=== PATIENT | female | born 1935 | race Caucasian/White ===

== ENCOUNTER → 2017-04-21 11:49 | Outpatient (CLI) | payer MEDICARE, SELFPAY ==
[2017-04-21 14:38] LABS: AST(SGOT) 17 U/L (15-37); Alanine Aminotransfer ALT/SGPT 31 U/L (13-56); Albumin, Serum 3.5 g/dL (3.2-5.0); Alkaline Phosphatase 82 U/L (45-117); Anion Gap 9 (5-15); BUN 21 mg/dL (7-18); BUN/Creat Ratio 21.6 RATIO (10-20); Calcium,Total 9.7 mg/dL (8.5-10.1); Chloride 103 mmol/L (98-107); Creatinine, Serum 0.97 mg/dL (0.55-1.02); EST Glomerular Filtration Rate 59 mL/min (>60); Est Glom Filt Rate - Afr Amer 71 mL/min (>60); Free T3 2.5 pg/mL (2.18-3.98); Globulin 3.5 g/dL (2.2-4.2); Glucose 80 mg/dL (74-106); Potassium 4.2 mmol/L (3.5-5.1); Sodium Level 142 mmol/L (136-145); T4 Free Direct 0.96 ng/dL (0.76-1.46)
== END ==
PROVIDERS: Family Provider Family Medicine; PCP Family Medicine; Visit Provider Internal Medicine Endocrinology, Diabetes & Metabolism
DX: E04.2 Nontoxic multinodular goiter (principal)
CPT/HCPCS: 36415; 80053; 84439; 84443; 84481

== ENCOUNTER → 2017-05-01 09:22 | Outpatient (CLI) | payer MEDICARE, SELFPAY ==
--- NOTE | 2017-05-01 09:25 | US_ITS ---
STUDY: THYROID ULTRASOUND REASON FOR EXAM: Female, 81 years old. Multiple nodules, assess stability. TECHNIQUE: Ultrasound evaluation of the thyroid was performed with real-time and static sosa-scale imaging. COMPARISON: 21 April 2016 FINDINGS: RIGHT LOBE: The right lobe of the thyroid gland measures 4.8 x 2.6 x 2.4 cm. There is a heterogeneous echotexture. Multiple hypoechoic nodules within the upper and mid right thyroid gland measuring 1.4 x 1.5 x 0.7 cm, 0.6 x 0.6 x 0.6 cm with noted peripheral calcification, 0.6 x 0.5 x 0.3 cm, 0.6 x 0.6 x 0.3 cm, and 0.5 x 0.5 x 0.4 cm. LEFT LOBE: The left lobe of the thyroid gland measures 4.9 x 2.7 x 2.2 cm. There is a heterogeneous echotexture. Multiple hypoechoic nodules throughout the thyroid gland are noted measuring 0.6 x 0.5 x 0.6 cm with noted calcification, 1.4 x 1.5 x 0.7 cm, 1.3 x 1.3 x 1.0 cm, 1.1 x 1.2 x 1.0 cm, and 1.4 x 0.9 x 0.8 cm. ISTHMUS: The isthmus measures 5 . The regional lymph nodes are normal. US/Thyroid IMPRESSION: 1. Diffuse hypoechoic nodules of the bilateral heterogeneous thyroid glands as above. Compared to 21 April 2016 there is a similar heterogeneous and nodular appearance. Electronically Signed: Ricardo Albrecht DO at 22:23 EST , Service support ,
== END ==
PROVIDERS: Family Provider Family Medicine; PCP Family Medicine; Visit Provider Internal Medicine Endocrinology, Diabetes & Metabolism
DX: E04.2 Nontoxic multinodular goiter (principal)
CPT/HCPCS: 76536

== ENCOUNTER → 2017-06-14 08:01 | Outpatient (CLI) | payer MEDICARE, SELFPAY ==
--- NOTE | 2017-06-14 08:22 | RAD_ITS ---
STUDY: BARIUM ENEMA. REASON FOR EXAM: Female, 81 years old. 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 Past history of the ovarian and breast cancer. FLUOROSCOPY TIME (if supplied): (0:48) minutes/seconds TECHNIQUE: A investigator welfare film was obtained. Following this, barium was introduced retrograde through the rectum. A barium enema was then performed. COMPARISON: None. FINDINGS: On the investigator welfare film, the gas pattern is unremarkable. There is evidence of multilevel disc space narrowing and spondylosis of the lumbar spine with levoconvex scoliosis. The patient is status post right total hip replacement. Barium was introduced retrograde through the rectum. The patient was unable to retain the barium. The left hemicolon was opacified. No mass lesion or stricture is seen. RAD/Barium Enema No Air Cont IMPRESSION: Limited examination due to patient inability to retain the barium. No significant abnormality is seen. Electronically Signed: Silvino Chris MD at 9:43 EDT Tel [phone], Service support ,
== END ==
PROVIDERS: Family Provider Family Medicine; PCP Family Medicine; Visit Provider Internal Medicine Gastroenterology
DX: K56.699 Other intestinal obstruction unspecified as to partial versus complete obstruction (principal)
CPT/HCPCS: 74270

== ENCOUNTER → 2017-08-21 09:22 | Outpatient (CLI) | payer MEDICARE, SELFPAY ==
[2017-08-21 12:38] LABS: Cholesterol 166 mg/dL (200); High Density Lipoprotein 57 mg/dL; Triglycerides 168 mg/dL; Very Low Density Lipoprotein 34 mg/dL (5-40)
[2017-08-21 12:42] LABS: Hemoglobin A1c 5.4 % (4.2-6.3)
== END ==
PROVIDERS: Family Provider Family Medicine; PCP Family Medicine; Visit Provider Family Medicine
DX: E78.5 Hyperlipidemia, unspecified (principal); R73.09 Other abnormal glucose
CPT/HCPCS: 36415; 80061; 83036

== ENCOUNTER → 2017-11-29 16:24 | Outpatient (CLI) | payer MEDICARE, SELFPAY ==
--- NOTE | 2017-11-29 16:26 | BI_ITS ---
MAMMOGRAPHY - BILATERAL SCREENING REASON FOR EXAM: Female, 81 years old. Routine annual screening examination. PERTINENT HISTORY: Screening-V76.12SReason for Procedure (BI) - PERSONAL HX @ AGE 65 WITH RT LUMPECTOMY, RADIATION, Tamp;amp; TOMOXIFEN - LT STEREO BX 11/21/16 TECHNIQUE: Digital bilateral breast nick (3D mammographic acquisition) in the CC and MLO projections. 2-D mediolateral oblique (MLO) and craniocaudad (CC) views of both breasts were obtained. CAD: Full Field Digital Mammography with Computer Added Detection was performed. COMPARISON: Nov 15 2016 9:57am FINDINGS: Breast Composition: The breasts are heterogeneously dense, which may obscure small masses. Clustering of microcalcification is once again seen in the mid deep portion of the left breast. These most likely are vascular in nature. One cluster has been biopsied on 11/21/2016. No other significant abnormalities are identified. BI/SCREENING MAMM (CAD), BILAT IMPRESSION: Stable bilateral screening mammogram. Yearly follow-up mammogram recommended. (A) ASSESSMENT CATEGORY: BIRADS Category 2: Benign. A letter regarding these results will be sent to the patient by the facility within 30 days. Approximately 10% of breast cancers are not detected by mammography. A normal mammogram should not delay biopsy of a clinically suspicious abnormality. [id number] Electronically Signed: Ras Foster MD at 15:08 EDT Tel , Service support ,
== END ==
PROVIDERS: Family Provider Family Medicine; PCP Family Medicine; Referring Provider Nurse Practitioner Family; Visit Provider Nurse Practitioner Family
DX: Z12.31 Encounter for screening mammogram for malignant neoplasm of breast (principal)
CPT/HCPCS: 77063; 77067

== ENCOUNTER → 2018-02-07 10:55 | Outpatient (CLI) | payer MEDICARE, SELFPAY ==
[2017-11-07 10:28] VITALS: BMI 32.2
--- NOTE | 2018-02-07 11:15 | BD_ITS ---
STUDY: DUAL ENERGY X-RAY ABSORPTIOMETRY / DXA REASON FOR EXAM: Female, 82 years old. The patient is postmenopausal. Loss of height. The patient has a history of breast cancer and ovarian cancer. TECHNIQUE: Bone Mineral Density (BMD) measurements of lumbar spine and left hip were obtained. COMPARISON: Comparison is made with prior study dated December 06, 2011. FINDINGS: Lumbar Spine (L1-L4): g/cm2 (1.116) / T-score (-0.4) / Z-score (1.4) Findings are suggestive of normal bone density with a low fracture risk. Increased thoracic kyphosis. Left Femur Total: g/cm2 (0.780) / T-score (-1.8) / Z-score (0.2) Left Femoral Neck: g/cm2 (0.827) / T-score (-1.5) / Z-score (0.6) The T-Scores on the most recent prior examination were: Lumbar Spine (L1-L4): There has been improvement of bone density since the previous examination. Left Femur Total: which represents a worsening of 7.3%. Right Femur Total: . BD/Dexa Bone Density Study IMPRESSION: The patient is considered osteopenic as outlined below according to World Man Organization (WHO) criteria with a moderate fracture risk. There has been worsening of bone density since the previous examination. Reference Information: The T-score is the number of standard deviations above or below the standard which is normal for young adults at their peak bone mineral density. The World Health Organization (WHO) interprets the T-scores as follows: Above -1 Normal bone density Between -1 and -2.5 Osteopenia Equal to / or below -2.5 Osteoporosis As a practical clinical guideline, osteopenia may be graded as follows: Mild -1 through -1.5 Moderate -1.6 through -2.0 Severe -2.1 through -2.4 The Z-score is the number of standard deviations above or below age-matched controls. A Z-score of less than -1.5 would be considered abnormal. References: 1. NIH Osteoporosis and Related Bone Diseases http://www.osteo.org 2. International Society for Clinical Densitometry http://www.iscd.org 3. National Osteoporosis Foundation http://www.nof.org Electronically Signed: Silvino Chris MD at 9:14 EST Tel [phone], Service support ,
--- OUTSIDE RECORDS SUMMARY | 2018-03-26 13:18 | XMS RPT_ITS ---
:1935 Author Organization OHIP Support Name Relationship Address Phone ELEUTERIO GREGORIA Unavailable [address] + [place] [address] ROMANA, SHADY Unavailable Unavailable + R Unavailable Unavailable Unavailable ELEUTERIO, GREGORIA Unavailable [address] + [place] [address] ROMANA, SHADY Unavailable Unavailable + R Unavailable Unavailable Unavailable ELEUTERIO, GREGORIA Unavailable [address] + [place] [address] ROMANA, SHADY Unavailable Unavailable + R Unavailable Unavailable Unavailable ELEUTERIO, GREGORIA Unavailable [address] + [place] [address] ROMANA, SHADY Unavailable Unavailable + R Unavailable Unavailable Unavailable ELEUTERIO, GREGORIA Unavailable [address] + [place] [address] ROMANA, SHADY Unavailable Unavailable + R Unavailable Unavailable Unavailable ELEUTERIO, GREGORIA Unavailable [address] + [place] [address] ROMANA, SHADY Unavailable Unavailable + R Unavailable Unavailable Unavailable ELEUTERIO, GREGORIA Unavailable [address] + [place] [address] ROMANA, SHADY Unavailable Unavailable + R Unavailable Unavailable Unavailable ELEUTERIO, GREGORIA Unavailable [address] + [place] [address] ROMANA, SHADY Unavailable Unavailable + [place] [address] R Unavailable Unavailable Unavailable ELEUTERIO, GREGORIA Unavailable [address] + [place] [address] ROMANA, SHADY Unavailable Unavailable + [place] [address] R Unavailable Unavailable Unavailable ELEUTERIO, GREGORIA Unavailable [address] + [place] [address] ROMANA, SHADY Unavailable Unavailable + [place] [address] R Unavailable Unavailable Unavailable ELEUTERIO, GREGORIA Unavailable [facility] [address] + [place] [address] ROMANA, SHADY Unavailable Unavailable + [place] [address] R Unavailable Unavailable Unavailable ELEUTERIO, GREGORIA Unavailable [address] + [place] [address] ROMANA, SHADY Unavailable Unavailable + [place] [address] R Unavailable Unavailable Unavailable ELEUTERIO, GREGORIA Unavailable [facility] [address] + [place] [address] ROMANA, SHADY Unavailable . + [place] [address] R Unavailable Unavailable Unavailable Care Team Providers Name Role Phone Heike, Latasha Attending Unavailable Malys, Britany Referring Unavailable Malys, Britany Primary Care Unavailable Heike, Latasha Consulting Unavailable LasMilton mckenziein Attending Unavailable Laskey, Guanaco Referring Unavailable Malys, Britany Primary Care Unavailable Heike, Latasha Attending Unavailable Malys, Britany Primary Care Unavailable Malys, Britany Referring Unavailable Raghunathan, Eulalia N. Attending Unavailable Malys, Britany Primary Care Unavailable Raghunathan, Eulalia N. Attending Unavailable Raghunathan, Eulalia N. Referring Unavailable Malys, Britany Primary Care Unavailable Malys, Britany Attending Unavailable Malys, Britany Primary Care Unavailable Heike, Latasha Attending Unavailable Malys, Britany Referring Unavailable Malys, Britany Primary Care Unavailable Heike, Latasha Consulting Unavailable Jabour, Vincent Attending Unavailable Jabour, Vincent Referring Unavailable Malys, Britany Primary Care Unavailable Heike, Latasha Attending Unavailable Malys, Britany Referring Unavailable Malys, Britany Primary Care Unavailable Heike, Latasha Consulting Unavailable Malys, Britany Attending Unavailable Malys, Britany Referring Unavailable Malys, Britany Primary Care Unavailable Heike, Latasha Attending Unavailable Malys, Britany Referring Unavailable Malys, Britany Primary Care Unavailable Heike, Latasha Consulting Unavailable Heike, Latasha Attending Unavailable Heike, Latasha Referring Unavailable Malys, Britany Primary Care Unavailable Malys, Britany Attending Unavailable Malys, Britany Primary Care Unavailable PROBLEMS PROBLEMS DATE TYPE CONDITION / CODE ATTENDING STATUS SOURCE 03/06/2018 Unknown C56.9 - Malignant Guanaco Keys Active [facility] unspecified ovary Hospital / C56.9(ICD-10) Repository 03/01/2018 Unknown R10.11 - Right Britany Fleming Active [facility] upper quadrant Community pain / Hospital R10.11(ICD-10) Repository 02/13/2018 Unknown Z85.43 - Personal Heike, Latasha Active [facility] history of [facility] malignant neoplasm Hospital of ovary / Repository Z85.43(ICD-10) 02/07/2018 Unknown M81.0 - Britany Fleming Active [facility] Age-related [facility] osteoporosis Hospital without current Repository pathological fracture / M81.0(ICD-10) 11/20/2017 Unknown Z12.31 - Encounter Heike, Latasha Active [facility] for screening Community mammogram for Hospital malignant neoplasm Repository of breast / Z12.31(ICD-10) 11/20/2017 Unknown Z85.3 - Personal Heike, Latasha Active [facility] history of Community malignant neoplasm Hospital of breast / Repository Z85.3(ICD-10) 08/21/2017 Unknown R73.09 - Other Britany Fleming Active [facility] abnormal glucose / Community R73.09(ICD-10) Hospital Repository 08/21/2017 Unknown E78.5 - Britany Fleming Active [facility] Hyperlipidemia, Community unspecified / Hospital E78.5(ICD-10) Repository PROCEDURES PROCEDURES No Procedure Records FoundRESULTS RESULTS ABDOMEN/PELVIS WITH Observed: 03/06/2018 Status: F Source: [place] CONTRAST 1:23 PM [facility] REPOSITORY [facility] Imaging Services [address] [place] [address] Abdomen/Pelvis WITH Contrast MR#: [id number] Acct: [id number] Name: MARIA VICTORIA JENNINGS Rep #: [id number] : 1935 F 82 From: Silvino Chris MD PCP: Britany Fleming DO Status: REG CLI Study: Abdomen/Pelvis WITH Contrast Date of Exam: 03/06/18 Exam# [id number] Ordering Dr: Guanaco Keys MD STUDY: CT ABDOMEN AND PELVIS WITH CONTRAST REASON FOR EXAM: Female, 82 years old. History of ovarian carcinoma. Follow-up examination. RADIATION DOSAGE (If Supplied By Facility): CTDIvol = ( 21.84 ) mGy, DLP = ( 1040.58 ) mGycm TECHNIQUE: Transaxial images were obtained from the dome of the diaphragm to the symphysis pubis with oral contrast. 100ML ml of Isovue 300 contrast was administered. Sagittal and coronal images were reconstructed. Individualized dose optimization techniques were used for this CT. COMPARISON: Comparison is made with prior study dated April 27, 2016. FINDINGS: There is a 1.5 cm calcified granuloma in the left lower lobe. A dual-chamber pacemaker is seen. There is calcification of the mitral valve annulus. There is decreased attenuation of the liver consistent with steatosis. The patient is status post cholecystectomy. There are multiple benign calcified granulomata of the spleen. Normal pancreas. Normal bilateral adrenal glands. Normal right kidney. Normal left kidney. There is a small hiatal hernia. Normal small intestine. Normal colon. The appendix is visualized and appears normal. There is diffuse atherosclerotic calcification of the abdominal aorta, without a demonstrated aneurysm. Normal inferior vena cava. Once again, is evidence of dense coarse calcifications in the left of the mesentery. Once again, there is evidence of stranding and circumferential mesenteric tethering at that site. This is essentially unchanged. Multiple small mesenteric lymph nodes. Normal urinary bladder. There is absence of the uterus consistent with a prior hysterectomy. Normal abdominal wall. There are diffuse degenerative changes of the visualized lumbar spine. Stable grade 1 anterolisthesis of L4 on L5. Status post right total hip replacement. Complete collapse of the L1 vertebrae. CT/Abdomen/Pelvis WITH Contrast IMPRESSION: Stable examination. Electronically Signed: Silvino Chris MD at 13:32 EST Tel [phone], Service support , CC: Britany Fleming DO; Guanaco Keys M.D. Chimney Builder Helper: Signed ONCOLOGY VISIT REPORT Observed: 02/13/2018 Status: F Source: [place] 4:42 PM [facility] [place] [place] REPOSITORY [facility] [place] [place] [address] OFFICE VISIT Date of Service: 02/13/18 1633 MR#: [id number] Acct: [id number] Name: MARIA VICTORIA JENNINGS Rep #: [id number] : 1935 From: Latasha LOPEZ Age/Sex: 82/F Location: OMD Status: Signed Subjective - Date of Service Date of Service:: 02/13/18 - Chief Complaint Follow-up ovarian cancer - History of Present Illness History of Present Illness: MARIA VICTORIA JENNINGS is a very pleasant 80 F with a history for Ms. Aldair is a very pleasant 82-year-old woman with a history for right-sided breast cancer diagnosed in 2001 status post lumpectomy with adjuvant radiation and hormonal therapy, including tamoxifen and anastrozole completed in 2006. The patient had been in her usual state of health; until she was diagnosed with a longstanding history of lymphopenia and ultimately was referred to hematology/oncology in consultation on 06/17/2015. During that visit, the patient had an extensive evaluation by way of CBC, CMP, LDH, uric acid, SPEP, UPEP, beta-2 microglobulin, hepatitis panel, HIV antibody, EBV PCR and flow cytometry, which were all unremarkable with the exception of a mildly-elevated beta- 2 microglobulin level. Otherwise, the patient was noted to have bilateral neck lesions on palpation and was referred for a CT of the neck, chest, abdomen and pelvis in June of 2015, which demonstrated several thyroid nodules, spiculated right-sided breast microcalcifications, omental metastases, and a right adnexal mass. Ca125 returned elevated at 44.5 on 07/22/15. Thus underwent CT guided omental biopsy 08/04/15, pathology of which returned positive for metastatic carcinoma . The patient initiated neoadjuvant chemotherapy with carboplatin AUC 6 and paclitaxel 175 mg/m2 on 08/26/2015, both at 25% dose attenuation given every 21 days and was provided with Neulasta support. Completed cycle 3 of carboplatin/paclitaxel on 10/07/2015 with good tolerance. The patient underwent a hysterectomy and left salpingo-oophorectomy with Dr. Keys on 11/03/2015, which demonstrated exceptional response. She went on to complete 3 cycles of adjuvant carboplatin/paclitaxel 12/09/2015-01/20/2016. CA125 was 5.2 on 11/03/2016. She declined referral to genetic counseling. She was found to have abnormal Left abnormal mammogram in September 2016, diagnostic mammogram 11/15/16 BIRADS category 4. Underwent stereotactic left breast biopsy 11/21/[address] Lopez, which proved negative for malignancy. - Interval History Patient is presenting to clinic today for routine 3-month follow-up and denies any concerns related to today's visit. Specifically she denies headaches, dysphagia, chest pain, shortness of breath, cough, abdominal pain, bloating, changes in her bowel habits and any incidence of vaginal bleeding. Patient reports she has follow-up appointment with Dr. Keys tomorrow. - Past Medical/Social History Past Medical History Past Medical History: Depression,Hyperlipidemia,Hypertension, Osteopenia Cancer: Breast cancer,Ovarian cancer Past Surgical History Surgical: Cataract extraction,Cholecystectomy,Hip replacement,Hysterectomy,Knee replacement,Port placement Other Surgical History: Laminectomy and fusion L4-5 Left foot surgery Back surgery synovial cyst Right arm lymphectomy Right breast excisional Bx L wrist repair Family History Paternal Past Medical History: Heart disease,Hypertension Maternal Past Medical History: Hypertension,Stroke Social History Social History: No changes Smoking Status Never smoker Review of Systems Constitutional:: Reports: Fatigue. Denies: Fever, Sweats, Weight loss, Appetite change, Chills Cardiovascular:: Denies: Chest pain, Palpitations, Dyspnea on exertion, Orthopnea, PND, Shortness of breath Respiratory: Denies: Cough, Hemoptysis, Shortness of Breath, Wheezing Gastrointestinal:: Denies: Abdominal pain, Nausea, Vomiting, Diarrhea, Constipation, Hematochezia Genitourinary: Denies: Dysuria, Hematuria, 15, Flank pain Musculoskeletal:: Denies: Back pain, Myalgia, Arthralgia Skin: Denies: Rash, Skin Changes, Wounds Neurological:: Denies: Headache, Dizziness, Numbness, Tingling, Visual changes, Tinnitus, Hearing loss Psychiatric: Denies: Anxiety, Depression, Homicidal Ideations, Suicidal Ideations Vital Signs Height 5 ft 2 in Weight: 176 lb 3.2 oz Weight in Pounds 176.2 lbs Pulse Ox 96 - Physical Exam General: Alert, Oriented x3, No apparent distress HEENT: Atraumatic, PERRLA, EOMI, Normocephalic, - - Wears glasses Oropharynx:: Negative for: Dry mucosa, Ulcerated lesions Neck:: Supple, Trachea midline. Negative for: JVD, bilateral Cardiac:: Regular rate, Regular rhythm, Normal S1, Normal S2. Negative for: Murmur Lungs: Clear to auscultation, Excusion symmetrical. Negative for: Rhonchi, Wheezes Abdomen:: Bowel sounds x 4, Soft, Non-tender, Non-distended. Negative for: Hepatosplenomegaly Extremities:: Negative for: Cyanosis, Edema Neurological: Neuro grossly intact Skin:: Negative for: Lesions, Rash, Petechiae, Ecchymosis Psychiatric:: Appropriate affect, Euthymic Lymphatics:: Negative for: Cervical lymphadenopathy, Supraclavicular lymphadenopathy, Axillary lymphadenopathy Laboratory Data: 02/02/2018 CA 125 8.9 Assessment and Plan Ms. Maria Victoria Jennings is a very pleasant 81-year-old woman with a history for right-sided breast cancer status post lumpectomy and adjuvant radiation with anti-hormonal therapy diagnosed in 2001. She demonstrated evidence of metastatic ovarian carcinoma on 08/04/2015 and was initiated on neoadjuvant carboplatin with AUC of 6 and paclitaxel 175 mg/m2, both at 25% dose attenuations every 21 days beginning 08/26/2015. The patient received 3 cycles of neoadjuvant chemotherapy followed by interval debulking surgery on 11/03/2015 under the care of Dr. Keys with an exceptional response. She completed an additional 3 cycles of adjuvant carboplatin and paclitaxel on 01/20/2016. 1. Ovarian carcinoma -- CA125 is 8.9. A copy will be sent to Dr. Keys along with today's note. She is compliant with recommendations for pelvic examinations q3 mo per Dr. Keys and scheduled 02/14/2018. She is otherwise not endorsing any signs or symptoms concerning for reoccurrence at this time. 2. History of right sided breast cancer- Diagnostic mammogram of left breast obtained 11/15/2016 BI-RADS Category 4. Underwent stereotactic breast biopsy, left 11/21/2016. Pathology was negative for malignancy. Screening mammogram 11/29/17 BI RADS category 2. Encouraged to continue BSE and promptly report any changes. 3. Iron deficiency- Anemia resolved as evidenced by hemoglobin of 12.1. 4. Thyroid Nodules- Patient under the care of warehouse lead, Dr. Contreras. Plans repeat thyroid US March 2018. RTC in 3 months with CBC/CMP/CA125 level prior, sooner if issues arise. Latasha Burroughs, MSN, AUTOMATIC TIRE TESTER-C, AOCNP Medications: Prescriptions This Visit Medication Instructions Recorded Coenzyme Q-10 1 tab PO TID 05/23/16 Primary Care Provider: Britany Fleming DO Referring Provider: - Problem List (1) Ovarian cancer Status: Chronic Qualifiers: Laterality: right Qualified Code(s): C56.1 - Malignant neoplasm of right ovary (2) Iron deficiency Status: Acute (3) Thyroid nodule Status: Chronic 02/13/18 1642 <Electronically signed by Latasha JULIANC> Date Latasha LOPEZ Cosigner Signature: Date (if applicable) CC: DEXA BONE DENSITY Observed: 02/07/2018 Status: F Source: D [place] STUDY 10:59 AM [facility] [place], [place] REPOSITORY [facility] Imaging Services [address] [place] [address] Dexa Bone Density Study MR#: [id number] Acct: [id number] Name: MARIA VICTORIA JENNINGS Rep #: [id number] : 1935 F 82 From: Silvino Chris MD PCP: Britany Fleming DO Status: [facility] Study: Dexa Bone Density Study Date of Exam: 02/07/18 Exam# [id number] Ordering Dr: Britany Fleming DO STUDY: DUAL ENERGY X-RAY ABSORPTIOMETRY / DXA REASON FOR EXAM: Female, 82 years old. The patient is postmenopausal. Loss of height. The patient has a history of breast cancer and ovarian cancer. TECHNIQUE: Bone Mineral Density (BMD) measurements of lumbar spine and left hip were obtained. COMPARISON: Comparison is made with prior study dated December 06, 2011. FINDINGS: Lumbar Spine (L1-L4): g/cm2 (1.116) / T-score (-0.4) / Z-score (1.4) Findings are suggestive of normal bone density with a low fracture risk. Increased thoracic kyphosis. Left Femur Total: g/cm2 (0.780) / T-score (-1.8) / Z- score (0.2) Left Femoral Neck: g/cm2 (0.827) / T-score (-1.5) / Z- score (0.6) The T-Scores on the most recent prior examination were: Lumbar Spine (L1-L4): There has been improvement of bone density since the previous examination. Left Femur Total: which represents a worsening of 7.3%. Right Femur Total: . BD/Dexa Bone Density Study IMPRESSION: The patient is considered osteopenic as outlined below according to World Man Organization (WHO) criteria with a moderate fracture risk. There has been worsening of bone density since the previous examination. Reference Information: The T-score is the number of standard deviations above or below the standard which is normal for young adults at their peak bone mineral density. The World Health Organization (WHO) interprets the T-scores as follows: Above -1 Normal bone density Between -1 and -2.5 Osteopenia Equal to / or below -2.5 Osteoporosis As a practical clinical guideline, osteopenia may be graded as follows: Mild -1 through -1.5 Moderate -1.6 through -2.0 Severe -2.1 through -2.4 The Z-score is the number of standard deviations above or below age-matched controls. A Z-score of less than -1.5 would be considered abnormal. References: 1. NIH Osteoporosis and Related Bone Diseases http://www.osteo.org 2. International Society for Clinical Densitometry http://www.iscd.org 3. National Osteoporosis Foundation http://www.nof.org Electronically Signed: Silvino Chris MD at 9:14 EST Tel [phone], Service support , CC: Britany Fleming DO Chimney Builder Helper: Signed CBC W/DIFF, AUTOMATED Collected: 02/02/2018 Status: F Source: [place] 9:11 AM [facility] [place] [place] REPOSITORY Order Comment: Reason for Laboratory Test . TYPE CODE TESTS RESULT OUT OF RANGE REFERENCE UNITS LAB L100.1000 4.4-11.0 K/mm3 Normal WBC 6.4 LAB L100.1200 4.2-5.4 M/mm3 Low RBC 3.97 LAB L100.1300 12.0-15.0 g/dl Normal HGB 12.1 LAB L100.1400 37-47 % Low HCT 36.3 LAB L100.1500 81-99 fL Normal MCV 91.4 LAB L100.1600 27.0-32.0 pg Normal MCH 30.5 LAB L100.1700 32-36 g/gl Normal MCHC 33.3 LAB L100.1810 11.6-14.6 % Normal RDW CV 13.7 LAB L100.1820 35.1-43.9 fl High RDW SD 45.1 LAB L100.1900 150-450 K/mm3 Normal PLT 216 LAB L100.2000 6.2-12.0 fl Normal MPV 9.6 LAB L100.2100 47-70 % High NEUT% 78.3 LAB L100.2200 19-41 % Low LY% 5.9 LAB L100.2300 0-10 % High MONO% 12.3 LAB L100.2400 0-5 % Normal EO% 2.6 LAB L100.2500 0-1 % Normal BASO% 0.6 LAB L100.2550 0.0-0.9 % Normal IM GRAN % 0.300 Result Comment: IG% - Immature Granulocytes (promyelocytes, myelocytes and metamyelocytes) > 1% indicates that a LEFT SHIFT is Present. LAB L100.2620 2.0-7.7 X10 3/uL Normal Absolute Neut 5.0 LAB L100.2720 0.83-4.51 X10 3/ul Low Absolute Lymph 0.38 Performed By: #### L100.0100 #### [facility] [address] [place], [address] COMPREHENSIVE METABOLIC Collected: 02/02/2018 Status: F Source: [place] [facility] 9:11 AM [facility] [place] [place] REPOSITORY Order Comment: Reason for Laboratory Test . TYPE CODE TESTS RESULT OUT OF RANGE REFERENCE UNITS LAB L501.0100 74-106 mg/dL Normal GLU 88 Result Comment: Please note revised GLUCOSE reference range effective 2017. LAB L501.1000 7-18 mg/dL High BUN 24 LAB L501.1100 0.55-1.02 mg/dL Normal CREAT,SERUM 1.00 Result Comment: The validity of the calculated GFR AND GFRAA in patients over 70 years has not been determined. Clinical correlation is essential. LAB L501.1110 >60 mL/min Low EST GFR 57 Result Comment: Non- GFR Calc LAB L501.1115 >60 mL/min Normal EST GFR - AA 69 Result Comment: GFR Calc LAB L501.1255 ml/min Normal Estimated CRCL 35.49 LAB L501.1300 10-20 RATIO High BUN/CRE 24.0 LAB L501.1500 6.4-8. g/dL Normal 2 T PROT 6.8 LAB L501.1800 3.2-5. g/dL Low 0 ALB 3.1 LAB L501.1950 2.2-4. g/dL Normal 2 GLOB 3.7 LAB L501.2000 0.9-2. RATIO Low 4 A/G 0.8 LAB L501.2200 8.5-10 mg/dL Normal .1 CA 9.3 LAB L501.4100 15-37 U/L Normal AST 19 LAB L501.4305 45-117 U/L Normal ALK P 84 LAB L501.4405 13-56 U/L Normal ALT 31 LAB L501.4600 0.20-1 mg/dL Normal .00 T BILI 0.30 LAB L501.5300 136-14 mmol/L Normal 5 NA 141 LAB L501.5600 3.5-5. mmol/L Normal 1 K 4.0 LAB L501.5900 98-107 mmol/L Normal CL 106 LAB L501.6100 21.0-3 mmol/L Normal 2.0 CO2 26.0 LAB L501.6200 5-15 Normal GAP 9 Performed By: #### L500.4050 #### [facility] [address] [place], [address] CANCER ANTIGEN 125 Collected: 02/02/2018 Status: F Source: [place] 9:11 AM [facility] [place] [place] REPOSITORY Order Comment: Reason for Laboratory Test . TYPE CODE TESTS RESULT OUT OF RANGE REFERENCE UNITS LAB L3100.5000 0.0-38.1 U/mL Normal CA125 8.9 2303 Result Comment: Viadeo ECLIA methodology Performed at: [facility] [place] [address] [id number] Clinical Rehabilitation Aide: Larry Saldaña PhD, Phone: [phone] Performed By: #### L3100.5000 #### [facility] (refer to report for specific site) refer to report for address and phone number SCREENING MAMM (CAD), Observed: 11/29/2017 Status: F Source: [place] BIL[place] 4:26 PM [facility] [place] [place] REPOSITORY [facility] Imaging Services [address] [place] [address] SCREENING MAMM (CAD), BILAT MR#: [id number] Acct: [id number] Name: MARIA VICTORIA JENNINGS Rep #: [id number] : 1935 F 81 From: Ras Foster MD PCP: Britany Fleming DO Status: REG CLI Study: SCREENING MAMM (CAD), BILAT Date of Exam: 11/29/17 Exam# [id number] Ordering Dr: Latasha Burroughs INPATIENT PHARMACIST-C MAMMOGRAPHY - BILATERAL SCREENING REASON FOR EXAM: Female, 81 years old. Routine annual screening examination. PERTINENT HISTORY: Screening-V76.12SReason for Procedure (BI) - PERSONAL HX @ AGE 65 WITH RT LUMPECTOMY, RADIATION, Tamp;amp; TOMOXIFEN - LT STEREO BX 11/21/16 TECHNIQUE: Digital bilateral breast nick (3D mammographic acquisition) in the CC and MLO projections. 2-D mediolateral oblique (MLO) and craniocaudad (CC) views of both breasts were obtained. CAD: Full Field Digital Mammography with Computer Added Detection was performed. COMPARISON: Nov 15 2016 9:57am FINDINGS: Breast Composition: The breasts are heterogeneously dense, which may obscure small masses. Clustering of microcalcification is once again seen in the mid deep portion of the left breast. These most likely are vascular in nature. One cluster has been biopsied on 11/21/2016. No other significant abnormalities are identified. BI/SCREENING MAMM (CAD), BILAT IMPRESSION: Stable bilateral screening mammogram. Yearly follow-up mammogram recommended. (A) ASSESSMENT CATEGORY: BIRADS Category 2: Benign. A letter regarding these results will be sent to the patient by the facility within 30 days. Approximately 10% of breast cancers are not detected by mammography. A normal mammogram should not delay biopsy of a clinically suspicious abnormality. [id number] Electronically Signed: Ras Foster MD at 15:08 EDT Tel , Service support , CC: Britany Fleming DO; Latasha Burroughs NP Chimney Builder Helper: Signed ONCOLOGY VISIT REPORT Observed: 11/07/2017 Status: F Source: [place] 12:01 PM [facility] [place] [place] REPOSITORY [facility] [place] [address] [place] [address] OFFICE VISIT Date of Service: 11/07/17 1020 MR#: [id number] Acct: [id number] Name: MARIA VITCORIA JENNINGS Rep #: [id number] : 1935 From: Latasha Burroughs NP-Juanito Age/Sex: 81/F Location: OMD Status: Signed Subjective - Date of Service Date of Service:: 11/07/17 - Chief Complaint Follow-up ovarian cancer - History of Present Illness History of Present Illness: MARIA VICTORIA JENNINGS is a very pleasant 80 F with a history for MsBria Jennings is a very pleasant 81-year-old woman with a history for right-sided breast cancer diagnosed in 2001 status post lumpectomy with adjuvant radiation and hormonal therapy, including tamoxifen and anastrozole completed in 2006. The patient had been in her usual state of health; until she was diagnosed with a longstanding history of lymphopenia and ultimately was referred to hematology/oncology in consultation on 06/17/2015. During that visit, the patient had an extensive evaluation by way of CBC, CMP, LDH, uric acid, SPEP, UPEP, beta-2 microglobulin, hepatitis panel, HIV antibody, EBV PCR and flow cytometry, which were all unremarkable with the exception of a mildly-elevated beta- 2 microglobulin level. Otherwise, the patient was noted to have bilateral neck lesions on palpation and was referred for a CT of the neck, chest, abdomen and pelvis in June of 2015, which demonstrated several thyroid nodules, spiculated right-sided breast microcalcifications, omental metastases, and a right adnexal mass. Ca125 returned elevated at 44.5 on 07/22/15. Thus underwent CT guided omental biopsy 08/04/15, pathology of which returned positive for metastatic carcinoma . The patient initiated neoadjuvant chemotherapy with carboplatin AUC 6 and paclitaxel 175 mg/m2 on 08/26/2015, both at 25% dose attenuation given every 21 days and was provided with Neulasta support. Completed cycle 3 of carboplatin/paclitaxel on 10/07/2015 with good tolerance. The patient underwent a hysterectomy and left salpingo-oophorectomy with Dr. Keys on 11/03/2015, which demonstrated exceptional response. She went on to complete 3 cycles of adjuvant carboplatin/paclitaxel 12/09/2015-01/20/2016. CA125 was 5.2 on 11/03/2016. She declined referral to genetic counseling. She was found to have abnormal Left abnormal mammogram in September 2016, diagnostic mammogram 11/15/16 BIRADS category 4. Underwent stereotactic left breast biopsy 11/21/[address] Lopez, which proved negative for malignancy. - Interval History The patient is presenting to clinic for routine 3 mo follow up and denies any concerns r/t today's visit. Specifically denies weight loss, SOB, abd pain, bloating, new onset bone pain, vaginal bleeding and swelling/pain in the lower extremities. Admits to dry cough in the automation tender hours. Describes as need to frequency clear her throat, she attributes to sinus drainage. Has an appointment with Dr. Keys next week. 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 - Past Medical/Social History Past Medical History Past Medical History: Depression,Hyperlipidemia,Hypertension, Osteopenia Cancer: Breast cancer,Ovarian cancer Past Surgical History Surgical: Cataract extraction,Cholecystectomy,Hip replacement,Hysterectomy,Knee replacement,Port placement Other Surgical History: Laminectomy and fusion L4-5 Left foot surgery Back surgery synovial cyst Right arm lymphectomy Right breast excisional Bx L wrist repair Family History Paternal Past Medical History: Heart disease,Hypertension Maternal Past Medical History: Hypertension,Stroke Social History Social History: No changes Smoking Status Never smoker Review of Systems Constitutional:: Denies: Fever, Sweats, Weight loss, Appetite change, Chills Cardiovascular:: Denies: Chest pain, Palpitations, Dyspnea on exertion, Orthopnea, PND, Shortness of breath Respiratory: Denies: Cough, Hemoptysis, Shortness of Breath, Wheezing Gastrointestinal:: Denies: Abdominal pain, Nausea, Vomiting, Diarrhea, Constipation, Melena, Hematochezia Genitourinary: Denies: Dysuria, Hematuria, Urinary frequency, Abnormal vaginal bleeding, Flank pain Musculoskeletal:: Denies: Back pain, Myalgia, Arthralgia Skin: Denies: Rash, Skin Changes, Wounds Neurological:: Denies: Headache, Dizziness, Numbness, Tingling, Visual changes, Tinnitus, Hearing loss Psychiatric: Reports: Depression - improved. Denies: Anxiety, Homicidal Ideations, Suicidal Ideations Vital Signs Height 5 ft 2 in Weight: 175 lb 12.8 oz Weight in Pounds 175.8 lbs Pulse Ox 96 - Physical Exam General: Alert, Oriented x3, No apparent distress HEENT: Atraumatic, Normocephalic, Thyromegaly, - - wears glasses Oropharynx:: Negative for: Dry mucosa, Ulcerated lesions Neck:: Supple, Trachea midline. Negative for: JVD, bilateral Cardiac:: Regular rate, Regular rhythm, Normal S1, Normal S2. Negative for: Murmur Lungs: Clear to auscultation, Excusion symmetrical. Negative for: Rhonchi, Wheezes Abdomen:: Bowel sounds x 4, Soft, Non-tender, Non-distended. Negative for: Hepatosplenomegaly Extremities:: Edema - trace BLE, R=L. Negative for: Cyanosis Neurological: Neuro grossly intact Skin:: Negative for: Lesions, Rash, Petechiae, Ecchymosis Psychiatric:: Appropriate affect, Euthymic Lymphatics:: Negative for: Cervical lymphadenopathy, Supraclavicular lymphadenopathy, Axillary lymphadenopathy, Inguinal lymphadenopathy Assessment and Plan Ms. Maria Victoria Jennings is a very pleasant 81-year-old woman with a history for right-sided breast cancer status post lumpectomy and adjuvant radiation with anti-hormonal therapy diagnosed in 2001. She demonstrated evidence of metastatic ovarian carcinoma on 08/04/2015 and was initiated on neoadjuvant carboplatin with AUC of 6 and paclitaxel 175 mg/m2, both at 25% dose attenuations every 21 days beginning 08/26/2015. The patient received 3 cycles of neoadjuvant chemotherapy followed by interval debulking surgery on 11/03/2015 under the care of Dr. Keys with an exceptional response. She completed an additional 3 cycles of adjuvant carboplatin and paclitaxel on 01/20/2016. 1. Ovarian carcinoma -- CA125 is 7.1. A copy will be sent to Dr. Keys along with today's note. She is compliant with recommendations for pelvic examinations q3 mo per Dr. Keys and scheduled 11/14/18. She is otherwise not endorsing any signs or symptoms concerning for reoccurrence at this time. 2. History of right sided breast cancer- Diagnostic mammogram of left breast obtained 11/15/2016 BI-RADS Category 4. Underwent stereotactic breast biopsy, left 11/21/2016. Pathology was negative for malignancy. Strongly recommend BRCA testing. Orders provided for bilat screening mammogram. Encouraged to continue BSE and promptly report any changes. 3. Iron deficiency- Anemia resolved as evidenced by hemoglobin of 12.3. 4. Thyroid Nodules- Patient under the care of warehouse lead, Dr. Contreras. Plans repeat thyroid US March 2018. RTC in 3 months with CBC/CMP/CA125 level prior, sooner if issues arise. Latasha Burroughs, MSN, AUTOMATIC TIRE TESTER-C, AOCNP Medications: Prescriptions This Visit Medication Instructions Recorded Coenzyme Q-10 1 tab PO TID 05/23/16 Primary Care Provider: Britany Fleming DO Referring Provider: - Problem List (1) Ovarian cancer Status: Chronic Qualifiers: Laterality: right Qualified Code(s): C56.1 - Malignant neoplasm of right ovary (2) Iron deficiency Status: Acute (3) Thyroid nodule Status: Chronic (4) Colon cancer screening Status: Acute 11/07/17 1201 <Electronically signed by Latasha Burroughs NP-C> Date Latasha Burroughs INPATIENT PHARMACIST-C Cosigner Signature: Date (if applicable) CC: CBC W/DIFF, AUTOMATED Collected: 11/03/2017 Status: F Source: [facility] 8:20 AM [facility] [place], [place] REPOSITORY Order Comment: Reason for Laboratory Test . TYPE CODE TESTS RESULT OUT OF RANGE REFERENCE UNITS LAB L100.1000 4.4-11.0 K/mm3 Normal WBC 5.4 LAB L100.1200 4.2-5.4 M/mm3 Low RBC 4.18 LAB L100.1300 12.0-15.0 g/dl Normal HGB 12.3 LAB L100.1400 37-47 % Normal HCT 38.3 LAB L100.1500 81-99 fL Normal MCV 91.6 LAB L100.1600 27.0-32.0 pg Normal MCH 29.4 LAB L100.1700 32-36 g/gl Normal MCHC 32.1 LAB L100.1810 11.6-14.6 % Normal RDW CV 13.9 LAB L100.1820 35.1-43.9 fl High RDW SD 45.6 LAB L100.1900 150-450 K/mm3 Normal PLT 187 LAB L100.2000 6.2-12.0 fl Normal MPV 9.6 LAB L100.2100 47-70 % High NEUT% 77.1 LAB L100.2200 19-41 % Low LY% 6.7 LAB L100.2300 0-10 % High MONO% 12.1 LAB L100.2400 0-5 % Normal EO% 3.3 LAB L100.2500 0-1 % Normal BASO% 0.6 LAB L100.2550 0.0-0.9 % Normal IM GRAN % 0.200 Result Comment: IG% - Immature Granulocytes (promyelocytes, myelocytes and metamyelocytes) > 1% indicates that a LEFT SHIFT is Present. LAB L100.2620 2.0-7.7 X10 3/uL Normal Absolute Neut 4.2 LAB L100.2720 0.83-4.51 X10 3/ul Low Absolute Lymph 0.36 Performed By: #### L100.0100 #### [facility] [address] [place], [place], [address] COMPREHENSIVE METABOLIC Collected: 11/03/2017 Status: F Source: [facility] 8:20 AM [facility] [place], [place] REPOSITORY Order Comment: Reason for Laboratory Test . TYPE CODE TESTS RESULT OUT OF RANGE REFERENCE UNITS LAB L501.0100 74-106 mg/dL Normal GLU 93 Result Comment: Please note revised GLUCOSE reference range effective 2017. LAB L501.1000 7-18 mg/dL High BUN 26 LAB L501.1100 0.55-1.02 mg/dL High CREAT,SERUM 1.06 Result Comment: The validity of the calculated GFR AND GFRAA in patients over 70 years has not been determined. Clinical correlation is essential. LAB L501.1110 >60 mL/min Low EST GFR 53 Result Comment: Non- GFR Calc LAB L501.1115 >60 mL/min Normal EST GFR - AA 64 Result Comment: GFR Calc LAB L501.1255 ml/min Normal Estimated CRCL 34.04 LAB L501.1300 10-20 RATIO High BUN/CRE 24.5 LAB L501.1500 6.4-8. g/dL Normal 2 T PROT 6.9 LAB L501.1800 3.2-5. g/dL Low 0 ALB 3.1 LAB L501.1950 2.2-4. g/dL Normal 2 GLOB 3.8 LAB L501.2000 0.9-2. RATIO Low 4 A/G 0.8 LAB L501.2200 8.5-10 mg/dL Normal .1 CA 9.9 LAB L501.4100 15-37 U/L Normal AST 26 Result Comment: Slight Hemolysis, Result may be falsely increased. LAB L501.4305 45-117 U/L Normal ALK P 82 LAB L501.4405 13-56 U/L Normal ALT 29 LAB L501.4600 0.20-1.00 mg/dL Normal T BILI 0.30 LAB L501.5300 136-145 mmol/L Normal NA 141 LAB L501.5600 3.5-5.1 mmol/L Normal K 4.2 Result Comment: Slight Hemolysis, Result may be falsely increased. LAB L501.5900 98-107 mmol/L Normal CL 105 LAB L501.6100 21.0-32.0 mmol/L Normal CO2 28.0 LAB L501.6200 5-15 Normal 8 GAP Performed By: #### L500.4050 #### [facility] [address] [place], [address] CANCER ANTIGEN 125 Collected: 11/03/2017 Status: F Source: [facility] 8:20 AM [facility] [place], [place] REPOSITORY Order Comment: Reason for Laboratory Test . TYPE CODE TESTS RESULT OUT OF RANGE REFERENCE UNITS LAB L3100.5000 0.0-38.1 U/mL Normal CA125 7.1 2303 Result Comment: Viadeo ECLIA methodology Performed at: [facility] [address] [id number] Clinical Rehabilitation Aide: Larry Saldaña PhD, Phone: [phone] Performed By: #### L3100.5000 #### [facility] (refer to report for specific site) refer to report for address and phone number LIPID PROFILE Collected: 08/21/2017 Status: F Source: [facility] 9:28 AM [facility] [place], [place] REPOSITORY TYPE CODE TESTS RESULT OUT OF RANGE REFERENCE UNITS LAB L501.4900 200 mg/dL Normal CHOL 166 Result Comment: <200 mg/dL Desirable 200-240 mg/dL Borderline >240 mg/dL High Risk LAB L501.5000 mg/dL Normal TRIG 168 Result Comment: The drugs N-Acetylcysteine and Metamizole may falsely depress this assay. Serum Triglycerides Reference Interval Normal <150 mg/dL Borderline high 150 - 199 mg/dL High 200 - 499 mg/dL Very High > or = 500 mg/dL LAB L501.6400 mg/dL Normal HDL 57 Result Comment: The drugs N-Acetylcysteine and Metamizole may falsely depress this assay. Reference Range HDL <40 mg/dL Low HDL Cholesterol HDL >or= 60 mg/dL High HDL Cholesterol LAB L501.6500 0-130 mg/dL Normal LDL 75 LAB L501.6600 5-40 mg/dL Normal VLDL 34 Performed By: #### L500.4100 #### [facility] [address] [place], [address] HEMOGLOBIN A1C Collected: 08/21/2017 Status: F Source: [facility] 9:28 AM [facility] [place], [place] REPOSITORY TYPE CODE TESTS RESULT OUT OF RANGE REFERENCE UNITS LAB L501.9985 4.2-6.3 % Normal HGB A1C 5.4 Performed By: #### L501.9985 #### [facility] [address] [place], [address] ONCOLOGY VISIT REPORT Observed: 08/09/2017 Status: F Source: [facility] 12:12 PM [facility] [place], [place] REPOSITORY [facility] [place] [address] OFFICE VISIT Date of Service: 08/08/17 1430 MR#: [id number] Acct: [id number] Name: MARIA VICTORIA JENNINGS Rep #: [id number] : 1935 From: Latasha LOPEZ Age/Sex: 81/F Location: OMD Status: Signed Subjective - Date of Service Date of Service:: 08/08/17 - Chief Complaint Follow-up ovarian cancer - History of Present Illness History of Present Illness: MARIA VICTORIA JENNINGS is a very pleasant 80 F with a history for MsBria Jennings is a very pleasant 81-year-old woman with a history for right-sided breast cancer diagnosed in 2001 status post lumpectomy with adjuvant radiation and hormonal therapy, including tamoxifen and anastrozole completed in 2006. The patient had been in her usual state of health; until she was diagnosed with a longstanding history of lymphopenia and ultimately was referred to hematology/oncology in consultation on 06/17/2015. During that visit, the patient had an extensive evaluation by way of CBC, CMP, LDH, uric acid, SPEP, UPEP, beta-2 microglobulin, hepatitis panel, HIV antibody, EBV PCR and flow cytometry, which were all unremarkable with the exception of a mildly-elevated beta- 2 microglobulin level. Otherwise, the patient was noted to have bilateral neck lesions on palpation and was referred for a CT of the neck, chest, abdomen and pelvis in June of 2015, which demonstrated several thyroid nodules, spiculated right-sided breast microcalcifications, omental metastases, and a right adnexal mass. Ca125 returned elevated at 44.5 on 07/22/15. Thus underwent CT guided omental biopsy 08/04/15, pathology of which returned positive for metastatic carcinoma . The patient initiated neoadjuvant chemotherapy with carboplatin AUC 6 and paclitaxel 175 mg/m2 on 08/26/2015, both at 25% dose attenuation given every 21 days and was provided with Neulasta support. Completed cycle 3 of carboplatin/paclitaxel on 10/07/2015 with good tolerance. The patient underwent a hysterectomy and left salpingo-oophorectomy with Dr. Keys on 11/03/2015, which demonstrated exceptional response. She went on to complete 3 cycles of adjuvant carboplatin/paclitaxel 12/09/2015-01/20/2016. CA125 was 5.2 on 11/03/2016. She declined referral to genetic counseling. She was found to have abnormal Left abnormal mammogram in September 2016, diagnostic mammogram 11/15/16 BIRADS category 4. Underwent stereotactic left breast biopsy 11/21/[address] Lopez, which proved negative for malignancy. - Interval History The patient is presenting to clinic for 3 mo surveillance visit. She denies any outstanding complaints since she was evaluated in April, although reports she has established care with Dr. Mariee and underwent a barium enema. States imaging didn't show anything and Dr. Mariee recommended a colonoscopy. She has not yet scheduled a date for scope. Specifically denies weight loss, decreased appetite, cough, SOB, abdominal pain, changes in her bowel habits, swelling/pain of her extremities and vaginal bleeding/discharge. Has appt for pelvic examination with Dr. Keys on 08/10/17. - Past Medical/Social History Past Medical History Past Medical History: Depression,Hyperlipidemia,Hypertension, Osteopenia Cancer: Breast cancer,Ovarian cancer Past Surgical History Surgical: Cataract extraction,Cholecystectomy,Hip replacement,Hysterectomy,Knee replacement,Port placement Other Surgical History: Laminectomy and fusion L4-5 Left foot surgery Back surgery synovial cyst Right arm lymphectomy Right breast excisional Bx L wrist repair Family History Paternal Past Medical History: Heart disease,Hypertension Maternal Past Medical History: Hypertension,Stroke Social History Social History: No changes Smoking Status Never smoker Review of Systems Constitutional:: Denies: Fever, Sweats, Weight loss, Appetite change, Chills Cardiovascular:: Denies: Chest pain, Palpitations, Dyspnea on exertion, Orthopnea, PND, Shortness of breath Respiratory: Denies: Cough, Hemoptysis, Shortness of Breath, Wheezing Gastrointestinal:: Denies: Abdominal pain, Nausea, Vomiting, Diarrhea, Constipation, Hematochezia Genitourinary: Denies: Dysuria, Hematuria, 15, Flank pain Musculoskeletal:: Denies: Back pain, Myalgia, Arthralgia Skin: Denies: Rash, Skin Changes, Wounds Neurological:: Denies: Headache, Dizziness, Visual changes, Tinnitus, Hearing loss Psychiatric: Denies: Anxiety, Depression, Homicidal Ideations, Suicidal Ideations Vital Signs Height 5 ft 2 in Weight: 175 lb 12.8 oz Weight in Pounds 175.8 lbs Pulse Ox 96 - Physical Exam General: Alert, Oriented x3, No apparent distress HEENT: Atraumatic, PERRLA, EOMI, Normocephalic, - - wears glasses Oropharynx:: Negative for: Dry mucosa, Ulcerated lesions Neck:: Supple, Trachea midline. Negative for: JVD, bilateral Cardiac:: Regular rate, Regular rhythm, Normal S1, Normal S2. Negative for: Murmur Lungs: Clear to auscultation, Excusion symmetrical. Negative for: Rhonchi, Wheezes Abdomen:: Bowel sounds x 4, Soft, Non-tender, Non-distended. Negative for: Hepatosplenomegaly Extremities:: Negative for: Cyanosis, Edema Neurological: Neuro grossly intact Skin:: Negative for: Lesions, Rash, Petechiae, Ecchymosis Psychiatric:: Appropriate affect, Euthymic Lymphatics:: Negative for: Cervical lymphadenopathy, Supraclavicular lymphadenopathy, Axillary lymphadenopathy Laboratory Data: Laboratory Tests WBC 5.5 (4.4-11.0) K/mm3 RBC 4.08 L (4.2-5.4) M/mm3 Hgb 12.2 (12.0-15.0) g/dl Hct 37.0 (37-47) % Assessment and Plan Ms. Maria Victoria Jennings is a very pleasant 81-year-old woman with a history for right-sided breast cancer status post lumpectomy and adjuvant radiation with anti-hormonal therapy diagnosed in 2001. She demonstrated evidence of metastatic ovarian carcinoma on 08/04/2015 and was initiated on neoadjuvant carboplatin with AUC of 6 and paclitaxel 175 mg/m2, both at 25% dose attenuations every 21 days beginning 08/26/2015. The patient received 3 cycles of neoadjuvant chemotherapy followed by interval debulking surgery on 11/03/2015 under the care of Dr. Keys with an exceptional response. She completed an additional 3 cycles of adjuvant carboplatin and paclitaxel on 01/20/2016. 1. Ovarian carcinoma -- CA125 is pending. She will be called and a copy sent to Dr. Keys when result becomes available. She is compliant with recommendations for pelvic examinations q3 mo per Dr. Keys and scheduled 08/10/17. She is otherwise not endorsing any signs or symptoms concerning for reoccurrence at this time. 2. History of right sided breast cancer- Diagnostic mammogram of left breast obtained 11/15/2016 BI-RADS Category 4. Underwent stereotactic breast biopsy, left 11/21/2016. Pathology was negative for malignancy. Strongly recommend BRCA testing. Continue BSE and promptly report any changes. Due for screening mammogram in September. Orders provided. 3. Iron deficiency- Anemia resolved as evidenced by hemoglobin of 12.2. 4. Thyroid Nodules- Patient under the care of warehouse lead, Dr. Contreras. Plans repeat thyroid US March 2018. 5. Colon cancer screening- Will obtain Dr. Mariee's last OV note for review. Encouraged her to schedule colonoscopy as GI recommended. RTC in 3 months with CBC/CMP/CA125 level prior, sooner if issues arise. Latasha Burroughs, SURAJ, AUTOMATIC TIRE TESTER-C, AOCNP Medications: Prescriptions This Visit Medication Instructions Recorded Coenzyme Q-10 1 tab PO TID 05/23/16 Primary Care Provider: Britany Fleming DO Referring Provider: - Problem List (1) Ovarian cancer Status: Chronic Qualifiers: Laterality: right Qualified Code(s): C56.1 - Malignant neoplasm of right ovary (2) Iron deficiency Status: Acute (3) Thyroid nodule Status: Chronic (4) Colon cancer screening Status: Acute 08/09/17 1212 <Electronically signed by Latasha LOPEZ> Date Latasha LOPEZ Cosigner Signature: Date (if applicable) CC: CBC W/DIFF, AUTOMATED Collected: 08/04/2017 Status: F Source: [facility] 8:19 AM [facility] [place], [place] REPOSITORY Order Comment: RESULT(S) PREVIOUSLY REPORTED ON MANUAL REQUISITION DURING DOWNTIME. Reason for Laboratory Test . TYPE CODE TESTS RESULT OUT OF RANGE REFERENCE UNITS LAB L100.1000 4.4-11.0 K/mm3 Normal WBC 5.5 LAB L100.1200 4.2-5.4 M/mm3 Low RBC 4.08 LAB L100.1300 12.0-15.0 g/dl Normal HGB 12.2 LAB L100.1400 37-47 % Normal HCT 37.0 LAB L100.1500 81-99 fL Normal MCV 90.7 LAB L100.1600 27.0-32.0 pg Normal MCH 29.9 LAB L100.1700 32-36 g/gl Normal MCHC 33.0 LAB L100.1810 11.6-14.6 % Normal RDW CV 14.1 LAB L100.1820 35.1-43.9 fl High RDW SD 46.5 LAB L100.1900 150-450 K/mm3 Normal PLT 180 LAB L100.2000 6.2-12.0 fl Normal MPV 9.5 LAB L100.2100 47-70 % High NEUT% 74.1 LAB L100.2200 19-41 % Low LY% 12.6 LAB L100.2300 0-10 % Normal MONO% 6.0 LAB L100.2400 0-5 % High EO% 6.4 LAB L100.2500 0-1 % Normal BASO% 0.7 LAB L100.2550 0.0-0.9 % Normal IM GRAN % 0.200 Result Comment: IG% - Immature Granulocytes (promyelocytes, myelocytes and metamyelocytes) > 1% indicates that a LEFT SHIFT is Present. LAB L100.2620 2.0-7.7 X10 3/uL Normal Absolute Neut 4.1 LAB L100.2720 0.83-4.51 X10 3/ul Low Absolute Lymph 0.69 Performed By: #### L100.0100, L500.4050 #### [facility] [place], [address] COMPREHENSIVE METABOLIC Collected: 08/04/2017 Status: F Source: [facility] 8:19 AM [facility] [place], [place] REPOSITORY Order Comment: RESULT(S) PREVIOUSLY REPORTED ON MANUAL REQUISITION DURING DOWNTIME. Reason for Laboratory Test . TYPE CODE TESTS RESULT OUT OF RANGE REFERENCE UNITS LAB L501.0100 74-106 mg/dL High GLU 145 Result Comment: Fasting Glucose result greater than or equal to 126 mg/dL suggests DIABETES MELLITUS per A.D.A. criteria. Please note revised GLUCOSE reference range effective 2017. LAB L501.1000 7-18 mg/dL High BUN 26 LAB L501.1100 0.55-1.02 mg/dL High CREAT,SERUM 1.13 Result Comment: The validity of the calculated GFR AND GFRAA in patients over 70 years has not been determined. Clinical correlation is essential. LAB L501.1110 >60 mL/min Low EST GFR 49 LAB L501.1115 >60 mL/min Low EST GFR - AA 59 LAB L501.1255 ml/min Normal Estimated CRCL 31.93 LAB L501.1300 10-20 RATIO High BUN/CRE 23.0 LAB L501.1500 6.4-8.2 g/dL T PROT Normal 6.8 LAB L501.1800 3.2-5.0 g/dL Low ALB 3.1 LAB L501.1950 2.2-4.2 g/dL GLOB Normal 3.7 LAB L501.2000 0.9-2.4 RATIO Low A/G 0.8 LAB L501.2200 8.5-10.1 mg/dL CA Normal 9.8 LAB L501.4100 15-37 U/L AST Normal 18 LAB L501.4305 45-117 U/L ALK P Normal 87 LAB L501.4405 13-56 U/L ALT Normal 33 LAB L501.4600 0.20-1.00 mg/dL T BILI Normal 0.30 LAB L501.5300 136-145 mmol/L NA Normal 143 LAB L501.5600 3.5-5.1 mmol/L K Normal 3.6 LAB L501.5900 98-107 mmol/L High CL 108 LAB L501.6100 21.0-32.0 mmol/L CO2 Normal 28.0 LAB L501.6200 5-15 GAP Normal 7 Performed By: #### L100.0100, L500.4050 #### [facility] [address] [place], [address] CANCER ANTIGEN 125 Collected: 08/04/2017 Status: F Source: [facility] 8:19 AM [facility] [place] [place] REPOSITORY Order Comment: Reason for Laboratory Test . TYPE CODE TESTS RESULT OUT OF RANGE REFERENCE UNITS LAB L3100.5000 Normal CA125 2303 Result Comment: TEST RESULT UNITS REF INTERVAL CANCER ANTIGEN(CA) 125 5.6 U/mL 0.0 - 38.1 Shirin ECLIA methodology TESTING PERFORMED AT [facility]. ORIGINAL REPORT ON FILE IN LAB CONTAINS ADDITIONAL TEST SITE INFORMATION. Performed By: #### L3100.5000 #### [facility] (refer to report for specific site) refer to report for address and phone number BARIUM ENEMA NO AIR Observed: 06/14/2017 Status: F Source: [facility] 8:06 AM [facility] [place] [place] REPOSITORY [facility] Imaging Services [address] [place] [address] Barium Enema No Air Cont MR#: [id number] Acct: [id number] Name: MARIA VICTORIA JENNINGS Rep #: [id number] : 1935 F 81 From: Silvino Chris MD PCP: Britany Fleming DO Status: REG CLI Study: Barium Enema No Air Cont Date of Exam: 06/14/17 Exam# [id number] Ordering Dr: Larry Mariee MD STUDY: BARIUM ENEMA. REASON FOR EXAM: Female, 81 years old. 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 Past history of the ovarian and breast cancer. FLUOROSCOPY TIME (if supplied): (0:48) minutes/seconds TECHNIQUE: A core setter film was obtained. Following this, barium was introduced retrograde through the rectum. A barium enema was then performed. COMPARISON: None. FINDINGS: On the core setter film, the gas pattern is unremarkable. There is evidence of multilevel disc space narrowing and spondylosis of the lumbar spine with levoconvex scoliosis. The patient is status post right total hip replacement. Barium was introduced retrograde through the rectum. The patient was unable to retain the barium. The left hemicolon was opacified. No mass lesion or stricture is seen. RAD/Barium Enema No Air Cont IMPRESSION: Limited examination due to patient inability to retain the barium. No significant abnormality is seen. Electronically Signed: Silvino Chris MD at 9:43 EDT Tel [phone], Service support , CC: Britany Mariee Chimney Builder Helper: Signed ONCOLOGY VISIT REPORT Observed: 05/04/2017 Status: F Source: D HANIS 2:11 PM [facility] [place] [place] REPOSITORY [facility] [address] [place] [address] [place] [address] OFFICE VISIT Date of Service: 05/04/17 1308 MR#: [id number] Acct: [id number] Name: MARIA VICTORIA JENNINGS Rep #: [id number] : 1935 From: Latasha LOPEZ Age/Sex: 81/F Location: OMD Status: Signed Subjective - Date of Service Date of Service:: 05/04/17 - Chief Complaint Follow-up ovarian cancer - History of Present Illness History of Present Illness: MARIA VICTORIA JENNINGS is a very pleasant 80 F with a history for MsBria Jennings is a very pleasant 81-year-old woman with a history for right-sided breast cancer diagnosed in 2001 status post lumpectomy with adjuvant radiation and hormonal therapy, including tamoxifen and anastrozole completed in 2006. The patient had been in her usual state of health; until she was diagnosed with a longstanding history of lymphopenia and ultimately was referred to hematology/oncology in consultation on 06/17/2015. During that visit, the patient had an extensive evaluation by way of CBC, CMP, LDH, uric acid, SPEP, UPEP, beta-2 microglobulin, hepatitis panel, HIV antibody, EBV PCR and flow cytometry, which were all unremarkable with the exception of a mildly-elevated beta- 2 microglobulin level. Otherwise, the patient was noted to have bilateral neck lesions on palpation and was referred for a CT of the neck, chest, abdomen and pelvis in June of 2015, which demonstrated several thyroid nodules, spiculated right-sided breast microcalcifications, omental metastases, and a right adnexal mass. Ca125 returned elevated at 44.5 on 07/22/15. Thus underwent CT guided omental biopsy 08/04/15, pathology of which returned positive for metastatic carcinoma . The patient initiated neoadjuvant chemotherapy with carboplatin AUC 6 and paclitaxel 175 mg/m2 on 08/26/2015, both at 25% dose attenuation given every 21 days and was provided with Neulasta support. Completed cycle 3 of carboplatin/paclitaxel on 10/07/2015 with good tolerance. The patient underwent a hysterectomy and left salpingo-oophorectomy with Dr. Keys on 11/03/2015, which demonstrated exceptional response. She went on to complete 3 cycles of adjuvant carboplatin/paclitaxel 12/09/2015-01/20/2016. CA125 was 5.2 on 11/03/2016. She declined referral to genetic counseling. She was found to have abnormal Left abnormal mammogram in September 2016, diagnostic mammogram 11/15/16 BIRADS category 4. Underwent stereotactic left breast biopsy 11/21/[address] Lopez, which proved negative for malignancy. - Interval History The patient is presenting to clinic for routine 3 month follow up and denies any concerns r/t today's visit. States she did undergo repeat thyroid US at [facility] last month. Per her warehouse lead, Dr. Marsh, bilateral nodules are stable and plans to repeat again in 1 year. In January, patient was referred to Dr. Mariee for screening colonoscopy. He is recommending barium enema and patient plans to schedule that within the next month. Specifically denies weight loss, decreased appetite, cough, SOB, abdominal pain, changes in her bowel habits, swelling/pain of her extremities and vaginal bleeding/discharge. Plans ladle patcher exam with Dr. Keys tomorrow. - Past Medical/Social History Past Medical History Past Medical History: Depression,Hyperlipidemia,Hypertension, Osteopenia Cancer: Breast cancer,Ovarian cancer Past Surgical History Surgical: Cataract extraction,Cholecystectomy,Hip replacement,Hysterectomy,Knee replacement,Port placement Other Surgical History: Laminectomy and fusion L4-5 Left foot surgery Back surgery synovial cyst Right arm lymphectomy Right breast excisional Bx L wrist repair Family History Paternal Past Medical History: Heart disease,Hypertension Maternal Past Medical History: Hypertension,Stroke Social History Smoking Status Never smoker Review of Systems Constitutional:: Denies: Fever, Sweats, Weight loss, Appetite change, Chills Cardiovascular:: Denies: Chest pain, Palpitations, Dyspnea on exertion, Orthopnea, PND, Shortness of breath Respiratory: Denies: Cough, Hemoptysis, Shortness of Breath, Wheezing Gastrointestinal:: Denies: Abdominal pain, Nausea, Vomiting, Diarrhea, Constipation, Hematochezia Genitourinary: Denies: Dysuria, Hematuria, 15, Flank pain Musculoskeletal:: Denies: Back pain, Myalgia, Arthralgia Skin: Denies: Rash, Skin Changes, Wounds Neurological:: Denies: Headache, Dizziness, Visual changes, Tinnitus, Hearing loss Psychiatric: Denies: Anxiety, Depression, Homicidal Ideations, Suicidal Ideations Vital Signs Height 5 ft 2.99 in Weight: 171 lb 9.6 oz Weight in Pounds 171.6 lbs Pulse Ox 93 - Physical Exam General: Alert, Oriented x3, No apparent distress HEENT: Atraumatic, Normocephalic Oropharynx:: Negative for: Dry mucosa, Ulcerated lesions Neck:: Supple, Trachea midline. Negative for: JVD, bilateral Cardiac:: Regular rate, Regular rhythm, Normal S1, Normal S2. Negative for: Murmur Lungs: Clear to auscultation, Excusion symmetrical. Negative for: Rhonchi, Wheezes Abdomen:: Bowel sounds x 4, Soft, Non-tender, Non-distended. Negative for: Hepatosplenomegaly Extremities:: Negative for: Cyanosis, Edema Neurological: Neuro grossly intact Skin:: Negative for: Lesions, Rash, Petechiae, Ecchymosis Psychiatric:: Appropriate affect, Euthymic Lymphatics:: Negative for: Cervical lymphadenopathy, Supraclavicular lymphadenopathy, Axillary lymphadenopathy Laboratory Data: Laboratory Tests Laboratory Tests Hgb 12.4 CA 125 Antigen 6.2 Assessment and Plan Ms. Maria Victoria Jennings is a very pleasant 81-year-old woman with a history for right-sided breast cancer status post lumpectomy and adjuvant radiation with anti-hormonal therapy diagnosed in 2001. She demonstrated evidence of metastatic ovarian carcinoma on 08/04/2015 and was initiated on neoadjuvant carboplatin with AUC of 6 and paclitaxel 175 mg/m2, both at 25% dose attenuations every 21 days beginning 08/26/2015. The patient received 3 cycles of neoadjuvant chemotherapy followed by interval debulking surgery on 11/03/2015 under the care of Dr. Keys with an exceptional response. She completed an additional 3 cycles of adjuvant carboplatin and paclitaxel on 01/20/2016. 1. Ovarian carcinoma -- CA125 6.2. She is compliant with recommendations for pelvic examinations q3 mo per Dr. Keys and is due tomorrow. Again discussed genetic counseling at great length. Given context of personal history of breast cancer and personal history of ovarian carcinoma, genetic counseling is indicated. Patient has declined in the past d/t financial burden. Recommended at minimum she have testing for BRCA1 and BRCA2 as in the event a mutation is detected, likely annual breast cancer screening would be inclusive of breast MRI. She is amenable to this again dependent upon cost. She is otherwise not endorsing any signs or symptoms concerning for reoccurrence at this time. 2. History of right sided breast cancer- Diagnostic mammogram of left breast obtained 11/15/2016 BI-RADS Category 4. Underwent stereotactic breast biopsy, left 11/21/2016. Pathology was reviewed negative for malignancy. Strongly recommend BRCA testing. Continue BSE and promptly report any changes. 3. Iron deficiency- Anemia resolved as evidenced by hemoglobin of 12.4 4. Thyroid Nodules- Patient under the care of warehouse lead, Dr. Contreras. Will obtain Dr. Contreras's most recent office visit note and results of US thryoid obtained March 2017. 5. Colon cancer screening- Will obtain Dr. Mariee's last OV note for review. RTC in 3 months with CBC/CMP/CA125 level prior, sooner if issues arise. Latasha Burroughs, MSN, AUTOMATIC TIRE TESTER-C, AOCNP Medications: Prescriptions This Visit Medication Instructions Recorded Coenzyme Q-10 1 tab PO TID 05/23/16 Docusate Sodium [Stool Softener] 100 mg PO DAILY 06/16/16 Primary Care Provider: Britany Fleming DO Referring Provider: - Problem List (1) Ovarian cancer Status: Chronic Qualifiers: Laterality: right Qualified Code(s): C56.1 - Malignant neoplasm of right ovary (2) Iron deficiency Status: Acute (3) Thyroid nodule Status: Chronic (4) Colon cancer screening Status: Acute 05/04/17 1411 <Electronically signed by Latasha LOPEZ> Date Latasha LOPEZ Cosigner Signature: Date (if applicable) CC: Eulalia Contreras MD; Guanaco Keys M.D.; Larry Mariee CBC W/DIFF, AUTOMATED Collected: 05/01/2017 Status: F Source: LINDA 3:07 PM [facility] [place], [place] REPOSITORY Order Comment: Reason for Laboratory Test OV TYPE CODE TESTS RESULT OUT OF RANGE REFERENCE UNITS LAB L100.1000 4.4-11.0 K/mm3 Normal WBC 6.3 LAB L100.1200 4.2-5.4 M/mm3 Normal RBC 4.20 LAB L100.1300 12.0-15.0 g/dl Normal HGB 12.4 LAB L100.1400 37-47 % Normal HCT 38.3 LAB L100.1500 81-99 fL Normal MCV 91.2 LAB L100.1600 27.0-32.0 pg Normal MCH 29.5 LAB L100.1700 32-36 g/gl Normal MCHC 32.4 LAB L100.1810 11.6-14.6 % Normal RDW CV 13.7 LAB L100.1820 35.1-43.9 fl High RDW SD 45.3 LAB L100.1900 150-450 K/mm3 Normal PLT 211 LAB L100.2000 6.2-12.0 fl Normal MPV 9.7 LAB L100.2100 47-70 % High NEUT% 73.7 LAB L100.2200 19-41 % Low LY% 7.6 LAB L100.2300 0-10 % High MONO% 15.5 LAB L100.2400 0-5 % Normal EO% 2.4 LAB L100.2500 0-1 % Normal BASO% 0.6 LAB L100.2550 0.0-0.9 % Normal IM GRAN % 0.200 Result Comment: IG% - Immature Granulocytes (promyelocytes, myelocytes and metamyelocytes) > 1% indicates that a LEFT SHIFT is Present. LAB L100.2620 2.0-7.7 X10 3/uL Normal Absolute Neut 4.7 LAB L100.2720 0.83-4.51 X10 3/ul Low Absolute Lymph 0.48 LAB L100.4500 Normal SMEAR COMMENT SCANNED Result Comment: LYMPHOPENIA NOTED Performed By: #### L100.0100 #### [facility] [address] [place] [address], [address] #### L3100.4950 #### [facility] (refer to report for specific site) refer to report for address and phone number CA 125 SERIAL Collected: 05/01/2017 Status: F Source: D HANIS MONITOR 3:07 PM [facility] [place] [place] REPOSITORY Order Comment: Reason for Laboratory Test OV TYPE CODE TESTS RESULT OUT OF RANGE REFERENCE UNITS LAB L3100.5010 0.0-38.1 U/mL Normal CA125 6.2 2303 Result Comment: Shirin ECLIA methodology Performed at: - [facility] [id number] Clinical Rehabilitation Aide: Larry Saldaña PhD, Phone: [phone] Performed By: #### L100.0100 #### [facility] [place], [address] #### L3100.4950 #### [facility] (refer to report for specific site) refer to report for address and phone number COMPREHENSIVE METABOLIC Collected: 05/01/2017 Status: F Source: [facility] 3:07 PM [facility] [place] [place] REPOSITORY Order Comment: Reason for Laboratory Test OV TYPE CODE TESTS RESULT OUT OF RANGE REFERENCE UNITS LAB L501.0100 74-106 mg/dL Normal GLU 74 Result Comment: Please note revised GLUCOSE reference range effective 2017. LAB L501.1000 7-18 mg/dL High BUN 31 LAB L501.1100 0.55-1.02 mg/dL High CREAT,SERUM 1.06 Result Comment: The validity of the calculated GFR AND GFRAA in patients over 70 years has not been determined. Clinical correlation is essential. LAB L501.1110 >60 mL/min Low EST GFR 53 Result Comment: Non- GFR Calc LAB L501.1115 >60 mL/min Normal EST GFR - AA 64 Result Comment: GFR Calc LAB L501.1255 ml/min Normal Estimated CRCL 34.04 LAB L501.1300 10-20 RATIO High BUN/CRE 29.2 LAB L501.1500 6.4-8. g/dL Normal 2 T PROT 7.2 LAB L501.1800 3.2-5. g/dL Normal 0 ALB 3.4 LAB L501.1950 2.2-4. g/dL Normal 2 GLOB 3.8 LAB L501.2000 0.9-2. RATIO Normal 4 A/G 0.9 LAB L501.2200 8.5-10 mg/dL Normal .1 CA 9.7 LAB L501.4100 15-37 U/L Normal AST 15 LAB L501.4305 45-117 U/L Normal ALK P 82 LAB L501.4405 13-56 U/L Normal ALT 23 Result Comment: Please note revised ALT reference range effective 2017. LAB L501.4600 0.20-1.00 mg/dL Normal T BILI 0.30 LAB L501.5300 136-145 mmol/L Normal NA 139 LAB L501.5600 3.5-5.1 mmol/L Normal K 3.9 LAB L501.5900 98-107 mmol/L Normal CL 105 LAB L501.6100 21.0-32.0 mmol/L Normal CO2 32.0 LAB L501.6200 5-15 Low GAP 2 Performed By: #### L500.4050 #### [facility] [address] [place], [address] THYROID Observed: 05/01/2017 Status: F Source: D HANIS 9:25 AM [facility] [place], [place] REPOSITORY [facility] Imaging Services [address] [place] [address] Thyroid MR#: [id number] Acct: [id number] Name: MARIA VICTORIA JENNINGS Rep #: [id number] : 1935 F 81 From: Ricardo Albrecht DO PCP: Britany Fleming DO Status: REG CLI Study: Thyroid Date of Exam: 05/01/17 Exam# [id number] Ordering Dr: Eulalia Contreras MD STUDY: THYROID ULTRASOUND REASON FOR EXAM: Female, 81 years old. Multiple nodules, assess stability. TECHNIQUE: Ultrasound evaluation of the thyroid was performed with real-time and static sosa-scale imaging. COMPARISON: 21 April 2016 FINDINGS: RIGHT LOBE: The right lobe of the thyroid gland measures 4.8 x 2.6 x 2.4 cm. There is a heterogeneous echotexture. Multiple hypoechoic nodules within the upper and mid right thyroid gland measuring 1.4 x 1.5 x 0.7 cm, 0.6 x 0.6 x 0.6 cm with noted peripheral calcification, 0.6 x 0.5 x 0.3 cm, 0.6 x 0.6 x 0.3 cm, and 0.5 x 0.5 x 0.4 cm. LEFT LOBE: The left lobe of the thyroid gland measures 4.9 x 2.7 x 2.2 cm. There is a heterogeneous echotexture. Multiple hypoechoic nodules throughout the thyroid gland are noted measuring 0.6 x 0.5 x 0.6 cm with noted calcification, 1.4 x 1.5 x 0.7 cm, 1.3 x 1.3 x 1.0 cm, 1.1 x 1.2 x 1.0 cm, and 1.4 x 0.9 x 0.8 cm. ISTHMUS: The isthmus measures 5 . The regional lymph nodes are normal. US/Thyroid IMPRESSION: 1. Diffuse hypoechoic nodules of the bilateral heterogeneous thyroid glands as above. Compared to 21 April 2016 there is a similar heterogeneous and nodular appearance. Electronically Signed: Ricardo Albrecht DO at 22:23 EST , Service support , CC: Eulalia Contreras MD; Britany Fleming DO Chimney Builder Helper: Signed COMPREHENSIVE METABOLIC Collected: 04/21/2017 Status: F Source: [facility] 12:04 PM [facility] [place] [place] REPOSITORY TYPE CODE TESTS RESULT OUT OF RANGE REFERENCE UNITS LAB L501.0100 74-106 mg/dL Normal GLU 80 Result Comment: Please note revised GLUCOSE reference range effective 2017. LAB L501.1000 7-18 mg/dL High BUN 21 LAB L501.1100 0.55-1.02 mg/dL Normal CREAT,SERUM 0.97 Result Comment: The validity of the calculated GFR AND GFRAA in patients over 70 years has not been determined. Clinical correlation is essential. LAB L501.1110 >60 mL/min Low EST GFR 59 Result Comment: Non- GFR Calc LAB L501.1115 >60 mL/min Normal EST GFR - AA 71 Result Comment: GFR Calc LAB L501.1300 10-20 RATIO High BUN/CRE 21.6 LAB L501.1500 6.4-8.2 g/dL T Normal PROT 7.0 LAB L501.1800 3.2-5.0 g/dL Normal ALB 3.5 LAB L501.1950 2.2-4.2 g/dL Normal GLOB 3.5 LAB L501.2000 0.9-2.4 RATIO Normal A/G 1.0 LAB L501.2200 8.5-10.1 mg/dL CA Normal 9.7 LAB L501.4100 15-37 U/L Normal AST 17 LAB L501.4305 45-117 U/L Normal ALK P 82 LAB L501.4405 13-56 U/L Normal ALT 31 Result Comment: Please note revised ALT reference range effective 2017. LAB L501.4600 0.20-1.00 mg/dL Normal T BILI 0.50 LAB L501.5300 136-145 mmol/L Normal NA 142 LAB L501.5600 3.5-5.1 mmol/L Normal K 4.2 LAB L501.5900 98-107 mmol/L Normal CL 103 LAB L501.6100 21.0-32.0 mmol/L Normal CO2 30.0 LAB L501.6200 5-15 Normal GAP 9 Performed By: #### L500.4050, L501.13874, L501.9520, L506.0400 #### [facility] [address] [place], [address] FREE T3 Collected: 04/21/2017 Status: F Source: D HANIS 12:04 PM [facility] [place] [place] REPOSITORY TYPE CODE TESTS RESULT OUT OF RANGE REFERENCE UNITS LAB L501.93074 2.18-3.98 pg/mL Normal FREE T3 2.5 Performed By: #### L500.4050, L501.08013, L501.9520, L506.0400 #### [facility] [address] [place], [place], [address] THYROID STIM HORMONE Collected: 04/21/2017 Status: F Source: D HANIS (TSH) 12:04 PM [facility] [place] [place] REPOSITORY TYPE CODE TESTS RESULT OUT OF RANGE REFERENCE UNITS LAB L501.9520 0.358-3.74 uIU/mL Normal TSH 0.60 Performed By: #### L500.4050, L501.84174, L501.9520, L506.0400 #### [facility] [address] [place], [address] T4 FREE DIRECT Collected: 04/21/2017 Status: F Source: D HANIS 12[facility]04 [facility] TYPE CODE TESTS RESULT OUT OF RANGE REFERENCE UNITS LAB L506.0400 0.76-1.46 ng/dL Normal T4 FREE 0.96 DIRECT Performed By: #### L500.4050, L501.13490, L501.9520, L506.0400 #### [facility] [address] [place], [address] ALLERGIES ALLERGIES DATE TYPE / CODE NAME / CODE REACTION SEVERITY SOURCE 02/13/2018 Drug hydrocodone Other [place] Allergy/416 bitartrate/[id number] Community 388298([facility]ly [facility]) Repository 02/13/2018 Drug Sulfa (Sulfonamide Upset Stomach SV [place] Allergy/416 Antibiotics)/F0010 [facility] 985508([facility] [address]([facility] ED [facility]) Repository ENCOUNTERS ENCOUNTERS ADMIT/DISCHARGE ACCOUNT ADMITTING ENCOUNTER LOCATION SOURCE NUMBER CLASS 03/06/2018 [id number] Ambulatory [place] Linda 8 [facility] ing:CT Repository 03/01/2018 [id number] Ambulatory [place] 6 [facility] ing:LAB.FUTUR Repository E 02/13/2018 [id number] Ambulatory BMSBuilding:B [place] 6 [facility] Repository 02/13/2018 [id number] Ambulatory [place] 3 [facility] ing:OMD Repository 02/07/2018 [id number] Ambulatory [place] 2 [facility] ing:OPBD Repository 11/29/2017 [id number] Ambulatory [place] 4 [facility] ing:OPBI Repository 11/07/2017 [id number] Ambulatory BMSBuilding:B [place] 6 [facility] Repository 08/21/2017 [id number] Ambulatory [place] 9 [facility] ing:MTLAB Repository 08/08/2017 [id number] Ambulatory BMSBuilding:B [place] 7 [place] Repository 06/14/2017 [id number] Ambulatory [place] Linda 4 [facility] ing:RAD Repository 05/04/2017 [id number] Ambulatory BMSBuilding:B Linda 4 [facility] Repository 05/01/2017 [id number] Ambulatory [place] 5 [facility] ing:US Repository 04/21/2017 [id number] Ambulatory [place] 6 [facility] PAYERS PAYERS ENCOUNTER GUARANTOR PAYER SUBSCRIBER SOURCE 03/06/2018 MARIA VICTORIA VALENZUELA E Primary MARIA VICTORIA Santiago SIXDOB: Linda TREVOR [facility] [id number] [place] [facility] [address]Tel: [phone]) Number: Repository [phone] () [id number] Date:2510-44-90Lq [address] [place] [address]AK: 03/06/2018 Secondary NOT GIVENUNK Linda Insurance:SELF PAY [facility] Number: Effective Repository Date:2018-02-28 03/01/2018 MARIA VICTORIA BURRELL6 E Primary MARIA VICTORIA Santiago SIXDOB: Linda TREVOR [facility] [id number] [place] [facility] [address]Tel: [phone]) Number: Repository [phone] () [id number] Date:3079-17-71Rd [address] [address]BY: 03/01/2018 Secondary NOT GIVENUNK Linda Insurance:SELF PAY [facility] Number: Effective Repository Date:2018-03-01 02/13/2018 MARIA VICTORIA BURRELL6 E Primary MARIA VICTORIA JENNINGSDOB: [place] TREVOR [facility] [id number] [place] [facility] [address]Tel: [phone]) Number: Repository [phone] () [id number] Date:4669-91-47Ik [address] [address]HN: 02/13/2018 Secondary NOT GIVENUNK [place] Insurance:SELF PAY [facility] Number: Effective Repository Date:2018-02-13 02/13/2018 MARIA VICTORIA BURRELL6 E Primary MARIA VICTORIA Santiago SIXDOB: [place] TREVOR [facility] [id number] [place] [facility] [address]Uca: ([phone]) Number: Repository [phone] () [id number] Date:7766-95-05Dd [address] [place] [address]RS: 02/13/2018 Secondary NOT GIVENUNK [place] Insurance:SELF PAY [facility] Number: Effective Repository Date:2016-06-07 02/07/2018 MARIA VICTORIA L [id number] E Primary MARIA VICTORIA L SIXDOB: Linda TREVOR [facility] [id number] [place] [facility] [address]Unf: (330) Number: Repository [phone] () [id number] Date:8989-08-97Lx [address] [place] [address] 158[address]CX: 02/07/2018 Secondary NOT GIVENUNK [place] Insurance:SELF PAY [facility] Number: Effective Repository Date:2018-01-29 11/29/2017 MARIA VICTORIA L [id number] E Primary MARIA VICTORIA L SIXDOB: [place] TREVOR Insurance:[facility] CARE [id number] [place] [facility] [address]Jdb: (330) Number: Repository [phone] () [id number] Date:4009-22-94Zr [address] [place] [address]QL: 11/29/2017 Secondary NOT GIVENUNK Linda Insurance:SELF PAY [facility] Number: Effective Repository Date:2017-11-07 11/07/2017 MARIA VICTORIA L [id number] E Primary MARIA VICTORIA L SIXDOB: Linda TREVOR Insurance:[facility] CARE [id number] [place] [facility] [address]Gqn: (330) Number: Repository [phone] () [id number] Date:1669-12-31Tm [address] [place] [address]IT: 11/07/2017 Secondary NOT GIVENUNK Linda Insurance:SELF PAY [facility] Number: Effective Repository Date:2017-11-07 08/21/2017 MARIA VICTORIA JENNINGS436 E Primary MARIA VICTORIA Santiago SIXDOB: [place] TREVOR Insurance:[facility] [id number] [place] [facility] [address]Xve: ([phone]) Number: Repository [phone] (HP) [id number] Date:4527-99-15Xd [address] [place] [address]IF: 08/21/2017 Secondary NOT GIVENUNK [place] Insurance:SELF PAY [facility] Number: Effective Repository Date:2017-08-21 08/08/2017 MARIA VICTORIA JENNINGS436 E Primary MARIA VICTORIA Santiago SIXDOB: Linda TREVOR Insurance:[facility] [id number] [place] [facility] [address]Tel: Number: Repository [phone] [id number] (HP) Date:9344-81-16Jy [address] [place] [address] 268[address]EO: 08/08/2017 Secondary NOT GIVENUNK [place] Insurance:SELF PAY [facility] Number: Effective Repository Date:2017-08-08 06/14/2017 MARIA VICTORIA JENNINGS436 E Primary MARIA VICTORIA JENNINGSDOB: [place] TREVOR Insurance:[facility] [id number] [place] [facility] [address]Tel: Number: Repository [phone] [id number] (HP) Date:2437-86-30Nb [address] [place] [address]AR: 06/14/2017 Secondary NOT GIVENUNK Linda Insurance:SELF PAY [facility] Number: Effective Repository Date:2017-06-05 05/04/2017 MARIA VICTORIA JENNINGS436 E Primary MARIA VICTORIA JENNINGSDOB: Linda TREVOR Insurance:[facility] [id number] [place] [facility] [id number]: Number: Repository [phone] [id number] (HP) Date:[id number] [place] [address] [place] [address]LB: 05/04/2017 Secondary NOT GIVENUNK [place] Insurance:SELF PAY [facility] Number: Effective Repository Date:2017-05-04 05/01/2017 MARIA VICTORIA VALENZUELA E Primary MARIA VICTORIA JENNINGSDOB: [place] TREVOR Insurance:[facility] [id number] [place] [facility] [id number]: Number: Repository [phone] [id number] (HP) Date:[id number] [place], [place] [address]AE: 05/01/2017 Secondary NOT GIVENUNK [place] Insurance:SELF PAY [facility] Number: Effective Repository Date:2017-04-25 04/21/2017 MARIA VICTORIA BURRELL6 E Primary MARIA VICTORIA JENNINGSDOB: [place] TREVOR Insurance:[facility] [id number] [place] [facility] [address]Chg: Number: Repository [phone] [id number] (HP) Date:[id number] [address] [place] [address]JS: 04/21/2017 Secondary NOT GIVENUNK [place] Insurance:SELF PAY [facility] Number: Effective Repository Date:2017-04-21
== END ==
PROVIDERS: Family Provider Family Medicine; PCP Family Medicine; Visit Provider Family Medicine
DX: M81.0 Age-related osteoporosis without current pathological fracture (principal)
CPT/HCPCS: 77080

== ENCOUNTER → 2018-03-06 13:18 | Outpatient (CLI) | payer MEDICARE, SELFPAY ==
[2017-11-07 10:28] VITALS: BMI 32.2
--- NOTE | 2018-03-06 13:23 | CT_ITS ---
STUDY: CT ABDOMEN AND PELVIS WITH CONTRAST REASON FOR EXAM: Female, 82 years old. History of ovarian carcinoma. Follow-up examination. RADIATION DOSAGE (If Supplied By Facility): CTDIvol = ( 21.84 ) mGy, DLP = ( 1040.58 ) mGycm TECHNIQUE: Transaxial images were obtained from the dome of the diaphragm to the symphysis pubis with oral contrast. 100ML ml of Isovue 300 contrast was administered. Sagittal and coronal images were reconstructed. Individualized dose optimization techniques were used for this CT. COMPARISON: Comparison is made with prior study dated April 27, 2016. FINDINGS: There is a 1.5 cm calcified granuloma in the left lower lobe. A dual-chamber pacemaker is seen. There is calcification of the mitral valve annulus. There is decreased attenuation of the liver consistent with steatosis. The patient is status post cholecystectomy. There are multiple benign calcified granulomata of the spleen. Normal pancreas. Normal bilateral adrenal glands. Normal right kidney. Normal left kidney. There is a small hiatal hernia. Normal small intestine. Normal colon. The appendix is visualized and appears normal. There is diffuse atherosclerotic calcification of the abdominal aorta, without a demonstrated aneurysm. Normal inferior vena cava. Once again, is evidence of dense coarse calcifications in the left of the mesentery. Once again, there is evidence of stranding and circumferential mesenteric tethering at that site. This is essentially unchanged. Multiple small mesenteric lymph nodes. Normal urinary bladder. There is absence of the uterus consistent with a prior hysterectomy. Normal abdominal wall. There are diffuse degenerative changes of the visualized lumbar spine. Stable grade 1 anterolisthesis of L4 on L5. Status post right total hip replacement. Complete collapse of the L1 vertebrae. CT/Abdomen/Pelvis WITH Contrast IMPRESSION: Stable examination. Electronically Signed: Silvino Chris MD at 13:32 EST Tel [phone], Service support ,
== END ==
PROVIDERS: Family Provider Family Medicine; PCP Family Medicine; Referring Provider Obstetrics & Gynecology; Visit Provider Obstetrics & Gynecology
DX: C56.9 Malignant neoplasm of unspecified ovary (principal); R10.11 Right upper quadrant pain
CPT/HCPCS: 74177; Q9967; A4216

== ENCOUNTER → 2018-05-15 08:06 | Outpatient (CLI) | payer MEDICARE, SELFPAY ==
[2018-05-15 10:08] LABS: Free T3 2.1 pg/mL (2.18-3.98); T4 Free Direct 0.87 ng/dL (0.76-1.46); Thyroid Stim Hormone (TSH) 0.62 uIU/mL (0.358-3.74)
== END ==
PROVIDERS: Family Provider Family Medicine; PCP Family Medicine; Referring Provider Internal Medicine Endocrinology, Diabetes & Metabolism; Visit Provider Internal Medicine Endocrinology, Diabetes & Metabolism
DX: E04.2 Nontoxic multinodular goiter (principal)
CPT/HCPCS: 36415; 84439; 84443; 84481

== ENCOUNTER → 2018-12-04 10:50 | Outpatient (CLI) | payer MEDICARE, SELFPAY ==
[2018-06-12 11:15] VITALS: BMI 32.1
--- NOTE | 2018-12-04 10:52 | BI_ITS ---
MAMMOGRAPHY - BILATERAL SCREENING 3-D TOMOSYNTHESIS REASON FOR EXAM: Female, 82 years old. Previous history of right breast cancer with lumpectomy and radiation therapy BILATERAL DIGITAL MAMMOGRAM WITH TOMOSYNTHESIS: Mediolateraloblique and craniocaudal views demonstrate a dominant mass in the lateral aspect of the right breast with significant spiculation and skin retraction and skin thickening due to a previous lumpectomy with radiation therapy. Adjacent dystrophic calcifications are also seen. This is unchanged when compared with the previous mammograms obtained on 11/29/2017. No other cluster of microcalcifications or architectural distortion is seen. No evidence of skin thickening is identified Breast Density: The breast tissue is heterogeneously dense, which may obscure small masses. CAD was used to assist in final assessment. IMPRESSION: Status post right breast lumpectomy and radiation therapy. The overall appearance of the breasts is unchanged from the previous study. FINAL ASSESSMENT: BI-RAD CATEGORY II (BENIGN FINDING) YEARLY MAMMOGRAPHY RECOMMENDED YEARLY MAMMOGRAM RECOMMENDED Approximately 10% of breast cancers are not detected by mammography. A normal mammogram should not delay biopsy of a clinically suspicious abnormality. Electronically Signed: Julio Cesar Padgett, at 19:41 EDT Tel , Service support , BI/SCREEN MAMM (CAD) W/TRUDI LORD
== END ==
PROVIDERS: Family Provider Family Medicine; PCP Family Medicine; Referring Provider Nurse Practitioner Family; Visit Provider Nurse Practitioner Family
DX: Z12.31 Encounter for screening mammogram for malignant neoplasm of breast (principal); Z85.3 Personal history of malignant neoplasm of breast
CPT/HCPCS: 77063; 77067

== ENCOUNTER → 2019-03-07 13:20 | Outpatient (CLI) | payer MEDICARE, SELFPAY ==
[2018-06-12 11:15] VITALS: BMI 32.1
--- NOTE | 2019-03-07 13:21 | RAD_ITS ---
HISTORY: CHEST PAIN, COUGH, R/O RIB FRACTURE POST FALLING EXAM: XR Chest 2 Views: COMPARISON: July 13, 2011 FINDINGS: # of images incl. paperwork: 2 Right IJ single-lumen port terminates superimposed over the anticipated location of the SVC below the level of the right main bronchus, this is new. New large right pleural effusion with right middle and right lower lobe collapse. Chronic right axillary surgical clips. Prominent nodule superimposed over the left hemidiaphragm, likely within the left lower lobe is unchanged Right upper lobe remains somewhat aerated with atelectasis Heart is not enlarged. Scoliosis and multilevel degenerative disc disease for persists Pulmonary vascularity is distinct. Large right pleural effusions. RAD/Chest PA and Lateral IMPRESSION: New large right pleural effusion with right lower and right middle lobe collapse. at [phone] Reported and signed by: Justice Ramirez MD Electronically Signed: Justice Ramirez MD at 3:41 EST Tel , Service support ,
== END ==
PROVIDERS: Family Provider Family Medicine; PCP Family Medicine; Referring Provider Family Medicine; Visit Provider Family Medicine
DX: R07.89 Other chest pain (principal); R05 Cough
CPT/HCPCS: 71046

== ENCOUNTER → 2019-03-09 07:29 | Outpatient (CLI) | payer MEDICARE, SELFPAY ==
[2018-06-12 11:15] VITALS: BMI 32.1
[2019-03-09 08:57] LABS: Cholesterol 168 mg/dL (200); High Density Lipoprotein 53 mg/dL; Triglycerides 96 mg/dL; Very Low Density Lipoprotein 19 mg/dL (5-40)
== END ==
PROVIDERS: Family Provider Family Medicine; PCP Family Medicine; Referring Provider Family Medicine; Visit Provider Family Medicine
DX: E78.5 Hyperlipidemia, unspecified (principal)
CPT/HCPCS: 36415; 80061

== ENCOUNTER → 2019-03-11 11:13 | Outpatient (CLI) | payer MEDICARE, SELFPAY ==
[2018-06-12 11:15] VITALS: BMI 32.1
[2019-03-11 12:42] LABS: Absolute Lymphocyte Count 0.49 X10^3/uL (0.83-4.51); Absolute Neutrophil Count 10.1 X10^3/uL (2.0-7.7); Basophil# 0.05 X10^3/uL; Basophil% 0.4 % (0-1); Eosinophils% 2.5 % (0-5); Hematocrit 38.9 % (37-47); Lymphocyte # 0.49 X10^3/ul (4.0); Mean Corp Hgb Conc 30.8 g/dL (32-36); Mean Corpuscular Hgb 27.1 pg (27.0-32.0); Mean Platelet Vol. 9.5 fl (6.2-12.0); Monocyte# 1.08 X10^3/uL; Monocyte% 8.9 % (0-10); NRBC Flagged by Analyzer 0 % (0-5); Neutrophil # 10.14 X10^3/uL (2.7-7.7); Neutrophil % 83.3 % (47-70); POSITIVE DIFFERENTIAL YES; Platelet Count 458 K/mm3 (150-450); RBC Distribution Width CV 13.6 % (11.6-14.6); RBC Distribution Width SD 43.8 fl (35.1-43.9); Red Blood Count 4.42 M/mm3 (4.2-5.4); White Blood Count 12.2 K/mm3 (4.4-11.0)
[2019-03-11 12:46] LABS: Differential Indicated SCAN CRITERIA MET
[2019-03-11 13:09] LABS: ALB/GLOB Ratio 0.5 RATIO (0.9-2.4); AST(SGOT) 19 U/L (15-37); Alanine Aminotransfer ALT/SGPT 25 U/L (13-56); Albumin, Serum 2.5 g/dL (3.2-5.0); Alkaline Phosphatase 111 U/L (45-117); Anion Gap 4 (5-15); BUN 19 mg/dL (7-18); BUN/Creat Ratio 17.8 RATIO (10-20); Calcium,Total 10.2 mg/dL (8.5-10.1); Chloride 109 mmol/L (98-107); Creatinine, Serum 1.07 mg/dL (0.55-1.02); EST Glomerular Filtration Rate 52 mL/min (>60); Est Glom Filt Rate - Afr Amer 63 mL/min (>60); Glucose 97 mg/dL (74-106); Protein, Total 7.5 g/dL (6.4-8.2); Sodium Level 140 mmol/L (136-145)
[2019-03-11 13:15] LABS: BNP,B-Type NATRIURETIC PEPTIDE 60.8 pg/mL (0-100)
== END ==
PROVIDERS: Family Provider Family Medicine; PCP Family Medicine; Referring Provider Family Medicine; Visit Provider Family Medicine
DX: I50.9 Heart failure, unspecified (principal); R06.00 Dyspnea, unspecified
CPT/HCPCS: 36415; 80053; 83880; 85025

== ENCOUNTER → 2019-03-19 12:20 | Outpatient (CLI) | payer MEDICARE, SELFPAY ==
[2019-03-12 06:00] VITALS: BMI 31.6
--- NOTE | 2019-03-19 | IMM_PTH ---
PATIENT: MARIA VICTORIA JENNINGS LOC: U#:[id number] AGE/SX: 89/F ROOM: RE03/19/[address]: Dr. Reilly Andino MD : 1935 BED: DIS: SPEC #: [id number] RECD: 03/20/19 15:10 STATUS: PJ REQ #: [id number] KADE: 03/19/19 00:[address]: Reilly Andino DEPT: IMMUNOHISTOCHEMISTRY RECD BY: Selene Beltrán ENTERED: 03/20/19 15:12 SP TYPE: IMMUNO OTHR DR: Dr. Britany Fleming, DO Tissues: THORACIC FLUID Procedures: Synapto (add) RCC (add) MSH2 (add) MLH-1 (add) MSH6 (add) Anti-PMS2 (add) NAPSIN A (add) CA-125 (add) CD56 (add) CEA (add) CHROMO (add) CK14 (add) CK20 (add) CK5-6 (add) CK7 (add) CK8 (add) SIMPSON-2 (add) HEP PAR (add) KI-67 (add) MAMM (add) P53 (add) MA (add) TTF1 (add) Pankeratin (add) GATA3 (add) P40 (add) ER (initial) PHYSICIAN & INSTITUTION [place] [address] SPECIMEN INFORMATION: Tissue Source: Thoracentesis fluid Clinical Info: Right pleural effusion Specimen Number: [id number] CPT code: 56251, 25157 x26 METHODOLOGY: Deparaffinized sections of prefer/formalin-fixed tissue or PAP/DQ stained slides are incubated with monoclonal/polyclonal antibodies/oligonucleotide probes. Localization is made via biotin free immunoperoxidase method. Appropriate controls are performed and reacted as expected. Results on target cell population are indicated in the following table: RESULTS: ANTIBODY / CLONE RESULT ER (6F11) negative MA (1E2) negative AE1-3 (AE1/AE3/PCK26) positive CK7 (OV-TL12/30) positive CK8 (27oymfV31) positive CK20 (KS20.8) negative SIMPSON-2 (SP21) negative TTF-1 (8G7G3/1) negative Napsin A (Rabbit Polyclonal) negative CK5-6 (D5 & 1684) negative CK14 (LL002) negative P40 (BC28) negative P53 (DO-7) positive, 80% Ki-67 (30-9) negative Mammaglobin (31A5) negative GATA3 (L50-823) negative CA125 (OC125) positive CEA (11-7/TF-3HB-1) negative CD56 (123C3.D5) negative Chromo (LK2H10) negative Synapto (polyclonal) negative RCC (PN-15) negative HepPar (OCh1E5) negative These tests were developed and their performance characteristics determined by [facility]. They may not have been cleared or approved by the U.S. Food and Drug Administration. The FDA has determined that such clearance or approval is not necessary. The above immunohistochemical/dualISH markers are ordered and reviewed by the Pathologist. INTERPRETATION: Thoracentesis fluid (cell block): Metastatic adenocarcinoma. AM:ace 03/22/19 Comment: An ovarian primary is favored. Clinical correlation is necessary. ADDENDUM ADDENDUM ADDENDUM ADDENDUM ADDENDUM ADDENDUM ADDENDUM ADDENDUM ADDENDUM ADDENDUM ADDENDUM ADDENDUM 04/10/2019 10:34 ADDENDUM 04/10/2019 10:34 ADDENDUM 04/10/2019 10:34 ADDENDUM 04/10/2019 10:34 ADDENDUM 04/10/2019 10:34 ANTIBODY / CLONE RESULT MLH-1 (M1) negative MSH2 (25D12) negative MSH6 (44) positive PMS2 (MOT3543) positive Result of Microsatellite Instability Study: Positive (loss of mismatch protein; microsatellite instability detected). Complete loss of MLH1 and MSH2. AM:ace 04/10/19
--- NOTE | 2019-03-19 | FLU_PTH ---
PATIENT: MARIA VICTORIA JENNINGS LOC: U#:[id number] AGE/SX: 89/F ROOM: RE03/19/[address]: Dr. Reilly Andino MD : 1935 BED: DIS: SPEC #: [id number] RECD: 03/19/19 13:00 STATUS: PJ RETyler #: [id number] KADE: 03/19/19 00:[address]: Reilly Andino DEPT: CYTOLOGY RECD BY: Jason De ENTERED: 03/19/19 14:00 SP TYPE: Fluid OTHR DR: Dr. Britany Fleming, DO Tissues: THORACIC FLUID Procedures: Special Stain Group II Surgery Specimen Level IV Cytospin Fluid HEADER OPERATION: Thoracentesis PRE-OP DIAGNOSIS: Right pleural effusion TISSUE SUBMITTED: Thoracentesis fluid for cytology DIAGNOSIS CYTOLOGY Thoracentesis fluid for cytology (cytospin and cell block): Positive for malignant cells, adenocarcinoma. See comment. AM:ace 1/22/20 COMMENT Immunohistochemistry ([id number]) supports the above diagnosis and is consistent with ovarian primary. Case has been reviewed in consultation with Dr. Rasheed who concurs with the above diagnosis. IDC:SJ CYTOLOGY STUDY Slides are reviewed. CYTOLOGY GROSS Received is 90 ml of cloudy yellow fluid labeled with the patient's name and and designated per the requisition as thoracentesis. Submitted for cytology preparation including cell block. / ace 03/19/19 TC:0 CPT: 65928, 82920
[2019-03-19 11:16] LABS: International Normalized Ratio 1.1; Partial Thromboplast Time 30.9 Seconds (24.1-36.2); Prothrombin Time (Protime)PT. 13.6 SECONDS (11.7-14.9)
[2019-03-19 11:27] LABS: ALB/GLOB Ratio 0.5 RATIO (0.9-2.4); Globulin 4.8 g/dL (2.2-4.2); LDH 422 U/L (84-246); Protein, Total 7.4 g/dL (6.4-8.2)
--- NOTE | 2019-03-19 12:21 | US_ITS ---
PROCEDURE: ULTRASOUND GUIDED THORACENTESIS. DATE: March 19, 2019.. INDICATION: Female, 83 years old. Right pleural effusion. PHYSICIAN: Silvino Chris M.D. PROCEDURE: The risks, benefits, and alternatives to the procedure were explained to the patient. The specific risks of bleeding, infection, and pneumothorax requiring chest tube insertion were discussed and accepted. Written informed consent was obtained. Ultrasonographic evaluation of the right lower pleural space was carried out. An adequate pocket was identified. The patient was placed in the sitting, upright position. The overlying skin was prepped and draped in sterile fashion. 1% lidocaine was administered subcutaneously for local anesthesia. Under ultrasound guidance, a 5 [place] thoracentesis needle/catheter system was advanced into the right posterior lower pleural fluid collection. Approximately 500 mL of charlene-colored fluid was drained. The catheter was removed, and a sterile dressing was applied. A specimen was collected and sent to the laboratory for analysis, as requested by the referring clinician. The patient tolerated the procedure well. A chest x-ray was ordered. US/Thoracentesis W US IMPRESSION: Ultrasound-guided right thoracentesis. Electronically Signed: Silvino Chris, at 14:18 EST , Service support ,
[2019-03-19 12:35] VITALS: BP 101/68; BP 122/60; BP 127/69; PULSE 73; PULSE 81; PULSE 82; RESP 16; RESP 18; O2SAT 95; O2SAT 96
--- NOTE | 2019-03-19 13:00 | RAD_ITS ---
STUDY: X-RAY CHEST REASON FOR EXAM: Female, 83 years old. POST THORA TECHNIQUE: PA inspiration expiration views. COMPARISON: Comparison is made with prior examination dated March 07, 2019. FINDINGS: A right-sided portacatheter is seen. Surgical clips are seen in the right axillary region. The patient is status post right thoracentesis. Mild pleural-parenchymal changes persist at the right lung base. There is no evidence of pneumothorax. Stable 1 cm nodule in the left lower lobe. RAD/Chest Insp/Exp 2 View IMPRESSION: Status post right thoracentesis. There is no evidence of pneumothorax. Electronically Signed: Silvino Chris, at 13:29 EST , Service support ,
[2019-03-19 13:01] LABS: Cytology, Body Fluid / CSF SEE PATHOLOGY REPORT
[2019-03-19 13:45] LABS: LDH,Body Fluid 388 Units/l (Not Establ.); Protein, Body Fluid 4.6 g/dL (Not Establ.)
[2019-03-19 14:08] LABS: Color/Body Fluid LT YEL; Source- Body Fluid THORACENTESIS
[2019-03-19 14:09] LABS: Appearance/Body Fluid CLEAR
[2019-03-19 14:31] LABS: Red Cell Count/Body Fluid 230 /mm3
[2019-03-19 14:32] LABS: White Blood Count/Body Fluid 678 /mm3
[2019-03-19 14:37] LABS: Body Fluid QC Type(s) BF1Q,BF2Q; Lymphocytes 55 %; Macrophages 11 %; Monocytes 20 %; Neutrophil (Segs) 12 %
[2019-03-19 14:38] LABS: Auto B Fluid Analyzer BKGD Ct COUNTS W/IN LIMITS (W/IN LIMITS)
[2019-03-21 08:59] LABS: Pathologist Comment/Body Fluid Reviewed
== END ==
PROVIDERS: Family Provider Family Medicine; PCP Family Medicine; Referring Provider Internal Medicine Critical Care Medicine; Visit Provider Internal Medicine Critical Care Medicine
DX: J90 Pleural effusion, not elsewhere classified (principal); C79.9 Secondary malignant neoplasm of unspecified site; E83.42 Hypomagnesemia; Z98.890 Other specified postprocedural states
CPT/HCPCS: 32555; 36415; 71046; 83615; 84156; 84157; 85610; 85730; 87070; 87075; 87205; 88108; 88305; 88313; 88341; 88342; 89050

== ENCOUNTER → 2019-04-17 10:24 | Outpatient (CLI) | payer MEDICARE, SELFPAY ==
[2019-04-16 09:53] VITALS: BMI 30.6
[2019-04-17 11:28] LABS: Absolute Lymphocyte Count 0.44 X10^3/uL (0.83-4.51); Absolute Neutrophil Count 9.5 X10^3/uL (2.0-7.7); Basophil# 0.07 X10^3/uL; Basophil% 0.6 % (0-1); Eosinophil# 0.25 X10^3/uL; Eosinophils% 2.3 % (0-5); Hematocrit 37.8 % (37-47); Hemoglobin 11.4 g/dL (12.0-15.0); Lymphocyte # 0.44 X10^3/ul (4.0); Mean Corp Hgb Conc 30.2 g/dL (32-36); Mean Corpuscular Hgb 25.1 pg (27.0-32.0); Mean Corpuscular Volume 83.3 fL (81-99); Monocyte# 0.79 X10^3/uL; Monocyte% 7.1 % (0-10); NRBC Flagged by Analyzer 0 % (0-5); Neutrophil % 85.5 % (47-70); POSITIVE DIFFERENTIAL YES; Platelet Count 312 K/mm3 (150-450); RBC Distribution Width CV 15.3 % (11.6-14.6); Red Blood Count 4.54 M/mm3 (4.2-5.4); White Blood Count 11.1 K/mm3 (4.4-11.0)
[2019-04-17 11:29] LABS: Differential Indicated SCAN CRITERIA MET
[2019-04-17 12:04] LABS: ALB/GLOB Ratio 0.6 RATIO (0.9-2.4); AST(SGOT) 22 U/L (15-37); Alanine Aminotransfer ALT/SGPT 21 U/L (13-56); Albumin, Serum 2.6 g/dL (3.2-5.0); Alkaline Phosphatase 102 U/L (45-117); Anion Gap 7 (5-15); BUN 23 mg/dL (7-18); BUN/Creat Ratio 22.1 RATIO (10-20); Calcium,Total 10.2 mg/dL (8.5-10.1); Chloride 108 mmol/L (98-107); Creatinine, Serum 1.04 mg/dL (0.55-1.02); EST Glomerular Filtration Rate 54 mL/min (>60); Est Glom Filt Rate - Afr Amer 65 mL/min (>60); Globulin 4.5 g/dL (2.2-4.2); Glucose 125 mg/dL (74-106); Potassium 4.2 mmol/L (3.5-5.1); Protein, Total 7.1 g/dL (6.4-8.2); Sodium Level 140 mmol/L (136-145)
[2019-04-18 15:41] LABS: Cancer Antigen 125 27.8 U/mL (0.0-38.1)
== END ==
LOC: LAB.FUTURE 10:26 → LAB 10:28
PROVIDERS: PCP Family Medicine; Referring Provider Obstetrics & Gynecology; Visit Provider Obstetrics & Gynecology
DX: C56.9 Malignant neoplasm of unspecified ovary (principal)
CPT/HCPCS: 36415; 80053; 85025; 86304

== ENCOUNTER → 2019-05-15 13:52 | Outpatient (CLI) | payer MEDICARE, SELFPAY ==
[2019-05-08 11:03] VITALS: BMI 31.8
--- NOTE | 2019-05-15 13:57 | ECHODONC_ITS ---
Version 2 Reason For Study: PRE CHEMO Procedure This was a 2D Doppler, Color Flow transthoracic echocardiogram. Myocardial strain analysis was performed in this exam to aid in the assessment of cardiac function. The study was technically difficult. Due to body habitus. Exam performed in department. Left Ventricle Normal size and thickness. The estimated ejection fraction is 65 %. Stage 1 diastolic dysfunction. The global longitudinal strain = -24 % (normal). No regional wall motion abnormalities noted. Right Ventricle Normal size and thickness. A moderator band is seen in the right ventricle. Normal systolic function. Atria Normal left atrium. Normal right atrium. Normal atrial septum. Mitral Valve Mild diffuse mitral valve thickening. Severe mitral annular calcification extending into the posterior leaflet. Tricuspid Valve Normal tricuspid valve. Trivial tricuspid valve insufficiency. Right ventricular systolic pressure estimated to be 30 mmHg. Aortic Valve Trisinus/trileaflet aortic valve. Mild diffuse aortic valve thickening. Mild aortic stenosis. Peak aortic valve gradient 19 mmHg. Mean aortic valve gradient 10 mmHg. Pulmonic Valve Normal pulmonic valve. Trivial pulmonic valve insufficiency. Great Vessels Normal aortic root. Normal arch. Normal inferior vena cava. Inferior vena cava collapse with sniff. Pericardium/Pleural No pericardial effusion. MMode/2D Measurements & Calculations LVIDd: 4.9 cm IVSd: 0.86 cm LVOT diam: 2.0 cm LVIDs: 3.0 cm LVPWd: 0.93 cm LVOT area: 3.3 cm2 RVDd: 3.4 cm FS: 37.9 % Ao root diam: 3.2 cm LAV(MOD-bp): 51.2 ml EDV(MOD-sp4): 83.1 ml LAV(MOD-bp) Indexed: 29.5 ml/m2 ESV(MOD-sp4): 35.0 ml LAV(MOD-sp2): 44.9 ml EF(MOD-sp4): 57.9 % LAV(MOD-sp4): 44.3 ml EDV(MOD-sp2): 43.4 ml SV(MOD-sp4): 48.1 ml SV(MOD-sp2): 26.0 ml EF(MOD-sp2): 60.0 % LA A4 area: 17.1 cm2 LA dimension(2D): 3.4 cm RA A4 area: 10.4 cm2 Time Measurements MV dec time: 0.22 sec Doppler Measurements & Calculations MV E max alonso: 90.8 cm/sec Lat Peak E' Alonso: 11.2 cm/sec Med Peak E' Alonso: 9.4 cm/sec MV A max alonso: 122.5 cm/sec E/E' lat: 8.1 E/E' med: 9.7 MV E/A: 0.74 Ao V2 max: 214.9 cm/sec LV V1 max: 123.0 cm/sec SV(LVOT): 88.9 ml Ao max P.5 mmHg LV V1 max P.1 mmHg Ao V2 mean: 146.8 cm/sec LV V1 mean P.2 mmHg Ao mean P.6 mmHg LV V1 mean: 83.9 cm/sec Ao V2 VTI: 42.4 cm LV V1 VTI: 27.0 cm PAXTON(I,D): 2.1 cm2 PAXTON(V,D): 1.9 cm2 PA V2 max: 120.5 cm/sec TR max alonso: 251.7 cm/sec TR max P.3 mmHg Interpretation Summary The estimated ejection fraction is 65 %. Stage 1 diastolic dysfunction. Trivial tricuspid valve insufficiency. Right ventricular systolic pressure estimated to be 30 mmHg. Mild aortic stenosis. Compared to echo report dated 04/23/2007, LV function has remained the same, patient now has mild aortic stenosis. The global longitudinal strain = -24 % (normal). Ordering Physician: Jose David Sykes Referring Physician: Britany Fleming Performed By: Giana Lemon, EDUARDO, RVT
--- NOTE | 2019-05-15 13:57 | CT_ITS ---
STUDY: CT CHEST WITH CONTRAST REASON FOR EXAM: Female, 83 years old. Restaging metastatic ovarian cancer. History of right breast cancer with surgery, radiation and hormone therapy. RADIATION DOSAGE (If Supplied By Facility): CTDIvol = ( 11.21 ) mGy, DLP = ( 750.56 ) mGycm TECHNIQUE: Transaxial imaging was performed following intravenous administration of IV 100mL Isovue-300. Multiplanar coronal and sagittal images were reformatted. Individualized dose optimization techniques were used for this CT. COMPARISON: CT of the abdomen, May 15, 2019. PET/CT scan, April 01, 2019. CT of the chest, February 15, 2016. FINDINGS: Right jugular Port-A-Cath with its tip at the atriocaval junction. The lungs are well expanded. There is a loculated pleural effusion posteriorly at the right lung base with associated atelectasis within the right lower lobe. There is a 1.2 cm calcified granuloma in the left posterior costophrenic angle. No other evidence of pulmonary mass or infiltrate is noted. Normal heart and pericardium. The calcifications at the root of the aorta within the coronary arteries along the mitral valve plane. There is no mediastinal lymphadenopathy. There is mild thickening of the distal esophagus unchanged from PET scan. Normal hilar regions. Normal enhanced pulmonary arteries. There is atherosclerotic changes of the thoracic aorta without aneurysm or dissection. There are multi-level degenerative changes of the thoracic spine. There is no evidence of lytic or blastic lesion. There is evidence of irregular calcification soft tissue tethering in the right breast consistent with history of prior surgery. This is unchanged from a CT of February 15, 2016. There is a soft tissue mass between segment 2 of the liver and the diaphragm there is a low-attenuation mass in the posterior right liver. Please refer to CT of the abdomen for further details. CT/Chest WITH Contrast IMPRESSION: No interval change when compared to a PET/CT scan of April 01, 2019. The pleural effusion and liver masses were not seen on the prior chest CT. Electronically Signed: Gokul Escamilla DO at 17:17 EDT Tel [phone], Service support ,
--- NOTE | 2019-05-15 13:57 | CT_ITS ---
STUDY: CT ABDOMEN WITH CONTRAST REASON FOR EXAM: Female, 83 years old. Restaging metastatic ovarian cancer. History of right breast cancer with surgery radiation and hormone therapy. History of removal of abdominal tumor cholecystectomy. RADIATION DOSAGE (If Supplied By Facility): CTDIvol = ( 11.21 ) mGy, DLP = ( 750.56 ) mGycm TECHNIQUE: Transaxial images were obtained post I.V. administration of IV 100mL Isovue-300, and without oral contrast. Sagittal and coronal images were reconstructed. Individualized dose optimization techniques were used for this CT. COMPARISON: PET/CT scan, April 01, 2019. FINDINGS: There is a large right sided loculated pleural effusion with mild atelectasis. Calcified granuloma in the left posterior costophrenic angle. There is no pulmonary mass. These findings appear unchanged. The visualized portions of the heart are within normal limits. Coronary artery calcifications. There is focal calcifications within the right breast thought to be the prior tumor site. This is stable. There is a lobulated low attenuation mass in the posterior aspect of the right liver, measuring 4.7 x 5.2 x 3.3 cm in size. This correlates with an area of intense uptake on the PET scan. Between segment 2 of the liver and the underside of the right diaphragm, there is a low-attenuation soft tissue mass measuring 1.7 x 3.0 x 1.1 cm in size. This correlates with an area of intense uptake on the PET scan. The gallbladder is surgically absent. Normal bile duct. Normal spleen. There is diffuse enlargement of the pancreas with marcio-pancreatic edema suggesting acute pancreatitis. Normal bilateral adrenal glands. Multiple tiny cortical cysts within the right kidney. There is no visualized mass correlate with the area of increased uptake in the upper pole seen on the PET scan although this may represent a portion upper pole calyx. Similarly, the area within increased uptake in the upper pole left kidney does not correlate with a distinct mass on today''s study and may represent contrast within the upper pole calyx. Small cortical cysts are also seen in the left kidney. There is mild thickening of the distal esophagus. The stomach is nondistended but otherwise grossly normal. Again seen is an irregular area of calcification within the small bowel mesentery with puckering of the mesentery and tethering of small bowel loops in the mid abdomen unchanged from the PET scan. Otherwise normal visualized small intestine. Normal visualized colon. The appendix is not included. There is diffuse atherosclerotic calcification of the abdominal aorta with elongation and tortuosity, but without a demonstrated aneurysm. Normal inferior vena cava. Normal retroperitoneum. Normal abdominal wall. There is a remote compression deformity of the L1 vertebra with retropulsion superior endplate and mild narrowing of the central canal. There is also diffuse degenerative change lumbar spine with anterolisthesis of L4 on L5 without pars defects. There is evidence of a left hemilaminectomy at this level. There is no major interval change. CT/Abdomen WITH IV Contrast IMPRESSION: 1. Loculated right pleural effusion unchanged from prior PET scan. 2. Lobulated low attenuation mass in the posterior right liver. This correlates in size and appearance with an area of increased uptake on the PET scan. 3. Focal soft tissue mass between the diaphragm and left liver correlating with an area of increased uptake on the prior PET scan. 4. Tethered small bowel loops with irregular calcific mass in the mesentery, unchanged from prior exam. 5. No evidence of new finding or major interval change. Electronically Signed: Gokul Escamilla DO at 17:05 EDT Tel [phone], Service support ,
== END ==
PROVIDERS: PCP Family Medicine; Referring Provider Internal Medicine Medical Oncology; Visit Provider Internal Medicine Medical Oncology
DX: C56.9 Malignant neoplasm of unspecified ovary (principal); C78.2 Secondary malignant neoplasm of pleura; Z85.3 Personal history of malignant neoplasm of breast; Z79.899 Other long term (current) drug therapy; Z85.43 Personal history of malignant neoplasm of ovary
CPT/HCPCS: 71260; 74160; 93306; 93356; Q9967; A4216

== ENCOUNTER → 2019-05-17 15:17 | Outpatient (CLI) | payer MEDICARE, SELFPAY ==
[2019-05-08 11:03] VITALS: BMI 31.8
--- NOTE | 2019-05-17 15:18 | MRI_ITS ---
STUDY: MRI BRAIN WITH AND WITHOUT CONTRAST REASON FOR EXAM: Female, 83 years old. restaging, h/o ovarian and breast ca with mets TECHNIQUE: Standardized multiplanar fat and water weighted pulse sequences were obtained. 15ml Dotarem via port was administered for the contrast portion of the examination. COMPARISON: None. FINDINGS: A tiny late subacute infarct is seen in the wagner radiata in the high right frontal lobe. No demonstrated acute infarction. There is mild cerebral atrophy with widening of the extra-axial spaces and ventricular dilatation. There are multiple white matter hyperintensities, distributed throughout the deep white matter tracts of the cerebral hemispheres, consistent with moderate to significant chronic white matter ischemic changes. Normal bilateral basal ganglia. Normal thalami. There is no extra-axial fluid accumulation. Normal flow voids within the major intracranial circulation suggesting patency by spin echo criteria. Normal venous enhancement. There is no enhancing intra-axial or extra-axial abnormality. Normal sella turcica, pituitary gland, infundibular stalk, optic chiasm and hypothalamus. Normal tectal plate and pineal gland. Normal midbrain, urbano and medulla. Normal cerebellum. Normal basal cisterns. Normal bilateral temporal bones. Normal bilateral internal auditory canals. No demonstrated orbital abnormality, within the constraints of a routine brain study. Normal visualized paranasal sinuses. Normal calvarium and skull base. Normal visualized soft tissue structures. Normal visualized upper cervical spine. MRI/Brain W/WO Contrast IMPRESSION: 1. Involutional and chronic ischemic changes of the brain, as described above. 2. No demonstrated enhancing lesions. 3. A tiny late subacute infarct is seen in the wagner radiata in the high right frontal lobe. No demonstrated acute infarction. Electronically Signed: Swapnil Rios MD at 21:00 EDT , Service support ,
[2019-05-17] MEDS: 0.9% Saline Lock 10 ML Syringe IV (17:00)
== END ==
PROVIDERS: PCP Family Medicine; Referring Provider Internal Medicine Medical Oncology; Visit Provider Internal Medicine Medical Oncology
DX: C56.9 Malignant neoplasm of unspecified ovary (principal); C78.2 Secondary malignant neoplasm of pleura; Z79.899 Other long term (current) drug therapy; Z85.3 Personal history of malignant neoplasm of breast; Z85.43 Personal history of malignant neoplasm of ovary
CPT/HCPCS: 70553; A9575; A4216

== ENCOUNTER → 2019-07-04 12:40 | Outpatient (CLI) | payer MEDICARE, SELFPAY ==
[2019-06-18 09:37] VITALS: BMI 29.5
[2019-07-02 12:30] VITALS: BMI 29.0
--- NOTE | 2019-07-04 12:42 | CT_ITS ---
STUDY: CT ABDOMEN AND PELVIS WITH CONTRAST REASON FOR EXAM: Female, 83 years old. ASSESSING TREATMENT RESPONSE FOR LT BREAST CA WITH OVARIAN METS, SURG-Power Port, right breast lumpectomy, right hip replacement, cholecystectomy, AMANDEEP/BSO, abdominal mass removed, HTN, HAD RAD TX RADIATION DOSAGE (If Supplied By Facility): CTDIvol = ( 11.33 ) mGy, DLP = ( 789.22 ) mGycm TECHNIQUE: Transaxial images were obtained from the dome of the diaphragm to the symphysis pubis with oral contrast. IV 100mL Isovue-300 was administered. Sagittal and coronal images were reconstructed. Individualized dose optimization techniques were used for this CT. COMPARISON: Comparison is made with prior examination dated May 15, 2019. FINDINGS: An air-fluid level is seen at the right lung base suggestive of a right hydropneumothorax. The visualized portions of the heart are within normal limits. There is a 3.5 cm x 2.5 cm hypodense lesion in the posterior aspect of the right lobe of the liver. This has decreased in size. It previously measured 4.7 size by 5.2 cm. The patient is status post cholecystectomy. There are multiple benign calcified granulomata of the spleen. There is diffuse atrophy of the pancreas. Normal bilateral adrenal glands. Tiny cysts are once again seen at the level of both kidneys. Normal visualized stomach. Normal small intestine. Normal colon. The appendix is visualized and appears normal. There is diffuse atherosclerotic calcification of the abdominal aorta, without a demonstrated aneurysm. Normal inferior vena cava. Normal retroperitoneum. Once again, there is dense calcification within the root of the mesentery in the lower abdomen. This is unchanged and most likely represents response following therapy for ovarian carcinoma. Normal urinary bladder. There is absence of the uterus consistent with a prior hysterectomy. Normal abdominal wall. There are diffuse degenerative changes of the visualized lumbar spine. There is a most complete collapse of the L1 vertebrae. This is unchanged. Stable anterolisthesis of L4 on L5. The patient is status post right hip replacement. CT/Abdomen/Pelvis W IV Cont ONLY IMPRESSION: Interval decrease in size of the hypodense lesion in the posterior aspect of the right lobe of the liver. Stable dense calcification with fibrosis and tethering of the small bowel loops in the root of the mesentery in the lower abdomen. New right sided hydropneumothorax. Stable compression fracture of the L1 vertebrae with degenerative changes of the lumbar spine. Electronically Signed: Silvion Chris, at 13:38 EDT , Service support ,
--- NOTE | 2019-07-04 12:42 | CT_ITS ---
STUDY: CT CHEST WITH CONTRAST REASON FOR EXAM: Female, 83 years old. ASSESSING TREATMENT RESPONSE FOR LT BREAST CA WITH OVARIAN METS, SURG-Power Port, right breast lumpectomy, right hip replacement, cholecystectomy, AMANDEEP/BSO, abdominal mass removed, HX-HTN RADIATION DOSAGE (If Supplied By Facility): CTDIvol = ( 11.33 ) mGy, DLP = ( 789.22 ) mGycm TECHNIQUE: Transaxial imaging was performed following intravenous administration of IV 100mL Isovue-300. Multiplanar coronal and sagittal images were reformatted. Individualized dose optimization techniques were used for this CT. COMPARISON: Comparison is made with prior examination dated May 15, 2019. FINDINGS: A right-sided portacatheter is seen with the tip in the superior vena cava. Mildly enlarged thyroid with a small hypodense nodules in both lobes slightly more prominent on the right side. There now is evidence of a loculated hydropneumothorax at the right lung base with underlying basilar atelectasis and/or infiltrate in the right lower lobe with mild degree of bronchiectasis. Minimal increased markings are also seen in the lateral aspect of the right lower lobe. Stable loculated fluid along the medial aspect of the right hemithorax. Stable calcified granuloma in the left lower lobe. There are calcifications of the coronary arteries. Normal mediastinum. Calcified left hilar lymph nodes. Normal enhanced pulmonary arteries. There is atherosclerotic calcification of the aortic arch with tortuosity and elongation of the aortic arch and descending thoracic aorta. There are multi-level degenerative changes of the thoracic spine. Increased kyphosis. Calcified splenic granulomas. CT/Chest WITH Contrast IMPRESSION: Loculated hydropneumothorax at the right lung base with underlying volume loss in the right lower lobe with bronchiectasis. Loculated fluid along the medial aspect of the right hemithorax. Electronically Signed: Silvino Chris, at 13:45 EDT , Service support ,
[2019-07-04] MEDS: 0.9% Saline Lock 10 ML Syringe IV (13:15)
== END ==
PROVIDERS: PCP Family Medicine; Referring Provider Internal Medicine Medical Oncology; Visit Provider Internal Medicine Medical Oncology
DX: C56.1 Malignant neoplasm of right ovary (principal); C78.2 Secondary malignant neoplasm of pleura
CPT/HCPCS: 71260; 74177; A4216

== ENCOUNTER 2019-08-13 13:19 | Observation (INO) | payer MEDICARE, SELFPAY ==
[2019-08-13 09:19] VITALS: BMI 27.6
[2019-08-13 13:20] VITALS: BP 119/76; PULSE 61; RESP 14; TEMP 35.8; O2SAT 99; BMI 26.2
--- NOTE | 2019-08-13 13:36 | EKG12_ITS ---
Test Reason : CONFUSION Blood Pressure : / mmHG Vent. Rate : 061 BPM Atrial Rate : 061 BPM P-R Int : 158 ms QRS Dur : 082 ms QT Int : 448 ms P-R-T Axes : 030 -28 006 degrees QTc Int : 450 ms Normal sinus rhythm Possible Anterolateral infarct , age undetermined Abnormal ECG Confirmed by NATHALY STRAUSS, JARROD ([id number]), science editor JASON OLMSTEAD ([id number]) on 08/16/2019 11:06:38 AM Referred By: ALMA Confirmed By:JARROD ANDERSEN MD
--- NOTE | 2019-08-13 13:36 | CT_ITS ---
STUDY: CT BRAIN WITHOUT CONTRAST REASON FOR EXAM: Female, 83 years old. CONFUSION after chemo, MS CHANGE. Hx of rt breast cancer with mets to abdomen RADIATION DOSAGE (If Supplied By Facility): CTDIvol = ( 44.99 ) mGy, DLP = ( 798.92 ) mGycm TECHNIQUE: Transaxial CT imaging of the brain was performed without administration of intravenous contrast material. Individualized dose optimization techniques were used for this CT. COMPARISON: Comparison is made with prior MRI of the brain dated May 17, 2019. FINDINGS: Normal soft tissue structures. Normal calvarium. There is mild cerebral atrophy with widening of the extra-axial spaces and ventricular dilatation. There are areas of decreased attenuation within the white matter tracts of the supratentorial brain, consistent with microvascular disease changes. Normal basal ganglia and thalami. Normal brainstem. Normal cerebellum. There is no intracranial hemorrhage. There are no findings of an acute ischemic infarction. Atherosclerotic calcification of the vertebral arteries and cavernous portions of the internal carotid arteries bilaterally. Normal visualized paranasal sinuses. CT/Brain/Head without Contrast IMPRESSION: Chronic involutional changes of the brain. Electronically Signed: Silvino Chris, at 14:48 EDT , Service support ,
[2019-08-13] MEDS: 0.9% Normal Saline 1,000 ML 1000 ML IV (14:01)
[2019-08-13 14:32] VITALS: BP 134/64; PULSE 61; RESP 16; O2SAT 99
[2019-08-13 14:36] LABS: Anion Gap 9 (5-15); BUN 14 mg/dL (7-18); BUN/Creat Ratio 16.7 RATIO (10-20); Calcium,Total 8.7 mg/dL (8.5-10.1); Chloride 108 mmol/L (98-107); Creatinine, Serum 0.84 mg/dL (0.55-1.02); EST Glomerular Filtration Rate 69 mL/min (>60); Est Glom Filt Rate - Afr Amer 84 mL/min (>60); Estimated Creatinine Clearance 45.36 ml/min; Glucose 121 mg/dL (74-106); Potassium 4.6 mmol/L (3.5-5.1); Sodium Level 140 mmol/L (136-145)
[2019-08-13 15:12] LABS: Bacteria 0 SEEN /hpf (None Seen); Mucous, Urine 0 SEEN /hpf (<or=2+); Red Blood Cells-Urine 0 SEEN /hpf (0-5); White Blood Cells 0 SEEN /hpf (0-5)
[2019-08-13 15:21] LABS: Color, Urine Yellow (Yellow); Glucose, Dipstick Normal (Normal); Ketone-Dipstick Negative (Negative); Leukocyte Esterase-Dipstick Negative /ul (Negative); Nitrite-Dipstick Negative (Negative); Occult Blood-Urine Negative /ul (Negative); Protein-Dipstick Negative (Negative); Specific Gravity, Urine 1.015 (1.002-1.030); Urine Bilirubin Dipstick Negative (Negative); Urine Clarity Sl. Cloudy (Clear); Urine Urobilinogen Normal (Normal)
[2019-08-13 15:26] LABS: Squamous Epithelial Cells - UA 0-5 SEEN /hpf (5-10)
--- NOTE | 2019-08-13 15:45 | ED.VISSUMM ---
- ER Visit Summary Date of Service: 08/13/19 Chief Complaint: [] History of Present Illness: The patient is a 83 F [confusion presents the emergency with confusion that was noted today while at chemotherapy. Patient apparently was confused last week as well but more severely confused this week. She also received Benadryl today. Patient has a friend with her who actually lives with her currently who states that it is normal for the patient to be confused after chemo for about a day. Patient has no complaints. She denies any chest pain or shortness of breath or headache. She is had no fever or recent illness. She denies urinary symptoms. Patient has history of hypertension and high cholesterol. Patient being treated for metastatic ovarian cancer.] Physical Examination: [HEENT-PERRLA, EOMI. Cranial nerves II through XII grossly intact. TMs clear. Mucous membranes moist. No adenopathy. She is alert to person and place. Patient knew the year. Patient knew the month. She did not know the exact date. Cardiovascular-regular rate and rhythm without murmur or ectopy Lungs-clear to auscultation, chest wall stable without crepitus or subcu emphysema Abdomen-normoactive bowel sounds, soft, nontender, no rebound or rigidity, no peritoneal signs. Extremities-intact ?4, normal range of motion, normal pulses, atraumatic] Test Results: [EKG obtained arrival shows sinus rhythm with a ventricular rate of 61 bpm with no acute segment changes. CBC with differential showed a white count 2.2, hemoglobin 8.0, hematocrit 26, platelets 95. Chemistries unremarkable. Glucose was 121. Urinalysis normal. Troponin less than 0.015. CT of the brain showed chronic involutional changes otherwise nothing acute.] Emergency Department Course and Treatment: [Patient continues to be somewhat confused in the department when I asked her the year again she thought it was 1919. Patient still knows that she is at the hospital. She did not know the month the second time I asked her. Recommend admission overnight for at least an observation. Patient is refusing admission. I did see that patient had an MRI of her brain May 16 and there was no evidence of metastatic lesion. Patient did have a lacunar infarct noted in the frontal lobe.] Discussed case with Edyta who is patient's power of workers compensation attorney and medical decision making person who agrees with the admission. I spoke with Dr. Sykes who does describe increased confusion today and felt that chemo could potentially be contributing to some little lethargy but typically resolve after 24 hours or so potentially. Is been 3-month since her last MRI I cannot rule out metastasis to the brain at this time as contributing to her confusion. Treatment Plan: [Admit] Disposition: [Admit] Impression: [Confusion-etiology uncertain] This note was generated with Epunch[employer] dictation software. It may contain incorrect words, spelling, and punctuation that were not noted in review of the chart prior to signing ED Disposition - Plan for ED Patient: Referrals: Britany Fleming DO [Primary Care Provider] -
--- NOTE | 2019-08-13 16:17 | CM.ED ---
Social Work Consult: Patient confused and needing to see if there is a Health Care Power of Analytical Laboratory Technician in place. Informant: Dr. Pak Completing chart review. No advanced directives appear to be listed on chart, but in 2014 there is a not stating that patient has a health care power of employee benefits attorney, Edyta Riccardo. Met with patient and patient friend, Giuliana Go in room. Introduced self as well as nursing home social worker role. This nursing home social worker inquiring about HCPOA. Giuliana states I think it is Edyta. Per Giuliana Edyta is now Edyta Dykes but was Edyta Gu. Giuliana states that Edyta is patient step-daughter. Patient does not interject or attempt to answer questions that are directed at patient. When this nursing home social worker asking patient if patient knows where patient is patient states, I want to go home. Patient is unable to answer direct questions and Giuliana is primarily speaking for patient. Giuliana [phone] as contact number for Edyta Dykes. This nursing home social worker inquiring if patient is typically confused, Giuliana states that patient is confused after chemo but clears up the next day. Giuliana states to stay with patient while patient is confused. Giuliana is noted to use a walker and is stating to not be able to physically care for patient. Giuliana states that patient has a dog, Phyllis that Giuliana helps patient take care of. Giuliana states to be feel comfortable with patient returning to home but Giuliana is also demonstrating to be a poor historian. Telephone call to Edyta, Edyta confirming to have been Edyta Gu but to now be Edyta Dykes. Edyta states to believe to be patient's health care power of employee benefits attorney. Edyta does have the documents and e-mailed the documents to this nursing home social worker. This nursing home social worker was able to put copy of HCPOA and Living Will documents on file. Edyta also clarifying to not be patient step-daughter but like a step-daughter as Edyta's father and patient were never . Updated Dr. Pak with above information. Dr. Pak concerned with patient discharge to home and speaking with Edyta about this. Edyta is agreeable to admission to the hospital and does not feel safe with patient discharging to home due to confusion. PLAN: Admit to [facility]. Kevin Matute MSW, ANNABEL
[2019-08-13 16:37] LABS: Absolute Lymphocyte Count 0.12 X10^3/uL (0.83-4.51); Absolute Neutrophil Count 1.7 X10^3/uL (2.0-7.7); Basophil# 0.02 X10^3/uL; Hemoglobin 7.9 g/dL (12.0-15.0); Lymphocyte # 0.12 X10^3/ul (4.0); Lymphocyte % 6.1 % (19-41); Mean Corp Hgb Conc 30.4 g/dL (32-36); Mean Corpuscular Hgb 32.1 pg (27.0-32.0); Mean Corpuscular Volume 105.7 fL (81-99); Mean Platelet Vol. 11.3 fl (6.2-12.0); Monocyte# 0.09 X10^3/uL; Monocyte% 4.5 % (0-10); NRBC Flagged by Analyzer 0 % (0-5); Neutrophil # 1.71 X10^3/uL (2.7-7.7); Neutrophil % 86.4 % (47-70); POSITIVE COUNT YES; POSITIVE DIFFERENTIAL YES; POSITIVE MORPHOLOGY YES; Platelet Count 98 K/mm3 (150-450); RBC Distribution Width CV 20.3 % (11.6-14.6); RBC Distribution Width SD 79.6 fl (35.1-43.9); Red Blood Count 2.46 M/mm3 (4.2-5.4)
[2019-08-13 16:45] LABS: Differential Indicated SCAN CRITERIA MET
--- NOTE | 2019-08-13 16:53 | PCM.HP.STD ---
History of Present Illness Date of Admission: 08/13/19 The patient is a 83 year old F who has a h/o ovarian cancer (dx in 2016) with metastatic recurrence (dx 02/2019) presented to the ED today after her chemotherapy today. Per her roommate/friend who presents here with her it is not atypical for her to have some confusion after chemo but her step-daughter Edyta isn't sure that this history can be trusted. Pt pt is adamant that she would like to go home but after discussing her status with her step-daughter the ED has asked us to admit her. Dr. Ramsey also talked to Dr. Sykes, her oncologist, and he was a bit concerned about her confusion stating that the chemo could contribute but wasn't clear that this was the primary issues. Her last MRI was about 3 mos ago. All of her VS are stable. Her lab is relatively unremarkable other than pancytopenia which is stable and related to her chemo. Her UA is unimpressive and her CT shows no acute abnormalities. She is confused on exam to month initially but self corrected, year (1919) and tells me Dennis is president. She does know that she is at [facility]. Past Medical History Past Medical History (Chronic Problems): Chronic Problems (Last Reviewed 08/13/19 @ 09:18 by India Mas) History of right breast cancer (Chronic) History of ovarian cancer in adulthood (Chronic) HTN (hypertension) (Chronic) Dyslipidemia (Chronic) Osteoarthritis (arthritis due to wear and tear of joints) (Chronic) Ovarian cancer (Chronic) Thyroid nodule (Chronic) Hypertension (Chronic) Medical History: Medical History (Last Reviewed 08/13/19 @ 17:[address] Beena Medina, DO) Left wrist repair (Acute) Right arm lymphectomy (Acute) Synovial cyst (Acute) M71.30 Port placement (Acute) Osteopenia (Acute) M85.80 Hyperlipidemia (Acute) E78.5 Depression (Acute) F32.9 Breast cancer (Acute) C50.919 Left wrist fracture (Acute) S62.102A Abnormal breast biopsy (Acute) R89.7 Cholecystectomy planned (Acute) Hip replacement planned (Acute) Hypertension (Chronic) I10 Allergies hydrocodone bitartrate [From Vicodin] Adverse Reaction (Severe, Verified 08/13/19 13:20) Other MAKES ME LOOPY Sulfa (Sulfonamide Antibiotics) Adverse Reaction (Severe, Verified 08/13/19 13:20) Upset Stomach Home Medications: Ambulatory Orders Medication Instructions Recorded Duloxetine Hcl [Cymbalta] 60 mg PO DAILY 11/07/13 Lisinopril/Hydrochlorothiazide 1 tab PO BID 11/07/13 [Zestoretic 20/12.5 Tablet] ALPRAZolam [Xanax] 0.5 mg PO BID PRN PRN 05/21/14 Colesevelam Hydrochloride [Welchol] 1,250 mg PO BIDCM 05/13/15 Cholecalciferol (VIT D3) [Vitamin 4,000 tab PO DAILY 09/16/15 D3] [place]-3 Acid Ethyl Esters [Lovaza] 1 gm PO BID 06/16/16 Potassium Chloride [K-Dur] 20 meq PO DAILY #14 tab 05/01/19 Ciprofloxacin [Cipro] 250 mg PO BID 08/13/19 Colestipol HCl 1 gm PO BID 08/13/19 Dexlansoprazole [Dexilant] 60 mg PO DAILY 08/13/19 Erythromycin Ophthalmic 1 applic EACH EYE 4X/DAY 08/13/19 Lifitegrast [Xiidra] 1 drp EACH EYE BID 08/13/19 Ubidecarenone [Co Q-10] 100 mg PO DAILY 08/13/19 Vitamin B Complex 1 tab PO DAILY 08/13/19 Surgical History: Surgical History (Last Reviewed 08/13/19 @ 17:[address] Beena Medina, DO) History of right breast biopsy (Resolved) Z98.890 S/P foot surgery, left (Resolved) Z98.890 S/P laminectomy with spinal fusion (Resolved) Z98.1 History of hip replacement (Resolved) Z96.649 History of cataract extraction (Resolved) Z98.49 History of hysterectomy for malignancy (Resolved) Z90.710 History of knee replacement (Resolved) Z96.659 Surgical History: hysterectomy - with L oophorectomy, - - Multiple joint replacement surgeries. History of lumpectomy. Psychiatric History: Anxiety, Depression Lives: Friends Smoking Status: Never smoker Tobacco Use: Non-smoker Alcohol: None Drugs: None - *Family History Maternal Family History: Family History (Last Reviewed 08/13/19 @ 09:18 by India Mas) Mother CVA (cerebral vascular accident) Hypertension Father Hypertension Other Heart disease History Items: No pertinent history Review of Systems Constitutional: Denies: Anorexia, Chills, Fever, Night Sweats, Malaise, Weakness, Weight Change, Fatigue Eyes: Denies: Blurred vision, Cataracts, Double vision, Pain, Redness, Vision Change HEENT: Denies: Difficulty Hearing, Dysphasia, Ear Pain, Nasal bleeding, Nasal Congestion, Sore Throat Cardiovascular: Denies: Chest Pain, Chest Pressure, Chest Tightness, Edema, Heaviness, Light Headedness, Orthopnea, Palpitations, Paroxysmal Noc. Dyspnea, Syncope Respiratory: Denies: Cough, Hemoptysis, Pleuritic Pain, Shortness of Breath, Shortness of breath at rest, Shortness of breath upon exertion, Sputum production, Wheezing Gastrointestinal: Denies: Abdominal Pain, Constipation, Diarrhea, Dyspepsia, Hematemesis, Hematochezia, Nausea, Melena, Vomiting Genitourinary: Denies: Dysuria, Frequency, Hematuria, Hesitancy, Incontinence, Nocturia, Retention, Urgency Musculoskeletal: Denies: Arm Pain, Back Pain, Joint stiffness, Joint swelling, Joint Tenderness, Leg Pain, Neck Pain Skin: Denies: Dryness, Jaundice, Lesions, Pruritis, Rash, Skin Changes Neurological: Reports: - - walks independently without device at home. Denies: Balance problems, Blurred vision, Double vision, Change in Speech, Slurred speech, Confusion - pt denies, Difficulty swallowing, Focal weakness, Headaches, Incoordination, Numbness, Tremor, Seizures Psychiatric: Reports: Anxiety, Depression Endocrine: Denies: Change in Body Habitus, Heat/ Cold Intolerance, Polydipsia, Polyuria Hematologic/ Lymphatic: Denies: Adenopathy, Anemia, Easy Bruising, Easy Bleeding, Petechiae, Purpura, Hx of blood clot, Hx of blood transfusion VTE Information - Inpt Only VTE Present on Admission: No VTE Mechan Device Prophylaxis: None VTE Pharm Prophylaxis ordered?: Yes Patient Problems: Active and Suspected Problems (Last Reviewed 08/13/19 @ 09:18 by India Mas) 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 (Acute) Encounter for education (Acute) Iron (Fe) deficiency anemia (Acute) Chemotherapy management, encounter for (Acute) Hypokalemia (Acute) Hypomagnesemia (Acute) Anemia (Acute) - Physical Exam Vitals/I&O's: Vital Signs Temp Pulse Resp BP Pulse Ox 96.4 F L 61 16 134/64 H 99 08/13/19 13:20 08/13/19 14:32 08/13/19 14:32 08/13/19 14:32 08/13/19 14:32 Oxygen Delivery Method Room Air Weight: 69.4 kg Body Mass Index (BMI) 26.2 General: Alert, Cooperative, No apparent distress, Well developed, Well nourished, Confused HEENT: Atraumatic, PERRLA, EOMI, Normocephalic, EAC Clear Oral: Moist Mucosa, No Gingival or Mucosal Lesions/ Ulcerations, - - mallampati, 2 fair dentition, no thrush Neck: Supple, No JVD, Negative Carotid Bruits, Negative Hepatojugular Reflux, No Nodes, No Nuchal Rigidity, Trachea Midline Lungs: Clear to auscultation, Normal air movement, No rhonchi, No wheeze, No rales Cardiovascular: Regular rate, Regular Rhythm, Normal S1, Normal S2, No murmurs, No Ectopic Activity, No rub noted, No Gallop Abdomen: Bowel Sounds Present, Soft, Non Tender, Non-Distended, Obese, No hernias noted Extremities: No clubbing, No cyanosis, Edema - 1+, Peripheral Pulses Normal Skin: No rashes, No breakdown, - - accessed MedPort R chest-no drainage or erythema at site Musculoskeletal: No Tenderness to Palpation of Joints or Extremities, No Muscle Wasting, Arthritic Changes Lymphatic: No Cervical, Supraclavicular, or Inguinal Adenopathy Neurological: Cranial nerves II-XII grossly intact, Deep Tendon Reflexes 2+/4 and Symmetrical, Neuro grossly intact, Motor Exam 5/5 strength throughout, Sensory exam intact to light touch and pain, Coordination normal Psych/Mental Status: Agitated - mildly related to having to be admitted Laboratory Results 08/13/19 14:12: WBC Cancelled, Corrected WBC Cancelled, RBC Cancelled, Hgb Cancelled, Hct Cancelled, MCV Cancelled, MCH Cancelled, MCHC Cancelled, RDW Std Deviation Cancelled, RDW Coeff of Mark Cancelled, Plt Count Cancelled, MPV Cancelled, Immature Gran % (Auto) Cancelled, Neut % (Auto) Cancelled, Lymph % (Auto) Cancelled, Josephine % (Auto) Cancelled, Eos % (Auto) Cancelled, Baso % (Auto) Cancelled, Absolute Neuts (auto) Cancelled, Absolute Lymphs (auto) Cancelled, Total Counted Cancelled, Neutrophils % (Manual) Cancelled, Band Neutrophils % Cancelled, Lymphocytes % (Manual) Cancelled, Monocytes % (Manual) Cancelled, Eosinophils % (Manual) Cancelled, Basophils % (Manual) Cancelled, Metamyelocytes % Cancelled, Myelocytes % Cancelled, Promyelocytes % Cancelled, Blast Cells % Cancelled, Plasma Cell % (Manual) Cancelled, Other Cells % Cancelled, Nucleated RBC % Cancelled, Nucleated RBCs/100 WBC Cancelled, Differential Comment Cancelled, Diff Path Review Cancelled, Hypersegmented Neuts Cancelled, Atypical Lymphocytes Cancelled, Reactive Lymphocytes Cancelled, Smudge Cells Cancelled, Toxic Granulation Cancelled, Toxic Vacuolation Cancelled, Dohle Bodies Cancelled, Cierra Rods Cancelled, Platelet Estimate Cancelled, Plt Morphology Comment Cancelled, RBC Morphology Cancelled, Polychromasia Cancelled, Hypochromasia Cancelled, Poikilocytosis Cancelled, Basophilic Stippling Cancelled, Anisocytosis Cancelled, Microcytosis Cancelled, Macrocytosis Cancelled, Spherocytes Cancelled, Sickle Cells Cancelled, Target Cells Cancelled, Tear Drop Cells Cancelled, Ovalocytes Cancelled, Stomatocytes Cancelled, Raines[place] Bodies Cancelled, Tennille Cells Cancelled, Bite Cells Cancelled, Crenated Cell Cancelled, Acanthocytes (Spur) Cancelled, Rouleaux Cancelled, Schistocytes Cancelled 08/13/19 14:12: Sodium 140, Potassium 4.6, Chloride 108 H, Carbon Dioxide 23.0, Anion Gap 9, BUN 14, Creatinine 0.84, Estim Creat Clear Calc 45.36, Est GFR (MDRD) Af Amer 84, Est GFR (MDRD) Non-Af 69, BUN/Creatinine Ratio 16.7, Glucose 121 H, Calcium 8.7, Troponin I < 0.015 08/13/19 15:05: Urine Color Yellow, Urine Clarity Sl. Cloudy, Urine pH 5.0, Ur Specific [place] 1.015, Urine Protein Negative, Urine Glucose (UA) Normal, Urine Ketones Negative, Urine Occult Blood Negative, Urine Nitrite Negative, Urine Bilirubin Negative, Urine Urobilinogen Normal, Ur Leukocyte Esterase Negative, Urine RBC 0 SEEN, Urine WBC 0 SEEN, Ur Squamous Epith Cells 0-5 SEEN, Urine Bacteria 0 SEEN, Urine Mucus 0 SEEN 08/13/19 16:20: WBC 2.0 L, RBC 2.46 L, Hgb 7.9 L, Hct 26.0 L, MCV 105.7 H, MCH 32.1 H, MCHC 30.4 L, RDW Std Deviation 79.6 H, RDW Coeff of Mark 20.3 H, Plt Count 98 L, MPV 11.3, Immature Gran % (Auto) 2.000 H, Neut % (Auto) 86.4 H, Lymph % (Auto) 6.1 L, Josephine % (Auto) 4.5, Eos % (Auto) 0.0, Baso % (Auto) 1.0, Absolute Neuts (auto) 1.7 L, Absolute Lymphs (auto) 0.12 L, Nucleated RBC % 0 Current Medications Sodium Chloride () 1,000 mls @ 15 mls/hr IV .Q48H DAKOTAH Assessment/Plan All Active Problems (Last Reviewed 08/13/19 @ 09:18 by India Mas) Anemia due to antineoplastic chemotherapy (Acute) 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 (Acute) Encounter for education (Acute) Iron (Fe) deficiency anemia (Acute) Chemotherapy management, encounter for (Acute) Hypokalemia (Acute) Hypomagnesemia (Acute) Pleural effusion (Acute) History of ovarian cancer (Resolved) History of right breast cancer (Resolved) Left breast lump (Acute) Abnormal mammogram with microcalcification (Acute) Iron deficiency (Acute) Hypomagnesemia (Acute) Colon cancer screening (Acute) Anemia (Acute) Left wrist repair (Acute) History of right breast biopsy (Resolved) Right arm lymphectomy (Acute) Synovial cyst (Acute) S/P foot surgery, left (Resolved) S/P laminectomy with spinal fusion (Resolved) Port placement (Acute) History of hip replacement (Resolved) History of cataract extraction (Resolved) Osteopenia (Acute) Hyperlipidemia (Acute) Depression (Acute) Breast cancer (Acute) Left wrist fracture (Acute) Abnormal breast biopsy (Acute) History of hysterectomy for malignancy (Resolved) Cholecystectomy planned (Acute) History of knee replacement (Resolved) Hip replacement planned (Acute) Confusion -no sig abnormalities with labs -CT head unremarkable -did get some benadryl with chemo today and this may have contributed -her friend at bedside states that this happens after chemo athough her step-daughter who is POA isnt convinced that is accurate -UA unimpressive -will check Ammonia and LFT's -MRI brain with contrast for h/o metastatic cancer Metastatic Ovarian Cancer (dx in 2016) -involves R hemithorax,mediastinum, R lobe of liver and peritoneum -has had partial response to chemo -s/o hysterectomy and L salpingo-oophorectomy 2015 and underwent 3 cycles of carboplatin/paclitaxel completed on 10/07/2015 -02/2019 had SOB with a fall--> found to have R pleural effusion--> thoracentesis and pat + for malignant cells -PET/CT on 04/01/2019 showed activity in the right anterior neck, mediastinal nodes, right mid to lower thorax at the pleural interface, right hepato-phrenic border and hepatic capsule, right lobe of the liver -Taxol/Carboplatin and Avastin currently for treatment per Dr. Sykes Pancytopenia -monitor -counts appear relatively stable -suspect chemo related -ANC is 1.7 so no neutropenic precautions required H/O R Breast Ca -stable -never had genetic testing HTN/HPL -continue home Welchol and Lovaza -continue Lisinopril 20 mg -continue HCTZ 12.5 mg -hold K--> monitor GERD -continue home Dexilant Anxiety/Depression -Continue Xanax (home med) -continue cymbalta DVT prophylaxis -Lovenox 40 mg daily Code status -per d/w Edyta (step-daughter and POA-HC) DNR-CCA Inpatient E&M: 02939 Init Hosp L3
[2019-08-13 17:33] LABS: Anisocytosis 2+; Macrocytosis 1+; Platelet Estimate MOD DEC (ADEQ); Polychromasia RARE; Rouleaux 1+
--- NOTE | 2019-08-13 17:41 | ED.RN ---
pt not wanting to stay. confused and unable to get up to bsc/ambulate. dr negrete.
[2019-08-13 17:54] VITALS: BP 159/87; PULSE 62; RESP 16; TEMP 36.6; O2SAT 98; BMI 26.2; BMI 26.3
[2019-08-13 18:49] VITALS: O2SAT 98
[2019-08-13 18:52] LABS: AST(SGOT) 30 U/L (15-37); Alanine Aminotransfer ALT/SGPT 21 U/L (13-56); Albumin, Serum 2.8 g/dL (3.2-5.0); Alkaline Phosphatase 90 U/L (45-117); Globulin 3.5 g/dL (2.2-4.2); Protein, Total 6.3 g/dL (6.4-8.2)
[2019-08-13 18:53] LABS: Ammonia < 10.0 umol/L (11-32)
[2019-08-13 20:25] VITALS: BP 135/69; PULSE 62; RESP 16; TEMP 36.3; O2SAT 98
[2019-08-13] MEDS: Erythromycin Base 1 OPTH.TUBE 1 APPLIC EACH EYE (20:37)
[2019-08-13] MEDS: Lisinopril 20 MG Tablet PO (22:10)
[2019-08-13] MEDS: hydroCHLOROthiazide 12.5mg 12.5 MG PO (22:10)
[2019-08-13] MEDS: Omega-3 Acid Ethyl Esters 1 GM Capsule PO (22:11)
[2019-08-13] MEDS: ALPRAZolam 0.5 MG Tablet PO (22:21)
--- NOTE | 2019-08-13 22:40 | NURSING ---
Pt upset at this time, wanting to leave the hospital stating I want to go home, I don't need to be here!. Explained to pt that she needs to stay per Dr's orders and to be closely monitored. Pt agreeable to take Xanax for anxiety; Xanax given. Pt continued to state that she wants to go home, and put on shoes in preparation to leave. Much 1:1 and support given. Lashanda full charge bookkeeper at bedside along with this RN. Pt's step-daughter in-law, Edyta, called at this time from pt room to speak to pt. Edyta spoke to pt, pt decided to stay at the hospital, removed shoes, and laid down in bed. Pt denies further Will continue to monitor and assess.
--- NOTE | 2019-08-14 02:30 | NURSING ---
Pt asleep at this time, no signs of discomfort or distress noted. Vital signs with focused assessment due at this time, however in order to not disturb pt and prevent uncooperative behavior from occurring, will obtain later in morning.
[2019-08-14 06:13] VITALS: BP 151/63; PULSE 57; RESP 16; TEMP 36.4; O2SAT 98
[2019-08-14 07:01] LABS: Absolute Lymphocyte Count 0.12 X10^3/uL (0.83-4.51); Absolute Neutrophil Count 2.3 X10^3/uL (2.0-7.7); Basophil# 0.01 X10^3/uL; Basophil% 0.4 % (0-1); Eosinophil# 0.01 X10^3/uL; Eosinophils% 0.4 % (0-5); Hematocrit 30.5 % (37-47); Hemoglobin 9.5 g/dL (12.0-15.0); Lymphocyte # 0.12 X10^3/ul (4.0); Lymphocyte % 4.6 % (19-41); Mean Corp Hgb Conc 31.1 g/dL (32-36); Mean Corpuscular Hgb 32.2 pg (27.0-32.0); Mean Corpuscular Volume 103.4 fL (81-99); Mean Platelet Vol. 11.1 fl (6.2-12.0); Monocyte# 0.13 X10^3/uL; NRBC Flagged by Analyzer 0 % (0-5); Neutrophil % 88.4 % (47-70); POSITIVE COUNT YES; POSITIVE DIFFERENTIAL YES; POSITIVE MORPHOLOGY YES; Platelet Count 85 K/mm3 (150-450); RBC Distribution Width SD 75.1 fl (35.1-43.9); Red Blood Count 2.95 M/mm3 (4.2-5.4); White Blood Count 2.6 K/mm3 (4.4-11.0)
[2019-08-14 07:02] LABS: Differential Indicated SCAN CRITERIA MET
[2019-08-14 07:21] LABS: Differential Comment SCANNED
[2019-08-14 07:22] LABS: Hypochromasia RARE; Microcytosis RARE; Platelet Estimate MOD DEC (ADEQ)
[2019-08-14 07:29] VITALS: O2SAT 95
[2019-08-14 07:39] LABS: Anion Gap 7 (5-15); BUN 13 mg/dL (7-18); BUN/Creat Ratio 15.5 RATIO (10-20); Calcium,Total 8.6 mg/dL (8.5-10.1); Chloride 106 mmol/L (98-107); Creatinine, Serum 0.84 mg/dL (0.55-1.02); EST Glomerular Filtration Rate 69 mL/min (>60); Est Glom Filt Rate - Afr Amer 84 mL/min (>60); Estimated Creatinine Clearance 45.36 ml/min; Glucose 81 mg/dL (74-106); Magnesium 1.8 mg/dL (1.6-2.6); Phosphorus 2.5 mg/dL (2.5-4.9); Potassium 4.1 mmol/L (3.5-5.1); Sodium Level 137 mmol/L (136-145); Thyroid Stim Hormone (TSH) 0.23 uIU/mL (0.358-3.74)
--- NOTE | 2019-08-14 08:30 | NURSING ---
Off unit ti MRI
--- NOTE | 2019-08-14 08:30 | MRI_ITS ---
STUDY: MRI BRAIN WITH AND WITHOUT CONTRAST REASON FOR EXAM: Female, 83 years old. Ovarian ca, breast ca, confusion; chemo currently TECHNIQUE: Standardized multiplanar fat and water weighted pulse sequences were obtained. 14 mL of IV Dotarem was administered for the contrast portion of the examination. COMPARISON: MRI brain with and without contrast 05/17/2019. FINDINGS: No restricted diffusion to suspect acute or subacute ischemic infarct. Normal size of the ventricles and extra-axial spaces for the patient''s age. T2 FLAIR hyperintensity foci in the white matter of both cerebral hemispheres are confluent in the forceps major. They are chronic white matter ischemic changes and are unchanged. No midline shift and no mass effects. Normal bilateral basal ganglia. Normal thalami. There is no extra-axial fluid accumulation. Normal flow voids within the major intracranial circulation suggesting patency by spin echo criteria. Normal venous enhancement. There is no enhancing intra-axial or extra-axial abnormality. Normal sella turcica, pituitary gland, infundibular stalk, optic chiasm and hypothalamus. Normal tectal plate and pineal gland. Normal midbrain, urbano and medulla. Normal cerebellum. Normal basal cisterns. Normal bilateral temporal bones. Normal bilateral internal auditory canals. No demonstrated orbital abnormality, within the constraints of a routine brain study. Normal visualized paranasal sinuses. Normal calvarium and skull base. Normal visualized soft tissue structures. Normal visualized upper cervical spine. MRI/Brain W/WO Contrast IMPRESSION: 1. No MRI evidence of intracranial metastatic disease. 2. No MRI evidence of acute or subacute ischemic infarcts or acute intracranial abnormality. 3. Chronic white matter ischemic changes in both cerebral hemispheres, confluent in the forceps major. 4. No significant interval change when compared to 05/17/2019. Electronically Signed: Alek De La Garza MD at 10:21 EDT , Service support ,
--- NOTE | 2019-08-14 09:45 | NURSING ---
Update given to patient's friend, Giuliana, at this time.
--- NOTE | 2019-08-14 09:46 | CASEMGMT ---
Social Work Note Pt is currently off floor for procedure. SW will see how pt does with PT/OT, then will call pt's step daughter Edyta who is HCPOA for pt to discuss discharge plans for pt. SW updated Charge Nurse that pt may need COVID test in the event pt needs to go to SNF at discharge. If pt needs SNF at discharge, pt will not be able to get chemo while at SNF. SW to continue to follow. Plan: HENNY Gardiner CAREER SPECIALIST, COMPANY CONTROLLER
[2019-08-14 11:00] VITALS: BP 150/111; PULSE 63; RESP 18; TEMP 36.7; O2SAT 97
--- NOTE | 2019-08-14 11:15 | CASEMGMT ---
Addendum entered by Marine Gardiner 08/14/19 14:03: Correction, pt's step daughter is named Edyta not Alek. Original Note: Social Work Note RN updated this worker that pt's step daughter Alek is on the phone. SW spoke with Alek as per physician, pt is still confused. Alek is Pt's HCPOA. SW introduced self and role at [facility]. SW explained that pt will work with PT/OT and then PT/OT will make recommendations for safe discharge for pt. SW explained options of SNF vs Home with HHC/Outpatient therapy. Alek states that she prefers for pt to return home due to COVID. SW explained that PT/OT will work with pt and then this worker employment evaluator/case manager CM can give Alek another call to update her what PT/OT recommends for pt. Alek states that Giuliana, pt's friend, is staying with pt daily and pt has other friends that would be able to assist if needed. SW updated Alek that if pt goes to SNF, pt wouldn't be able to get chemo while at SNF. Alek states she believes pt had last chemo the other day. Alek states she thinks pt probably has a cane or walker at home but Giuliana would know more about that. DEVON then passed phone to RN QUINN Caruso. Plan: TBD pending PT/OT. Alek pt's step daughter who is HCPOA prefers for pt to return home if possible. Marine Gardiner WASHROOM OPERATOR, DATA SERVICES DEVELOPER
--- NOTE | 2019-08-14 11:17 | CASEMGMT ---
RN CM NOTE: Pt remains w/some confusion. SMITH form reviewed w/JOHN Joyner, via telephone conversation at this time. Edyta denies having any questions at this time. She was made aware to ask for RN CM if she does have any questions/concerns re: form. Copy of SMITH form placed on pt's chart and original placed in pt's room. Fran HARRINGTON RN CM
[2019-08-14] MEDS: Omega-3 Acid Ethyl Esters 1 GM Capsule PO (11:22)
[2019-08-14] MEDS: hydroCHLOROthiazide 12.5mg 12.5 MG PO ×2 (11:22→20:35)
[2019-08-14] MEDS: Lisinopril 20 MG Tablet PO ×2 (11:22→20:35)
[2019-08-14] MEDS: Erythromycin Base 1 OPTH.TUBE 1 APPLIC EACH EYE ×4 (11:22→20:33)
[2019-08-14] MEDS: DULoxetine Hcl 60 MG Capsule PO (11:22)
[2019-08-14] MEDS: Pantoprazole Sodium 40 MG Tablet PO (11:23)
[2019-08-14 12:07] LABS: Pathologist Review Reviewed
[2019-08-14 12:17] LABS: Vitamin B12 1511 pg/mL (211-911)
--- NOTE | 2019-08-14 12:33 | PN_ITS ---
<Herber Mott - Last Filed: 08/14/19 12:33> Patient Problems: Active and Suspected Problems (Last Reviewed 08/13/19 @ 17:[address] 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 She is A/O x1 today able to give me her name and date of , however states she is in [place] and the year is 1919. She has no other complaints. No fever/chills. No cough/SOB. No abd pain. No nausea/vomiting. No dysuria. Vitals/I&O's: Vital Signs Temp Pulse Resp BP Pulse Ox 98.1 F 63 18 150/111 H 97 08/14/19 11:00 08/14/19 11:00 08/14/19 11:00 08/14/19 11:00 08/14/19 11:00 Oxygen Delivery Method Room Air Weight: 153 lb Body Mass Index (BMI) 26.2 Intake and Output for Last 24 Hours 08/12/19 08/13/19 08/14/19 23:59 23:59 23:59 Intake Total 1000 / 1250 450 / 450 Balance 1000 / 1250 450 / 450 General: Alert, Cooperative, Confused HEENT: Atraumatic, PERRLA, EOMI, Normocephalic Neck: Supple, No JVD, Negative Carotid Bruits Lungs: Clear to auscultation, Normal air movement Cardiovascular: Regular rate, No murmurs Abdomen: Bowel Sounds Present, Soft, Non Tender Extremities: No edema, Capillary Refill Less than 3 Seconds Skin: No rashes, No breakdown Musculoskeletal: No Tenderness to Palpation of Joints or Extremities Neurological: Cranial nerves II-XII grossly intact Psych/Mental Status: Normal Affect, Appropriate Laboratory Results 08/13/19 14:12: WBC Cancelled, Corrected WBC Cancelled, RBC Cancelled, Hgb Cancelled, Hct Cancelled, MCV Cancelled, MCH Cancelled, MCHC Cancelled, RDW Std Deviation Cancelled, RDW Coeff of Mark Cancelled, Plt Count Cancelled, MPV Cancelled, Immature Gran % (Auto) Cancelled, Neut % (Auto) Cancelled, Lymph % (Auto) Cancelled, Ferry % (Auto) Cancelled, Eos % (Auto) Cancelled, Baso % (Auto) Cancelled, Absolute Neuts (auto) Cancelled, Absolute Lymphs (auto) Cancelled, Total Counted Cancelled, Neutrophils % (Manual) Cancelled, Band Neutrophils % Cancelled, Lymphocytes % (Manual) Cancelled, Monocytes % (Manual) Cancelled, Eosinophils % (Manual) Cancelled, Basophils % (Manual) Cancelled, Metamyelocytes % Cancelled, Myelocytes % Cancelled, Promyelocytes % Cancelled, Blast Cells % Cancelled, Plasma Cell % (Manual) Cancelled, Other Cells % Cancelled, Nucleated RBC % Cancelled, Nucleated RBCs/100 WBC Cancelled, Differential Comment Cancelled, Diff Path Review Cancelled, Hypersegmented Neuts Cancelled, Atypical Lymphocytes Cancelled, Reactive Lymphocytes Cancelled, Smudge Cells Cancelled, Toxic Granulation Cancelled, Toxic Vacuolation Cancelled, Dohle Bodies Cancelled, Cierra Rods Cancelled, Platelet Estimate Cancelled, Plt Morphology Comment Cancelled, RBC Morphology Cancelled, Polychromasia Cancelled, Hypochro masia Cancelled, Poikilocytosis Cancelled, Basophilic Stippling Cancelled, Anisocytosis Cancelled, Microcytosis Cancelled, Macrocytosis Cancelled, Spherocytes Cancelled, Sickle Cells Cancelled, Target Cells Cancelled, Tear Drop Cells Cancelled, Ovalocytes Cancelled, Stomatocytes Cancelled, Raines-Poydras Bodies Cancelled, Tennille Cells Cancelled, Bite Cells Cancelled, Crenated Cell Cancelled, Acanthocytes (Spur) Cancelled, Rouleaux Cancelled, Schistocytes Cancelled 08/13/19 14:12: Sodium 140, Potassium 4.6, Chloride 108 H, Carbon Dioxide 23.0, Anion Gap 9, BUN 14, Creatinine 0.84, Estim Creat Clear Calc 45.36, Est GFR (MDRD) Af Amer 84, Est GFR (MDRD) Non-Af 69, BUN/Creatinine Ratio 16.7, Glucose 121 H, Calcium 8.7, Troponin I < 0.015 08/13/19 14:12: Total Bilirubin 0.30, Direct Bilirubin 0.10, AST 30, ALT 21, Alkaline Phosphatase 90, Total Protein 6.3 L, Albumin 2.8 L, Globulin 3.5 08/13/19 15:05: Urine Color Yellow, Urine Clarity Sl. Cloudy, Urine pH 5.0, Ur Specific [place] 1.015, Urine Protein Negative, Urine Glucose (UA) Normal, Urine Ketones Negative, Urine Occult Blood Negative, Urine Nitrite Negative, Urine Bilirubin Negative, Urine Urobilinogen Normal, Ur Leukocyte Esterase Negative, Urine RBC 0 SEEN, Urine WBC 0 SEEN, Ur Squamous Epith Cells 0-5 SEEN, Urine Bacteria 0 SEEN, Urine Mucus 0 SEEN 08/13/19 16:20: WBC 2.0 L, RBC 2.46 L, Hgb 7.9 L, Hct 26.0 L, MCV 105.7 H, MCH 32.1 H, MCHC 30.4 L, RDW Std Deviation 79.6 H, RDW Coeff of Mark 20.3 H, Plt Count 98 L, MPV 11.3, Immature Gran % (Auto) 2.000 H, Neut % (Auto) 86.4 H, Lymph % (Auto) 6.1 L, Ferry % (Auto) 4.5, Eos % (Auto) 0.0, Baso % (Auto) 1.0, Absolute Neuts (auto) 1.7 L, Absolute Lymphs (auto) 0.12 L, Nucleated RBC % 0, Diff Path Review Reviewed, Platelet Estimate MOD DEC, Polychromasia RARE, Anisocytosis 2+, Macrocytosis 1+, Rouleaux 1+ 08/13/19 18:00: Ammonia < 10.0 L 08/14/19 06:46: WBC 2.6 L, RBC 2.95 L, Hgb 9.5 L, Hct 30.5 L, MCV 103.4 H, MCH 32.2 H, MCHC 31.1 L, RDW Std Deviation 75.1 H, RDW Coeff of Mark 20.0 H, Plt Count 85 L, MPV 11.1, Immature Gran % (Auto) 1.200 H, Neut % (Auto) 88.4 H, Lymph % (Auto) 4.6 L, Ferry % (Auto) 5.0, Eos % (Auto) 0.4, Baso % (Auto) 0.4, Absolute Neuts (auto) 2.3, Absolute Lymphs (auto) 0.12 L, Nucleated RBC % 0, Differential Comment SCANNED, Diff Path Review May foll, Platelet Estimate MOD DEC, Hypochromasia RARE, Microcytosis RARE 08/14/19 06:46: Sodium 137, Potassium 4.1, Chloride 106, Carbon Dioxide 24.0, Anion Gap 7, BUN 13, Creatinine 0.84, Estim Creat Clear Calc 45.36, Est GFR (MDRD) Af Amer 84, Est GFR (MDRD) Non-Af 69, BUN/Creatinine Ratio 15.5, Glucose 81, Calcium 8.6, Phosphorus 2.5, Magnesium 1.8, TSH 0.23 L 08/14/19 06:46: Folate 24.10 08/14/19 06:46: Free T4 Pending 08/14/19 10:00: COVID-19 (MARIO) Pending 08/14/19 11:42: Vitamin B12 1511 H Current Medications Acetaminophen (Tylenol) 650 mg PO Q6H PRN PRN PRN Reason: Pain Score 1-10/Temp > 100.7 F Alprazolam (Xanax) 0.5 mg PO BID PRN PRN PRN Reason: ANXIETY Last Admin: 08/13/19 22:21 Dose: 0.5 mg Documented by: Dextrose (D50w Syringe) 0 gm IV X1 PRN; Protocol PRN Reason: Hypoglycemia Duloxetine HCl (Cymbalta) 60 mg PO DAILY [facility] Last Admin: 08/14/19 11:22 Dose: 60 mg Documented by: Erythromycin () 1 applic EACH EYE 4X/DAY [facility] Last Admin: 08/14/19 11:22 Dose: 1 applicatio Documented by: Glucagon () 1 mg IM .X1 PRN PRN Reason: Hypoglycemia Haloperidol Lactate (Haldol) 1 mg IM Q6H PRN PRN PRN Reason: AGITATION Hydrochlorothiazide () 12.5 mg PO BID [facility] Last Admin: 08/14/19 11:22 Dose: 12.5 mg Documented by: Lisinopril (Zestril) 20 mg PO BID [facility] Last Admin: 08/14/19 11:22 Dose: 20 mg Documented by: [id number] Ethyl Esters (Lovaza) 1 gm PO BID [facility] Last Admin: 08/14/19 11:22 Dose: 1 gm Documented by: Pantoprazole Sodium (Protonix) 40 mg PO DAILY [facility] Last Admin: 08/14/19 11:23 Dose: 40 mg Documented by: STROKE Vital Signs/Narrative: Vital Signs Temp Pulse Resp BP Pulse Ox 08/14/19 11:00 98.1 F 63 18 150/111 H 97 Medical Necessity - Tobacco Use Smoking Status: Never smoker Tobacco Use: Non-smoker Assessment/Plan All Active Problems (Last Reviewed 08/13/19 @ 17:[address] 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) Encounter for education (Acute) Iron (Fe) deficiency anemia (Acute) Chemotherapy management, encounter for (Acute) Hypokalemia (Acute) Hypomagnesemia (Acute) Pleural effusion (Acute) History of ovarian cancer (Resolved) History of right breast cancer (Resolved) Left breast lump (Acute) Abnormal mammogram with microcalcification (Acute) Iron deficiency (Acute) Hypomagnesemia (Acute) Colon cancer screening (Acute) Anemia (Acute) Left wrist repair (Acute) History of right breast biopsy (Resolved) Right arm lymphectomy (Acute) Synovial cyst (Acute) S/P foot surgery, left (Resolved) S/P laminectomy with spinal fusion (Resolved) Port placement (Acute) History of hip replacement (Resolved) History of cataract extraction (Resolved) Osteopenia (Acute) Hyperlipidemia (Acute) Depression (Acute) Breast cancer (Acute) Left wrist fracture (Acute) Abnormal breast biopsy (Acute) History of hysterectomy for malignancy (Resolved) Cholecystectomy planned (Acute) History of knee replacement (Resolved) Hip replacement planned (Acute) 1. Acute toxic encephalopathy 2/2 chemo - still only a/ox1. received paclitaxel yesterday through Dr. Sykes. MRI negative for acute process no mets. SH low t4 pending, b12 elevated, ammonia negative, no evidence of infectious process. 2. Pancytopenia 2/2 chemotherapy - will trend. 3. Hx metastatic ovarian cancer - pt of Dr. Sykes. previous hx breast cancer, now malignant ovarian cancer notably to the pleura, malignant cells in prior thora, PET scan with multiple positive areas. 4. HTN - stable 5. HLD - lovaza 6. GERD - ppi DVT ppx: pancytopenic, SCDs DC planning: pt a/ox1 and lives ago. may need short term snf This patient was seen by Herber Mott PA-C under the supervision of Dr. Betancourt. <John Betancourtkash - Last Filed: 08/14/19 12:56> Reason for Visit: Patient was admitted with follow-up for confusion, disorientation and mental status. Subjective: Patient is confused and disoriented in regards to time, place and person. Patient is also not aware of circumstances leading to ER visit and admission. She cannot tell her date of . Denies fever or chills, chest pain or pressure. Denies lower urinary tract symptoms including dysuria or increased frequency urgency Patient was started on Cipro on 08/10/2019 for 7 days but she does not need Cipro anymore. Vitals/I&O's: Vital Signs Temp Pulse Resp BP Pulse Ox 98.1 F 63 18 150/111 H 97 08/14/19 11:00 08/14/19 11:00 08/14/19 11:00 08/14/19 11:00 08/14/19 11:00 Oxygen Delivery Method Room Air Weight: 153 lb Body Mass Index (BMI) 26.2 Intake and Output for Last 24 Hours 08/12/19 08/13/19 08/14/19 23:59 23:59 23:59 Intake Total 1000 / 1250 450 / 450 Balance 1000 / 1250 450 / 450 General: Cooperative, Confused, Disoriented - Disoriented x4, time place person and circumstances, - - Awake HEENT: Atraumatic, PERRLA, EOMI, Normocephalic Neck: Supple, No JVD, Negative Carotid Bruits Lungs: Clear to auscultation, No rhonchi, No wheeze, No rales, Diminished Cardiovascular: Regular rate, Regular Rhythm, Normal S1, Normal S2, No murmurs Abdomen: Bowel Sounds Present, Soft, Non Tender, Non-Distended Extremities: No edema, Capillary Refill Less than 3 Seconds Skin: No rashes, No breakdown Musculoskeletal: No Tenderness to Palpation of Joints or Extremities, Arthritic Changes Neurological: Cranial nerves II-XII grossly intact, Deep Tendon Reflexes 2+/4 and Symmetrical, Neuro grossly intact Psych/Mental Status: Normal Affect, Appropriate Laboratory Results 08/13/19 14:12: WBC Cancelled, Corrected WBC Cancelled, RBC Cancelled, Hgb Cancelled, Hct Cancelled, MCV Cancelled, MCH Cancelled, MCHC Cancelled, RDW Std Deviation Cancelled, RDW Coeff of Mark Cancelled, Plt Count Cancelled, MPV Cancelled, Immature Gran % (Auto) Cancelled, Neut % (Auto) Cancelled, Lymph % (Auto) Cancelled, Ferry % (Auto) Cancelled, Eos % (Auto) Cancelled, Baso % (Auto) Cancelled, Absolute Neuts (auto) Cancelled, Absolute Lymphs (auto) Cancelled, Total Counted Cancelled, Neutrophils % (Manual) Cancelled, Band Neutrophils % Cancelled, Lymphocytes % (Manual) Cancelled, Monocytes % (Manual) Cancelled, Eosinophils % (Manual) Cancelled, Basophils % (Manual) Cancelled, Metamyelocytes % Cancelled, Myelocytes % Cancelled, Promyelocytes % Cancelled, Blast Cells % Cancelled, Plasma Cell % (Manual) Cancelled, Other Cells % Cancelled, Nucleated RBC % Cancelled, Nucleated RBCs/100 WBC Cancelled, Differential Comment Cancelled, Diff Path Review Cancelled, Hypersegmented Neuts Cancelled, Atypical Lymphocytes Cancelled, Reactive Lymphocytes Cancelled, Smudge Cells Cancelled, Toxic Granulation Cancelled, Toxic Vacuolation Cancelled, Dohle Bodies Cancelled, Cierra Rods Cancelled, Platelet Estimate Cancelled, Plt Morphology Comment Cancelled, RBC Morphology Cancelled, Polychromasia Cancelled, Hypochromasia Cancelled, Poikilocytosis Cancelled, Basophilic Stippling Cancelled, Anisocytosis Cancelled, Microcytosis Cancelled, Macrocytosis Cancelled, Spherocytes Cancelled, Sickle Cells Cancelled, Target Cells Cancelled, Tear Drop Cells Cancelled, Ovalocytes Cancelled, Stomatocytes Cancelled, Raines-Poydras Bodies Cancelled, Tennille Cells Cancelled, Bite Cells Cancelled, Crenated Cell Cancelled, Acanthocytes (Spur) Cancelled, Rouleaux Cancelled, Schistocytes Cancelled 08/13/19 14:12: Sodium 140, Potassium 4.6, Chloride 108 H, Carbon Dioxide 23.0, Anion Gap 9, BUN 14, Creatinine 0.84, Estim Creat Clear Calc 45.36, Est GFR (MDRD) Af Amer 84, Est GFR (MDRD) Non-Af 69, BUN/Creatinine Ratio 16.7, Glucose 121 H, Calcium 8.7, Troponin I < 0.015 08/13/19 14:12: Total Bilirubin 0.30, Direct Bilirubin 0.10, AST 30, ALT 21, Alkaline Phosphatase 90, Total Protein 6.3 L, Albumin 2.8 L, Globulin 3.5 08/13/19 15:05: Urine Color Yellow, Urine Clarity Sl. Cloudy, Urine pH 5.0, Ur Specific [place] 1.015, Urine Protein Negative, Urine Glucose (UA) Normal, Urine Ketones Negative, Urine Occult Blood Negative, Urine Nitrite Negative, Urine Bilirubin Negative, Urine Urobilinogen Normal, Ur Leukocyte Esterase Negative, Urine RBC 0 SEEN, Urine WBC 0 SEEN, Ur Squamous Epith Cells 0-5 SEEN, Urine Bacteria 0 SEEN, Urine Mucus 0 SEEN 08/13/19 16:20: WBC 2.0 L, RBC 2.46 L, Hgb 7.9 L, Hct 26.0 L, MCV 105.7 H, MCH 32.1 H, MCHC 30.4 L, RDW Std Deviation 79.6 H, RDW Coeff of Mark 20.3 H, Plt Count 98 L, MPV 11.3, Immature Gran % (Auto) 2.000 H, Neut % (Auto) 86.4 H, Lymph % (Auto) 6.1 L, Ferry % (Auto) 4.5, Eos % (Auto) 0.0, Baso % (Auto) 1.0, Absolute Neuts (auto) 1.7 L, Absolute Lymphs (auto) 0.12 L, Nucleated RBC % 0, Diff Path Review Reviewed, Platelet Estimate MOD DEC, Polychromasia RARE, Anisocytosis 2+, Macrocytosis 1+, Rouleaux 1+ 08/13/19 18:00: Ammonia < 10.0 L 08/14/19 06:46: WBC 2.6 L, RBC 2.95 L, Hgb 9.5 L, Hct 30.5 L, MCV 103.4 H, MCH 32.2 H, MCHC 31.1 L, RDW Std Deviation 75.1 H, RDW Coeff of Mark 20.0 H, Plt Count 85 L, MPV 11.1, Immature Gran % (Auto) 1.200 H, Neut % (Auto) 88.4 H, Lymph % (Auto) 4.6 L, Ferry % (Auto) 5.0, Eos % (Auto) 0.4, Baso % (Auto) 0.4, Absolute Neuts (auto) 2.3, Absolute Lymphs (auto) 0.12 L, Nucleated RBC % 0, Differential Comment SCANNED, Diff Path Review May foll, Platelet Estimate MOD DEC, Hypochromasia RARE, Microcytosis RARE 08/14/19 06:46: Sodium 137, Potassium 4.1, Chloride 106, Carbon Dioxide 24.0, Anion Gap 7, BUN 13, Creatinine 0.84, Estim Creat Clear Calc 45.36, Est GFR (MDRD) Af Amer 84, Est GFR (MDRD) Non-Af 69, BUN/Creatinine Ratio 15.5, Glucose 81, Calcium 8.6, Phosphorus 2.5, Magnesium 1.8, TSH 0.23 L 08/14/19 06:46: Folate 24.10 08/14/19 06:46: Free T4 Pending 08/14/19 10:00: COVID-19 (MARIO) Pending 08/14/19 11:42: Vitamin B12 1511 H Current Medications Acetaminophen (Tylenol) 650 mg PO Q6H PRN PRN PRN Reason: Pain Score 1-10/Temp > 100.7 F Alprazolam (Xanax) 0.5 mg PO BID PRN PRN PRN Reason: ANXIETY Last Admin: 08/13/19 22:21 Dose: 0.5 mg Documented by: Dextrose (D50w Syringe) 0 gm IV X1 PRN; Protocol PRN Reason: Hypoglycemia Duloxetine HCl (Cymbalta) 60 mg PO DAILY [facility] Last Admin: 08/14/19 11:22 Dose: 60 mg Documented by: Erythromycin () 1 applic EACH EYE 4X/DAY [facility] Last Admin: 08/14/19 11:22 Dose: 1 applicatio Documented by: Glucagon () 1 mg IM .X1 PRN PRN Reason: Hypoglycemia Haloperidol Lactate (Haldol) 1 mg IM Q6H PRN PRN PRN Reason: AGITATION Hydrochlorothiazide () 12.5 mg PO BID [facility] Last Admin: 08/14/19 11:22 Dose: 12.5 mg Documented by: Lisinopril (Zestril) 20 mg PO BID [facility] Last Admin: 08/14/19 11:22 Dose: 20 mg Documented by: [id number] Ethyl Esters (Lovaza) 1 gm PO BID [facility] Last Admin: 08/14/19 11:22 Dose: 1 gm Documented by: Pantoprazole Sodium (Protonix) 40 mg PO DAILY [facility] Last Admin: 08/14/19 11:23 Dose: 40 mg Documented by: STROKE Vital Signs/Narrative: Vital Signs Temp Pulse Resp BP Pulse Ox 08/14/19 11:00 98.1 F 63 18 150/111 H 97 Assessment/Plan This patient was seen in conjunction with Herber DALEY. I have independently interviewed and examined the patient and reviewed pertinent history, examination findings, laboratory and plan of management. I have reviewed the note and agree with the documented findings with the few additional points. In brief, patient is admitted for confusion, disorientation with altered mental status most probably secondary to recent chemotherapy. Patient has history of ovarian cancer diagnosed in 2015 with metastatic recurrence in February 2019. Patient had chemotherapy on day of admission, 08/14/2019. MRI done on 08/14/2019 showed no evidence of intracranial metastatic disease, ischemia or acute intracranial abnormalities from previous MRI done 3 months ago. B12 1511, folate 24, TSH 0.23 low. Ammonia normal. UA is negative patient was recently treated for antibiotic Cipro. Continue IV fluid. Patient has pancytopenia secondary to chemotherapy. WBC count 2.6 thousand, platelet count 85,000. Metastatic ovarian cancer history of previous breast cancer. Ovarian cancer metastasized to pleura. Malignant cells in previous thoracocentesis and PET scan positive for multiple metastatic deposits. Other comorbidities as mentioned above. DVT prophylaxis bilateral SCDs. Pharmacological prophylaxis contraindicated PT, OT and possible SNF placement I have discussed my assessment with Herber DALEY and orders have been reviewed. Inpatient E&M: 65968 Subs Hosp L2
--- NOTE | 2019-08-14 14:03 | CASEMGMT ---
Social Work Note DEVON reviewed PT/OT. PT/OT recommending outpatient therapy at discharge. DEVON placed a call to pt's step daughter Edyta. DEVON updated Edyta on PT/OT recommendation. DEVON updated Edyta that pt could also return home with HHC at discharge. Edyta states she is leaning towards [facility] for pt so pt is able to stay in her home and the less places she can go the better but asked that this worker county supervisor CM speak with pt tomorrow to get pt's input. DEVON updated Edyta that physician was still saying pt was confused this morning (A/O x1) but staff can see how pt is tomorrow and see if pt is agreeable to HHC as well or outpatient therapy. Edyta states understanding. DEVON updated RN CM. Plan: Home with HHC vs home with outpatient therapy Marine Gardiner MANUFACTURING EXECUTIVE, DIRECTOR INVESTMENT BANKING
[2019-08-14 15:33] VITALS: BP 156/71; PULSE 65; RESP 16; TEMP 36.6; O2SAT 97
[2019-08-14] MEDS: 0.9% Saline Lock 10 ML Syringe IV (15:33)
--- NOTE | 2019-08-14 15:38 | NURSING ---
1500 ATTEMPTED TO DRAW LABS FROM RT VAD, UNABLE TO GET BLOOD RETURN, DRESSING NOTED TO BE HALF OFF. PT AGREEABLE TO REACCESS OF VAD. ATTEMPTED TO REACCESS, CONTINUES WITH NOT DRAW BLOOD RETURN DESPITE POSITIONING OF PATIENT. PT VERBALIZED THIS IS NOT A NEW PROBLEM WITH HER. VERBALIZED SHE HAS HAD CHECK PLACEMENT BECAUSE OF THIS ISSUE. ATTEMPTED TO DRAW LAB PERIPHERALLY LAB WAS UNABLE TO DRAW X2 STAFF. USING VEIN FINDER. BLOOD CLOTTED. PRIMARY RN INFORMED. UPDATED.
--- NOTE | 2019-08-14 16:30 | NURSING ---
supervisor molding informed of ellen chavarria
--- NOTE | 2019-08-14 17:23 | NURSING ---
warehouse delivery manager informed ellen has arrived from pharmacy
[2019-08-14] MEDS: Alteplase 2 MG/2 ML Vial IV (18:31)
--- NOTE | 2019-08-14 19:54 | NURSING ---
CATHFLO ASPIRATED WITHOUT DIFFICULTY FROM VAD PORT. LINE FLUSHED WITH 10CC NS AND BLOOD DRAWN EASILY. FLUSHED WITH ADDITIONAL 10 CC NS.
[2019-08-14 20:22] VITALS: BP 169/65; PULSE 94; RESP 16; TEMP 36.9; O2SAT 97
[2019-08-15 01:25] VITALS: BP 153/77; PULSE 66; RESP 18; TEMP 36.4; O2SAT 99
[2019-08-15 05:56] VITALS: BP 154/73; PULSE 66; RESP 18; TEMP 37; O2SAT 98
[2019-08-15] MEDS: 0.9% Saline Lock 10 ML Syringe IV ×2 (05:59→15:36)
[2019-08-15 06:12] LABS: Absolute Lymphocyte Count 0.13 X10^3/uL (0.83-4.51); Absolute Neutrophil Count 1.7 X10^3/uL (2.0-7.7); Eosinophil# 0.04 X10^3/uL; Hemoglobin 8.1 g/dL (12.0-15.0); Lymphocyte # 0.13 X10^3/ul (4.0); Lymphocyte % 6.4 % (19-41); Mean Corp Hgb Conc 32.4 g/dL (32-36); Mean Corpuscular Hgb 31.8 pg (27.0-32.0); Mean Platelet Vol. 11.2 fl (6.2-12.0); Monocyte# 0.15 X10^3/uL; Monocyte% 7.4 % (0-10); NRBC Flagged by Analyzer 0 % (0-5); Neutrophil # 1.71 X10^3/uL (2.7-7.7); Neutrophil % 83.7 % (47-70); POSITIVE DIFFERENTIAL YES; POSITIVE MORPHOLOGY YES; Platelet Count 104 K/mm3 (150-450); RBC Distribution Width CV 19.9 % (11.6-14.6); Red Blood Count 2.55 M/mm3 (4.2-5.4)
[2019-08-15 06:19] LABS: Differential Indicated SCAN CRITERIA MET
[2019-08-15 06:40] LABS: Anion Gap 7 (5-15); BUN 10 mg/dL (7-18); BUN/Creat Ratio 14.2 RATIO (10-20); Calcium,Total 8.8 mg/dL (8.5-10.1); Chloride 105 mmol/L (98-107); EST Glomerular Filtration Rate 85 mL/min (>60); Est Glom Filt Rate - Afr Amer 102 mL/min (>60); Glucose 90 mg/dL (74-106); Potassium 3.9 mmol/L (3.5-5.1); Sodium Level 140 mmol/L (136-145); T4 Free Direct 1.06 ng/dL (0.76-1.46)
[2019-08-15 06:58] LABS: Differential Comment SCANNED; Target Cells RARE
[2019-08-15] MEDS: DULoxetine Hcl 60 MG Capsule PO (07:50)
[2019-08-15] MEDS: Omega-3 Acid Ethyl Esters 1 GM Capsule PO (07:51)
[2019-08-15] MEDS: hydroCHLOROthiazide 12.5mg 12.5 MG PO (07:51)
[2019-08-15] MEDS: Lisinopril 20 MG Tablet PO (07:51)
[2019-08-15] MEDS: Erythromycin Base 1 OPTH.TUBE 1 APPLIC EACH EYE ×2 (07:51→13:39)
[2019-08-15] MEDS: Pantoprazole Sodium 40 MG Tablet PO (07:51)
[2019-08-15 07:53] VITALS: O2SAT 97
[2019-08-15 07:55] VITALS: BP 156/89; PULSE 66; RESP 16; TEMP 36.9; O2SAT 99
--- NOTE | 2019-08-15 10:20 | NURSING ---
FRIEND BLANCA CALLED FOR UPDATE. NOTIFIED THAT PT WILL LIKELY BE DISCHARGED HOME TODAY.
--- NOTE | 2019-08-15 10:23 | PCM.DC ---
- Discharge Diagnoses Current Active Problems: Current Active and Chronic Problems (Last Reviewed 08/13/19 @ 17:[address] 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 (Acute) History of right breast cancer (Chronic) History of ovarian cancer in adulthood (Chronic) Encounter for education (Acute) Iron (Fe) deficiency anemia (Acute) Chemotherapy management, encounter for (Acute) Hypokalemia (Acute) Hypomagnesemia (Acute) Anemia (Acute) You will use the following diet at home:: Cardiac Your food should be the consistency of: Regular Discharge Activity: May Not Drive Weight Bearing Status: Weight bearing as tolerated Call your doctor if you observe: Fever of 101 or Higher, Numbness or Tingling, Change in Color, Inability to urinate, Inability to have a bowel movement, Using more than one pad per hour, Shortness of breath, Dizziness, Fainting spells, Swelling in the ankles, Chest pain, Prolonged hiccoughing, Increased palpitations (irregular heartbeat), Calf discomfort, Uncontrolled pain Additional Instructions: Advised fasting lipid profile and may titrate or discontinue colesevelam Allergies/Adverse Reactions: Allergies hydrocodone bitartrate [From Vicodin] Adverse Reaction (Severe, Verified 08/13/19 13:20) Other MAKES ME LOOPY Sulfa (Sulfonamide Antibiotics) Adverse Reaction (Severe, Verified 08/13/19 13:20) Upset Stomach Medications to take at Discharge Duloxetine Hcl [Cymbalta] 60 mg PO DAILY 11/07/13 Lisinopril/Hydrochlorothiazide [Zestoretic 20/12.5 Tablet] 1 tab PO BID 11/07/13 ALPRAZolam [Xanax] 0.5 mg PO BID PRN PRN 05/21/14 Colesevelam Hydrochloride [Welchol] 1,250 mg PO BIDCM 05/13/15 Cholecalciferol (VIT D3) [Vitamin D3] 4,000 tab PO DAILY 09/16/15 [place]-3 Acid Ethyl Esters [Lovaza] 1 gm PO BID 06/16/16 Potassium Chloride [K-Dur] 20 meq PO DAILY #14 tab 05/01/19 Colestipol HCl 1 gm PO BID 08/13/19 Dexlansoprazole [Dexilant] 60 mg PO DAILY 08/13/19 Erythromycin Ophthalmic 1 applic EACH EYE 4X/DAY 08/13/19 Lifitegrast [Xiidra] 1 drp EACH EYE BID 08/13/19 Ubidecarenone [Co Q-10] 100 mg PO DAILY 08/13/19 Vitamin B Complex 1 tab PO DAILY 08/13/19 Primary Care Physician: Britany Fleming DO [Primary Care Provider] - Please follow up with your Primary Care Physician in: in 2 weeks Test Results: Test results from this visit will be discussed in further detail at your follow-up appointment, if applicable.
--- NOTE | 2019-08-15 10:59 | NURSING ---
STEP DAUGHTER SHADY CALLED AND UPDATE GIVEN. TOLD SHADY THAT PT WILL BE DISCHARGED TODAY, SHADY OK FOR PT TO GO HOME WITH FRIEND BLANCA AT DISCHARGE
--- NOTE | 2019-08-15 11:41 | DS.PCM_ITS ---
<Ca Hutson - Last Filed: 08/15/19 11:52> Discharge Date and Diagnosis Date of Admission: 08/13/19 Date of Discharge: 08/15/19 - Primary Discharge Diagnosis Acute Problems: Active Problems (Last Reviewed 08/13/19 @ 17:[address] Beena Medina, DO) 1. Acute toxic encephalopathy secondary to chemotherapy regimen 2. Pancytopenia secondary to chemotherapy 3. Metastatic ovarian cancer with previous history of breast cancer 4. Hypertension 5. Hyperlipidemia 6. GERD - Secondary Discharge Diagnosis Chronic Problems: Chronic Problems (Last Reviewed 08/13/19 @ 17:[address] Beena Medina, DO) History of right breast cancer (Chronic) History of ovarian cancer in adulthood (Chronic) HTN (hypertension) (Chronic) Dyslipidemia (Chronic) Osteoarthritis (arthritis due to wear and tear of joints) (Chronic) Ovarian cancer (Chronic) Thyroid nodule (Chronic) Hypertension (Chronic) Hospital Course and Treatment Imaging Results: Diagnostic Data Brain CT 08/13/19 13:36 IMPRESSION: Chronic involutional changes of the brain. Electronically Signed: Silvino Chris at 14:48 EDT , Service support , Brain MRI 08/14/19 08:30 IMPRESSION: 1. No MRI evidence of intracranial metastatic disease. 2. No MRI evidence of acute or subacute ischemic infarcts or acute intracranial abnormality. 3. Chronic white matter ischemic changes in both cerebral hemispheres, confluent in the forceps major. 4. No significant interval change when compared to 05/17/2019. Electronically Signed: Alek De La Garza MD at 10:21 EDT , Service support , Operations: None Procedures: None Summary of Care Provided: The patient is a 83 year old F admitted 08/13/2019 due to confusion. 1. Acute toxic encephalopathy secondary to chemotherapy regimen-MRI negative for acute process, no evidence of brain metastasis. Infectious etiology ruled out. Confusion worsened after patient received chemotherapy. Patient doing well with physical therapy however due to confusion, SNF was discussed. Patient has a friend who is living with her and caring for her 19/09 and patient will also go home with home health. Discussed with patient's stepdaughter who is POA and she also would like patient to return home at discharge. Follow-up with primary care and oncology within 1 week. 2. Pancytopenia secondary to chemotherapy-stable. 3. Metastatic ovarian cancer with previous history of breast cancer- following with Dr. Sykes. Continue outpatient follow-up. 4. Hypertension-stable, continue lisinopril/HCTZ regimen. 5. Hyperlipidemia- continue Lovaza. 6. GERD- continue PPI. 7. Depression/anxiety-continue PRN Xanax, Cymbalta regimen. Patient seen and examined prior to discharge. Physical assessment as noted below. Patient is stable for discharge with follow up recommendations as noted above. This patient was seen by JESSICA Oshea under the supervision of Dr. Betancourt. - Physical Exam Vitals/I&O's: Vital Signs Temp Pulse Resp BP Pulse Ox 98.4 F 66 16 156/89 H 99 08/15/19 07:55 08/15/19 07:55 08/15/19 07:55 08/15/19 07:55 08/15/19 07:55 Oxygen Delivery Method Room Air Weight: 153 lb Body Mass Index (BMI) 26.2 Intake and Output for Last 24 Hours 08/13/19 08/14/19 08/15/19 23:59 23:59 23:59 Intake Total 1000 / 1250 450 / 550 100 / 100 Balance 1000 / 1250 450 / 550 100 / 100 General: Alert, Cooperative, No apparent distress HEENT: Atraumatic, PERRLA, EOMI, Normocephalic Neck: Supple, No JVD, Negative Carotid Bruits Lungs: Clear to auscultation, Normal air movement Cardiovascular: Regular rate, No murmurs Abdomen: Bowel Sounds Present, Soft, Non Tender Extremities: No clubbing, No cyanosis, No edema, Capillary Refill Less than 3 Seconds Skin: No rashes, No breakdown Musculoskeletal: No Tenderness to Palpation of Joints or Extremities Neurological: Cranial nerves II-XII grossly intact, Neuro grossly intact Psych/Mental Status: Normal Affect, Appropriate Laboratory Results 08/13/19 16:20: Diff Path Review Reviewed 08/14/19 11:42: Vitamin B12 1511 H 08/15/19 05:54: WBC 2.0 L, RBC 2.55 L, Hgb 8.1 L, Hct 25.0 L, MCV 98.0 D, MCH 31.8, MCHC 32.4, RDW Std Deviation 70.0 H, RDW Coeff of Mark 19.9 H, Plt Count 104 L, MPV 11.2, Immature Gran % (Auto) 0.500, Neut % (Auto) 83.7 H, Lymph % (Auto) 6.4 L, [place] % (Auto) 7.4, Eos % (Auto) 2.0, Baso % (Auto) 0.0, Absolute Neuts (auto) 1.7 L, Absolute Lymphs (auto) 0.13 L, Nucleated RBC % 0, Differential Comment SCANNED, Diff Path Review June, Target Cells RARE 08/15/19 05:54: Sodium 140, Potassium 3.9, Chloride 105, Carbon Dioxide 28.0, Anion Gap 7, BUN 10, Creatinine 0.70, Estim Creat Clear Calc 38.10, Est GFR (MDRD) Af Amer 102, Est GFR (MDRD) Non-Af 85, BUN/Creatinine Ratio 14.2, Glucose 90, Calcium 8.8, Free T4 1.06 08/15/19 05:55: Free T4 Cancelled Current Medications Acetaminophen (Tylenol) 650 mg PO Q6H PRN PRN PRN Reason: Pain Score 1-10/Temp > 100.7 F Alprazolam (Xanax) 0.5 mg PO BID PRN PRN PRN Reason: ANXIETY Last Admin: 08/13/19 22:21 Dose: 0.5 mg Documented by: Dextrose (D50w Syringe) 0 gm IV X1 PRN; Protocol PRN Reason: Hypoglycemia Duloxetine HCl (Cymbalta) 60 mg PO DAILY [facility] Last Admin: 08/15/19 07:50 Dose: 60 mg Documented by: Erythromycin () 1 applic EACH EYE 4X/DAY [facility] Last Admin: 08/15/19 07:51 Dose: 1 applicatio Documented by: Glucagon () 1 mg IM .X1 PRN PRN Reason: Hypoglycemia Haloperidol Lactate (Haldol) 1 mg IM Q6H PRN PRN PRN Reason: AGITATION Heparin Sodium (Beef Lung) () 50 units IV UD PRN PRN Reason: Port-a-Cath (VAD)Heparin Flush Hydrochlorothiazide () 12.5 mg PO BID [facility] Last Admin: 08/15/19 07:51 Dose: 12.5 mg Documented by: Lisinopril (Zestril) 20 mg PO BID [facility] Last Admin: 08/15/19 07:51 Dose: 20 mg Documented by: [id number] Ethyl Esters (Lovaza) 1 gm PO BID [facility] Last Admin: 08/15/19 07:51 Dose: 1 gm Documented by: Pantoprazole Sodium (Protonix) 40 mg PO DAILY [facility] Last Admin: 08/15/19 07:51 Dose: 40 mg Documented by: Sodium Chloride () 10 - 40 ml IV UD PRN PRN Reason: Port-a-Cath (VAD) Flush Last Admin: 08/15/19 05:59 Dose: 10 ml Documented by: Sodium Chloride (0.9% Nacl (Sterile) Posiflush) 10 - 40 ml IV UD PRN PRN Reason: Port access or dressing change Discharge Diet: No Restrictions Discharge Activity: May Not Drive Weight Bearing Status: Weight bearing as tolerated Call your doctor if you observe: Fever of 101 or Higher, Numbness or Tingling, Change in Color, Inability to urinate, Inability to have a bowel movement, Using more than one pad per hour, Shortness of breath, Dizziness, Fainting spells, Swelling in the ankles, Chest pain, Prolonged hiccoughing, Increased palpitations (irregular heartbeat), Calf discomfort, Uncontrolled pain Home Medications: Medications to take at Discharge Duloxetine Hcl [Cymbalta] 60 mg PO DAILY 11/07/13 Lisinopril/Hydrochlorothiazide [Zestoretic 20/12.5 Tablet] 1 tab PO BID 11/07/13 ALPRAZolam [Xanax] 0.5 mg PO BID PRN PRN 05/21/14 Colesevelam Hydrochloride [Welchol] 1,250 mg PO BID 05/13/15 Cholecalciferol (VIT D3) [Vitamin D3] 4,000 tab PO DAILY 09/16/15 [place]-3 Acid Ethyl Esters [Lovaza] 1 gm PO BID 06/16/16 Potassium Chloride [K-Dur] 20 meq PO DAILY #14 tab 05/01/19 Colestipol HCl 1 gm PO BID 08/13/19 Dexlansoprazole [Dexilant] 60 mg PO DAILY 08/13/19 Erythromycin Ophthalmic 1 applic EACH EYE 4X/DAY 08/13/19 Lifitegrast [Xiidra] 1 drp EACH EYE BID 08/13/19 Ubidecarenone [Co Q-10] 100 mg PO DAILY 08/13/19 Vitamin B Complex 1 tab PO DAILY 08/13/19 Primary Care Physician: Britany Fleming DO [Primary Care Provider] - Please follow up with your Primary Care Physician in: in 2 weeks Please Follow Up With: Jose David Sykes MD When: as scheduled Disposition: Home with Home Health Minutes spent on discharge:: 35 Patient Condition:: Stable Medical Necessity - Tobacco Use Smoking Status: Never smoker Tobacco Use: Non-smoker Meaningful Use Info Meaningful Use Diagnoses (Choose all that apply): None applicable <Leobardo Betancourt - Last Filed: 08/15/19 13:18> Discharge Date and Diagnosis - Secondary Discharge Diagnosis Chronic Problems: Chronic Problems (Last Reviewed 08/13/19 @ 17:[address] Beena Medina DO) History of right breast cancer (Chronic) History of ovarian cancer in adulthood (Chronic) HTN (hypertension) (Chronic) Dyslipidemia (Chronic) Osteoarthritis (arthritis due to wear and tear of joints) (Chronic) Ovarian cancer (Chronic) Thyroid nodule (Chronic) Hypertension (Chronic) Hospital Course and Treatment Summary of Care Provided: This patient was seen in conjunction with WAITER/WAITRESS COUNTER, Ca. I have independently interviewed and examined the patient and reviewed pertinent history, examination findings, laboratory and plan of management. I have reviewed the note and agree with the documented findings with the few additional points. In brief, patient is admitted for confusion, disorientation with altered mental status most probably secondary to recent chemotherapy. Patient has history of ovarian cancer diagnosed in 2015 with metastatic recurrence in February 2019. Patient had chemotherapy on day of admission, 08/14/2019. MRI done on 08/14/2019 showed no evidence of intracranial metastatic disease, ischemia or acute intracranial abnormalities from previous MRI done 3 months ago. B12 1511, folate 24, TSH 0.23 low. Ammonia normal. UA is negative patient was recently treated for antibiotic Cipro. Patient was managed with IV fluid for dehydration. Patient has pancytopenia secondary to chemotherapy. Last CBC, leukocytes 2000, H&H 8.1/25 and platelet count improved 204,000. Metastatic ovarian cancer history of previous breast cancer. Ovarian cancer metastasized to pleura. Malignant cells in previous thoracocentesis and PET scan positive for multiple metastatic deposits. Hypertension: Elevated. On hypertensive medications. Follow-up with PCP. Other comorbidities as mentioned above. DVT prophylaxis bilateral SCDs. Pharmacological prophylaxis contraindicated PT, OT and possible SNF placement Discharge medication reconciliation done. Discharge follow-up instructions completed. Discharge process discussed with the patient and all questions were answered to patient's satisfaction. Total time spent, exact 35 minutes on discharge meds reconciliation, examination, coordination of care with nurses and ancillary staff, review of imaging and blood test and discussion with the patient on follow-up instructions I have discussed my assessment with WAITER/WAITRESS COUNTERCa and orders have been reviewed. [] Objective: Patient wants to go home. Refused for SNF. Blood pressure elevated than his baseline but it fluctuates. Patient on lisinopril HCTZ. On exam General: Alert, Cooperative, mild cognitive deficit HEENT: Atraumatic, PERRLA, EOMI, Normocephalic Neck: Supple, No JVD, Negative Carotid Bruits Lungs: Clear to auscultation, Normal air movement Cardiovascular: Regular rate, No murmurs Abdomen: Bowel Sounds Present, Soft, Non Tender Extremities: No edema, Capillary Refill Less than 3 Seconds Skin: No rashes, No breakdown Musculoskeletal: No Tenderness to Palpation of Joints or Extremities Neurological: Cranial nerves II-XII grossly intact Psych/Mental Status: Normal Affect, Appropriate - Physical Exam Vitals/I&O's: Vital Signs Temp Pulse Resp BP Pulse Ox 98.1 F 75 16 169/101 H 100 08/15/19 11:42 08/15/19 11:42 08/15/19 11:42 08/15/19 11:42 08/15/19 11:42 Oxygen Delivery Method Room Air Weight: 153 lb Body Mass Index (BMI) 26.2 Intake and Output for Last 24 Hours 08/13/19 08/14/19 08/15/19 23:59 23:59 23:59 Intake Total 1000 / 1250 450 / 550 400 / 400 Balance 1000 / 1250 450 / 550 400 / 400 Laboratory Results 08/15/19 05:54: WBC 2.0 L, RBC 2.55 L, Hgb 8.1 L, Hct 25.0 L, MCV 98.0 D, MCH 31.8, MCHC 32.4, RDW Std Deviation 70.0 H, RDW Coeff of Mark 19.9 H, Plt Count 104 L, MPV 11.2, Immature Gran % (Auto) 0.500, Neut % (Auto) 83.7 H, Lymph % (Auto) 6.4 L, [place] % (Auto) 7.4, Eos % (Auto) 2.0, Baso % (Auto) 0.0, Absolute Neuts (auto) 1.7 L, Absolute Lymphs (auto) 0.13 L, Nucleated RBC % 0, Differential Comment SCANNED, Diff Path Review May foll, Target Cells RARE 08/15/19 05:54: Sodium 140, Potassium 3.9, Chloride 105, Carbon Dioxide 28.0, Anion Gap 7, BUN 10, Creatinine 0.70, Estim Creat Clear Calc 38.10, Est GFR (MDRD) Af Amer 102, Est GFR (MDRD) Non-Af 85, BUN/Creatinine Ratio 14.2, Glucose 90, Calcium 8.8, Free T4 1.06 08/15/19 05:55: Free T4 Cancelled Current Medications Acetaminophen (Tylenol) 650 mg PO Q6H PRN PRN PRN Reason: Pain Score 1-10/Temp > 100.7 F Alprazolam (Xanax) 0.5 mg PO BID PRN PRN PRN Reason: ANXIETY Last Admin: 08/13/19 22:21 Dose: 0.5 mg Documented by: Dextrose (D50w Syringe) 0 gm IV X1 PRN; Protocol PRN Reason: Hypoglycemia Duloxetine HCl (Cymbalta) 60 mg PO DAILY [facility] Last Admin: 08/15/19 07:50 Dose: 60 mg Documented by: Erythromycin () 1 applic EACH EYE 4X/DAY [facility] Last Admin: 08/15/19 07:51 Dose: 1 applicatio Documented by: Glucagon () 1 mg IM .X1 PRN PRN Reason: Hypoglycemia Haloperidol Lactate (Haldol) 1 mg IM Q6H PRN PRN PRN Reason: AGITATION Heparin Sodium (Beef Lung) () 50 units IV UD PRN PRN Reason: Port-a-Cath (VAD)Heparin Flush Hydrochlorothiazide () 12.5 mg PO BID [facility] Last Admin: 08/15/19 07:51 Dose: 12.5 mg Documented by: Lisinopril (Zestril) 20 mg PO BID [facility] Last Admin: 08/15/19 07:51 Dose: 20 mg Documented by: [id number] Ethyl Esters (Lovaza) 1 gm PO BID [facility] Last Admin: 08/15/19 07:51 Dose: 1 gm Documented by: Pantoprazole Sodium (Protonix) 40 mg PO DAILY [facility] Last Admin: 08/15/19 07:51 Dose: 40 mg Documented by: Sodium Chloride () 10 - 40 ml IV UD PRN PRN Reason: Port-a-Cath (VAD) Flush Last Admin: 08/15/19 05:59 Dose: 10 ml Documented by: Sodium Chloride (0.9% Nacl (Sterile) Posiflush) 10 - 40 ml IV UD PRN PRN Reason: Port access or dressing change Inpatient E&M: [id number] Disch Hosp
[2019-08-15 11:42] VITALS: BP 169/101; PULSE 75; RESP 16; TEMP 36.7; O2SAT 100
--- NOTE | 2019-08-15 14:10 | CASEMGMT ---
Social Work Note DEVON placed a call to pt's step daughter Edyta to discuss discharge planning. DEVON discussed that the options for discharge including home with HHC or home with outpatient therapy or SNF but explained insurance would have to approve SNF. Edyta states that she prefers for pt to discharge home with HHC. Edyta states that pt's friend Giuliana will be staying with pt 19/09. DEVON verbally provided Edyta with list of [facility] that take pt's insurance. Edyta agreeable to [facility] for RN, PT/OT. DEVON updated Edyta that pt is medically cleared for discharge today. Edtya states she will be at [facility] Today to transport pt home. DEVON updated RN CM on referral for [facility]. Plan: Home with [facility] for RN, PT/OT. 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
[2019-08-15 14:34] VITALS: BP 157/89; PULSE 82; RESP 16; TEMP 36.7; O2SAT 94
--- NOTE | 2019-08-15 14:45 | NURSING ---
step daughter shon called and discharge inst explained to her.
--- NOTE | 2019-08-15 15:48 | CASEMGMT ---
JANE BALL updated by DEVON that patient's family agreeable to [facility]. Referral made to [facility] and they are able to accept the patient. JANE BALL updated floor nurse. JANE BALL called and updated step earnestine Lan.
[2019-08-16 12:13] LABS: Pathologist Review Reviewed
[2019-08-16 12:19] LABS: Pathologist Review Reviewed
== END 2019-08-15 17:00 | disposition home health service (06) ==
LOC: ED 14:17 → PCU 17:05 → MS3 17:25
PROVIDERS: Physician Assistant; Admitting Provider Internal Medicine; Emergency Provider Emergency Medicine; PCP Family Medicine; Visit Provider Internal Medicine
DX: G92 Toxic encephalopathy (principal); D61.810 Antineoplastic chemotherapy induced pancytopenia; T45.1X5A Adverse effect of antineoplastic and immunosuppressive drugs, initial encounter; C79.60 Secondary malignant neoplasm of unspecified ovary; Z85.3 Personal history of malignant neoplasm of breast; E78.5 Hyperlipidemia, unspecified; I10 Essential (primary) hypertension; K21.9 Gastro-esophageal reflux disease without esophagitis; M19.90 Unspecified osteoarthritis, unspecified site; Z79.899 Other long term (current) drug therapy; F32.9 Major depressive disorder, single episode, unspecified; F41.9 Anxiety disorder, unspecified; C78.2 Secondary malignant neoplasm of pleura
CPT/HCPCS: 36415; 70450; 70553; 80048; 80076; 81001; 82140; 82607; 82746; 83735; 84100; 84439; 84443; 84484; 85025; 87635; 93005; 96361; 96374; 96375; 97162; 97166; 97535; 97802; 99218; 99282; A9575; G2023; J2997; J7030; A4216; G0378; U0003

== ENCOUNTER → 2019-08-22 13:05 | Outpatient (CLI) | payer MEDICARE, SELFPAY ==
[2019-08-13 09:19] VITALS: BMI 27.6
[2019-08-20 10:24] VITALS: BMI 27.8
--- NOTE | 2019-08-22 13:07 | CT_ITS ---
STUDY: CT CHEST WITH CONTRAST REASON FOR EXAM: Female, 83 years old. Metastatic ovarian cancer RADIATION DOSAGE (If Supplied By Facility): CTDIvol = ( 9.34 ) mGy, DLP = ( 665.57 ) mGycm TECHNIQUE: Transaxial imaging was performed following intravenous administration of IV 100mL Isovue-300. Individualized dose optimization techniques were used for this CT. COMPARISON: July 04, 2019 FINDINGS: There is stable appearing large right basilar hydropneumothorax. There is right lower lobe chronic atelectatic fibrotic change and bronchiectasis. There is a benign calcified granuloma in the left lower lobe. Left lung is fully inflated and pleural cavity is clear. Airways are patent. Mediastinal contents are normal. There is a calcified region in the right breast, possibly posttreatment related, this is incompletely evaluated. There is osteoporosis without lytic or blastic lesions. Chemotherapy infusion port is present in the right upper chest terminating in the SVC. CT/Chest WITH Contrast IMPRESSION: 1. Large right basilar hydropneumothorax, stable since 2 months prior. 2. No thoracic metastatic disease. 3. No change since prior. Electronically Signed: Song Burger, at 17:34 EDT Tel , Service support ,
--- NOTE | 2019-08-22 13:07 | CT_ITS ---
STUDY: CT ABDOMEN AND PELVIS WITH CONTRAST REASON FOR EXAM: Female, 83 years old. Metastatic ovarian cancer RADIATION DOSAGE (If Supplied By Facility): CTDIvol = ( 9.34 ) mGy, DLP = ( 665.57 ) mGycm TECHNIQUE: CT images were obtained from the dome of the diaphragm to the symphysis pubis without oral contrast. IV 100mL Isovue-300 was administered. Sagittal and coronal images were reconstructed. Individualized dose optimization techniques were used for this CT. COMPARISON: 04 Jul 2019 FINDINGS: Refer to CT chest for description of thoracic findings. There is right hydropneumothorax. Segment 7 subcapsular hepatic lesion, presumed metastasis is stable at 3.6 cm. There are no additional hepatic lesions. There is cholecystectomy, without biliary dilation. Spleen, adrenals kidneys and pancreas are intact. There is no intestinal obstruction. There is a densely calcified lesion in the root of the mesentery without discernible soft tissue enhancing component. There is prior hysterectomy. There is osteoporosis and chronic burst fracture of L1 with dorsal cortical retropulsion and mild thecal sac stenosis. There is stable grade 1 degenerative L4-L5 anterolisthesis. Right hip is replaced with a prosthesis. Appearance is stable since June 2019. CT/Abdomen/Pelvis W IV Cont ONLY IMPRESSION: 1. Stable hepatic metastasis. 2. Stable mesenteric calcified lesion, presumed posttreatment related. 3. Chronic right hydropneumothorax. Electronically Signed: Song Burger, at 17:06 EDT Tel , Service support ,
[2019-08-22] MEDS: 0.9 % NaCl (Sterile) Posiflush 10 mL IV (13:40)
[2019-08-22] MEDS: 0.9% Saline Lock 10 ML Syringe IV (14:00)
== END ==
PROVIDERS: PCP Family Medicine; Referring Provider Internal Medicine Medical Oncology; Visit Provider Internal Medicine Medical Oncology
DX: C56.9 Malignant neoplasm of unspecified ovary (principal); C78.2 Secondary malignant neoplasm of pleura
CPT/HCPCS: 71260; 74177; Q9967; A4216

== ENCOUNTER → 2019-12-26 12:43 | Outpatient (CLI) | payer MEDICARE, SELFPAY ==
[2019-11-28 13:36] VITALS: BMI 26.9
--- NOTE | 2019-12-26 12:46 | CT_ITS ---
STUDY: CT CHEST WITH CONTRAST REASON FOR EXAM: Female, 84 years old. OVARIAN CA ASSESS RESPONSE -- RIGHT BREAST CA W/ RAD TX and amp; HORMONE THERAPY -- SURG-Power Port, right breast lumpectomy, right hip replacement, cholecystectomy, AMANDEEP/BSO, abdominal mass removed RADIATION DOSAGE (If Supplied By Facility): CTDIvol = ( 9.72 ) mGy, DLP = ( 716.07 ) mGycm TECHNIQUE: Transaxial imaging was performed following intravenous administration of IV 100mL Isovue-300. Multiplanar coronal and sagittal images were reformatted. Individualized dose optimization techniques were used for this CT. COMPARISON: Comparison is made with prior study dated 08/22/2019. FINDINGS: Mildly enlarged thyroid with the tiny cystic areas in both lower lobes. The patient is status post right mastectomy. Surgical clips are seen in the right axillary region. Calcifications are seen in the deep inferior portion of the right breast. Small left pleural effusion with left basilar atelectasis. Scarring and volume loss of the right middle lobe. Stable calcified granuloma in the left lower. The right sided pleural effusion has improved. The hydropneumothorax has resolved. There are calcifications of the coronary arteries. Normal mediastinum. Normal hilar regions. Normal enhanced pulmonary arteries. Normal aorta arch and descending thoracic aorta. There are multi-level degenerative changes of the thoracic spine. There is no demonstrated abnormality of the visualized upper abdomen. CT/Chest WITH Contrast IMPRESSION: Interval decrease in size of the left pleural effusion with resorption of the hydropneumothorax. Persistent atelectasis and/or scarring at the right lung base as well as the medial aspect of the right middle lobe. Electronically Signed: Silvino Chris, at 15:11 EDT , Service support ,
--- NOTE | 2019-12-26 12:46 | CT_ITS ---
STUDY: CT ABDOMEN AND PELVIS WITH CONTRAST REASON FOR EXAM: Female, 84 years old. OVARIAN CA ASSESS RESPONSE -- RIGHT BREAST CA W/ RAD TX and amp;amp; HORMONE THERAPY -- SURG-Power Port, right breast lumpectomy, right hip replacement, cholecystectomy, AMANDEEP/BSO, abdominal mass removed RADIATION DOSAGE (If Supplied By Facility): CTDIvol = ( 9.72 ) mGy, DLP = ( 716.07 ) mGycm TECHNIQUE: Transaxial images were obtained from the dome of the diaphragm to the symphysis pubis without oral contrast. IV 100mL Isovue-300 was administered. Sagittal and coronal images were reconstructed. Individualized dose optimization techniques were used for this CT. COMPARISON: Comparison is made with prior study dated 08/22/2019. FINDINGS: Small right pleural effusion with increased linear markings at the left lung base suggestive of scarring. There is a 1.4 cm calcified granuloma at the left lung base. Coronary artery calcification. There has been decrease in size of the subcapsular hepatic hypodensity along the posterior aspect of the right lobe of the liver. It presently measures 2.7 cm x 1.4 cm. There are surgical clips in the gallbladder fossa consistent with a prior cholecystectomy. There are multiple benign calcified granulomata of the spleen. Normal pancreas. Normal bilateral adrenal glands. Normal right kidney. Normal left kidney. Normal visualized stomach. Normal small intestine. Normal colon. The appendix is visualized and appears normal. There is diffuse atherosclerotic calcification of the abdominal aorta, without a demonstrated aneurysm. Normal inferior vena cava. Normal retroperitoneum. Stable appearance of the spiculated calcified lesion in the root of the mesentery with resultant stiffening of the small bowel loops at the level of the root of the mesentery. Normal urinary bladder. There is absence of the uterus consistent with a prior hysterectomy. Normal abdominal wall. There are diffuse degenerative changes of the visualized lumbar spine. Stable appearance of the burst fracture of the L1 vertebrae with dorsal cortical retropulsion. Grade 1 anterior listhesis of L4 on L5. Status post right total hip replacement. CT/Abdomen/Pelvis W IV Cont ONLY IMPRESSION: Decreased size of the hypodense nodule in the subcapsular region of the right lobe of the liver posteriorly. The remainder of the examination is unchanged. Electronically Signed: Silvino Chris, at 14:35 EDT , Service support ,
[2019-12-26] MEDS: 0.9% Saline Lock 10 ML Syringe IV (14:09)
== END ==
PROVIDERS: PCP Family Medicine; Visit Provider Internal Medicine Medical Oncology
DX: C56.9 Malignant neoplasm of unspecified ovary (principal); C78.2 Secondary malignant neoplasm of pleura
CPT/HCPCS: 71260; 74177; Q9967; A4216

== ENCOUNTER → 2020-01-31 12:40 | Outpatient (CLI) | payer MEDICARE, SELFPAY ==
[2019-11-28 13:36] VITALS: BMI 26.9
--- NOTE | 2020-01-31 12:43 | BI_ITS ---
MAMMOGRAPHY - BILATERAL SCREENING REASON FOR EXAM: Female, 84 years old. Routine annual screening examination. PERTINENT HISTORY: Personal history of breast cancer. History of prior right lumpectomy with radiation treatment. Prior left stereotactic breast biopsy. TECHNIQUE: Digital bilateral breast trudi (3D mammographic acquisition) in the CC and MLO projections. 2-D mediolateral oblique (MLO) and craniocaudad (CC) views of both breasts were obtained. CAD: Full Field Digital Mammography with Computer Added Detection was performed. COMPARISON: Comparison is made with prior examination dated 12/04/2018 and 11/29/2017. FINDINGS: Breast Composition: The breasts are heterogeneously dense, which may obscure small masses. There are no dominant masses or suspicious calcifications. Status post lumpectomy in the deep upper lateral aspect of the right breast with resultant deformity of the chest and skin thickening. Dense dystrophic calcification is seen at the operative site. No other significant abnormalities are identified. There has been no significant change since the prior study. BI/SCREEN MAMM (CAD) W/TRUDI BILAT IMPRESSION: Stable bilateral screening mammogram. Yearly follow-up mammogram recommended. (A) ASSESSMENT CATEGORY: BIRADS Category 2: Benign. A letter regarding these results will be sent to the patient by the facility within 30 days. Approximately 10% of breast cancers are not detected by mammography. A normal mammogram should not delay biopsy of a clinically suspicious abnormality. [id number] Electronically Signed: Silvino Chris, at 13:45 EST , Service support ,
== END ==
PROVIDERS: PCP Family Medicine; Referring Provider Internal Medicine Medical Oncology; Visit Provider Internal Medicine Medical Oncology
DX: Z12.31 Encounter for screening mammogram for malignant neoplasm of breast (principal)
CPT/HCPCS: 77063; 77067

== ENCOUNTER 2020-02-10 11:09 | Inpatient (IN) | payer MEDICARE, SELFPAY ==
[2019-11-28 13:36] VITALS: BMI 26.9
[2020-02-10] VITALS (7 sets, daily range): BP systolic 132–142; BP diastolic 58–88; PULSE 71–90; RESP 14–18; TEMP 36.4–36.6; O2SAT 96–100; BMI 27.1; BMI 26.9
--- NOTE | 2020-02-10 11:25 | ED.VISSUMM ---
- ER Visit Summary Date of Service: 02/10/20 Chief Complaint: [Right hip injury] History of Present Illness: The patient is a 84 F [presents to the emergency department complaint of injury to the right hip that occurred 3 days ago while she was working outside. Patient states that she fell directly onto her buttocks. Patient is able to bear some weight on the hip while using a walker but having a hard time getting around. Patient was seen as an outpatient and had x-rays which raised concern for possible fracture of the right hip. Patient states that she has had a prior right hip replacement that was done by Dr. Henry Mckee. Patient denies any other injuries. She denies any head or neck pain. She denies chest pain or shortness of breath. Patient does have history of hypertension and she is currently being treated for ovarian cancer.] Physical Examination: [HEENT-PERRLA, EOMI. Cranial nerves II through XII grossly intact. TMs clear. Mucous membranes moist. No adenopathy. Cardiovascular-regular rate and rhythm without murmur or ectopy Lungs-clear to auscultation, chest wall stable without crepitus or subcu emphysema Abdomen-normoactive bowel sounds, soft, nontender, no rebound or rigidity, no peritoneal signs. Extremities-intact ?4. Patient does have pain to palpation of the right hip. There is no shortening or external rotation noted. Patient neurovascular intact distally. Patient does have some diffuse tenderness about the right knee. No effusion noted. No significant soft tissue swelling or ecchymosis noted. Test Results: [Rays of the right knee obtained showed some soft tissue swelling but no fractures. X-rays were interpreted by myself and radiology in agreement. Patient also had outpatient x-rays of the right hip and pelvis which were read by radiology as proximal periprosthetic fracture of the femur.] BC with differential and chemistries ordered which were unremarkable. Emergency Department Course and Treatment: [IV line established on arrival.] She denies anything for pain as she states it only hurts when she standing on it. Treatment Plan: [Patient case was discussed with orthopedic surgeon on-call Dr. Louis Harper who will asked that hospitalist admit and he will consult on the case. He did not feel this would require any surgical intervention.] Disposition: [Admit] Impression: [Mechanical fall Right hip fracture Inability to ambulate] This note was generated with Dragon dictation software. It may contain incorrect words, spelling, and punctuation that were not noted in review of the chart prior to signing ED Disposition - Plan for ED Patient: Referrals: Britany Fleming DO [Primary Care Provider] -
--- NOTE | 2020-02-10 11:50 | ED.RN ---
RADIOLOGY BROUGHT PT BACK AND REPORTS PT DECLINED XRAYS. THIS NURSE EXPLAINED TO PT WHY DR ORDERED THE EXRAY OF THE KNEE AND PT AGREEBLE TO GETTING XRAY
--- NOTE | 2020-02-10 11:53 | RAD_ITS ---
STUDY: X-RAY - RIGHT KNEE REASON FOR EXAM: Female, 84 years old. FELL 2 DAYS AGO. PAIN IN RIGHT KNEE TECHNIQUE: 4 view(s) of the knee. COMPARISON: 11/18/2013. FINDINGS: Uncomplicated right knee arthroplasty. Mild soft tissue swelling. Trace joint effusion. No acute fracture. No acute dislocation. No acute bone destruction. Osteopenia. RAD/Knee 4 or More Views IMPRESSION: Right knee arthroplasty intact/well aligned Soft tissue swelling with trace joint effusion Electronically Signed: Andrew Acosta DO at 12:15 EST Tel , Service support ,
[2020-02-10 12:26] LABS: Absolute Lymphocyte Count 0.21 X10^3/uL (0.83-4.51); Absolute Neutrophil Count 6.5 X10^3/uL (2.0-7.7); Basophil# 0.04 X10^3/uL; Basophil% 0.5 % (0-1); Eosinophil# 0.07 X10^3/uL; Eosinophils% 0.9 % (0-5); Hematocrit 29.1 % (37-47); Hemoglobin 9.4 g/dL (12.0-15.0); Lymphocyte # 0.21 X10^3/ul (4.0); Lymphocyte % 2.7 % (19-41); Mean Corp Hgb Conc 32.3 g/dL (32-36); Mean Corpuscular Hgb 32.5 pg (27.0-32.0); Mean Corpuscular Volume 100.7 fL (81-99); Mean Platelet Vol. 9.6 fl (6.2-12.0); Monocyte# 0.87 X10^3/uL; Monocyte% 11.2 % (0-10); NRBC Flagged by Analyzer 0 % (0-5); Neutrophil # 6.54 X10^3/uL (2.7-7.7); Neutrophil % 84.3 % (47-70); POSITIVE DIFFERENTIAL YES; Platelet Count 128 K/mm3 (150-450); RBC Distribution Width CV 14.4 % (11.6-14.6); RBC Distribution Width SD 53.1 fl (35.1-43.9); Red Blood Count 2.89 M/mm3 (4.2-5.4); White Blood Count 7.8 K/mm3 (4.4-11.0)
[2020-02-10 12:31] LABS: Differential Indicated SCAN CRITERIA MET
--- NOTE | 2020-02-10 12:37 | HP.PCM_ITS ---
History of Present Illness Date of Admission: 02/10/20 Chief Complaint: Right hip pain The patient is a 84 year old F with a past medical history as outlined which includes ovarian cancer for which she is currently undergoing chemotherapy. Patient was admitted through the ED on 02/10/2020 with a complaint of right hip pain was started 3 days prior to admission after she fell while putting up her [place] lights outside. She fell directly onto her buttocks. She subsequently could not weight-bear on her right hip and so saw her PCP today. She had x-rays of the right hip done on outpatient basis which showed periprosthetic fracture of the right hip. Review of stems otherwise negative. Was therefore sent to the ED. On admission, vitals showed temperature of 97.9 Fahrenheit with blood pressure 140/69, pulse rate of 90 and respiratory of 16. She was saturating at 96% on room air. Chemistry showed potassium of 5.2 with creatinine of 1.66 and CBC showed hemoglobin of 9.4 with WBC of 7.8 and platelets of 128. She has been admitted to be managed for periprosthetic right hip fracture due to mechanical fall. 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) Ovarian cancer (Chronic) Thyroid nodule (Chronic) Hypertension (Chronic) Medical History: Medical History (Last Reviewed 12/31/19 @ 14:37 by Dee Kumari RN) Left wrist repair (Acute) Right arm lymphectomy (Acute) Synovial cyst (Acute) M71.30 Port placement (Acute) Osteopenia (Acute) M85.80 Hyperlipidemia (Acute) E78.5 Depression (Acute) F32.9 Breast cancer (Acute) C50.919 Left wrist fracture (Acute) S62.102A Abnormal breast biopsy (Acute) R89.7 Cholecystectomy planned (Acute) Hip replacement planned (Acute) Hypertension (Chronic) I10 Allergies hydrocodone bitartrate [From Vicodin] Adverse Reaction (Severe, Verified 02/10/20 11:10) Other MAKES ME LOOPY Sulfa (Sulfonamide Antibiotics) Adverse Reaction (Severe, Verified 02/10/20 11:10) Upset Stomach Home Medications: Ambulatory Orders Medication Instructions Recorded Duloxetine Hcl [Cymbalta] 60 mg PO DAILY 11/07/13 Lisinopril/Hydrochlorothiazide 1 tab PO BID 11/07/13 [Zestoretic 15/02.5 Tablet] Cholecalciferol (VIT D3) [Vitamin 4,000 tab PO DAILY 09/16/15 D3] Vitamin B Complex 1 tab PO DAILY 08/13/19 Niraparib Tosylate [Zejula] 200 mg PO DAILY 10/07/19 Co Q10 200 [Co Q-10] 100 mg PO DAILY 02/10/20 Esomeprazole Magnesium [Nexium mg PO 02/10/20 24Hr] Flaxseed Oil 2 cap PO DAILY 02/10/20 Surgical History: Surgical History (Last Reviewed 12/31/19 @ 14:37 by Dee Kumari RN) History of right breast biopsy (Resolved) Z98.890 S/P foot surgery, left (Resolved) Z98.890 S/P laminectomy with spinal fusion (Resolved) Z98.1 History of hip replacement (Resolved) Z96.649 History of cataract extraction (Resolved) Z98.49 History of hysterectomy for malignancy (Resolved) Z90.710 History of knee replacement (Resolved) Z96.659 Surgical History: hysterectomy, - Psychiatric History: Anxiety, Depression Smoking Status: Never smoker - *Family History Maternal Family History: Family History (Last Reviewed 12/31/19 @ 14:37 by Dee Kumari RN) Mother CVA (cerebral vascular accident) Hypertension Father Hypertension Other Heart disease History Items: No pertinent history Review of Systems Constitutional: Denies: Chills, Fever, Malaise, Weakness, Weight Change Eyes: Denies: Blurred vision HEENT: Denies: Head Aches, Sinus Congestion, Sinus Drainage Cardiovascular: Denies: Chest Pain, Palpitations Respiratory: Denies: Cough, Shortness of Breath, Shortness of breath at rest, Sputum production Gastrointestinal: Denies: Abdominal Pain, Nausea, Vomiting Genitourinary: Denies: Dysuria Musculoskeletal: Reports: Joint Pain - right hip pain, Joint Tenderness - right hip tenderness. Denies: Back Pain, Foot Pain, Hand Pain Skin: Denies: Rash, Wounds Neurological: Denies: Numbness, Tingling, Focal weakness Psychiatric: Denies: Anxiety, Depression, Homicidal Ideations, Suicidal Ideations Hematologic/ Lymphatic: Denies: Easy Bruising, Easy Bleeding VTE Information - Inpt Only VTE Present on Admission: No VTE Pharm Prophylaxis ordered?: Yes - Physical Exam Vitals/I&O's: Vital Signs Temp Pulse Resp BP Pulse Ox 97.9 F 90 16 140/69 H 96 02/10/20 11:10 02/10/20 11:10 02/10/20 11:10 02/10/20 11:10 02/10/20 11:10 Oxygen Delivery Method Room Air Weight: 148 lb Body Mass Index (BMI) 27.1 General: Alert, Oriented x3, Cooperative, No apparent distress HEENT: Atraumatic, PERRLA, EOMI, Normocephalic Oral: Dry Mucosa Neck: Supple, No JVD, Negative Carotid Bruits Lungs: Clear to auscultation, Normal air movement, No rhonchi, No wheeze, No rales Cardiovascular: Regular rate, Regular Rhythm, Normal S1, Normal S2, No murmurs Abdomen: Bowel Sounds Present, Soft, Non Tender Extremities: No clubbing, No cyanosis, No edema, Capillary Refill Less than 3 Seconds Skin: No rashes, No breakdown Musculoskeletal: No Tenderness to Palpation of Joints or Extremities Lymphatic: No Cervical, Supraclavicular, or Inguinal Adenopathy Neurological: Cranial nerves II-XII grossly intact, Neuro grossly intact Psych/Mental Status: Normal Affect, Appropriate, Alert and oriented to time, place, person, mood and affect Laboratory Results 02/10/20 12:19: WBC 7.8, RBC 2.89 L, Hgb 9.4 L, Hct 29.1 L, MCV 100.7 H, MCH 32.5 H, MCHC 32.3, RDW Std Deviation 53.1 H, RDW Coeff of Mark 14.4, Plt Count 128 L, MPV 9.6, Immature Gran % (Auto) 0.400, Neut % (Auto) 84.3 H, Lymph % (Auto) 2.7 L, [place] % (Auto) 11.2 H, Eos % (Auto) 0.9, Baso % (Auto) 0.5, Absolute Neuts (auto) 6.5, Absolute Lymphs (auto) 0.21 L, Nucleated RBC % 0 02/10/20 12:19: Sodium Pending, Potassium Pending, Chloride Pending, Carbon Dioxide Pending, Anion Gap Pending, BUN Pending, Creatinine Pending, Est GFR (MDRD) Af Amer Pending, Est GFR (MDRD) Non-Af Pending, BUN/Creatinine Ratio Pending, Glucose Pending, Calcium Pending Diagnostic Data Knee X-Ray 02/10/20 11:53 IMPRESSION: Right knee arthroplasty intact/well aligned Soft tissue swelling with trace joint effusion Electronically Signed: Andrew Acosta, DO at 12:15 EST Tel , Service support , Assessment/Plan All Active Problems (Last Reviewed 12/31/19 @ 14:37 by Dee Kumari RN) Generalized weakness (Acute) Anemia due to antineoplastic chemotherapy (Acute) Encounter for education (Acute) Iron (Fe) deficiency anemia (Acute) Chemotherapy management, encounter for (Acute) Hypokalemia (Acute) Hypomagnesemia (Acute) Pleural effusion (Acute) History of ovarian cancer (Resolved) History of right breast cancer (Resolved) Left breast lump (Acute) Abnormal mammogram with microcalcification (Acute) Iron deficiency (Acute) Hypomagnesemia (Acute) Colon cancer screening (Acute) Anemia (Acute) Left wrist repair (Acute) History of right breast biopsy (Resolved) Right arm lymphectomy (Acute) Synovial cyst (Acute) S/P foot surgery, left (Resolved) S/P laminectomy with spinal fusion (Resolved) Port placement (Acute) History of hip replacement (Resolved) History of cataract extraction (Resolved) Osteopenia (Acute) Hyperlipidemia (Acute) Depression (Acute) Breast cancer (Acute) Left wrist fracture (Acute) Abnormal breast biopsy (Acute) History of hysterectomy for malignancy (Resolved) Cholecystectomy planned (Acute) History of knee replacement (Resolved) Hip replacement planned (Acute) 84 y/o admitted with a complaint of right hip pain # Right hip periprosthetic fracture due to mechanical fall * X-ray of the right hip showed acute appearing periprosthetic fracture of the lesser trochanter and proximal femur with no acute dislocation. * orthopedic Surgery on board. Give p.o. [place] as well as IV morphine and p.o. Tylenol as needed for pain * Fall precautions. PT OT on board. * Orthopedic surgery, management will likely be nonoperative. * #History of ovarian cancer: * States she has been told this has metastasized to her lungs. Undergoing outpatient chemotherapy with niraparib. * Follow-up with oncology on outpatient basis. #Hyperkalemia: Potassium is 5.2. Will hold TIAGO or ARB's and give Kayexalate. #Hypertension: On hydrochlorothiazide and lisinopril. Hold lisinopril on account of hyperkalemia #: Hyperlipidemia: Not on statin. Will monitor. #Depression: On Cymbalta. DVT prophylaxis; lovenox Code status; full code * Patient counseled extensively about different types of CODE STATUS including full code, DNR CCA and DNR CCA. Patient elects to be full full code. Total [id number] time 17 minutes. Inpatient E&M: 07679 Init Hosp L3
[2020-02-10 12:41] LABS: Anion Gap 4 (5-15); BUN 37 mg/dL (7-18); BUN/Creat Ratio 22.3 RATIO (10-20); Chloride 106 mmol/L (98-107); Creatinine, Serum 1.66 mg/dL (0.55-1.02); EST Glomerular Filtration Rate 31 mL/min (>60); Est Glom Filt Rate - Afr Amer 38 mL/min (>60); Estimated Creatinine Clearance 20.67 ml/min; Glucose 99 mg/dL (74-106); Potassium 5.2 mmol/L (3.5-5.1); Sodium Level 137 mmol/L (136-145)
[2020-02-10 12:55] LABS: Platelet Estimate SLT DEC (ADEQ); Red Cell Morphology NORM C+C NORMAL (NORM C&C)
--- NOTE | 2020-02-10 15:03 | PCM.CONS.GEN ---
Reason for Consult Date of Consultation: 02/10/20 Reason for Consultation: right hip pain s/p fall History of Present Illness: The patient is a 84 year old F [on whom I performed a THR several years ago. Her hip was doing well prior a couple days ago when she was hanging outside [place] lights and tripped falling on her right side. She was seen in the ED and admitted with a right hip periprosthetic fracture. 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) Ovarian cancer (Chronic) Thyroid nodule (Chronic) Hypertension (Chronic) Medical History: Medical History (Last Reviewed 12/31/19 @ 14:37 by Dee Kumari RN) Left wrist repair (Acute) Right arm lymphectomy (Acute) Synovial cyst (Acute) M71.30 Port placement (Acute) Osteopenia (Acute) M85.80 Hyperlipidemia (Acute) E78.5 Depression (Acute) F32.9 Breast cancer (Acute) C50.919 Left wrist fracture (Acute) S62.102A Abnormal breast biopsy (Acute) R89.7 Cholecystectomy planned (Acute) Hip replacement planned (Acute) Hypertension (Chronic) I10 Allergies hydrocodone bitartrate [From Vicodin] Adverse Reaction (Severe, Verified 02/10/20 11:10) Other MAKES ME LOOPY Sulfa (Sulfonamide Antibiotics) Adverse Reaction (Severe, Verified 02/10/20 11:10) Upset Stomach Home Medications: Ambulatory Orders Medication Instructions Recorded Duloxetine Hcl [Cymbalta] 60 mg PO DAILY 11/07/13 Lisinopril/Hydrochlorothiazide 1 tab PO BID 11/07/13 [Zestoretic 15/02.5 Tablet] Cholecalciferol (VIT D3) [Vitamin 4,000 tab PO DAILY 09/16/15 D3] Vitamin B Complex 1 tab PO DAILY 08/13/19 Niraparib Tosylate [Zejula] 200 mg PO DAILY 10/07/19 Co Q10 200 [Co Q-10] 100 mg PO DAILY 02/10/20 Esomeprazole Magnesium [Nexium mg PO 02/10/20 24Hr] Flaxseed Oil 2 cap PO DAILY 02/10/20 Surgical History: Surgical History (Last Reviewed 12/31/19 @ 14:37 by Dee Kumari RN) History of right breast biopsy (Resolved) Z98.890 S/P foot surgery, left (Resolved) Z98.890 S/P laminectomy with spinal fusion (Resolved) Z98.1 History of hip replacement (Resolved) Z96.649 History of cataract extraction (Resolved) Z98.49 History of hysterectomy for malignancy (Resolved) Z90.710 History of knee replacement (Resolved) Z96.659 Surgical History: hysterectomy, - Psychiatric History: Anxiety, Depression Smoking Status: Never smoker - *Family History Maternal Family History: Family History (Last Reviewed 12/31/19 @ 14:37 by Dee Kumari RN) Mother CVA (cerebral vascular accident) Hypertension Father Hypertension Other Heart disease History Items: No pertinent history - Physical Exam Vitals/I&O's: Vital Signs Temp Pulse Resp BP Pulse Ox 97.9 F 73 14 135/88 H 99 02/10/20 12:57 02/10/20 13:41 02/10/20 12:57 02/10/20 12:57 02/10/20 12:57 Oxygen Delivery Method Room Air Weight: 149 lb 11.102 oz Body Mass Index (BMI) 26.9 General: Alert, Oriented x3, Cooperative, No apparent distress Extremities: No clubbing, No cyanosis, No edema, Capillary Refill Less than 3 Seconds, No Calf Tenderness, Tenderness - Right hip with log roll and attempted leg raise. Leg lengths are equal. Skin: Incision - stable Neurological: Neuro grossly intact Laboratory Results 02/10/20 12:19: WBC 7.8, RBC 2.89 L, Hgb 9.4 L, Hct 29.1 L, MCV 100.7 H, MCH 32.5 H, MCHC 32.3, RDW Std Deviation 53.1 H, RDW Coeff of Mark 14.4, Plt Count 128 L, MPV 9.6, Immature Gran % (Auto) 0.400, Neut % (Auto) 84.3 H, Lymph % (Auto) 2.7 L, [place] % (Auto) 11.2 H, Eos % (Auto) 0.9, Baso % (Auto) 0.5, Absolute Neuts (auto) 6.5, Absolute Lymphs (auto) 0.21 L, Nucleated RBC % 0, Differential Comment , Platelet Estimate SLT DEC, RBC Morphology NORM C+C 02/10/20 12:19: Sodium 137, Potassium 5.2 H, Chloride 106, Carbon Dioxide 27.0, Anion Gap 4 L, BUN 37 H, Creatinine 1.66 H, Estim Creat Clear Calc 20.67, Est GFR (MDRD) Af Amer 38 L, Est GFR (MDRD) Non-Af 31 L, BUN/Creatinine Ratio 22.3 H, Glucose 99, Calcium 10.0 Current Medications Acetaminophen (Acetaminophen 325 Mg Tablet) 650 mg PO Q6H PRN PRN PRN Reason: Pain Score 1-10/Temp > 100.7 F Cholecalciferol (Cholecalciferol (Vit D3) 1,000 Unit (25mcg)) 4,000 unit PO DAILY [facility] Duloxetine HCl (Duloxetine Hcl 60 Mg Capsule) 60 mg PO DAILY [facility] Enoxaparin Sodium (Enoxaparin 30 Mg/0.3 Ml Syringe) 30 mg SC DAILY [facility] Hydrochlorothiazide (Hydrochlorothiazide 12.5mg) 12.5 mg PO BID [facility] Lisinopril (Lisinopril 20 Mg Tablet) 20 mg PO BID [facility] Morphine Sulfate (Morphine 2 Mg/Ml Syringe) 2 mg IV Q3H PRN PRN PRN Reason: Pain Score 6-10 Multivitamins (Vitamin B Comp W-C Capsule) [facility] Nitroglycerin (Nitroglycerin (Inpatient Use) 0.4 Mg Tab.Subl) 0.4 mg SUBLINGUAL Q5M PRN PRN Reason: CARDIAC/CHEST PAIN Non-Formulary Medication (Niraparib Tosylate [Zejula]) 200 mg PO DAILY [facility] Ondansetron HCl (Ondansetron 4 Mg/2 Ml Vial) 4 mg IV Q8H PRN PRN PRN Reason: NAUSEA/VOMITING Oxycodone HCl (Oxycodone 5 Mg Tablet) 5 mg PO Q4H PRN PRN PRN Reason: Pain Score 4-5 Sodium Chloride (0.9% Saline Lock 10 Ml Syringe) 10 - 40 ml IV UD PRN PRN Reason: SALINE FLUSH Assessment/Plan All Active Problems (Last Reviewed 12/31/19 @ 14:37 by Dee Kumari RN) Generalized weakness (Acute) Anemia due to antineoplastic chemotherapy (Acute) Encounter for education (Acute) Iron (Fe) deficiency anemia (Acute) Chemotherapy management, encounter for (Acute) Hypokalemia (Acute) Hypomagnesemia (Acute) Pleural effusion (Acute) History of ovarian cancer (Resolved) History of right breast cancer (Resolved) Left breast lump (Acute) Abnormal mammogram with microcalcification (Acute) Iron deficiency (Acute) Hypomagnesemia (Acute) Colon cancer screening (Acute) Anemia (Acute) Left wrist repair (Acute) History of right breast biopsy (Resolved) Right arm lymphectomy (Acute) Synovial cyst (Acute) S/P foot surgery, left (Resolved) S/P laminectomy with spinal fusion (Resolved) Port placement (Acute) History of hip replacement (Resolved) History of cataract extraction (Resolved) Osteopenia (Acute) Hyperlipidemia (Acute) Depression (Acute) Breast cancer (Acute) Left wrist fracture (Acute) Abnormal breast biopsy (Acute) History of hysterectomy for malignancy (Resolved) Cholecystectomy planned (Acute) History of knee replacement (Resolved) Hip replacement planned (Acute) Nondisplaced right periprosthetic hip fracture PT with walker ambulation, 50% WB No surgery planned at this time The fracture will likely take 8-12 weeks to heal.
[2020-02-10] MEDS: hydroCHLOROthiazide 12.5mg 12.5 MG PO (20:53)
[2020-02-10] MEDS: Lisinopril 20 MG Tablet PO (20:54)
[2020-02-10] MEDS: 0.9% Saline Lock 10 ML Syringe IV (20:59)
[2020-02-11] VITALS (10 sets, daily range): BP systolic 125–139; BP diastolic 53–68; PULSE 74–90; RESP 16–18; TEMP 37–37.2; O2SAT 96–100
[2020-02-11 07:08] LABS: Absolute Lymphocyte Count 0.24 X10^3/uL (0.83-4.51); Absolute Neutrophil Count 4.9 X10^3/uL (2.0-7.7); Basophil# 0.04 X10^3/uL; Basophil% 0.6 % (0-1); Eosinophil# 0.15 X10^3/uL; Eosinophils% 2.4 % (0-5); Hematocrit 29.9 % (37-47); Hemoglobin 9.5 g/dL (12.0-15.0); Lymphocyte # 0.24 X10^3/ul (4.0); Lymphocyte % 3.9 % (19-41); Mean Corp Hgb Conc 31.8 g/dL (32-36); Mean Corpuscular Hgb 31.7 pg (27.0-32.0); Mean Corpuscular Volume 99.7 fL (81-99); Mean Platelet Vol. 10.1 fl (6.2-12.0); Monocyte# 0.86 X10^3/uL; Monocyte% 13.8 % (0-10); NRBC Flagged by Analyzer 0 % (0-5); Neutrophil # 4.91 X10^3/uL (2.7-7.7); Neutrophil % 78.8 % (47-70); POSITIVE DIFFERENTIAL YES; Platelet Count 159 K/mm3 (150-450); RBC Distribution Width CV 14.2 % (11.6-14.6); RBC Distribution Width SD 51.9 fl (35.1-43.9); White Blood Count 6.2 K/mm3 (4.4-11.0)
[2020-02-11 07:10] LABS: Differential Indicated SCAN CRITERIA MET
[2020-02-11 07:36] LABS: Anion Gap 5 (5-15); BUN 26 mg/dL (7-18); BUN/Creat Ratio 22.8 RATIO (10-20); Chloride 106 mmol/L (98-107); Creatinine, Serum 1.14 mg/dL (0.55-1.02); EST Glomerular Filtration Rate 49 mL/min (>60); Est Glom Filt Rate - Afr Amer 59 mL/min (>60); Estimated Creatinine Clearance 30.09 ml/min; Glucose 96 mg/dL (74-106); Potassium 4.1 mmol/L (3.5-5.1); Sodium Level 141 mmol/L (136-145)
--- NOTE | 2020-02-11 07:44 | PCM.PN.HOSP ---
Subjective: Patient seen and examined. She was admitted with a complaint of right hip pain after mechanical fall, and found to have an acute right periprosthetic hip fracture. Orthopedics on board. She has no complaints today. Pain is well controlled. Review of systems otherwise negative. Vitals/I&O's: Vital Signs Temp Pulse Resp BP Pulse Ox 98.7 F 76 18 139/68 H 100 02/11/20 02:14 02/11/20 03:10 02/11/20 02:14 02/11/20 02:14 02/11/20 02:14 Oxygen Delivery Method Room Air Weight: 149 lb 11.102 oz Body Mass Index (BMI) 26.9 Intake and Output for Last 24 Hours 02/09/20 02/10/20 02/11/20 23:59 23:59 23:59 Intake Total 200 / 200 Output Total 700 / 700 250 / 250 Balance -500 / -500 -250 / -250 General: Alert, Oriented x3, Cooperative, No apparent distress HEENT: Atraumatic, PERRLA, EOMI, Normocephalic Oral: Dry Mucosa Neck: Supple, No JVD, Negative Carotid Bruits Lungs: Clear to auscultation, Normal air movement, No rhonchi, No wheeze, No rales Cardiovascular: Regular rate, Regular Rhythm, Normal S1, Normal S2, No murmurs Abdomen: Bowel Sounds Present, Soft, Non Tender Extremities: No clubbing, No cyanosis, No edema, Capillary Refill Less than 3 Seconds Skin: No rashes, No breakdown Musculoskeletal: No Tenderness to Palpation of Joints or Extremities Lymphatic: No Cervical, Supraclavicular, or Inguinal Adenopathy Neurological: Cranial nerves II-XII grossly intact, Neuro grossly intact Psych/Mental Status: Normal Affect, Appropriate, Alert and oriented to time, place, person, mood and affect Laboratory Results 02/10/20 12:19: WBC 7.8, RBC 2.89 L, Hgb 9.4 L, Hct 29.1 L, MCV 100.7 H, MCH 32.5 H, MCHC 32.3, RDW Std Deviation 53.1 H, RDW Coeff of Mark 14.4, Plt Count 128 L, MPV 9.6, Immature Gran % (Auto) 0.400, Neut % (Auto) 84.3 H, Lymph % (Auto) 2.7 L, [place] % (Auto) 11.2 H, Eos % (Auto) 0.9, Baso % (Auto) 0.5, Absolute Neuts (auto) 6.5, Absolute Lymphs (auto) 0.21 L, Nucleated RBC % 0, Differential Comment , Platelet Estimate SLT DEC, RBC Morphology NORM C+C 02/10/20 12:19: Sodium 137, Potassium 5.2 H, Chloride 106, Carbon Dioxide 27.0, Anion Gap 4 L, BUN 37 H, Creatinine 1.66 H, Estim Creat Clear Calc 20.67, Est GFR (MDRD) Af Amer 38 L, Est GFR (MDRD) Non-Af 31 L, BUN/Creatinine Ratio 22.3 H, Glucose 99, Calcium 10.0 02/11/20 06:27: Sodium 141, Potassium 4.1, Chloride 106, Carbon Dioxide 30.0, Anion Gap 5, BUN 26 H, Creatinine 1.14 H, Estim Creat Clear Calc 30.09, Est GFR (MDRD) Af Amer 59 L, Est GFR (MDRD) Non-Af 49 L, BUN/Creatinine Ratio 22.8 H, Glucose 96, Calcium 10.0 02/11/20 06:27: WBC 6.2, RBC 3.00 L, Hgb 9.5 L, Hct 29.9 L, MCV 99.7 H, MCH 31.7, MCHC 31.8 L, RDW Std Deviation 51.9 H, RDW Coeff of Mark 14.2, Plt Count 159, MPV 10.1, Immature Gran % (Auto) 0.500, Neut % (Auto) 78.8 H, Lymph % (Auto) 3.9 L, [place] % (Auto) 13.8 H, Eos % (Auto) 2.4, Baso % (Auto) 0.6, Absolute Neuts (auto) 4.9, Absolute Lymphs (auto) 0.24 L, Nucleated RBC % 0 Diagnostic Data Knee X-Ray 02/10/20 11:53 IMPRESSION: Right knee arthroplasty intact/well aligned Soft tissue swelling with trace joint effusion Electronically Signed: Andrew Acosta, at 12:15 EST Tel , Service support , Current Medications Acetaminophen (Acetaminophen 325 Mg Tablet) 650 mg PO Q6H PRN PRN PRN Reason: Pain Score 1-10/Temp > 100.7 F Cholecalciferol (Cholecalciferol (Vit D3) 1,000 Unit (25mcg)) 4,000 unit PO DAILY ON LICENSE OF [facility] Duloxetine HCl (Duloxetine Hcl 60 Mg Capsule) 60 mg PO DAILY ON LICENSE OF [facility] Enoxaparin Sodium (Enoxaparin 30 Mg/0.3 Ml Syringe) 30 mg SC DAILY ON LICENSE OF [facility] Hydrochlorothiazide (Hydrochlorothiazide 12.5mg) 12.5 mg PO BID ON LICENSE OF [facility] Last Admin: 02/10/20 20:53 Dose: 12.5 mg Documented by: Lisinopril (Lisinopril 20 Mg Tablet) 20 mg PO BID ON LICENSE OF [facility] Last Admin: 02/10/20 20:54 Dose: 20 mg Documented by: Morphine Sulfate (Morphine 2 Mg/Ml Syringe) 2 mg IV Q3H PRN PRN PRN Reason: Pain Score 6-10 Multivitamins (Vitamin B Comp W[facility]apsule) [facility] Nitroglycerin (Nitroglycerin (Inpatient Use) 0.4 Mg Tab.Subl) 0.4 mg SUBLINGUAL Q5M PRN PRN Reason: CARDIAC/CHEST PAIN Nutritional Formula (Lactose Free) (Ensure Enlive 120 Ml Liquid) 120 ml PO 4X/DAY ON LICENSE OF [facility] Last Admin: 02/10/20 20:51 Dose: Not Given Documented by: Ondansetron HCl (Ondansetron 4 Mg/2 Ml Vial) 4 mg IV Q8H PRN PRN PRN Reason: NAUSEA/VOMITING Oxycodone HCl (Oxycodone 5 Mg Tablet) 5 mg PO Q4H PRN PRN PRN Reason: Pain Score 4-5 Sodium Chloride (0.9% Saline Lock 10 Ml Syringe) 10 - 40 ml IV UD PRN PRN Reason: SALINE FLUSH Last Admin: 02/10/20 20:59 Dose: 10 ml Documented by: Medical Necessity - Tobacco Use Smoking Status: Never smoker Assessment/Plan All Active Problems (Last Reviewed 12/31/19 @ 14:37 by Dee Kumari RN) Generalized weakness (Acute) Anemia due to antineoplastic chemotherapy (Acute) Encounter for education (Acute) Iron (Fe) deficiency anemia (Acute) Chemotherapy management, encounter for (Acute) Hypokalemia (Acute) Hypomagnesemia (Acute) Pleural effusion (Acute) History of ovarian cancer (Resolved) History of right breast cancer (Resolved) Left breast lump (Acute) Abnormal mammogram with microcalcification (Acute) Iron deficiency (Acute) Hypomagnesemia (Acute) Colon cancer screening (Acute) Anemia (Acute) Left wrist repair (Acute) History of right breast biopsy (Resolved) Right arm lymphectomy (Acute) Synovial cyst (Acute) S/P foot surgery, left (Resolved) S/P laminectomy with spinal fusion (Resolved) Port placement (Acute) History of hip replacement (Resolved) History of cataract extraction (Resolved) Osteopenia (Acute) Hyperlipidemia (Acute) Depression (Acute) Breast cancer (Acute) Left wrist fracture (Acute) Abnormal breast biopsy (Acute) History of hysterectomy for malignancy (Resolved) Cholecystectomy planned (Acute) History of knee replacement (Resolved) Hip replacement planned (Acute) 84 y/o admitted with a complaint of right hip pain # Right hip periprosthetic fracture due to mechanical fall X-ray of the right hip showed acute appearing periprosthetic fracture of the lesser trochanter and proximal femur with no acute dislocation. orthopedic Surgery on board. Give p.o. [place] as well as IV morphine and p.o. Tylenol as needed for pain Fall precautions. PT OT on board. Orthopedic surgery, management will be conservative, and fracture expected to heal in 8-12 weeks #History of ovarian cancer: States she has been told this has metastasized to her lungs. Undergoing outpatient chemotherapy with niraparib. Follow-up with oncology on outpatient basis. #Hyperkalemia: potassium level pending today. lisinopril on hold. #Hypertension: On hydrochlorothiazide and lisinopril. Hold lisinopril on account of hyperkalemia #: Hyperlipidemia: Not on statin. Will monitor. #Depression: On Cymbalta. DVT prophylaxis; lovenox Code status; full code Inpatient E&M: 15597 Subs Hosp L2
[2020-02-11] MEDS: Enoxaparin 30 MG/0.3 ML Syringe SC (10:23)
[2020-02-11] MEDS: Vitamin B Comp W-C Capsule 1 CAP PO (10:24)
[2020-02-11] MEDS: DULoxetine Hcl 60 MG Capsule PO (10:24)
[2020-02-11] MEDS: hydroCHLOROthiazide 12.5mg 12.5 MG PO ×2 (10:24→21:00)
--- NOTE | 2020-02-11 11:00 | CASEMGMT ---
JANE BALL Face to Face with patient for initial transition planning/care coordination assessment. JANE BALL introduced self and role at [facility]. Patient lying in bed, alert and oriented. Patient willing to participate in assessment and is able to answer all questions appropriately. Care providers, pharmacy, and demographics verified. Patient wishes to discharge home and would like [facility] at discharge as she has had them in the past. Patient states he has no further needs or concerns at this time. CM to follow for discharge planning needs that may arise. PCP: Bernadette Specialists: Onel, oncologist Preferred Pharmacy: [facility] Insurance: [employer] Prescription Benefit: yes Living Will/HPOA: yes, step daughter Edyta Dykes LNOK: step daughter Living Arrangements: Patient lives alone but has friend that will be staying with her. Patient lives in a ranch house with 2 steps and railing to enter the home. Patient states she was independent at home. Patient has cleaning person every 2 weeks. Transportation: friend DME/HHC: Patient has BSC, raised toilet seat, walker, grab bars. Patient has had HHC with [facility] in the past. JANE BALL sent referral to [facility] and they are able to accept the patient. JANE BALL updated patient regarding acceptance. Disposition Plan: Patient to discharge home with family support and follow-up plans in place. Marine HARRINGTON, RN, CM
[2020-02-11] MEDS: 0.9% Saline Lock 10 ML Syringe IV (21:00)
[2020-02-12 02:46] VITALS: BP 109/84; PULSE 76; RESP 16; TEMP 37.2; O2SAT 97
[2020-02-12 04:09] VITALS: PULSE 73
[2020-02-12 07:08] LABS: Absolute Neutrophil Count 4.8 X10^3/uL (2.0-7.7); Basophil# 0.04 X10^3/uL; Basophil% 0.6 % (0-1); Eosinophil# 0.18 X10^3/uL; Eosinophils% 2.9 % (0-5); Hematocrit 29.6 % (37-47); Hemoglobin 9.4 g/dL (12.0-15.0); Lymphocyte % 3.2 % (19-41); Mean Corp Hgb Conc 31.8 g/dL (32-36); Mean Corpuscular Hgb 31.4 pg (27.0-32.0); Mean Platelet Vol. 9.3 fl (6.2-12.0); Monocyte# 0.92 X10^3/uL; Monocyte% 14.9 % (0-10); NRBC Flagged by Analyzer 0 % (0-5); Neutrophil # 4.81 X10^3/uL (2.7-7.7); Neutrophil % 77.8 % (47-70); POSITIVE DIFFERENTIAL YES; Platelet Count 162 K/mm3 (150-450); RBC Distribution Width CV 14.2 % (11.6-14.6); RBC Distribution Width SD 51.8 fl (35.1-43.9); Red Blood Count 2.99 M/mm3 (4.2-5.4); White Blood Count 6.2 K/mm3 (4.4-11.0)
[2020-02-12 07:11] VITALS: PULSE 77
[2020-02-12 07:12] LABS: Differential Indicated SCAN CRITERIA MET
[2020-02-12 07:31] LABS: Anion Gap 6 (5-15); BUN 24 mg/dL (7-18); BUN/Creat Ratio 22.4 RATIO (10-20); Calcium,Total 9.9 mg/dL (8.5-10.1); Chloride 103 mmol/L (98-107); Creatinine, Serum 1.07 mg/dL (0.55-1.02); EST Glomerular Filtration Rate 52 mL/min (>60); Est Glom Filt Rate - Afr Amer 63 mL/min (>60); Estimated Creatinine Clearance 32.06 ml/min; Glucose 107 mg/dL (74-106); Potassium 3.8 mmol/L (3.5-5.1); Sodium Level 138 mmol/L (136-145)
[2020-02-12 07:43] LABS: Platelet Estimate ADEQUATE (ADEQ); Red Cell Morphology NORM C+C NORMAL (NORM C&C)
[2020-02-12] MEDS: hydroCHLOROthiazide 12.5mg 12.5 MG PO (08:12)
[2020-02-12] MEDS: DULoxetine Hcl 60 MG Capsule PO (08:12)
[2020-02-12] MEDS: Vitamin B Comp W-C Capsule 1 CAP PO (08:12)
[2020-02-12] MEDS: Enoxaparin 30 MG/0.3 ML Syringe SC (08:12)
[2020-02-12 08:15] VITALS: BP 149/73; PULSE 82; RESP 18; TEMP 36.8; O2SAT 97
--- NOTE | 2020-02-12 10:32 | DCINST_ITS ---
You will use the following diet at home:: Cardiac Your food should be the consistency of: Regular Your liquids should be the consistency of: Regular/Thin Discharge Activity: Use Walker Weight Bearing Status: Partial weight bearing Call your doctor if you observe: Fever of 101 or Higher, Coldness, Increased Pain, Shortness of breath, Dizziness, Fainting spells, Swelling in the ankles, Uncontrolled pain Instructions: Understanding Hip Fractures, After a Hip Fracture: Common Questions Allergies/Adverse Reactions: Allergies hydrocodone bitartrate [From Vicodin] Adverse Reaction (Severe, Verified 02/10/20 11:10) Other MAKES ME LOOPY Sulfa (Sulfonamide Antibiotics) Adverse Reaction (Severe, Verified 02/10/20 11:10) Upset Stomach Medications to take at Discharge Duloxetine Hcl [Cymbalta] 60 mg PO DAILY 11/07/13 Lisinopril/Hydrochlorothiazide [Zestoretic 15/02.5 Tablet] 1 tab PO BID 11/07/13 Cholecalciferol (VIT D3) [Vitamin D3] 4,000 tab PO DAILY 09/16/15 Vitamin B Complex 1 tab PO DAILY 08/13/19 Niraparib Tosylate [Zejula] 200 mg PO DAILY 10/07/19 Co Q10 200 [Co Q-10] 100 mg PO DAILY 02/10/20 Esomeprazole Magnesium [Nexium 24Hr] mg PO 02/10/20 Flaxseed Oil 2 cap PO DAILY 02/10/20 Colestipol Tablet [Colestid Tablet] 1 gm PO BID 02/11/20 Acetaminophen [Tylenol] 650 mg PO Q6H PRN PRN #30 tab 02/12/20 Oxycodone [Oxyir] 5 mg PO Q6H PRN PRN 3 Days #12 tab 02/12/20 The following prescriptions were given: Oxycodone [Oxyir] 5 mg PO Q6H PRN PRN 3 Days #12 tab PRN Reason: Pain Score 1-10 Transmission Status: Received by MONI SCHAEFFER RD Acetaminophen [Tylenol] 650 mg PO Q6H PRN PRN #30 tab PRN Reason: Pain 1-10 Or Fever Transmission Status: Pending to MONI SCHAEFFER RD Primary Care Physician: Britany Fleming DO [Primary Care Provider] - Please follow up with your Primary Care Physician in: 1-2 weeks Test Results: Test results from this visit will be discussed in further detail at your follow- up appointment, if applicable. Please Follow Up With: Louis Harper DO When: 2-3 weeks Proposed Discharge Date: 02/12/20
--- NOTE | 2020-02-12 10:35 | DS.PCM_ITS ---
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 Patient was admitted through the ED on 02/10/2020 with a complaint of right hip pain was started 3 days prior to admission after she fell while putting up her [employer] lights outside. She fell directly onto her buttocks. She subsequently could not weight-bear on her right hip and so saw her PCP. She had x-rays of the right hip done on outpatient basis which showed periprosthetic fracture of the right hip. Review of stems otherwise negative. Was therefore sent to the ED. On admission, vitals showed temperature of 97.9 Fahrenheit with blood pressure 140/69, pulse rate of 90 and respiratory of 16. She was saturating at 96% on room air. Chemistry showed potassium of 5.2 with creatinine of 1.66 and CBC showed hemoglobin of 9.4 with WBC of 7.8 and platelets of 128. She was admitted to be managed for periprosthetic right hip fracture due to mechanical fall. PT OT was consulted and orthopedic surgery was consulted. Orthopedic surgery evaluated patient and advocated conservative management with patient to be partial weightbearing on the right lower extremity, with suspected healing 8 to 12 weeks. Patient did well with physical therapy and was deemed as needed home health and home physical therapy. She remained stable and was discharged home on 02/12/2020 with home therapy. She is to follow-up with orthopedic surgery 2 to 3 weeks as he was counseled to be early partial weightbearing on the right lower extremity. She was discharged with a prescription for p.o. oxycodone 5 mg every 6 hours as needed for total of 12 tablets for 3 days; OARRS score was checked and no red flags were seen. She was also discharged a prescription for p.o. Tylenol. Seen and examined prior to discharge. She wanted to be discharged home and had no complaints. Review of symptoms otherwise negative. Labs and vitals reviewed. Home medication reviewed and reconciled. O/E: Vital Signs Temp Pulse Resp BP Pulse Ox 98.3 F 82 18 149/73 H 97 02/12/20 08:15 02/12/20 08:15 02/12/20 08:15 02/12/20 08:15 02/12/20 08:15 General: Alert, Oriented x3, Cooperative, No apparent distress HEENT: Atraumatic, PERRLA, EOMI, Normocephalic Oral: Dry Mucosa Neck: Supple, No JVD, Negative Carotid Bruits Lungs: Clear to auscultation, Normal air movement, No rhonchi, No wheeze, No r ales Cardiovascular: Regular rate, Regular Rhythm, Normal S1, Normal S2, No murmurs Abdomen: Bowel Sounds Present, Soft, Non Tender Extremities: No clubbing, No cyanosis, No edema, Capillary Refill Less than 3 Seconds Skin: No rashes, No breakdown Musculoskeletal: No Tenderness to Palpation of Joints or Extremities Lymphatic: No Cervical, Supraclavicular, or Inguinal Adenopathy Neurological: Cranial nerves II-XII grossly intact, Neuro grossly intact Psych/Mental Status: Normal Affect, Appropriate, Alert and oriented to time, place, person, mood and affect Plan is for discharge home today. - Physical Exam Vitals/I&O's: Vital Signs Temp Pulse Resp BP Pulse Ox 98.3 F 82 18 149/73 H 97 02/12/20 08:15 02/12/20 08:15 02/12/20 08:15 02/12/20 08:15 02/12/20 08:15 Oxygen Delivery Method Room Air Weight: 149 lb 11.102 oz Body Mass Index (BMI) 26.9 Intake and Output for Last 24 Hours 02/10/20 02/11/20 02/12/20 23:59 23:59 23:59 Intake Total 200 / 200 550 / 550 200 / 200 Output Total 700 / 700 650 / 650 Balance -500 / -500 -100 / -100 200 / 200 Laboratory Results 02/12/20 06:55: WBC 6.2, RBC 2.99 L, Hgb 9.4 L, Hct 29.6 L, MCV 99.0, MCH 31.4, MCHC 31.8 L, RDW Std Deviation 51.8 H, RDW Coeff of Mark 14.2, Plt Count 162, MPV 9.3, Immature Gran % (Auto) 0.600, Neut % (Auto) 77.8 H, Lymph % (Auto) 3.2 L, [place] % (Auto) 14.9 H, Eos % (Auto) 2.9, Baso % (Auto) 0.6, Absolute Neuts (auto) 4.8, Absolute Lymphs (auto) 0.20 L, Nucleated RBC % 0, Differential Comment , Platelet Estimate ADEQUATE, RBC Morphology NORM C+C 02/12/20 06:55: Sodium 138, Potassium 3.8, Chloride 103, Carbon Dioxide 29.0, Anion Gap 6, BUN 24 H, Creatinine 1.07 H, Estim Creat Clear Calc 32.06, Est GFR (MDRD) Af Amer 63, Est GFR (MDRD) Non-Af 52 L, BUN/Creatinine Ratio 22.4 H, Glucose 107 H, Calcium 9.9 Current Medications Acetaminophen (Acetaminophen 325 Mg Tablet) 650 mg PO Q6H PRN PRN PRN Reason: Pain Score 1-10/Temp > 100.7 F Cholecalciferol (Cholecalciferol (Vit D3) 1,000 Unit (25mcg)) 4,000 unit PO DAILY [facility] Last Admin: 02/12/20 08:12 Dose: 4,000 unit Documented by: Duloxetine HCl (Duloxetine Hcl 60 Mg Capsule) 60 mg PO DAILY [facility] Last Admin: 02/12/20 08:12 Dose: 60 mg Documented by: Enoxaparin Sodium (Enoxaparin 30 Mg/0.3 Ml Syringe) 30 mg SC DAILY [facility] Last Admin: 02/12/20 08:12 Dose: 30 mg Documented by: Hydrochlorothiazide (Hydrochlorothiazide 12.5mg) 12.5 mg PO BID [facility] Last Admin: 02/12/20 08:12 Dose: 12.5 mg Documented by: Lisinopril (Lisinopril 20 Mg Tablet) 20 mg PO BID [facility] Last Admin: 02/10/20 20:54 Dose: 20 mg Documented by: Morphine Sulfate (Morphine 2 Mg/Ml Syringe) 2 mg IV Q3H PRN PRN PRN Reason: Pain Score 6-10 Multivitamins (Vitamin B Comp [facility]apsule) [facility] Last Admin: 02/12/20 08:12 Dose: 1 capsule Documented by: Nitroglycerin (Nitroglycerin (Inpatient Use) 0.4 Mg Tab.Subl) 0.4 mg SUBLINGUAL Q5M PRN PRN Reason: CARDIAC/CHEST PAIN Ondansetron HCl (Ondansetron 4 Mg/2 Ml Vial) 4 mg IV Q8H PRN PRN PRN Reason: NAUSEA/VOMITING Oxycodone HCl (Oxycodone 5 Mg Tablet) 5 mg PO Q4H PRN PRN PRN Reason: Pain Score 4-5 Sodium Chloride (0.9% Saline Lock 10 Ml Syringe) 10 - 40 ml IV UD PRN PRN Reason: SALINE FLUSH Last Admin: 02/11/20 21:00 Dose: 10 ml Documented by: Discharge Diet: Low fat/ Low Cholesterol Discharge Activity: Use Walker Weight Bearing Status: Partial weight bearing Call your doctor if you observe: Fever of 101 or Higher, Coldness, Increased Pain, Shortness of breath, Dizziness, Fainting spells, Swelling in the ankles, Uncontrolled pain Home Medications: Medications to take at Discharge Duloxetine Hcl [Cymbalta] 60 mg PO DAILY 11/07/13 Lisinopril/Hydrochlorothiazide [Zestoretic 20/12.5 Tablet] 1 tab PO BID 11/07/13 Cholecalciferol (VIT D3) [Vitamin D3] 4,000 tab PO DAILY 09/16/15 Vitamin B Complex 1 tab PO DAILY 08/13/19 Niraparib Tosylate [Zejula] 200 mg PO DAILY 10/07/19 Co Q10 200 [Co Q-10] 100 mg PO DAILY 02/10/20 Esomeprazole Magnesium [Nexium 24Hr] mg PO 02/10/20 Flaxseed Oil 2 cap PO DAILY 02/10/20 Colestipol Tablet [Colestid Tablet] 1 gm PO BID 02/11/20 Acetaminophen [Tylenol] 650 mg PO Q6H PRN PRN #30 tab 02/12/20 Oxycodone [Oxyir] 5 mg PO Q6H PRN PRN 3 Days #12 tab 02/12/20 Following Prescriptions Were Given to Patient: Oxycodone [Oxyir] 5 mg PO Q6H PRN PRN 3 Days #12 tab PRN Reason: Pain Score 1-10 Transmission Status: Received by MONI SCHAEFFER RD Acetaminophen [Tylenol] 650 mg PO Q6H PRN PRN #30 tab PRN Reason: Pain 1-10 Or Fever Transmission Status: Received by MONI SCHAEFFER RD Primary Care Physician: Britany Fleming DO [Primary Care Provider] - Please follow up with your Primary Care Physician in: 1-2 weeks Please Follow Up With: Louis Harper DO When: 2-3 weeks Patient Instructions: Understanding Hip Fractures, After a Hip Fracture: Common Questions Disposition: Home with Home Health Minutes spent on discharge:: 40 Patient Condition:: Stable Medical Necessity - Tobacco Use Smoking Status: Never smoker Meaningful Use Info Meaningful Use Diagnoses (Choose all that apply): None applicable Inpatient E&M: 22239 [facility] Hosp
--- NOTE | 2020-02-12 11:02 | NURSING ---
RNCM Note: Called [facility], s/w Rocio and aware patient is DC Home today and confirmed start of care for PT on Monday. No further RNCM needs identified at this time. Marilynn Vale RNCM
[2020-02-12 13:24] VITALS: BP 133/81; PULSE 86; RESP 18; TEMP 36.7; O2SAT 98
--- NOTE | 2020-02-13 15:44 | CASEMGMT ---
JANE BALL Discharge Follow-up Phone Call: JOVANNY: Tigre Strata: 3 Call Date: 02/13/20 Discharge Date: 02/12/20 Time of Call: 1540 Duration: 5 min Admitting Diagnosis: Periprosthetic hip fracture JANE BALL completed follow-up phone call after recent hospitalization. Patient states she is doing well. Patient had no questions or concerns regarding discharge instructions. Patient states she does not want to fill prescriptions for oxycodone or tylenol. Patient has follow-up appts scheduled. Patient states [facility] is scheduled to see patient tomorrow. Patient had no further questions or concerns at this time.
== END 2020-02-12 13:29 | disposition home health service (06) | DRG 536 ==
LOC: ED 12:13 → MS3 12:49
PROVIDERS: Admitting Provider Student in an Organized Health Care Education/Training Program; Emergency Provider Emergency Medicine; PCP Family Medicine; Visit Provider Student in an Organized Health Care Education/Training Program
DX: S72.121A Displaced fracture of lesser trochanter of right femur, initial encounter for closed fracture (principal); M97.01XA Periprosthetic fracture around internal prosthetic right hip joint, initial encounter; C56.9 Malignant neoplasm of unspecified ovary; C78.2 Secondary malignant neoplasm of pleura; C78.02 Secondary malignant neoplasm of left lung; C78.01 Secondary malignant neoplasm of right lung; E87.5 Hyperkalemia; I10 Essential (primary) hypertension; E78.5 Hyperlipidemia, unspecified; M19.90 Unspecified osteoarthritis, unspecified site; F32.9 Major depressive disorder, single episode, unspecified; F41.9 Anxiety disorder, unspecified; W01.0XXA Fall on same level from slipping, tripping and stumbling without subsequent striking against object, initial encounter; Y93.89 Activity, other specified; Y92.008 Other place in unspecified non-institutional (private) residence as the place of occurrence of the external cause; Y99.9 Unspecified external cause status; Z79.899 Other long term (current) drug therapy; Z85.3 Personal history of malignant neoplasm of breast; Z96.651 Presence of right artificial knee joint
CPT/HCPCS: 36415; 73564; 80048; 85025; 97110; 97116; 97162; 97166; 97530; 97535; 97802; 99285; A4216

== ENCOUNTER → 2020-03-10 10:16 | Outpatient (CLI) | payer MEDICARE, SELFPAY ==
[2020-03-03 13:14] VITALS: BMI 26.6
[2020-03-10 12:28] LABS: Color, Urine Yellow (Yellow); Glucose, Dipstick Normal (Normal); Ketone-Dipstick Negative (Negative); Leukocyte Esterase-Dipstick Negative /ul (Negative); Nitrite-Dipstick Negative (Negative); Occult Blood-Urine Negative /ul (Negative); Protein-Dipstick Negative (Negative); Urine Bilirubin Dipstick Negative (Negative); Urine Clarity Sl. Cloudy (Clear); Urine Urobilinogen Normal (Normal)
== END ==
PROVIDERS: PCP Family Medicine; Visit Provider Family Medicine
DX: R30.0 Dysuria (principal)
CPT/HCPCS: 81002; 87086; 87088

== ENCOUNTER → 2020-03-24 15:49 | Outpatient (CLI) | payer MEDICARE, SELFPAY ==
[2020-03-17 13:11] VITALS: BMI 26.2
--- NOTE | 2020-03-24 15:53 | CT_ITS ---
HISTORY: Restaging ovarian cancer while on treatment TECHNIQUE: Helically acquired images were obtained of the chest following the intravenous administration of ml of Readi-CAT Tamp; 100mL Isovue-300 Iodinated contrast. as per pulmonary angiogram protocol with 2D MIP reconstructions. A radiation dose optimization technique was used for this scan. COMPARISON: The 4 most recent chest CTs are from December 26, 2019, August 22, 2019, July 04, 2019, and May 15, 2019 The patient had a PET/CT on April 01, 2019. Those images are not available, however, the report from that study is available. Discusses activity within the right inferior neck, subcarinal mediastinum, mid right lower hemithorax is, right lobe of the liver,.. FINDINGS: # of images incl. paperwork: [id number] Right IJ single-lumen port remains in place with its catheter tip in the SVC near the right atrial junction. Lungs are clear but for trace basilar atelectasis. Loculated right pleural effusion with basilar right lung disease is the same as the May 15, 2019 study, and very similar to the December 26, 2019 study. Hydropneumothorax within this pleural space on August 22, 2019 has been evacuated. Large granuloma within the left lower lobe remains. Overall lungs are hyperexpanded. Within the thoracic spinethere is a kyphosis. A few Schmorl's node invaginations are present. An old insufficiency fracture to the L1 vertebral body is unchanged. Vertebral body height otherwise is fairly well preserved. I perceived no lytic or blastic metastasis. Facets are well aligned. The inferior margin of the left third rib bifurcates before the costal cartilage to join with the sternum Heart is not enlarged. Aortic and mitral valve calcification. Coronary artery calcification. Thoracic aorta is elongated with atherosclerotic plaque. No aneurysms, stenoses, dissections, nor occlusions. No axillary or mediastinal adenopathy. The study was not performed as a CT pulmonary angiogram, therefore, the negative predictive value is not as high as a dedicated CT pulmonary angiogram, however, no pulmonary emboli are perceived. Right axillary surgical clips. The thyroid gland is heterogeneous but not pathologically enlarged. The appearance of the thyroid gland is similar to that of the previous studies. CT/Chest WITH Contrast IMPRESSION: No pulmonary embolism, aortic aneurysm, or aortic dissection. Persistent consolidation within the right lower lobe with loculated right pleural fluid. The pleural fluid has been present since May 15, 2019, and is similar to that study. At one point there is some gas within this pleural fluid. There has been resort. Right axillary surgical clips from lymph node resection. Within the right breast there is some puckering of the skin with some calcifications and a soft tissue nodule associated with the upper and deep to the nipple. The appearance of this tissue with retraction of the skin deep to the nipple and the calcifications within the soft tissue is similar to the previous studies. Recommend correlation to previous mammography. Individualized dose optimization techniques were used for this CT. at 0415 Reported and signed by: Justice Ramirez MD Electronically Signed: Justice Ramirez MD at 4:14 EST Tel , Service support ,
--- NOTE | 2020-03-24 16:00 | CT_ITS ---
HISTORY: restaging of ovarian ca while on treatment TECHNIQUE: Helically acquired images were obtained of the abdomen and pelvis following the intravenous administration of ml of Readi-CAT Tamp; 100mL Isovue-300 Iodinated contrast. 2D reformats. Oral contrast was administered. A radiation dose optimization technique was used for this scan. COMPARISON: Comparison CT scan from December 26, 2019, August 22, 2019. FINDINGS: # of images incl. paperwork: 403 LUNG BASES: Loculated right basilar pleural effusion with consolidated right lower lobe airspace disease continues. Left lower lobe benign calcified granuloma persists. Coronary artery calcific ASCVD persists. Catheter continues to terminate within the SVC near the right atrial junction. CT abdomen: Insufficiency fracture to the L1 vertebral body with loss of height and retropulsion of bone posteriorly into the spinal canal is unchanged. Scoliosis and degenerative disc disease remains. Anterior subluxation of L4 on L5 is the same. Right total hip prosthesis persists. Left femoral acetabular osteoarthritis remains. The gallbladder is not identified, and likely has been resected.. Within the posterior segment of the right hepatic lobe there is a heterogeneous hypodense mass with a small amount of calcification associated with it measuring 3.1 cm. This is consistent with metastatic disease. It is similar in appearance to the December 25 and the August 22, 2019 and previous studies. Splenic granulomas persists. The pancreas, and adrenal glands, are normal. Mildly atrophic kidneys with persistent lobulations. Hypodense lesion in the mid posterior aspect of the left kidney is consistent with a benign cyst. Some additional lesions are present within the kidneys consistent with benign cysts.. The aorta is severely diseased with atherosclerotic plaque, but without aneurysm or dissection. CT pelvis: No ascites is present. The appendix remains normal. Series 3 image 89. The uterus is not identified and has been resected.. The bladder is decompressed. Centrally within the mesentery there is a sclerotic focus of calcification with sclerosing extending out into the surrounding mesenteric fat, matias around the small bowel loops. This is similar to both previous studies. It is not causing bowel obstruction. Some additional calcifications are present within the posterior left pelvis. These are also similar to the previous studies. CT/Abdomen/Pelvis WITH Contrast IMPRESSION: No acute disease perceived. Within the posterior segment of the right lobe of the liver subcapsular positioning. There remains a hypodense lesion consistent with metastatic disease. I do not appreciate a difference in size or appearance since the most recent study of December 17, 2019. Large area of calcification centrally within the mesentery sclerosing in a retracting about these bowel loops is similar in appearance to the previous studies. Insufficiency fracture to the L1 vertebral body with retropulsion of bone posteriorly into the spinal canal is same as the previous studies. Additional degenerative disc disease and scoliosis is similar. Loculated right pneumothorax with consolidated lung in the right lower lobe is similar to the previous study. Individualized dose optimization techniques were used for this CT. at 0429 Reported and signed by: Justice Ramirez MD Electronically Signed: Justice Ramirez MD at 4:28 EST Tel , Service support ,
[2020-03-24] MEDS: 0.9% Saline Lock 10 ML Syringe IV (16:11)
== END ==
PROVIDERS: PCP Family Medicine; Referring Provider Internal Medicine Medical Oncology; Visit Provider Internal Medicine Medical Oncology
DX: C50.919 Malignant neoplasm of unspecified site of unspecified female breast (principal); C56.9 Malignant neoplasm of unspecified ovary; C78.2 Secondary malignant neoplasm of pleura
CPT/HCPCS: 71260; 74177; Q9967; A4216

== ENCOUNTER 2020-04-16 06:56 | Day surgery (SDC) | payer MEDICARE, SELFPAY ==
[2020-04-03 14:30] VITALS: BMI 26.6
[2020-04-16] VITALS (7 sets, daily range): BP systolic 113–131; BP diastolic 62–86; PULSE 74–88; RESP 16–18; TEMP 36.3–36.5; O2SAT 98–100; BMI 27.4
--- NOTE | 2020-04-16 | GASB_PTH ---
PATIENT: MARIA VICTORIA JENNINGS LOC: EN U#:[id number] AGE/SX: 84/F ROOM: RE04/16/[address]: Dr. Antoni Lopez MD : 1935 BED: DIS: 04/16/2020 SPEC #: [id number] RECD: 04/16/20 08:28 STATUS: PJ MARÍA #: [id number] KADE: 04/16/20 00:[address]: Antoni Lopez DEPT: SURGICAL PATHOLOGY RECD BY: Liam Vang ENTERED: 04/16/20 10:37 SP TYPE: Gastric Bx OTHR DR: Dr. Britany Fleming DO Tissues: A - Gastric mucous membrane B - Esophageal mucous membrane Procedures: Special Stain Group I Surgery Specimen Level IV GMS Stain (control) HEADER OPERATION: EGD ([facility]) PRE-OP DIAGNOSIS: Positive fecal occult blood test TISSUE SUBMITTED: A - Antrum biopsy for H. pylori and path, B - Mid esophagus biopsy MICROSCOPIC DIAGNOSIS A. Gastric antrum, biopsy: Mild chronic gastritis. Detached squamous epithelial cells with acute inflammation and bacterial colonies and fungal organisms consistent with Carlyn. See comment. B. Mid esophagus, biopsy: A strip of benign squamous mucosa. Detached fragments of squamous epithelial cells with bacterial colonies and fungal organisms consistent with Carlyn. See comment. SJ:rg 04/17/2020 COMMENT A. The results of immunohistochemistry for Helicobacter pylori will be reported separately ([id number]). GMS stain with matched control was used in the evaluation of this case. B. GMS stain with matched control was used in the evaluation of this case. MICROSCOPIC DESCRIPTION Slides are reviewed. GROSS DESCRIPTION A - Received in fixative is one container labeled with the patient's name and designated gastric antrum. The specimen consists of multiple irregular fragments of light traore soft tissue that in aggregate measure 0.7 x 0.6 x 0.1 cm. The specimen is totally submitted in one cassette. B - Received in fixative is one container labeled with the patient's name and designated esophagus. The specimen consists of multiple irregular fragments of light traore soft tissue that in aggregate measure 1 x 0.5 x <0.1 cm. The specimen is totally submitted in one cassette. / AM:ace 04/16/20 TC:2 CPT: 90676 x2, 11820 x2
--- NOTE | 2020-04-16 08:00 | IMM_PTH ---
PATIENT: MARIA VICTORIA JENNINGS LOC: EN U#:[id number] AGE/SX: 84/F ROOM: RE04/16/[address]: Dr. Antoni Lopez MD : 1935 BED: DIS: 04/16/2020 SPEC #: [id number] RECD: 04/16/20 10:14 STATUS: PJ RETyler #: [id number] KADE: 04/16/20 08:[address]: Antoni Lopez DEPT: IMMUNOHISTOCHEMISTRY RECD BY: Selene Beltrán ENTERED: 04/16/20 10:15 SP TYPE: IMMUNO OTHR DR: Dr. Britany Fleming DO Tissues: A - Stomach, NOS Procedures: H Pylori (initial) PHYSICIAN & INSTITUTION [place] [address] SPECIMEN INFORMATION: Tissue Source: A - Antrum biopsy Clinical Info: Positive fecal occult blood test Specimen Number: [id number] CPT code: 76792 METHODOLOGY: Deparaffinized sections of prefer/formalin-fixed tissue or PAP/DQ stained slides are incubated with monoclonal/polyclonal antibodies/oligonucleotide probes. Localization is made via biotin free immunoperoxidase method. Appropriate controls are performed and reacted as expected. Results on target cell population are indicated in the following table: RESULTS: ANTIBODY / CLONE RESULT Block A H Pylori (polyclonal) negative These tests were developed and their performance characteristics determined by [facility]. They may not have been cleared or approved by the U.S. Food and Drug Administration. The FDA has determined that such clearance or approval is not necessary. INTERPRETATION: A. Antrum, biopsy: Negative for Helicobacter pylori organisms. AM:ace 04/17/2020
--- NOTE | 2020-04-16 08:13 | OP.EGD_ITS ---
Patient Name: Rocio Quinteros Procedure Date: 04/16/2020 7:40 AM Date of : 1935 Age: 84 Procedure: Upper GI endoscopy Indications: Occult blood in stool Providers: Antoni Lopez MD Referring MD: Britany Fleming Medicines: Monitored Anesthesia Care Patient Profile: This is an 84 year old female. Refer to note in patient chart for documentation of history and physical. Complications: No immediate complications. Estimated blood loss: Minimal. Procedure: Pre-Anesthesia Assessment: - Prior to the procedure, a History and Physical was performed, and patient medications and allergies were reviewed. The patient's tolerance of previous anesthesia was also reviewed. The risks and benefits of the procedure and the sedation options and risks were discussed with the patient. All questions were answered, and informed consent was obtained. Prior Anticoagulants: The patient has taken no previous anticoagulant or antiplatelet agents. After reviewing the risks and benefits, the patient was deemed in satisfactory condition to undergo the procedure. After obtaining informed consent, the endoscope was passed under direct vision. Throughout the procedure, the patient's blood pressure, pulse, and oxygen saturations were monitored continuously. The gastroscope was introduced through the mouth, and advanced to the second part of duodenum. The upper GI endoscopy was accomplished without difficulty. Scope In: 8:02:13 AM Scope Out: 8:06:32 AM Total Procedure Duration Time 0 hours 4 minutes 19 seconds Findings: Localized, white plaques were found in the middle third of the esophagus. Biopsies were taken with a cold forceps for histology. Localized moderate inflammation characterized by erythema was found in the gastric antrum. Biopsies were taken with a cold forceps for Helicobacter pylori testing. The in the duodenum was normal. Impression: - Esophageal plaques were found, doubt candidiasis. Biopsied. - Gastritis. Biopsied. - Normal. Recommendation: - Discharge patient to home. - Resume previous diet. - Continue present medications. - Await pathology results. Procedure Code(s): --- Professional --- 37374, Esophagogastroduodenoscopy, flexible, transoral; with biopsy, single or multiple Diagnosis Code(s): --- Professional --- K22.9, Disease of esophagus, unspecified K29.70, Gastritis, unspecified, without bleeding R19.5, Other fecal abnormalities CPT copyright 2017 [employer]. All rights reserved. The codes documented in this report are preliminary and upon employment coach review may be revised to meet current compliance requirements. Antoni Lopez MD 04/16/2020 8:12:29 AM This report has been signed electronically. Number of Addenda: 0 Note Initiated On: 04/16/2020 7:40 AM
--- NOTE | 2020-04-16 08:13 | OP.CCLET_ITS ---
04/16/2020 Britany Fleming [address] [place] [address] Re : Upper GI endoscopy procedure for Rocio Quinteros Dear Dr. Fleming This procedure was performed on March. My impressions and recommendations are as follows: Impressions : - Esophageal plaques were found, doubt candidiasis. Biopsied. - Gastritis. Biopsied. - Normal. Recommendations : - Discharge patient to home. - Resume previous diet. - Continue present medications. - Await pathology results. My findings are described in the full procedure note, which is enclosed. If I can be of further assistance, please feel free to contact me at Doctor phone number(s): , Work: . Sincerely, Antoni Lopez MD 04/16/2020 8:12:29 AM This report has been signed electronically.
--- NOTE | 2020-04-17 06:10 | HP_ITS ---
Intake Vital Signs 04/03/20 Height 5 ft 2.5 in 04/03/20 Weight: 148 lb 2 oz 04/03/20 BMI 26.6 04/03/20 BP 154/85 H 04/03/20 Blood Pressure Location Lt brachial 04/03/20 Position Sitting 04/03/20 Respiration 20 H 04/03/20 Pulse 84 04/03/20 Pulse Source NIBP 04/03/20 Temp 97.4 F L 04/03/20 Temp Source Temporal 04/03/20 Pulse Oximetry (%) 99 04/03/20 Oxygen Delivery Method room air Intake Visit Reasons: Blood in stool Chief Complaint: + ifob [employer] Required: No Is patient in pain?: No Allergies hydrocodone bitartrate [From Vicodin] Adverse Reaction (Severe, Verified 04/01/20 12:43) Other Sulfa (Sulfonamide Antibiotics) Adverse Reaction (Severe, Verified 04/01/20 12:43) Upset Stomach Is last menstrual period known: No Post menopausal: Yes Patient : No PFSH Medical History Left wrist repair (Acute) Right arm lymphectomy (Acute) Synovial cyst (Acute) Port placement (Acute) Osteopenia (Acute) Hyperlipidemia (Acute) Depression (Acute) Breast cancer (Acute) Left wrist fracture (Acute) Abnormal breast biopsy (Acute) Cholecystectomy planned (Acute) Hip replacement planned (Acute) Hypertension (Chronic) Surgical History History of right breast biopsy (Resolved) S/P foot surgery, left (Resolved) S/P laminectomy with spinal fusion (Resolved) History of hip replacement (Resolved) History of cataract extraction (Resolved) History of hysterectomy for malignancy (Resolved) History of knee replacement (Resolved) Family History Mother CVA (cerebral vascular accident) Hypertension Father Hypertension Other Heart disease Social History (Updated 04/03/20 @ 14:[address] Antoni Lopez MD) Smoking Status: Never smoker HPI HPI HPI: MARIA VICTORIA JENNINGS, is a 84 F who presents to the office today for HPI HPI Surgical H&P: Yes HPI: MARIA VICTORIA JENNINGS, is a 84 F who presents to the office today for positive fecal occult blood. The patient is being treated currently for metastatic ovarian cancer. The patient does not any gross blood in her stool or abdominal pain. She had a colonoscopy 2 years ago which was normal. ROS General General: Yes weight change; no appetite, fatigue, colon cancer, breast cancer or weakness HEENT HEENT: No difficulty swallowing, eye injury, eye surgery, swollen glands or hoarseness Endo Endocrine: No thyroid disease, diabetes mellitus, thyroid cancer, Hair loss, heat intolerance or cold intolerance Musc Musculoskeletal: Yes arthritis; no back problems, rheumatoid arthritis, gout or joint pain Cardio Cardiovascular: Yes high blood pressure; no murmur, pacemaker, heart disease, atrial fibrillation, heart attack, heart stent, palpitations, shortness of breat with exertion or chest pain Psych Psychiatric: Yes depression and anxiety; no hearing voices Resp Respiratory: No shortness of breath, No sleep apnea, No cough, No COPD, No asthma, No emphysema, No wheezing Gastro Gastrointestinal: No abdominal pain, No nausea or vomiting, No diarrhea, No constipation, Yes blood in stool, No acid reflux, No hemorrhoids, No ulcers, No gallbladder problem, No black,tarry stools [place] Hematologic: No blood thinners, No blood disorders, No bleeding, No anemia, No blood clots Neuro Neurologic: No weakness Exam Const General: cooperative Orientation: alert, oriented x3 Resp Effort & Inspection: normal respiratory effort Auscultation: clear to auscultation bilaterally Cardio Rate: regular rate Rhythm: regular rhythm Heart Sounds: no murmurs GI Inspection: non-distended Palpation: soft, nontender Assessment & Plan Problems 1. Positive fecal occult blood test R19.5 Plan The patient is having no gross blood in her stool but she does have positive fecal occult blood. She is currently undergoing treatment for her metastatic ovarian cancer. The patient does not have any gross blood in her stool. The patient recently had a colonoscopy 2 years ago. At this time I believe is very unlikely that the patient has colon pathology that is bleeding. I recommend starting with an EGD and if the EGD is completely normal I would recommend moving on to a colonoscopy. The patient is agreeable with this plan. I explained endoscopy in detail to the patient. I explained the risks including but not limited to stroke or heart attack with anesthesia, perforation of the GI tract, bleeding, infection. I explained that any of these could necessitate further emergency surgery. The patient understands and all questions were answered sufficiently. The patient wishes to proceed with procedure. Antoni Lopez MD Pager: [facility] [address] [place] [address], [address] [place] [address] Office: Coding Level of Care Code Off vis,est,level 3 Diagnoses Positive fecal occult blood test R19.5 I have re-examined the patient. There are no clinical changes since date of exam.
== END 2020-04-16 09:05 | disposition home or self-care (01) ==
LOC: EN 06:56 → AC 06:57
PROVIDERS: PCP Family Medicine; Referring Provider Family Medicine; Visit Provider Surgery
PROC: 0DJ08ZZ Inspection of Upper Intestinal Tract, Via Natural or Artificial Opening Endoscopic (ICD-10-PCS; CPT 43235; principal; 2020-04-16 07:55)
DX: K29.50 Unspecified chronic gastritis without bleeding (principal); K22.9 Disease of esophagus, unspecified; K29.70 Gastritis, unspecified, without bleeding; C56.9 Malignant neoplasm of unspecified ovary; C79.9 Secondary malignant neoplasm of unspecified site; Z20.822 Contact with and (suspected) exposure to COVID-19; I10 Essential (primary) hypertension; D50.9 Iron deficiency anemia, unspecified; E78.00 Pure hypercholesterolemia, unspecified; K21.9 Gastro-esophageal reflux disease without esophagitis; F32.9 Major depressive disorder, single episode, unspecified; F41.9 Anxiety disorder, unspecified; Z78.0 Asymptomatic menopausal state
CPT/HCPCS: 43239; 87426; 88305; 88312; 88342; C9803; J7120; A4216; J2405

== ENCOUNTER → 2020-05-11 07:00 | Outpatient (CLI) | payer MEDICARE, SELFPAY ==
[2020-05-06 11:31] VITALS: BMI 25.5
--- NOTE | 2020-05-11 07:01 | CT_ITS ---
STUDY: CT ABDOMEN AND PELVIS WITH CONTRAST REASON FOR EXAM: Female, 84 years old. OVARIAN CANCER-MONITOR RADIATION DOSAGE (If Supplied By Facility): CTDIvol = ( 11.98 ) mGy, DLP = ( 521.14 ) mGycm TECHNIQUE: Transaxial images were obtained from the dome of the diaphragm to the symphysis pubis with oral contrast. Oral and amp; IV Readi-CAT and amp; 100mL Isovue-300 was administered. Sagittal and coronal images were reconstructed. Individualized dose optimization techniques were used for this CT. COMPARISON: Comparison is made with prior study dated 09/21/2020. FINDINGS: Mild degree of increased right pleural effusion with right basilar atelectasis. Stable calcified granuloma in the left lower lobe. Coronary artery calcification. The previously seen hypodense nodule in the posterior inferior aspect of the right lobe of the liver as increased in size. It presently measures 3.7 cm x 3.3 cm. The patient is status post cholecystectomy. There are multiple benign calcified granulomata of the spleen. Normal pancreas. Normal bilateral adrenal glands. Normal right kidney. Normal left kidney. Normal visualized stomach. Normal small intestine. Normal colon. There is non-visualization of the appendix. Once again, there is a dense calcification in the lower abdomen within the mesenteric fat with evidence of spiculation at the root of the mesentery. This is unchanged. Normal abdominal aorta. Normal inferior vena cava. Normal retroperitoneum. Normal urinary bladder. There is absence of the uterus consistent with a prior hysterectomy. Normal abdominal wall. There are diffuse degenerative changes of the visualized lumbar spine. Status post right total hip replacement. Complete collapse of the L1 vertebrae. Stable anterior listhesis of L4 on L5 without spondylolysis. CT/Abdomen/Pelvis WITH Contrast IMPRESSION: Interval increase in size of the hypodense lesion in the inferior aspect of the right lobe of the liver. Slight increase in size of the loculated right pleural effusion with right basilar atelectasis. Electronically Signed: Silvino Chris MD at 15:17 EDT , Service support ,
[2020-05-11] MEDS: 0.9% Saline Lock 10 ML Syringe IV (07:20)
== END ==
PROVIDERS: PCP Family Medicine; Referring Provider Internal Medicine Medical Oncology; Visit Provider Internal Medicine Medical Oncology
DX: C56.9 Malignant neoplasm of unspecified ovary (principal)
CPT/HCPCS: 74177; Q9967; A4216

== ENCOUNTER → 2020-05-12 08:01 | Outpatient (CLI) | payer MEDICARE, SELFPAY ==
[2020-05-06 11:31] VITALS: BMI 25.5
--- NOTE | 2020-05-12 08:02 | NM_ITS ---
CLINICAL: 84-year-old female with reported history of ovarian carcinoma with recent traumatic fall and apparent result right proximal femur fracture. WHOLE BODY 99m Tc MDP RADIONUCLIDE BONE SCINTIGRAPHY COMPARISON: CT of the abdomen-pelvis report 05/11/2020 FINDINGS: Following the intravenous administration of 26.0 mCi of 99m Tc MDP, whole body bone images reveal: 1. Increased radiopharmaceutical concentration is defined in the upper cervical spine posteriorly on the left, lower cervical spine posteriorly on the right, third thoracic vertebra posteriorly on the left, 12th thoracic vertebra posteriorly on the left and right, fifth lumbar vertebra posteriorly on the left and right, bilateral elbows, both wrists, right-left hands, the left midfoot, patellofemoral compartment of the right knee. 2. An increase in tracer distribution is defined in the right anterior second rib, the greater and lesser trochanteric aspects of the right hip arthroplasty. 3. The remaining skeletal structures are scintigraphically unremarkable with normal-appearing renal images and urinary bladder activity identified. Facilitated uptake is observed in the distal tibial tibial component of the right knee, femoral and proximal tibial components component of the presumably asymptomatic arthroplasties most consistent with normal postsurgical change. NM/Bone Scan Whole Body IMPRESSION: 1. The increase in tracer uptake observed in the cervical, thoracic and lumbar spine, right-left elbows, wrists bilaterally, both hands, the left midfoot, these patellofemoral compartment of the right knee (in the absence of patellar hardware placement) is most consistent with degenerative arthritis. 2. Facilitated radiopharmaceutical distribution observed in the trochanteric aspect of the right hip arthroplasty and right anterior seventh rib likely represents trauma fracture. 3. There is no definitive typical scintigraphic evidence of diffuse axial skeletal metastatic disease on the current examination. Electronically Signed: Lucas Reyes DO at 22:52 EDT Tel , Service support ,
[2020-05-12] MEDS: 0.9% Saline Lock 10 ML Syringe IV (08:17)
== END ==
PROVIDERS: PCP Family Medicine; Referring Provider Internal Medicine Medical Oncology; Visit Provider Internal Medicine Medical Oncology
DX: C56.9 Malignant neoplasm of unspecified ovary (principal); C78.2 Secondary malignant neoplasm of pleura; Z85.3 Personal history of malignant neoplasm of breast
CPT/HCPCS: 78306; A4216

== ENCOUNTER → 2020-05-13 | Outpatient (CLI) | payer MEDICARE, SELFPAY ==
[2020-05-06 11:31] VITALS: BMI 25.5
== END | disposition home or self-care (01) ==
PROVIDERS: PCP Family Medicine; Referring Provider Internal Medicine Medical Oncology; Visit Provider Internal Medicine Medical Oncology
DX: D64.9 Anemia, unspecified (principal)
CPT/HCPCS: 82274

== ENCOUNTER → 2020-07-16 14:40 | Outpatient (CLI) | payer MEDICARE, SELFPAY ==
[2020-07-01 11:03] VITALS: BMI 27.0
--- NOTE | 2020-07-16 14:42 | CT_ITS ---
STUDY: CT CHEST, ABDOMEN T PELVIS WITH CONTRAST REASON FOR EXAM: Female, 84 years old. Assess disease status following treatment. History of breast cancer with ovarian metastases. Status post right breast lumpectomy, right hip replacement, cholecystectomy, total hysterectomy and removal of a abdominal mass. RADIATION DOSAGE (If Supplied By Facility): CTDIvol = ( 8.33 ) mGy, DLP = ( 678.89 ) mGycm TECHNIQUE: Transaxial imaging was performed following intravenous administration of IV 100mL Isovue-300. Multiplanar coronal and sagittal images were reformatted. Individualized dose optimization techniques were used for this CT. COMPARISON: CT of the chest, 03/24/2020. FINDINGS: CHEST The lungs are normal. There is a questionably loculated pleural effusion at the right lung base with subsegmental atelectasis. There is a 1.2 cm calcified granuloma in the right posterior costophrenic angle. Lungs are otherwise clear. There is no demonstrated pleural abnormality. Normal heart and pericardium. There are calcifications of the coronary arteries. Normal mediastinum. Normal hilar regions. Normal unenhanced pulmonary arteries. Minimal atherosclerotic changes of the aorta without aneurysm or dissection. Mild degenerative changes of the thoracic spine and shoulders. There is a Port-A-Cath within the soft tissues of the right chest. There is asymmetry of breast tissue with the right smaller than left. There is an area of soft density in the right breast. 3 the surgical site. There are surgical clips in the right axilla. ABDOMEN: The liver is mildly enlarged there are small hypodensities in segment 2 of the liver. The largest measures 6 mm in diameter. There is a larger hypoechoic soft tissue mass in segment 6 and 7 on the liver suggesting a large metastasis. This measures 5.6 x 4.5 x 7.9 cm in size. The possibility that the smaller hypodensities represent metastases cannot be ruled out. There is also a soft tissue density along the anterior liver best seen on image 19 of series 3 which may represent an implantation along the liver capsule. The gallbladder is contracted. Normal spleen. Normal pancreas. Normal bilateral adrenal glands. Also lower pole of an otherwise normal right kidney. Small cortical cysts in left kidney. Normal visualized ureters. Hiatal hernia. The stomach is otherwise unremarkable. Normal visualized stomach. Normal small intestine. There is an irregular calcification and within the small bowel mesentery measuring 7 x 4.2 x 3.1 cm. There is puckering of the surrounding mesentery and small bowel loops without evidence of obstruction. Normal colon. The appendix is visualized and appears normal. There is diffuse atherosclerotic calcification of the abdominal aorta with elongation and tortuosity, but without a demonstrated aneurysm. Normal inferior vena cava. Normal retroperitoneum. PELVIS Evaluation of the pelvic structures is limited due to scatter artifact from a right artificial hip. The urinary bladder appears collapsed. There is evidence of hysterectomy. There are multiple calcifications in the region of the vaginal cough. No visualized pelvic lymphadenopathy. There is minimal free fluid left pelvis. No free air is seen within the peritoneal cavity. Midline subumbilical surgical scar. Degenerative changes of the lumbar spine and left hip. CT/CT Chest, Abd, Pel w/Contrast IMPRESSION: 1. No evidence of pulmonary metastasis. 2. Stable right pleural effusion.. 3. Large metastasis in the right liver. Question smaller metastases in segment 3 with adjacent implant along the flexor surface. 4. Old granulomatous disease. 5. Irregular calcific mass in the small bowel mesentery with mesenteric constriction and puckering. 6. Small amount of free fluid in the left pelvis. 7. Limited visualization of the pelvis due to scatter artifact from right artificial hip. There is evidence of a hysterectomy without gross abnormality. 8. Degenerative changes of the thoracolumbar spine. Electronically Signed: Gokul Escamilla DO at 17:05 EDT Tel [phone], Service support ,
[2020-07-16] MEDS: 0.9% Saline Lock 10 ML Syringe IV (15:09)
== END ==
PROVIDERS: PCP Family Medicine; Referring Provider Internal Medicine Medical Oncology; Visit Provider Internal Medicine Medical Oncology
DX: C56.9 Malignant neoplasm of unspecified ovary (principal); C78.2 Secondary malignant neoplasm of pleura
CPT/HCPCS: 71260; 74177; Q9967; A4216

== ENCOUNTER → 2020-09-21 12:46 | Outpatient (CLI) | payer MEDICARE, SELFPAY ==
[2020-09-02 10:27] VITALS: BMI 26.9
[2020-09-15 08:35] VITALS: BMI 26.4
--- NOTE | 2020-09-21 12:50 | CT_ITS ---
STUDY: CT ABDOMEN AND PELVIS WITH CONTRAST REASON FOR EXAM: Female, 84 years old. ASSESS TREATMENT RESPONSE. Patient has a history of right breast cancer and ovarian metastasis. RADIATION DOSAGE (If Supplied By Facility): CTDIvol = ( 11.70 ) mGy, DLP = ( 637.72 ) mGycm TECHNIQUE: Transaxial images were obtained from the dome of the diaphragm to the symphysis pubis without oral contrast. IV 100mL Isovue-300 was administered. Sagittal and coronal images were reconstructed. Individualized dose optimization techniques were used for this CT. COMPARISON: Comparison is made with prior examination dated 07/16/2020. FINDINGS: Stable appearance of the loculated right pleural effusion with bibasilar atelectasis. Tiny left pleural effusion. Stable calcified granuloma in the left lower lobe. Calcification of the mitral valve annulus. Coronary artery calcification. Since prior study, there has been a progression of hypodense masses within the liver in keeping with progressive liver metastasis. This is worse in the posterior aspect of the right lobe of the liver. There is evidence of hepatomegaly. The patient is status post cholecystectomy. There are multiple benign calcified granulomata of the spleen. Normal pancreas. Normal bilateral adrenal glands. Normal right kidney. Normal left kidney. There is evidence of a fluid collection surrounding the stomach suggestive of fluid within the lesser sac. Normal small intestine. Normal colon. There is non-visualization of the appendix. There is diffuse atherosclerotic calcification of the abdominal aorta, without a demonstrated aneurysm. Normal inferior vena cava. Stable calcified mass in the central portion of the root of the mesentery with evidence of spiculation. This is unchanged. Normal urinary bladder. There is absence of the uterus consistent with a prior hysterectomy. Normal abdominal wall. There are diffuse degenerative changes of the visualized lumbar spine. Stable complete collapse of the L1 vertebrae. Stable anterolisthesis of L4 on L5. The patient is status post right total hip replacement. CT/Abdomen/Pelvis W IV Cont ONLY IMPRESSION: Since prior study, there has been progressive liver metastasis. Fluid is seen surrounding the stomach most likely representing fluid in the lesser sac. Stable densely calcified mass in the root of the mesentery with evidence of spiculation. Electronically Signed: Silvino Chris MD at 15:14 EDT , Service support ,
[2020-09-21] MEDS: 0.9% Saline Lock 10 ML Syringe IV (13:15)
== END ==
PROVIDERS: PCP Family Medicine; Referring Provider Internal Medicine Medical Oncology; Visit Provider Internal Medicine Medical Oncology
DX: C56.9 Malignant neoplasm of unspecified ovary (principal); Z85.3 Personal history of malignant neoplasm of breast
CPT/HCPCS: 74177; Q9967; A4216

== ENCOUNTER → 2020-09-22 07:55 | Outpatient (CLI) | payer MEDICARE, SELFPAY ==
[2020-09-15 08:35] VITALS: BMI 26.4
--- NOTE | 2020-09-22 08:10 | MRI_ITS ---
STUDY: MRI BRAIN WITH AND WITHOUT CONTRAST REASON FOR EXAM: Female, 84 years old. MENTAL STATUS CHANGE- Hx of ovarian and breast CA TECHNIQUE: Standardized multiplanar fat and water weighted pulse sequences were obtained. 13ml Dotarem via port was administered for the contrast portion of the examination. COMPARISON: 08/14/2019 FINDINGS: There is moderate cerebral atrophy with widening of the extra-axial spaces and ventricular dilatation. There are multiple white matter hyperintensities, distributed throughout the deep white matter tracts of the cerebral hemispheres, consistent with moderate chronic white matter ischemic changes. There is no evidence for recent intracranial ischemia or other cause of cytotoxic edema on diffusion weighted imaging (DWI). Normal T2* images of the brain without demonstrated susceptibility artifact. There is no demonstrated hemosiderin stain. Normal bilateral basal ganglia. Normal thalami. There is no extra-axial fluid accumulation. Normal flow voids within the major intracranial circulation suggesting patency by spin echo criteria. Normal venous enhancement. There is no enhancing intra-axial or extra-axial abnormality. Normal sella turcica, pituitary gland, infundibular stalk, optic chiasm and hypothalamus. Normal tectal plate and pineal gland. Normal midbrain, urbano and medulla. Normal cerebellum. Normal basal cisterns. Normal bilateral temporal bones. Normal bilateral internal auditory canals. No demonstrated orbital abnormality, within the constraints of a routine brain study. Normal visualized paranasal sinuses. Normal calvarium and skull base. Normal visualized soft tissue structures. Normal visualized upper cervical spine. MRI/Brain W/WO Contrast IMPRESSION: Involutional changes of the brain, as described above. No MR evidence of metastatic disease. Electronically Signed: Lucas Miller MD at 9:53 EDT Tel , Service support ,
[2020-09-22] MEDS: 0.9% Saline Lock 10 ML Syringe IV (09:05)
== END ==
PROVIDERS: PCP Family Medicine; Referring Provider Internal Medicine Medical Oncology; Visit Provider Internal Medicine Medical Oncology
DX: C56.9 Malignant neoplasm of unspecified ovary (principal); R41.0 Disorientation, unspecified
CPT/HCPCS: 70553; A9575; A4216

== ENCOUNTER 2020-10-11 09:05 | Observation (INO) | payer MEDICARE, SELFPAY ==
[2020-10-01 13:09] VITALS: BMI 29.1
[2020-10-11 09:07] VITALS: BP 97/60; PULSE 69; RESP 20; TEMP 36.6; O2SAT 98; BMI 30.1
--- NOTE | 2020-10-11 09:18 | CT_ITS ---
STUDY: CT BRAIN WITHOUT CONTRAST REASON FOR EXAM: Female, 84 years old. Confusion RADIATION DOSAGE (If Supplied By Facility): CTDIvol = ( 44.99 ) mGy, DLP = ( 812.98 ) mGycm TECHNIQUE: Transaxial CT imaging of the brain was performed without administration of intravenous contrast material. Individualized dose optimization techniques were used for this CT. COMPARISON: Noncontrast CT brain 08/13/2019; MRI brain 09/22/2020 FINDINGS: Normal soft tissue structures. Normal calvarium. Atherosclerotic calcifications seen in the distal internal carotid and vertebral arteries. There is stable borderline to mild cerebral atrophy with widening of the extra-axial spaces and ventricular dilatation. There are grossly stable areas of decreased attenuation within the white matter tracts of the supratentorial brain, consistent with microvascular disease changes. A particular prominent site of encephalomalacia is noted in the right posterior parieto-occipital white matter. Normal basal ganglia and thalami. Normal brainstem. Normal cerebellum. There is no intracranial hemorrhage. There are no findings of an acute ischemic infarction. Normal visualized paranasal sinuses. CT/Brain/Head without Contrast IMPRESSION: Stable chronic involutional/microvascular ischemic changes of the brain. No acute intracranial pathology. Electronically Signed: Juan Antonio Jacome MD at 10:15 EDT , Service support ,
--- NOTE | 2020-10-11 09:19 | EKG12_ITS ---
Test Reason : CONFUSION Blood Pressure : / mmHG Vent. Rate : 067 BPM Atrial Rate : 067 BPM P-R Int : 142 ms QRS Dur : 074 ms QT Int : 410 ms P-R-T Axes : 004 -21 021 degrees QTc Int : 433 ms Normal sinus rhythm Low voltage QRS Inferior infarct , age undetermined Abnormal ECG Confirmed by KIP STRAUSS, ELIZABETH ([id number]), senior editor SKYE GUILLERMO ([id number]) on 10/13/2020 9:35:19 AM Referred By: Luis Fernando Rich Confirmed By:ELIZABETH SHIN MD
--- NOTE | 2020-10-11 09:32 | EX.ED.DYSGE1 ---
HPI History of Present Illness Chief Complaint: Confusion Informant: patient and EMS Narrative Narrative: Patient is an 84-year-old female with a past medical history of breast cancer, ovarian cancer with metastasis who presents to the emergency department for confusion. Patient has a roommate. Apparently patient was confused this morning and did not recognize her. Upon arrival to the emerge department patient does not have any complaints. She denies a headache, vision changes. No chest pain, shortness of breath or heart palpitations. No recent illness including any fever/chills. She denies any urinary symptoms. Reviewing her previous medical record she did have a emergency department visit for confusion after chemotherapy. Patient states that she has not had chemotherapy in some time. She is not able to give a definitive timeframe. No family currently at bedside to help provide any history. Patient is oriented to person and place but not time. [facility] Medical History Abnormal breast biopsy Breast cancer Cellulitis Cellulitis Cholecystectomy planned Depression Hip replacement planned Hyperlipidemia Hypertension Left wrist fracture Left wrist repair Liver metastases Osteopenia Ovarian cancer Port placement Right arm lymphectomy Synovial cyst Home Medications duloxetine 60 mg PO DAILY 11/07/13 [History Last Taken 05/20/14] lisinopril-hydrochlorothiazide 1 tab PO BID 11/07/13 [History Last Taken 05/21/14] cholecalciferol (vitamin D3) 4,000 tab PO DAILY 09/16/15 [History Last Taken Unknown] vitamin B complex 1 tab PO DAILY 08/13/19 [History Last Taken Unknown] coenzyme Q10 100 mg PO DAILY 02/10/20 [History Last Taken Unknown] colestipol 1 g PO BID 02/11/20 [History Last Taken Unknown] esomeprazole magnesium 40 mg PO .DAILY 04/15/20 [History Last Taken 04/16/20 06:20] gemfibrozil 600 mg PO BID 04/15/20 [History Last Taken Unknown] mometasone 1 spray NASAL QHS 04/15/20 [History Last Taken Unknown] megestrol 400 mg PO DAILY 30 Days #300 ml 06/10/20 [Rx Last Taken Unknown] prochlorperazine maleate 5 mg tablet 5 mg PO TID PRN #30 tab 09/03/20 [Rx Last Taken Unknown] Allergy/AdvReac Type Severity Reaction Status Date / Time hydrocodone bitartrate AdvReac Severe Other Verified 10/11/20 09:07 [From Vicodin] Sulfa (Sulfonamide AdvReac Severe Upset Verified 10/11/20 09:07 Antibiotics) Stomach Family History Mother CVA (cerebral vascular accident) Hypertension Father Hypertension Other Heart disease Surgical History History of cataract extraction History of hip replacement History of hysterectomy for malignancy History of knee replacement History of right breast biopsy S/P foot surgery, left S/P laminectomy with spinal fusion Social History Smoking Status: Never smoker ROS ROS ED Constitutional Constitutional ED: Denies chills or fever(s) Eyes Eyes: Denies change in vision ENT ENT ED: Denies epistaxis Cardiovascular Cardiovascular: Denies chest pain or palpitations Respiratory/Chest Respiratory/Chest: Denies cough or dyspnea Gastrointestinal Gastrointestinal: Denies abdominal pain, diarrhea, nausea or vomiting Genitourinary Genitourinary ED: Denies dysuria, hematuria or urinary frequency Musculoskeletal Musculoskeletal: Denies back pain or neck pain Integumentary Denies rash Neurologic Neurologic: Denies dizziness, headache(s) or weakness EXAM Physical Exam Const Vital Signs: 10/11/20 09:07 10/11/20 09:13 Temperature 97.8 F Temperature Source Oral Pulse Rate 69 Respiratory Rate 20 H Respiratory Effort Normal Respiratory Pattern Normal Blood Pressure 97/60 Blood Pressure Mean 72 Pulse Ox 98 Oxygen Delivery Method Room Air Positive well nourished and well developed General Appearance ED: well developed and NAD HEENT Reports normocephalic and head/scalp atraumatic Eyes PERRL and EOMs intact bilaterally Neck supple General: Negative for tenderness Chest Wall inspection of chest normal Resp normal respiratory effort and clear to auscultation bilaterally Auscultation: Negative for rales, rhonchi or wheezes Cardio regular rate, regular rhythm and no murmurs GI normal to inspection, nondistended, normoactive bowel sounds and non-tender Palpation: soft; Negative for guarding or rebound tenderness present Extremity Extremity Narrative: 2+ pitting edema to the bilateral lower extremities. Neuro Neuro Narrative: Oriented to person and place but not time. No focal deficits appreciated. Sensorium / Orientation: alert Motor Exam: strength 5/5 throughout Psych Psych Narrative: Patient is slow to respond to some questioning. She rests with her eyes closed. Skin Skin Narrative: Mild erythema to bilateral lower extremities without significant warmth or tenderness. MDM MDM MDM Narrative Medical decision making narrative: Patient presents to the emergency department for confusion. On arrival to the ED patient has no complaints. Apparently patient did not recognize her roommate whenever EMS was present. She is not completely oriented at this time. We will do CT scan of the head as well as basic lab work. Patient's lab work did not reveal any significant acute abnormality to explain her current symptoms. She is anemic but this appears to be close to her baseline. Her creatinine and BUN are mildly elevated but have been higher in the past. Her urine does not show any signs of infection. CT scan of the head did not reveal any acute findings. Given patient's confusion and the POA arrival stating that she does not feel comfortable with her caring for self she will require hospitalization for potential placement. Patient otherwise has remained stable throughout ED stay. POA and patient updated on all findings. Lab Data Labs: Laboratory Results - last 24 hr 10/11/20 10/11/20 10/11/20 09:17 09:17 09:17 WBC 5.8 RBC 3.63 L Hgb 8.8 L Hct 29.9 L MCV 82.4 MCH 24.2 L MCHC 29.4 L RDW Std Deviation 59.7 H RDW Coeff of Mark 19.8 H Plt Count MPV 11.2 Immature Gran % (Auto) 1.000 H Neut % (Auto) 73.9 H Lymph % (Auto) 6.2 L Simpson % (Auto) 14.8 H Eos % (Auto) 3.1 Baso % (Auto) 1.0 Absolute Neuts (auto) 4.3 Absolute Lymphs (auto) 0.36 L Nucleated RBC % 0 Platelet Estimate SLT DEC Sodium 139 Potassium 4.3 Chloride 110 H Carbon Dioxide 22.0 Anion Gap 7 BUN 63 H Creatinine 1.35 H Estim Creat Clear Calc 26.58 Est GFR (MDRD) Af Amer 48 L Est GFR (MDRD) Non-Af 40 L BUN/Creatinine Ratio 46.7 H Glucose 91 Lactic Acid 1.4 Calcium 10.1 Total Bilirubin 0.30 AST 30 ALT 27 Alkaline Phosphatase 221 H Ammonia Troponin I High Sens 4.6 B-Natriuretic Peptide Total Protein 7.3 Albumin 2.6 L Globulin 4.7 H Albumin/Globulin Ratio 0.6 L Urine Color Urine Clarity Urine pH Ur Specific [place] Urine Protein Urine Glucose (UA) Urine Ketones Urine Occult Blood Urine Nitrite Urine Bilirubin Urine Urobilinogen Ur Leukocyte Esterase Urine RBC Urine WBC Ur Squamous Epith Cells Urine Bacteria Urine Mucus 10/11/20 10/11/20 10/11/20 09:17 09:17 10:30 WBC RBC Hgb Hct MCV MCH MCHC RDW Std Deviation RDW Coeff of Mark Plt Count MPV Immature Gran % (Auto) Neut % (Auto) Lymph % (Auto) Simpson % (Auto) Eos % (Auto) Baso % (Auto) Absolute Neuts (auto) Absolute Lymphs (auto) Nucleated RBC % Platelet Estimate Sodium Potassium Chloride Carbon Dioxide Anion Gap BUN Creatinine Estim Creat Clear Calc Est GFR (MDRD) Af Amer Est GFR (MDRD) Non-Af BUN/Creatinine Ratio Glucose Lactic Acid Calcium Total Bilirubin AST ALT Alkaline Phosphatase Ammonia 32.0 Troponin I High Sens B-Natriuretic Peptide 40.8 Total Protein Albumin Globulin Albumin/Globulin Ratio Urine Color Yellow Urine Clarity Clear Urine pH 5.0 Ur Specific [place] 1.015 Urine Protein Negative Urine Glucose (UA) Normal Urine Ketones Negative Urine Occult Blood Negative Urine Nitrite Negative Urine Bilirubin Negative Urine Urobilinogen Normal Ur Leukocyte Esterase Negative Urine RBC 0 SEEN Urine WBC 0 SEEN Ur Squamous Epith Cells 0 SEEN Urine Bacteria 0 SEEN Urine Mucus 0 SEEN Radiography Diagnostic Testing: Radiology Impression Brain CT 10/11/20 09:18 IMPRESSION: Stable chronic involutional/microvascular ischemic changes of the brain. No acute intracranial pathology. Electronically Signed: Juan Antonio Jacome MD at 10:15 EDT , Service support , Chest X-Ray 10/11/20 09:52 IMPRESSION: 1. Exam degraded by a poor inspiratory effort. Allowing for this, there is stable radiographic appearance of the chest with localized, perhaps loculated pleural effusion and atelectasis in the right lung base. Infection is not excluded. 2. Old granulomatous disease again seen in the left base. 3. Right chest wall MediPort in place. Electronically Signed: Juan Antonio Jacome MD at 10:21 EDT , Service support , EKG Initial EKG: Attestation: I personally reviewed and interpreted this EKG as follows: (Rate of 67 bpm and normal sinus rhythm. Normal intervals. Normal axis. No significant ST elevations or depressions. No T wave abnormalities.) Discharge Plan Dx/Rx/DC Orders Clinical Impression: Confusion Disposition Disposition: Acute Care Hospital [facility] Discharge Date/Time: 10/11/20 12:51
[2020-10-11 09:37] LABS: Absolute Lymphocyte Count 0.36 X10^3/uL (0.83-4.51); Absolute Neutrophil Count 4.3 X10^3/uL (2.0-7.7); Basophil# 0.06 X10^3/uL; Eosinophil# 0.18 X10^3/uL; Eosinophils% 3.1 % (0-5); Hematocrit 29.9 % (37-47); Hemoglobin 8.8 g/dL (12.0-15.0); Lymphocyte # 0.36 X10^3/ul (0.83-4.51); Lymphocyte % 6.2 % (19-41); Mean Corp Hgb Conc 29.4 g/dL (32-36); Mean Corpuscular Hgb 24.2 pg (27.0-32.0); Mean Corpuscular Volume 82.4 fL (81-99); Mean Platelet Vol. 11.2 fl (6.2-12.0); Monocyte# 0.86 X10^3/uL; Monocyte% 14.8 % (0-10); NRBC Flagged by Analyzer 0 % (0-5); Neutrophil # 4.29 X10^3/uL (2.7-7.7); Neutrophil % 73.9 % (47-70); POSITIVE COUNT YES; POSITIVE DIFFERENTIAL YES; RBC Distribution Width CV 19.8 % (11.6-14.6); RBC Distribution Width SD 59.7 fl (35.1-43.9); Red Blood Count 3.63 M/mm3 (4.2-5.4); White Blood Count 5.8 K/mm3 (4.4-11.0)
[2020-10-11 09:50] LABS: ALB/GLOB Ratio 0.6 RATIO (0.9-2.4); AST(SGOT) 30 U/L (15-37); Alanine Aminotransfer ALT/SGPT 27 U/L (13-56); Albumin, Serum 2.6 g/dL (3.2-5.0); Alkaline Phosphatase 221 U/L (45-117); Anion Gap 7 (5-15); BUN 63 mg/dL (7-18); BUN/Creat Ratio 46.7 RATIO (10-20); Calcium,Total 10.1 mg/dL (8.5-10.1); Chloride 110 mmol/L (98-107); Creatinine, Serum 1.35 mg/dL (0.55-1.02); EST Glomerular Filtration Rate 40 mL/min (>60); Est Glom Filt Rate - Afr Amer 48 mL/min (>60); Estimated Creatinine Clearance 26.58 ml/min; Globulin 4.7 g/dL (2.2-4.2); Glucose 91 mg/dL (74-106); Potassium 4.3 mmol/L (3.5-5.1); Protein, Total 7.3 g/dL (6.4-8.2); Sodium Level 139 mmol/L (136-145); Troponin-I HS 4.6 pg/mL (3.0-53.7)
--- NOTE | 2020-10-11 09:52 | RAD_ITS ---
STUDY: X-RAY CHEST REASON FOR EXAM: Female, 84 years old. COnfusion/weakness TECHNIQUE: Single AP portable upright view of the chest. The patient is mildly rotated to the left. COMPARISON: CT chest 07/16/2020 FINDINGS: Right chest wall MediPort has its catheter tip in the right atrium. The lungs are poorly expanded. There is ill-defined density at the right base and loss of definition of the lateral right diaphragm. By CT, much of this may be related to a local, perhaps loculated pleural effusion with subsegmental atelectasis in the adjacent posterior lung base. Infection is not excluded. Calcified granuloma in the posterior left base as well as calcifications in the costal cartilages project over the medial base just above the diaphragm, superimposed on the cardiac silhouette. There is minor left perihilar subsegmental crowding/atelectasis. Normal size heart. Normal mediastinum. Normal visualized pulmonary arteries. There is stable atherosclerotic calcification of the aortic arch. There are stable degenerative changes of the visualized thoracic spine. Normal visualized ribs, clavicles, and shoulders. Surgical clips again project in the right axilla. There is no demonstrated abnormality of the visualized soft tissue structures of the upper abdomen. RAD/Chest 1 View (Portable) IMPRESSION: 1. Exam degraded by a poor inspiratory effort. Allowing for this, there is stable radiographic appearance of the chest with localized, perhaps loculated pleural effusion and atelectasis in the right lung base. Infection is not excluded. 2. Old granulomatous disease again seen in the left base. 3. Right chest wall MediPort in place. Electronically Signed: Juan Antonio Jacome MD at 10:21 EDT , Service support ,
[2020-10-11 09:59] LABS: BNP,B-Type NATRIURETIC PEPTIDE 40.8 pg/mL (0-100); Differential Indicated SCAN CRITERIA MET
[2020-10-11 10:00] LABS: Platelet Estimate SLT DEC (ADEQ)
[2020-10-11 10:03] LABS: Lactic Acid 1.4 mmol/L (0.4-1.9)
[2020-10-11 10:35] LABS: Bacteria 0 SEEN /hpf (None Seen); Mucous, Urine 0 SEEN /hpf (<or=2+); Red Blood Cells-Urine 0 SEEN /hpf (0-5); Squamous Epithelial Cells - UA 0 SEEN /hpf (5-10); White Blood Cells 0 SEEN /hpf (0-5)
[2020-10-11 10:36] LABS: Color, Urine Yellow (Yellow); Glucose, Dipstick Normal (Normal); Ketone-Dipstick Negative (Negative); Leukocyte Esterase-Dipstick Negative /ul (Negative); Nitrite-Dipstick Negative (Negative); Occult Blood-Urine Negative /ul (Negative); Protein-Dipstick Negative (Negative); Specific Gravity, Urine 1.015 (1.002-1.030); Urine Bilirubin Dipstick Negative (Negative); Urine Clarity Clear (Clear); Urine Urobilinogen Normal (Normal)
--- NOTE | 2020-10-11 11:59 | HP.PCM.HOS_ITS ---
[facility] - General General Date of Admission: 10/11/20 Date of Service: 10/11/20 Chief Complaint: Lethargy. HPI Narrative MARIA VICTORIA JENNINGS, is a 84 F with past medical history significant for right-sided breast CA status post lumpectomy and neoadjuvant chemotherapy first diagnosed in 2001, ovarian CA for diagnosing 2015 for which she underwent chemo. Per patient's family patient has had recurrent metastasis for which she has been receiving palliative chemo. Was brought to the emergency department due to increasing lethargy. Patient apparently lives with an 85-year-old friend who apparently called the squad after patient was found to be more lethargic and was reported to have fallen. Was brought to the emergency department extensive work-up was unremarkable. Patient had recently been started on doxycycline and Augmentin for cellulitis involving both lower extremities by her oncologist. She was admitted to regular nursing floor for subsequent management [facility] Medical History Abnormal breast biopsy Breast cancer Cellulitis Cellulitis Cholecystectomy planned Depression Hip replacement planned Hyperlipidemia Hypertension Left wrist fracture Left wrist repair Liver metastases Osteopenia Ovarian cancer Port placement Right arm lymphectomy Synovial cyst Home Medications duloxetine 60 mg PO DAILY 11/07/13 [History Last Taken 05/20/14] lisinopril-hydrochlorothiazide 1 tab PO BID 11/07/13 [History Last Taken 05/21/14] cholecalciferol (vitamin D3) 4,000 tab PO DAILY 09/16/15 [History Last Taken Unknown] vitamin B complex 1 tab PO DAILY 08/13/19 [History Last Taken Unknown] coenzyme Q10 100 mg PO DAILY 02/10/20 [History Last Taken Unknown] colestipol 1 g PO BID 02/11/20 [History Last Taken Unknown] esomeprazole magnesium 40 mg PO .DAILY 04/15/20 [History Last Taken 04/16/20 06:20] gemfibrozil 600 mg PO BID 04/15/20 [History Last Taken Unknown] mometasone 1 spray NASAL QHS 04/15/20 [History Last Taken Unknown] megestrol 400 mg PO DAILY 30 Days #300 ml 06/10/20 [Rx Last Taken Unknown] prochlorperazine maleate 5 mg tablet 5 mg PO TID PRN #30 tab 09/03/20 [Rx Last Taken Unknown] Allergy/AdvReac Type Severity Reaction Status Date / Time hydrocodone bitartrate AdvReac Severe Other Verified 10/11/20 09:07 [From Vicodin] Sulfa (Sulfonamide AdvReac Severe Upset Verified 10/11/20 09:07 Antibiotics) Stomach Family History Mother CVA (cerebral vascular accident) Hypertension Father Hypertension Other Heart disease Surgical History History of cataract extraction History of hip replacement History of hysterectomy for malignancy History of knee replacement History of right breast biopsy S/P foot surgery, left S/P laminectomy with spinal fusion Social History Smoking Status: Never smoker ROS Review of Systems ROS Unobtainable: due to encephalopathy Vital Signs Vital Signs Vital Signs: 10/11/20 09:07 10/11/20 09:13 Temperature 97.8 F Temperature Source Oral Pulse Rate 69 Respiratory Rate 20 H Respiratory Effort Normal Respiratory Pattern Normal Blood Pressure 97/60 Blood Pressure Mean 72 Pulse Ox 98 Oxygen Delivery Method Room Air Weight Weight: 77.1 kg Body Mass Index (BMI) 30.1 Physical Exam Narrative GENERAL: Lethargic but easily arousable HEENT: Atraumatic; EYES; Anicteric, Normal Conjunctiva NECK; supple, normal thyroid, RESPIRATORY: Diminished to auscultation CARDIOVASCULAR: Regular S1 S2, GI: soft, normoactive bowel sounds, : No Renal angle tenderness; EXTREMITIES: Bipedal edema with some areas of erythema but no warmth MUSCULOSKELETAL: no muscle waisting NEURO: Lethargic but easily arousable SKIN: As described above PSYCH; Flat affect Results Lab / Micro Data Result Diagrams: 10/11/20 09:17 10/11/20 09:17 Labs: Laboratory Results - last 24 hr 10/11/20 09:17: WBC 5.8, RBC 3.63 L, Hgb 8.8 L, Hct 29.9 L, MCV 82.4, MCH 24.2 L , MCHC 29.4 L, RDW Std Deviation 59.7 H, RDW Coeff of Mark 19.8 H, Plt Count , MPV 11.2, Immature Gran % (Auto) 1.000 H, Neut % (Auto) 73.9 H, Lymph % (Auto) 6.2 L, [place] % (Auto) 14.8 H, Eos % (Auto) 3.1, Baso % (Auto) 1.0, Absolute Neuts (auto) 4.3, Absolute Lymphs (auto) 0.36 L, Nucleated RBC % 0, Platelet Estimate SLT 10/11/20 09:17: Sodium 139, Potassium 4.3, Chloride 110 H, Carbon Dioxide 22.0, Anion Gap 7, BUN 63 H, Creatinine 1.35 H, Estim Creat Clear Calc 26.58, Est GFR (MDRD) Af Amer 48 L, Est GFR (MDRD) Non-Af 40 L, BUN/Creatinine Ratio 46.7 H, Glucose 91, Calcium 10.1, Total Bilirubin 0.30, AST 30, ALT 27, Alkaline Phosphatase 221 H, Troponin I High Sens 4.6, Total Protein 7.3, Albumin 2.6 L, Globulin 4.7 H, Albumin/Globulin Ratio 0.6 L 10/11/20 09:17: Lactic Acid 1.4 10/11/20 09:17: B-Natriuretic Peptide 40.8 10/11/20 09:17: Ammonia 32.0 10/11/20 10:30: Urine Color Yellow, Urine Clarity Clear, Urine pH 5.0, Ur Specific [place] 1.015, Urine Protein Negative, Urine Glucose (UA) Normal, Urine Ketones Negative, Urine Occult Blood Negative, Urine Nitrite Negative, Urine Bilirubin Negative, Urine Urobilinogen Normal, Ur Leukocyte Esterase Negative, Urine RBC 0 SEEN, Urine WBC 0 SEEN, Ur Squamous Epith Cells 0 SEEN, Urine Bacteria 0 SEEN, Urine Mucus 0 SEEN Radiology Impression Brain CT 10/11/20 09:18 IMPRESSION: Stable chronic involutional/microvascular ischemic changes of the brain. No acute intracranial pathology. Electronically Signed: Juan Antonio Jacome MD at 10:15 EDT , Service support , Chest X-Ray 10/11/20 09:52 IMPRESSION: 1. Exam degraded by a poor inspiratory effort. Allowing for this, there is stable radiographic appearance of the chest with localized, perhaps loculated pleural effusion and atelectasis in the right lung base. Infection is not excluded. 2. Old granulomatous disease again seen in the left base. 3. Right chest wall MediPort in place. Electronically Signed: Juan Antonio Jacome MD at 10:21 EDT , Service support , Assessment & Plan Assessment/Plan (1) Acute encephalopathy: PLAN: Patient is an 84-year-old lady with history of metastatic ovarian CA presented with increasing lethargy and confusion 1. Acute encephalopathy ?Work-up in the ED was unremarkable. Per patient's POA patient had apparently undergone an MRI 3 weeks prior to her admission with similar complaints there were no findings of metastatic brain lesions. Admitted to the regular nursing floor subsequently requested for PT OT and social sciences lecturer to assist with discha rge planning 2. Anemia - Secondary to chronic disorder monitoring H&H and transfuse if patient becomes symptomatic or hemoglobin falls below 7 3. Chronic kidney disease stage IIIb ?Patient kidney function at baseline 4. Essential hypertension ?Patient is on lisinopril and HCTZ held in view of patient's relatively low blood pressure upon presentation 5. GERD ?Patient is on PPI plan is to continue 6. Dyslipidemia ?Patient is on colestipol held on admission 7. Metastatic right ovarian CA ?Patient is under care of oncology Dr. Keita plan is for patient to resume care following her discharge 8. DVT prophylaxis ?Lovenox Advance planning; did discuss with the patient 's family regarding advanced directives as well as CODE STATUS. Did explain the various scenarios involved ( FULL CODE, DNR CCA, DNR CCA with no intubation, and DNR CC and what each meant) patient's family elected to be DNR CCA no intubation. Order was placed. Time spent on discussion 18 minutes. Charges/Coding Visit Charges OBSV E&M: 93488 Initial observation care L3
[2020-10-11 12:10] VITALS: BP 127/65; PULSE 66; RESP 18; TEMP 36.6; O2SAT 100
[2020-10-11 13:10] VITALS: PULSE 62; BMI 31.0
[2020-10-11 13:50] VITALS: BP 124/67; PULSE 62; RESP 18; TEMP 36.7; O2SAT 99
[2020-10-11 15:33] VITALS: BP 122/63; PULSE 66; RESP 18; TEMP 36.7; O2SAT 99
[2020-10-11] MEDS: 0.9% Normal Saline 1,000 ML 75 ML IV (17:30)
[2020-10-11] MEDS: Enoxaparin 30 MG/0.3 ML Syringe SC (19:48)
[2020-10-11 21:12] VITALS: BP 111/57; PULSE 71; RESP 20; TEMP 36.4; O2SAT 98
[2020-10-12 03:34] VITALS: BP 110/58; PULSE 77; RESP 18; TEMP 36.7; O2SAT 98
[2020-10-12] MEDS: 0.9% Normal Saline 1,000 ML 75 ML IV (03:39)
[2020-10-12 07:25] LABS: Absolute Lymphocyte Count 0.32 X10^3/uL (0.83-4.51); Absolute Neutrophil Count 4.8 X10^3/uL (2.0-7.7); Basophil# 0.07 X10^3/uL; Basophil% 1.1 % (0-1); Eosinophils% 3.2 % (0-5); Hematocrit 29.3 % (37-47); Hemoglobin 8.9 g/dL (12.0-15.0); Lymphocyte # 0.32 X10^3/ul (0.83-4.51); Lymphocyte % 5.1 % (19-41); Mean Corp Hgb Conc 30.4 g/dL (32-36); Mean Corpuscular Hgb 24.3 pg (27.0-32.0); Mean Corpuscular Volume 79.8 fL (81-99); Mean Platelet Vol. 11.2 fl (6.2-12.0); Monocyte# 0.78 X10^3/uL; Monocyte% 12.5 % (0-10); NRBC Flagged by Analyzer 0.3 % (0-5); Neutrophil # 4.78 X10^3/uL (2.7-7.7); POSITIVE COUNT YES; POSITIVE DIFFERENTIAL YES; Platelet Count 124 K/mm3 (150-450); RBC Distribution Width CV 19.5 % (11.6-14.6); RBC Distribution Width SD 57.1 fl (35.1-43.9); Red Blood Count 3.67 M/mm3 (4.2-5.4); White Blood Count 6.2 K/mm3 (4.4-11.0)
[2020-10-12 07:37] LABS: Anion Gap 7 (5-15); BUN 44 mg/dL (7-18); BUN/Creat Ratio 45.1 RATIO (10-20); Calcium,Total 9.7 mg/dL (8.5-10.1); Chloride 112 mmol/L (98-107); Creatinine, Serum 0.98 mg/dL (0.55-1.02); EST Glomerular Filtration Rate 58 mL/min (>60); Est Glom Filt Rate - Afr Amer 70 mL/min (>60); Glucose 75 mg/dL (74-106); Magnesium 1.7 mg/dL (1.6-2.6); Potassium 4.2 mmol/L (3.5-5.1); Sodium Level 141 mmol/L (136-145)
[2020-10-12 07:45] LABS: Differential Indicated SCAN CRITERIA MET
[2020-10-12 08:09] LABS: Platelet Estimate ADEQUATE (ADEQ); Platelet Morphology CLUMPED
[2020-10-12 08:19] VITALS: BP 126/59; PULSE 78; RESP 16; TEMP 36.6; O2SAT 97
--- NOTE | 2020-10-12 10:01 | PN.HOSP_ITS ---
Subjective Subjective Resolving erythema of bilateral LE. Has been off abx for several days. Mental status back to normal. Objective Data Objective Data Vital Signs: Vital Signs Temp Pulse Resp BP Pulse Ox 36.6 C 78 16 126/59 H 97 10/12/20 08:19 10/12/20 08:19 10/12/20 08:19 10/12/20 08:19 10/12/20 08:19 Oxygen Delivery Method Room Air Weight: 74.48 kg Body Mass Index (BMI) 31.0 Intake & Output: Intake and Output for Last 24 Hours 10/10/20 10/11/20 10/12/20 23:59 23:59 23:59 Intake Total 761.25 / 761.25 Output Total 725 / 725 Balance 36.25 / 36.25 Lab / Micro Data Result Diagrams: 10/12/20 06:30 10/12/20 06:30 Labs: Laboratory Results - last 24 hr 10/11/20 09:17: Lactic Acid 1.4 10/11/20 10:30: Urine Color Yellow, Urine Clarity Clear, Urine pH 5.0, Ur Specific [place] 1.015, Urine Protein Negative, Urine Glucose (UA) Normal, Urine Ketones Negative, Urine Occult Blood Negative, Urine Nitrite Negative, Urine Bilirubin Negative, Urine Urobilinogen Normal, Ur Leukocyte Esterase Negative, Urine RBC 0 SEEN, Urine WBC 0 SEEN, Ur Squamous Epith Cells 0 SEEN, Urine Bacteria 0 SEEN, Urine Mucus 0 SEEN 10/12/20 06:30: WBC 6.2, RBC 3.67 L, Hgb 8.9 L, Hct 29.3 L, MCV 79.8 L, MCH 24.3 L, MCHC 30.4 L, RDW Std Deviation 57.1 H, RDW Coeff of Mark 19.5 H, Plt Count 124 L, MPV 11.2, Immature Gran % (Auto) 1.100 H, Neut % (Auto) 77.0 H, Lymph % (Auto) 5.1 L, Cobb % (Auto) 12.5 H, Eos % (Auto) 3.2, Baso % (Auto) 1.1 H, Absolute Neuts (auto) 4.8, Absolute Lymphs (auto) 0.32 L, Nucleated RBC % 0.3, Platelet Estimate ADEQUATE, Plt Morphology Comment CLUMPED 10/12/20 06:30: Sodium 141, Potassium 4.2, Chloride 112 H, Carbon Dioxide 22.0, Anion Gap 7, BUN 44 H, Creatinine 0.98, Estim Creat Clear Calc 35.00, Est GFR (MDRD) Af Amer 70, Est GFR (MDRD) Non-Af 58 L, BUN/Creatinine Ratio 45.1 H, Glucose 75, Calcium 9.7, Magnesium 1.7 Radiography Diagnostic Testing: Radiology Impression Brain CT 10/11/20 09:18 IMPRESSION: Stable chronic involutional/microvascular ischemic changes of the brain. No acute intracranial pathology. Electronically Signed: Juan Antonio Jacome MD at 10:15 EDT , Service support , Chest X-Ray 10/11/20 09:52 IMPRESSION: 1. Exam degraded by a poor inspiratory effort. Allowing for this, there is stable radiographic appearance of the chest with localized, perhaps loculated pleural effusion and atelectasis in the right lung base. Infection is not excluded. 2. Old granulomatous disease again seen in the left base. 3. Right chest wall MediPort in place. Electronically Signed: Juan Antonio Jacome MD at 10:21 EDT , Service support , Physical Exam Const alert, oriented x3 and no apparent distress Resp normal respiratory effort, no retractions, no use of accessory muscles and clear to auscultation bilaterally Cardio regular rate, regular rhythm, S1 normal heart sound and S2 normal heart sound GI normal to inspection, nondistended, normoactive bowel sounds, soft to palpation, non-tender and non-distended Skin Skin Narrative: Faint scattered macular erythema of the distal lower extremities. No nodules noted. No tenderness. Assessment & Plan Assessment/Plan (1) Metabolic encephalopathy: PLAN: 1. Metabolic encephalopathy Resolved and patient back to baseline May been due to dehydration as patient's kidney function was elevated when she initially presented. Head CT negative Patient had an MRI of her brain back on September 22 that was negative for any metastatic disease and not necessary to recheck at this time 2. Lower extremity erythema Patient notes improvement off of being antibiotics I doubt the patient ever had lower extremity cellulitis of bilateral legs. Unclear etiology but patient does have some evidence of swelling. This could be venous stasis changes but has an odd appearance. Other possibilities could be erythema nodosum but unclear what would be the etiology of that. At this point time, we will just have observation to see how these progress or if worsens. 3. Metastatic ovarian cancer Complicates overall care and recovery Patient had CT imaging on 21 September that showed progressive liver metastasis and fluid surrounding the stomach. Last Ca1 25 was 992 on September 22. 4. CKD 3 a Monitor for now. No need for renal placement therapy. 5. Failure to thrive PT OT evaluate and treat Await their input determine if patient would be a candidate for a penitentiary facility. 6. VTE prophylaxis with low molecular rate heparin. Charges/Coding Visit Charges OBSV E&M: 60628 Subsequent observation care L2
[2020-10-12] MEDS: DULoxetine Hcl 60 MG Capsule PO (10:25)
[2020-10-12 10:56] VITALS: O2SAT 97
--- NOTE | 2020-10-12 11:51 | CASEMGMT ---
Social Work Assessment Referral Date: 10/12/2020 Date of Assessment: 10/12/2020 Personal Status: SW updated that pt is confused, agitated. SW reviewed chart. LW and HCPOA are on file and HCPOA is pt's step-daughter Edyta. ([phone]). SW placed a call to pt's step daughter Edyta to complete assessment. Living Arrangements: Pt lives alone/with her friend Giuliana, who is 85 years old in a ranch style home with 1 step to enter from the Garage and then 1 step to enter to the kitchen. Edyta states there are railings by the steps. DME: Rollator, Walker, Raised Toilet Seat, Shower Bath/Chair. Edyta states Giuliana also has a Walker. PCP: Dr. Britany Fleming Specialists: Dr. Sykes for oncology. Cancer Treatment: Edyta states pt is not currently on Chemotherapy. Edyta states pt was supposed to start Chemotherapy again 2 weeks ago but pt developed Cellulitis and Dr. Sykes wanted the Cellulitis to clear before they would start Chemotherapy. Edyta states pt was supposed to have an appointment with Dr. Sykes tomorrow that Edyta has cancelled for pt. SW informed Edyta that if pt goes to SNF, pt will not be able to have Chemotherapy while at SNF. ADLs: Edyta states a [facility] aide comes to pt's house about 1x a week for cleaning, shopping, personal care. Edyta states pt's personal care is terrible. Transportation: [facility] Substance Abuse: Edyta denied Mental Health Hx: Edyta states she thinks pt has some depression but is not sure if pt has ever been diagnosed or on medications for it. DEVON asked Edyta if pt has ever been in Counseling/MH treatment and Edyta states pt's telepathist (Edyta's father) in 1996 and pt had grief counseling but denied any other MH treatment. Edyta denied pt ever being placed in psychiatric hospital. SNF: None HHC: [facility] SW spent much time with Edyta discussing discharge plans. SW verbally provided Edyta with a list of SNF providers including quality and resource use data and consistent with the patient?s preferred geographic region, medical needs, and insurance network. SW explained that if Edyta is wanting prison placement for pt, [facility] is not appropriate but if Edyta is wanting short term placement, [facility] could be an option. Edyta asked what other options, not SNF, are available for pt. DEVON spoke with Edyta about Private Duty Aides, Direction Home, HHC. Edyta states pt has had HHC before, not sure that would benefit pt again. Edyta states she needs someone to stay with pt for shifts. SW informed Edyta that she could arrange for Private Duty Aides and that this worker could provide Edyta with list of Private Duty Aides. Edyta states she would like a list of Private Duty Aides and Direction Home. SW informed Edyta that pt was agitated/confused with PT/OT and refused to work with them today. SW informed Edyta that discharge planning really depends on how pt does with PT/OT and pt may not even qualify for SNF under [employer]. DEVON spoke with Edyta about Assisted Living. Edyta asked when Hospice would be appropriate as pt does have terminal cancer. SW informed Edyta that Hospice decisions comes from Physicians and recommended Edyta speak with pt's oncologist regarding Hospice options. SW informed Edyta that she can process information that was discussed today and this worker will leave list of community resources in pt's room for her to view. Edyta states understanding, states she will be in later today/tomorrow to review resources. DEVON left in pt's room list of SNF, Assisted Livings, Direction Home, and Private Duty Aides. Pt will need to work with PT/OT so they can make recommendations of services needed at discharge. SW to continue to follow. Plan: TBD. Pending PT/OT Marine Gardiner FITNESS AND WELLNESS DIRECTOR, REFRIGERATION SPECIALIST
--- NOTE | 2020-10-12 15:18 | CHAPLAIN ---
Type of Pastoral Visit _x__ Initial Visit ___ Follow-up Visit ___ On-call Visit ___ General Patient Visit ___ Spiritual Assessment ___ Family Conference ___ Bereavement ___ Rapid Response ___ Code Blue ___ Other (describe below) Pastoral Care Referral From _x__ Patient ___ Family ___ Nurse ___ Physician ___ Computerized Mill Recorder ___ Horticulture Supervisor ___ Other (describe below) Sacrament/Intervention _x__ Active listening ___ Anointing ___ Caodaism ___ Bereavement ___ Communion ___ Bteh exploration ___ ___ Life review _x__ Prayer ___ Reconciliation ___ Sacrament of Sick _x__ Supportive presence ___ Wedding ___ Other (describe below) Pastoral Comments sat at bedside with patient; pt began with appropriate answers but as visit went on the answers did not match the question and a word salad came from her mouth at times; prayer welcomed; pt is pleasant to this outdoor adventure guides
--- NOTE | 2020-10-12 16:30 | CASEMGMT ---
RN CM NOTE: TC to pt's step-dtr/POA, Edyta. Intro role of CM to patient and SMITH form explained re: Observation status for treatment of adult failure to thrive. Explained hospitalization will be paid per pt's insurance policy for Outpatient billing and condition will continue to be evaluated for Inpt necessity. Also let Edyta know that [facility] sends paper in the billing packet with their phone number if questions arise. Discussed Pharmacy section of SMITH form and self administered medication guideline. Edyta verbalizes understanding and does not have further questions. Telephone signature received, copy made and placed in chart, and original placed in pt's room. Fran HARRINGTON RN CM
--- NOTE | 2020-10-12 19:37 | NURSING ---
emergency charting effective now
[2020-10-12 20:38] VITALS: BP 138/72; PULSE 83; RESP 18; TEMP 36.9; O2SAT 96
[2020-10-12] MEDS: Menthol/Lanolin/Calamine/Znox 113 GM Tube 1 APPLIC TOPICAL (20:47)
[2020-10-13] VITALS (8 sets, daily range): BP systolic 94–143; BP diastolic 54–69; PULSE 68–84; RESP 18; TEMP 36.2–37.1; O2SAT 90–97
[2020-10-13] MEDS: Vitamin B Comp W-C Capsule 1 CAP PO (09:13)
--- NOTE | 2020-10-13 09:38 | PCM.PN.HOSP ---
Subjective Subjective Denies complaints. Declined workin with therapies 10/12. Objective Data Objective Data Vital Signs: Vital Signs Temp Pulse Resp BP Pulse Ox 36.3 C L 68 18 143/65 H 97 10/13/20 08:50 10/13/20 08:50 10/13/20 08:50 10/13/20 08:50 10/13/20 08:50 Oxygen Flow Rate (L/min) 2 Oxygen Delivery Method Nasal Cannula Weight: 74.48 kg Body Mass Index (BMI) 31.0 Intake & Output: Intake and Output for Last 24 Hours 10/11/20 10/12/20 10/13/20 23:59 23:59 23:59 Intake Total 2061.25 / 2061.25 240 / 240 Output Total 725 / 725 Balance 1336.25 / 1336.25 240 / 240 Lab / Micro Data Result Diagrams: 10/12/20 06:30 10/12/20 06:30 Physical Exam Const alert Resp normal respiratory effort, no retractions, no use of accessory muscles and clear to auscultation bilaterally Cardio regular rate, regular rhythm, S1 normal heart sound and S2 normal heart sound GI normal to inspection, nondistended, normoactive bowel sounds, soft to palpation, non-tender and non-distended Extremity normal to inspection Skin Skin Narrative: resolving erythema of LE Assessment & Plan Assessment/Plan (1) Metabolic encephalopathy: PLAN: 1. Metabolic encephalopathy Resolved and patient back to baseline May been due to dehydration as patient's kidney function was elevated when she initially presented. Head CT negative Patient had an MRI of her brain back on September 22 that was negative for any metastatic disease and not necessary to recheck at this time 2. Lower extremity erythema Continues to improve Patient notes improvement off of being antibiotics I doubt the patient ever had lower extremity cellulitis of bilateral legs. Unclear etiology but patient does have some evidence of swelling. This could be venous stasis changes but has an odd appearance. Other possibilities could be erythema nodosum but unclear what would be the etiology of that. At this point time, we will just have observation to see how these progress or if worsens. 3. Metastatic ovarian cancer Complicates overall care and recovery Patient had CT imaging on 21 September that showed progressive liver metastasis and fluid surrounding the stomach. Last Ca1 25 was 992 on September 22. 4. CKD 3 a Monitor for now. No need for renal placement therapy. 5. Failure to thrive PT OT evaluate and treat Await their input determine if patient would be a candidate for a nursing home facility. 6. VTE prophylaxis with low molecular rate heparin. Charges/Coding Visit Charges OBSV E&M: 24705 Subsequent observation care L2
[2020-10-13] MEDS: Pantoprazole Sodium 40 MG Tablet PO (10:27)
[2020-10-13] MEDS: DULoxetine Hcl 60 MG Capsule PO (10:27)
[2020-10-13] MEDS: Megestrol Acetate 400 MG/10 ML UDC PO (10:28)
[2020-10-13] MEDS: Menthol/Lanolin/Calamine/Znox 113 GM Tube 1 APPLIC TOPICAL ×2 (10:28→20:41)
[2020-10-13] MEDS: Enoxaparin 30 MG/0.3 ML Syringe SC (10:28)
--- NOTE | 2020-10-13 10:30 | CASEMGMT ---
Social Work Note SW spoke with PT/OT asked to see pt today and to get pt to work with them as PT/OT is needed for SNF. SW waiting for updated PT/OT notes. Marine Gardiner SENIOR LINUX ADMINISTRATOR, SVP GROUP DIRECTOR
--- NOTE | 2020-10-13 11:35 | CASEMGMT ---
Addendum entered by Marine Gardiner 10/13/20 15:29: SW in to speak with pt. Pt's friend Giuliana is present in room. Giuliana is listed on demographics sheet and is whom pt primarily resides with. SW asked pt orientation questions (person, time, place). Pt refused to answer. SW asked pt if she knows the answers and she just won't tell me or if she really doesn't know the answers. Pt states I don't know it. SW updated pt that this worker is working with her step daughter Edyta about discharge plans and the plan is to keep pt at [facility] for additional therapy. Pt states that's ok. SW is leaving soon for the day. SW placed Green sheet on chart in the event pre-cert is obtained today. Pt will need COVID test on day of discharge (this is written on Green sheet). Plan: TCU pending pre-cert Original Note: Social Work Note SW reviewed PT/OT, pt did participate in therapy today, walked 25ft contact guard. DEVON placed a call to pt's step daughter Edyta and updated her. DEVON informed Edyta that referral can be sent to SNF but it depends on insurance. Edyta states pt has been to TCU before and thinks she liked it there before and would be interested in returning to TCU. SW explained that this worker will send referral to TCU and will await determination from insurance. Edyta states understanding. DEVON placed a call to Lilliam with TCU and provided referral. TCU to submit for pre-cert. SW attempted to meet with pt. Pt very sleepy, unable to stay awake to participate in conversation. DEVON will update pt once pt is more awake. Plan: TCU pending pre-cert Marine Gardiner CLOTH FEEDER, ASPHALT WORKER
[2020-10-13] MEDS: Fluticasone 0.05% 1 SPRAY NASAL.SRY NASAL (20:41)
[2020-10-13] MEDS: MELATONIN 3 MG TABLET PO (20:41)
[2020-10-14 02:10] VITALS: BP 100/79; PULSE 67; RESP 16; TEMP 36.6; O2SAT 94
[2020-10-14 08:10] VITALS: BP 116/63; PULSE 73; RESP 16; TEMP 36.4; O2SAT 95
[2020-10-14] MEDS: Menthol/Lanolin/Calamine/Znox 113 GM Tube 1 APPLIC TOPICAL (08:39)
[2020-10-14] MEDS: Enoxaparin 30 MG/0.3 ML Syringe SC (08:40)
[2020-10-14] MEDS: DULoxetine Hcl 60 MG Capsule PO (08:40)
[2020-10-14] MEDS: Pantoprazole Sodium 40 MG Tablet PO (08:41)
[2020-10-14] MEDS: Vitamin B Comp W-C Capsule 1 CAP PO (08:41)
[2020-10-14] MEDS: Megestrol Acetate 400 MG/10 ML UDC PO (08:42)
--- NOTE | 2020-10-14 09:08 | PCM.PN.HOSP ---
Subjective Subjective Wanting to go home. Objective Data Objective Data Vital Signs: Vital Signs Temp Pulse Resp BP Pulse Ox 36.6 C 67 16 100/79 94 10/14/20 02:10 10/14/20 02:10 10/14/20 02:10 10/14/20 02:10 10/14/20 02:10 Oxygen Flow Rate (L/min) 2 Oxygen Delivery Method Room Air Weight: 74.48 kg Body Mass Index (BMI) 31.0 Intake & Output: Intake and Output for Last 24 Hours 10/12/20 10/13/20 10/14/20 23:59 23:59 23:59 Intake Total 2061.25 / 2061.25 640 / 640 200 / 200 Output Total 725 / 725 Balance 1336.25 / 1336.25 640 / 640 200 / 200 Lab / Micro Data Result Diagrams: 10/12/20 06:30 10/12/20 06:30 Physical Exam Narrative stating over and over that she wants to go home. Const Constitutional Narrative: upon entering pt had taken gown off. Pt instructed to put gown on, but would only put part of right arm through. would not put left arm through arm hole. Orientation / Consciousness: confused Resp normal respiratory effort, no retractions, no use of accessory muscles and clear to auscultation bilaterally Cardio regular rate, regular rhythm, S1 normal heart sound and S2 normal heart sound GI normal to inspection, nondistended, normoactive bowel sounds, soft to palpation, non-tender and non-distended Extremity normal to inspection Skin Skin Narrative: erythema on LE stable Assessment & Plan Assessment/Plan (1) Metabolic encephalopathy: PLAN: 1. Metabolic encephalopathy again worse. May been due to dehydration as patient's kidney function was elevated when she initially presented. Head CT negative. UA negative on the Patient had an MRI of her brain back on September 22 that was negative for any metastatic disease and not necessary to recheck at this time 2. Lower extremity erythema Continues to improve Patient notes improvement off of being antibiotics I doubt the patient ever had lower extremity cellulitis of bilateral legs. Unclear etiology but patient does have some evidence of swelling. This could be venous stasis changes but has an odd appearance. Other possibilities could be erythema nodosum but unclear what would be the etiology of that. At this point time, we will just have observation to see how these progress or if worsens. 3. Metastatic ovarian cancer Complicates overall care and recovery Patient had CT imaging on 21 September that showed progressive liver metastasis and fluid surrounding the stomach. Last Ca1 25 was 992 on September 22. 4. CKD 3 a Monitor for now. No need for renal placement therapy. 5. Failure to thrive PT OT evaluate and treat plan for TCU 6. VTE prophylaxis with low molecular rate heparin. 7. Discharge planning TCU planning precert, which was submitted 10/13 Charges/Coding Visit Charges Inpatient E&M: 46366 Subs Hosp L2
--- NOTE | 2020-10-14 10:00 | TREXTCAR_ITS ---
Diet 10/12/20 09:58 Diet: Regular - General Food consistency:: Easy to Chew Liquid Consistency:: Regular/Thin Type of Dietary Supplement:: Ensure Pudding Is pt able to select menu?: No Diet Comments: Cut meats bite size, Distant supervision Routine Orders/Code Status Code Status: DNRCC-A (no itubation) Wound(s) l foot: Wound Type: scabs right jha: Wound Type: scabs Therapies Weight Bearing: Full weight bearing Physical Therapy: Eval and Treat Occupational Therapy: Eval and Treat Problem/Diagnosis (1) Metabolic encephalopathy: Status: Acute Allergies/Procedures Done in Hospital Allergies hydrocodone bitartrate [From Vicodin] Adverse Reaction (Severe, Verified 10/11/20 09:07) Other MAKES ME LOOPY Sulfa (Sulfonamide Antibiotics) Adverse Reaction (Severe, Verified 10/11/20 09:07) Upset Stomach Procedures: None Type of Care/Length of Stay Estimated LOS: Convalescent Care Less Than 30 days Type of Care Needed: Skilled Rehab Potential: Fair Prognosis: Fair Additional Orders/Day of Discharge Day of Discharge: 10/14/20 Dietary and Speech Recommendations Speech Linguistic Eval Summary: Orientation: Pt oriented to self, , place, current month/year. Reoriented the patient to age, date. Comprehension/verbal expression: During the evaluation, the patient would require repetition of simple questions (How old are you? - Pt replied 40, her year, multiple times). She also required frequent repetition of simple commands to complete oral mechanism exam. Social interaction: Throughout the session, the patient became easily agitated by SALES REPRESENTATIVE JEWELRY's orientation questions, oral mech exam, education re: rationale for completing bedside swallow study. She attempted dialing her friend at home 3X during the evaluation to have her come pick her up. Spoke with pt's Edyta LOPEZ, who was present for evaluation and stated that the patient appears to be at her current cognitive baseline. Will plan to further assess cognition of the patient in upcoming sessions. SALES REPRESENTATIVE JEWELRY spoke with the bilingual patient support caseworker regarding concerns for the patient's cognitive-linguistic impairment impacting the her ability to safely care for herself at home at this time. Discharge Plan Admission Admit Date/Time: 10/11/20 12:07 Primary Reason for Your Visit: confusion Attending Provider: Andrew Malagon Primary Care Provider: Britany Fleming Discharge Orders/Prescriptions Prescriptions: New acetaminophen [Tylenol] 325 mg Tablet 650 mg PO Q6H PRN PRN (Reason: Pain Score 1-10/Temp > 100.7 F) Qty: 0 RF: 0 menthol-zinc oxide [Calmoseptine] 0.44-20.6 % Ointment 1 applic topical BID Qty: 0 RF: 0 Continued prochlorperazine maleate [Compazine] 5 mg tablet 5 mg PO TID PRN (Reason: nausea and vomiting) Qty: 30 RF: 0 lisinopril-hydrochlorothiazide 1 TABLET tablet 1 tab PO BID RF: 0 duloxetine 60 MG capsule 60 mg PO DAILY RF: 0 cholecalciferol (vitamin D3) 1,000 UNIT tablet 4,000 tab PO DAILY RF: 0 megestrol 400 MG/10 ML suspension 400 mg PO DAILY 30 Days Qty: 300 RF: 3 vitamin B complex 1 EACH tablet 1 tab PO DAILY RF: 0 coenzyme Q10 100 MG capsule 100 mg PO DAILY RF: 0 colestipol 1 GM tablet 1 g PO BID RF: 0 gemfibrozil 600 MG tablet 600 mg PO BID RF: 0 mometasone 1 SPRAY spray,non-aerosol 1 spray NASAL QHS RF: 0 esomeprazole magnesium [address] for susp in packet 40 mg PO .DAILY RF: 0 Referrals / Follow Up: Jose David Sykes MD [NON-STAFF] - Within 1 Month Britany Fleming DO [Primary Care Provider] - Within 2 Weeks Disposition Disposition (needs filled in before D/C Order can be placed): Residential Facility
--- NOTE | 2020-10-14 10:08 | DS.PCM_ITS ---
Providers Date of Admission: 10/11/20 Primary Care Physician: Dr. Britany Fleming DO Reason For Visit: ADULT FAILURE TO THRIVE Diagnosis Discharge Diagnosis (1) Metabolic encephalopathy: Status: Acute Code(s): G93.41 - Metabolic encephalopathy Medications at Discharge Home Medications duloxetine 60 mg PO DAILY 11/07/13 lisinopril-hydrochlorothiazide 1 tab PO BID 11/07/13 cholecalciferol (vitamin D3) 4,000 tab PO DAILY 09/16/15 vitamin B complex 1 tab PO DAILY 08/13/19 coenzyme Q10 100 mg PO DAILY 02/10/20 colestipol 1 g PO BID 02/11/20 esomeprazole magnesium 40 mg PO .DAILY 04/15/20 gemfibrozil 600 mg PO BID 04/15/20 mometasone 1 spray NASAL QHS 04/15/20 megestrol 400 mg PO DAILY 30 Days #300 ml 06/10/20 prochlorperazine maleate 5 mg tablet 5 mg PO TID PRN #30 tab 09/03/20 acetaminophen [Tylenol] 650 mg PO Q6H PRN PRN #0 tab 10/14/20 menthol-zinc oxide [Calmoseptine] 1 applic TOPICAL BID #0 g 10/14/20 Hospital Course Operations None Procedures None Summary of Care Provided Minutes Spent on Discharge: 35 Hospital Course: 84-year-old presents with lethargy. Patient had a work-up that was premature unremarkable. No infectious etiology was identified. Patient had a head CT that was negative and an MRI of her brain back in September 22 for her cancer history that was negative for any metastatic disease. Patient has been intermittently confused but has remained stable during his hospitalization. Patient will be discharged to the transitional care unit in stable condition. 1. Metabolic encephalopathy again worse. May been due to dehydration as patient's kidney function was elevated when she initially presented. Head CT negative. UA negative on the Patient had an MRI of her brain back on September 22 that was negative for any metastatic disease and not necessary to recheck at this time 2. Lower extremity erythema Continues to improve Patient notes improvement off of being antibiotics I doubt the patient ever had lower extremity cellulitis of bilateral legs. Unclear etiology but patient does have some evidence of swelling. This could be venous stasis changes but has an odd appearance. Other possibilities could be erythema nodosum but unclear what would be the etiology of that. At this point time, we will just have observation to see how these progress or if worsens. 3. Metastatic ovarian cancer Complicates overall care and recovery Patient had CT imaging on 21 September that showed progressive liver metastasis and fluid surrounding the stomach. Last Ca1 25 was 992 on September 22. 4. CKD 3 a Monitor for now. No need for renal placement therapy. 5. Failure to thrive PT OT evaluate and treat plan for TCU Weight / BMI Weight Weight: 74.48 kg Body Mass Index (BMI) 31.0 ABG / Lab / Microbiology Data Result Diagrams: 10/12/20 06:30 10/12/20 06:30 Meaningful Use Info Meaningful Use Diagnoses (Choose all that apply): None applicable Discharge Plan Admission Admit Date/Time: 10/11/20 12:07 Primary Reason for Your Visit: confusion Attending Provider: Andrew Malagon Primary Care Provider: Britany Fleming Discharge Orders/Prescriptions Prescriptions: New acetaminophen [Tylenol] 325 mg Tablet 650 mg PO Q6H PRN PRN (Reason: Pain Score 1-10/Temp > 100.7 F) Qty: 0 RF: 0 menthol-zinc oxide [Calmoseptine] 0.44-20.6 % Ointment 1 applic topical BID Qty: 0 RF: 0 Continued prochlorperazine maleate [Compazine] 5 mg tablet 5 mg PO TID PRN (Reason: nausea and vomiting) Qty: 30 RF: 0 lisinopril-hydrochlorothiazide 1 TABLET tablet 1 tab PO BID RF: 0 duloxetine 60 MG capsule 60 mg PO DAILY RF: 0 cholecalciferol (vitamin D3) 1,000 UNIT tablet 4,000 tab PO DAILY RF: 0 megestrol 400 MG/10 ML suspension 400 mg PO DAILY 30 Days Qty: 300 RF: 3 vitamin B complex 1 EACH tablet 1 tab PO DAILY RF: 0 coenzyme Q10 100 MG capsule 100 mg PO DAILY RF: 0 colestipol 1 GM tablet 1 g PO BID RF: 0 gemfibrozil 600 MG tablet 600 mg PO BID RF: 0 mometasone 1 SPRAY spray,non-aerosol 1 spray NASAL QHS RF: 0 esomeprazole magnesium [address] for susp in packet 40 mg PO .DAILY RF: 0 Referrals / Follow Up: Jose David Sykes MD [NON-STAFF] - Within 1 Month Britany Fleming DO [Primary Care Provider] - Within 2 Weeks Disposition Disposition (needs filled in before D/C Order can be placed): Assisted Facility Charges/Coding Visit Charges OBSV E&M: 81574 Observation care discharge
--- NOTE | 2020-10-14 10:36 | CASEMGMT ---
Pt is approved for TCU, can go today. DEVON called step daughter Edyta to let her know. Edyta states that they are to be meeting w/hospice today, she thinks it's for both hospice and palliative care, at 11, wants to know if they will meet here or in TCU. SW called [facility] [place], confirmed the meeting with hospice/palliative but is for information only. They plan to meet pt here in 307. SW spoke w/RN, will keep pt here until hospice comes to see her. SW called Edyta back to let her know. D/C instructions faxed. Once COVID test comes back and pt coyne meeting w/hospice and palliative care pt will be able to go to TCU. PRIYA Fitch
--- NOTE | 2020-10-14 11:41 | PHA.DC.MR ---
Pharmacy Service has performed discharge medication reconciliation for this patient. The patient's discharge medication list was reviewed for discrepancies and discrepancies were resolved. Home Medications duloxetine 60 mg PO DAILY 11/07/13 lisinopril-hydrochlorothiazide 1 tab PO BID 11/07/13 cholecalciferol (vitamin D3) 4,000 tab PO DAILY 09/16/15 vitamin B complex 1 tab PO DAILY 08/13/19 coenzyme Q10 100 mg PO DAILY 02/10/20 colestipol 1 g PO BID 02/11/20 esomeprazole magnesium 40 mg PO .DAILY 04/15/20 gemfibrozil 600 mg PO BID 04/15/20 mometasone 1 spray NASAL QHS 04/15/20 megestrol 400 mg PO DAILY 30 Days #300 ml 06/10/20 prochlorperazine maleate 5 mg tablet 5 mg PO TID PRN #30 tab 09/03/20 acetaminophen [Tylenol] 650 mg PO Q6H PRN PRN #0 tab 10/14/20 menthol-zinc oxide [Calmoseptine] 1 applic TOPICAL BID #0 g 10/14/20
--- NOTE | 2020-10-14 14:13 | CASEMGMT ---
[facility] asked for clinical information on pt, however there is not a referral on file. SW left a message for SW in TCU to let her know that [facility] asking for clinical information though a referral should be in place prior to sending the information and will let [facility] know. SW called [facility] and spoke w/Rina, explained to her that once a referral is placed we can send information then. PRIYA Fitch
== END 2020-10-14 12:39 | disposition skilled nursing facility (03) ==
LOC: ED 09:47 → MS3 10-12 07:13
PROVIDERS: Admitting Provider Internal Medicine; Emergency Provider Emergency Medicine; PCP Family Medicine; Referring Provider Internal Medicine
DX: R62.7 Adult failure to thrive (principal); Z68.31 Body mass index [BMI] 31.0-31.9, adult; G93.41 Metabolic encephalopathy; C56.9 Malignant neoplasm of unspecified ovary; C78.7 Secondary malignant neoplasm of liver and intrahepatic bile duct; E78.5 Hyperlipidemia, unspecified; F32.9 Major depressive disorder, single episode, unspecified; I12.9 Hypertensive chronic kidney disease with stage 1 through stage 4 chronic kidney disease, or unspecified chronic kidney disease; N18.31 Chronic kidney disease, stage 3a; L53.9 Erythematous condition, unspecified; Z85.3 Personal history of malignant neoplasm of breast; Z79.51 Long term (current) use of inhaled steroids; Z79.899 Other long term (current) drug therapy; D63.8 Anemia in other chronic diseases classified elsewhere; C79.31 Secondary malignant neoplasm of brain; K21.9 Gastro-esophageal reflux disease without esophagitis; M79.89 Other specified soft tissue disorders; C79.89 Secondary malignant neoplasm of other specified sites; R53.83 Other fatigue; R13.12 Dysphagia, oropharyngeal phase
CPT/HCPCS: 36415; 70450; 71045; 80048; 80053; 81001; 82140; 83605; 83735; 83880; 84484; 85025; 87426; 92507; 92523; 92610; 93005; 96360; 96361; 96372; 97110; 97162; 97166; 97530; 97535; 99218; 99285; J7030; P9612; A4216; G0378

== ENCOUNTER 2020-10-14 12:45 | Inpatient (IN) | payer MEDICARE, SELFPAY ==
[2020-10-14 13:27] VITALS: BP 127/60; PULSE 82; RESP 18; TEMP 36.3; O2SAT 95; BMI 31.2
--- NOTE | 2020-10-14 18:37 | NURSING ---
PT CONTINUES TO GET UP OUT OF RECLINER. ASKED PT WHERE SHE WAS GOING PT STATED I WANT CUPS. THIS NURSE STATED TO PT I WOULD GET HER SOME CUPS IF SHE SAT DOWN. PT THEN TAKING BLANKET AND THROWING IT ACROSS ROOM. GOT PT TO SIT DOWN AND TOOK HER OUT TO NURSES STATION.
--- NOTE | 2020-10-14 18:43 | NURSING ---
ASKED PT TO TAKE HER PILLS,PT STATED NO!!
[2020-10-14] MEDS: Menthol/Lanolin/Calamine/Znox 113 GM Tube 1 APPLIC TOPICAL (20:34)
--- NOTE | 2020-10-14 20:35 | NURSING ---
Patient 1:1 with the Nurse. Patient in her recliner in position of comfort. Patient refusing 18:00 hr meds after several attempts.
--- NOTE | 2020-10-14 20:51 | PCM.HP.STD ---
HPI - General General Date of Admission: 10/14/20 HPI Narrative 10/11/2020 MARIA VICTORIA JENNINGS, is a 84 Female who presents to [facility] Emergency Department with confusion. 10/11/2020 EKG normal sinus rhythm, low voltage QRS, inferior infarct, age undetermined. Roommate noticed confusion. Patient has ovarian cancer with mets to liver. Previous confusion after chemotherapy, no recent chemotherapy. No cause of confusion found during ED evaluation. 10/11/2020 Admit to Hospital. Recent MRI brain negative for mets to the brain. Transfuse if hemoglobin less than 7. 10/12/2020 Erythema bilateral lower extremities improving. Confusion resolved. Dehydration improved with IV fluids. Venous stasis dermatitis causing erythema of legs. CA125 992, CT abdomen/pelvis shows worsening of liver mets, malignant ascites secondary to metastatic ovarian cancer. 10/13/2020 PT/OT for Assisted Facilit. 10/14/2020 Admit to TCU with debility, here for rehabilitation, strengthening, prior to disposition determination. On TCU, resident is dying, I discussed hospice with her, but she was too lethargic to understand, will try again later. [facility] Medical History Abnormal breast biopsy Breast cancer Cellulitis Cellulitis Cholecystectomy planned Depression Hip replacement planned Hyperlipidemia Hypertension Left wrist fracture Left wrist repair Liver metastases Osteopenia Ovarian cancer Port placement Right arm lymphectomy Synovial cyst Home Medications duloxetine 60 mg PO DAILY 11/07/13 [History Last Taken 05/20/14] lisinopril-hydrochlorothiazide 1 tab PO BID 11/07/13 [History Last Taken 05/21/14] cholecalciferol (vitamin D3) 4,000 tab PO DAILY 09/16/15 [History Last Taken Unknown] vitamin B complex 1 tab PO DAILY 08/13/19 [History Last Taken Unknown] coenzyme Q10 100 mg PO DAILY 02/10/20 [History Last Taken Unknown] colestipol 1 g PO BID 02/11/20 [History Last Taken Unknown] esomeprazole magnesium 40 mg PO .DAILY 04/15/20 [History Last Taken 04/16/20 06:20] gemfibrozil 600 mg PO BID 04/15/20 [History Last Taken Unknown] mometasone 1 spray NASAL QHS 04/15/20 [History Last Taken Unknown] prochlorperazine maleate 5 mg tablet 5 mg PO TID PRN #30 tab 09/03/20 [Rx Last Taken Unknown] acetaminophen [Tylenol] 650 mg PO Q6H PRN PRN #0 tab 10/14/20 [Rx Last Taken Unknown] megestrol 400 mg PO DAILY 10/14/20 [History Last Taken Unknown] menthol-zinc oxide [Calmoseptine] 1 applic TOPICAL BID 10/14/20 [History Last Taken Unknown] Allergy/AdvReac Type Severity Reaction Status Date / Time hydrocodone bitartrate AdvReac Severe Other Verified 10/11/20 09:07 [From Vicodin] Sulfa (Sulfonamide AdvReac Severe Upset Verified 10/11/20 09:07 Antibiotics) Stomach Family History Mother CVA (cerebral vascular accident) Hypertension Father Hypertension Other Heart disease Surgical History History of cataract extraction History of hip replacement History of hysterectomy for malignancy History of knee replacement History of right breast biopsy S/P foot surgery, left S/P laminectomy with spinal fusion Social History (Updated 10/14/20 @ 20:[address] Paramjit Torres MD) household members: other details: roommate. Smoking Status: Never smoker ROS Constitutional Constitutional: Denies chills, fever(s) or weight gain ENT HEENT: Denies headache(s), nasal congestion or nasal discharge Cardiovascular Cardiovascular: Denies chest pain or palpitations Respiratory/Chest Respiratory/Chest: Denies cough, excessive phlegm production or shortness of breath with exertion Gastrointestinal Gastrointestinal: Denies abdominal pain, nausea or vomiting Genitourinary Genitourinary: Denies dysuria Musculoskeletal Musculoskeletal: Denies joint pain or joint swelling Integumentary Integumentary: Denies rash or wounds Neurologic Neurologic: Denies focal weakness, numbness or tingling Psychiatric Psychiatric: Reports auditory hallucinations; Denies anxiety, depression, homicidal ideation or suicidal ideation Vital Signs Vital Signs Vital Signs: 10/14/20 13:27 Temperature 97.4 F L Temperature Source Temporal Pulse Rate 82 Pulse Rhythm Regular Pulse Strength Normal (2+) Respiratory Rate 18 Respiratory Effort Normal Respiratory Depth Normal Respiratory Pattern Normal Blood Pressure 127/60 H Blood Pressure Mean 82 Blood Pressure Source Monitor Blood Pressure Position Sitting Blood Pressure Location Left Arm Pulse Ox 95 Oxygen Delivery Method Room Air Weight Weight: 72.575 kg Body Mass Index (BMI) 31.2 Physical Exam Const alert and oriented x3 General Appearance: cooperative HEENT normocephalic Eyes PERRL and EOMs intact bilaterally Neck supple, no JVD and no carotid bruits Resp normal respiratory effort, normal air movement and clear to auscultation bilaterally Cardio regular rate and regular rhythm GI normal to inspection, nondistended, normoactive bowel sounds, non-tender and non-distended Extremity normal capillary refill General Extremity: Negative for edema Skin no rashes or lesions noted General Skin Exam: no breakdown Psych affect normal Appearance: appropriate Assessment & Plan Assessment/Plan (1) Debility: (2) Acute encephalopathy: (3) Dehydration: (4) Ovarian cancer: QUALIFIERS: Laterality: right Qualified Code(s): C56.1 - Malignant neoplasm of right ovary (5) History of ovarian cancer: (6) Breast cancer: (7) Depression: (8) Hypertension: (9) Hyperlipidemia: (10) Liver metastases: (11) Vitamin D deficiency: (12) Allergic rhinitis: (13) Appetite loss: PLAN: 84 year old female with past medical history significant for ovarian cancer with liver metastasis, hospitalized for encephalopathy, admitted to TCU with debility, here for rehabilitation, strengthening, prior to disposition determination. Debility - PT/OT. Cognition - ST. Pain - Tylenol 1000MG Q6H PRN pain (1-10). Bowel - Senna/colace 1 tablet twice daily, Dulcolax 10mg daily PRN. Adult immunization - Administer prevnar 13, pneumovax 23, fluzone, covid19 vaccine as appropriate. DVT prophylaxis - Hold, anemia. Asthma - Budesonide 0.5MG Q12H. Vitamin D deficiency - D3 25mcg daily. Hyperlipidemia - Colestid 1gm twice daily, Lopid 600mg twice daily. 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 Hypertension - Lisinopril 20mg daily, HCTZ 12.5MG daily. Appetite loss - Megace 400MG daily. Skin irritation - Calmoseptine topical twice daily. GERD - Pantoprazole 40mg daily. Nausea - compazine 5MG tid PRN. Vitamin B deficiency - Vitamin B complex daily. End of life - resident dying, will discuss with resident discharge with hospice, possibly home/[facility]/inpatient hospice.
--- NOTE | 2020-10-14 21:17 | NURSING ---
Addendum entered by Lyubov Landaverde 10/14/20 23:56: Patient in recliner at Nurses station. Resting with eyes closed at this time. Original Note: Patient attempting to get out of recliner several times now. Took patient to room and patient refused to go into bed. Became angry. Assisted patient back to recliner and is with this Nurse in hallway at this time.
--- NOTE | 2020-10-14 21:43 | NURSING ---
contacted via phone related to refusal of medications and periods of restlessness and agitation despite staff 1:1. New order received for Ativan 0.5mg tablet oral [id number] PRN restlessness. states if patient experiences further decline no STAPLER MACHINE to be called due to current health status. Dr. Torres to be contacted with decline instead of rapid response team.
[2020-10-15 04:05] VITALS: PULSE 81; RESP 16; O2SAT 94
[2020-10-15 05:58] LABS: Absolute Lymphocyte Count 0.32 X10^3/uL (0.83-4.51); Absolute Neutrophil Count 7.1 X10^3/uL (2.0-7.7); Basophil# 0.08 X10^3/uL; Basophil% 0.9 % (0-1); Eosinophil# 0.07 X10^3/uL; Eosinophils% 0.8 % (0-5); Hematocrit 33.2 % (37-47); Hemoglobin 9.6 g/dL (12.0-15.0); Lymphocyte # 0.32 X10^3/ul (0.83-4.51); Lymphocyte % 3.6 % (19-41); Mean Corp Hgb Conc 28.9 g/dL (32-36); Mean Corpuscular Hgb 23.8 pg (27.0-32.0); Mean Corpuscular Volume 82.2 fL (81-99); Mean Platelet Vol. 10.8 fl (6.2-12.0); Monocyte% 13.5 % (0-10); NRBC Flagged by Analyzer 0.2 % (0-5); Neutrophil # 7.11 X10^3/uL (2.7-7.7); Neutrophil % 79.9 % (47-70); POSITIVE COUNT YES; POSITIVE DIFFERENTIAL YES; POSITIVE MORPHOLOGY YES; Platelet Count 138 K/mm3 (150-450); RBC Distribution Width CV 20.1 % (11.6-14.6); RBC Distribution Width SD 59.3 fl (35.1-43.9); Red Blood Count 4.04 M/mm3 (4.2-5.4); White Blood Count 8.9 K/mm3 (4.4-11.0)
[2020-10-15 06:03] LABS: Differential Indicated SCAN CRITERIA MET
--- NOTE | 2020-10-15 06:15 | NURSING ---
Patient refusing AM medications at this time.
[2020-10-15 06:29] LABS: Anion Gap 8 (5-15); BUN 39 mg/dL (7-18); Calcium,Total 9.9 mg/dL (8.5-10.1); Chloride 114 mmol/L (98-107); Creatinine, Serum 1.22 mg/dL (0.55-1.02); EST Glomerular Filtration Rate 45 mL/min (>60); Est Glom Filt Rate - Afr Amer 54 mL/min (>60); Estimated Creatinine Clearance 25.54 ml/min; Glucose 92 mg/dL (74-106); Potassium 4.4 mmol/L (3.5-5.1); Sodium Level 142 mmol/L (136-145)
[2020-10-15 06:31] LABS: Anisocytosis RARE; Differential Comment SCANNED; Microcytosis RARE
[2020-10-15 06:45] VITALS: PULSE 76; RESP 14; O2SAT 94
[2020-10-15] MEDS: Budesonide Respules 0.5 MG/2 ML AMPUL.NEB. INHALATION (06:45)
--- NOTE | 2020-10-15 06:45 | CPS ---
Pt was uncooperative with her aerosol. R.T. had already explained what she was here to do, Pt batted away the aerosol and tried to strike this R.T. so R.T. stopped the aerosol and left patient's room.
--- NOTE | 2020-10-15 09:14 | NURSING ---
pt refused am meds, charge nurse aware.
--- NOTE | 2020-10-15 10:47 | CASEMGMT ---
Social Work DEVON spoke with Dr. Torres who states pt is dying and hospice level of care would be more appropriate than TCU. Pt sleeping soundly and nursing stating pt is confused, SW did not attempt to awake. SW placed call to pt HCPOA Edyta Stinson Donis and discussed physicians recommendations. Edyta states that she is not surprised as pt has not ate for three days and appears to Edyta that she has given up. Edyta did meet with hospice yesterday for an informational meeting. SW discussed options of home with hospice, long term with hospice or [facility] (DEVON explained that Dr. Torres did not think pt would qualify for this level of care). Edyta states that if pt has 1-2 weeks to live, she would like to take her home and Edyta would stay with her until she passed. If pt prognosis is longer than that then SNF may be the better option. Edyta is agreeable to Hospice consult and meet with hospice again today to make discharge plans. Referral made to Rina at [facility] and clinicals faxed. Rina will reach out to Edyta and set a time to meet and discuss hospice options and discharge plan. Nursing updated. SW to follow. LAURIE Mcconnell
--- NOTE | 2020-10-15 11:46 | NURSING ---
Update called to JOHN and step daughter, Edyta. Resident sleeping. Refusing lunch at this time.
--- NOTE | 2020-10-15 12:23 | CASEMGMT ---
Social Work SW received call from Rina at [facility]. Hospice with meet with pt [facility]CP[facility] later today to sign papers for hospice services. [facility] does plan to take pt home and will move in with her to be her caregiver. [facility] needs time to move furniture out of house to make room for needed DME. DME to be delived by hospice tomorrow morning and pt to return home tomorrow afternoon. Team updated. SW to follow. LAURIE Mcconnell
[2020-10-15 12:55] VITALS: BP 121/51; PULSE 80; RESP 14; TEMP 36.3; O2SAT 96
--- NOTE | 2020-10-15 14:34 | PT ---
PT/OT Eval not completed this date due to physician stating pt is appropriate for Hospice. Pt will be discharging from this facility tomorrow home with hospice.
--- NOTE | 2020-10-15 15:42 | NURSING ---
Awake and in chair. Eyes open and does answer this nurse but does not seem to understand all questions asked of her.
[2020-10-15] MEDS: Gemfibrozil 600 MG Tablet PO (17:36)
[2020-10-15] MEDS: Senna/Docusate Sodium 1 Tablet PO (17:36)
[2020-10-15] MEDS: Tuberculin,Purif.prot.deriv. 50 TU/ML Vial 0.1 ML ID (18:06)
--- NOTE | 2020-10-15 19:36 | PCM.DC.SUM ---
Providers Date of Admission: 10/14/20 Primary Care Physician: Dr. Britany Fleming DO Reason For Visit: FAILURE TO THRIVE Diagnosis Discharge Diagnosis (1) Debility: Status: Acute Code(s): R53.81 - Other malaise (2) Acute encephalopathy: Status: Acute Code(s): G93.40 - Encephalopathy, unspecified (3) Dehydration: Status: Acute Code(s): E86.0 - Dehydration (4) Ovarian cancer: Status: Chronic Code(s): C56.9 - Malignant neoplasm of unspecified ovary Qualifiers: Laterality: right Qualified Code(s): C56.1 - Malignant neoplasm of right ovary (5) History of ovarian cancer: Status: Resolved (6) Breast cancer: Status: Acute Code(s): C50.919 - Malignant neoplasm of unspecified site of unspecified female breast (7) Depression: Status: Acute Code(s): F32.9 - Major depressive disorder, single episode, unspecified (8) Hypertension: Status: Chronic Code(s): I10 - Essential (primary) hypertension (9) Hyperlipidemia: Status: Acute Code(s): E78.5 - Hyperlipidemia, unspecified (10) Liver metastases: Status: Acute Code(s): C78.7 - Secondary malignant neoplasm of liver and intrahepatic bile duct (11) Vitamin D deficiency: Status: Acute Code(s): E55.9 - Vitamin D deficiency, unspecified (12) Allergic rhinitis: Status: Acute Code(s): J30.9 - Allergic rhinitis, unspecified (13) Appetite loss: Status: Acute Code(s): R63.0 - Anorexia Medications at Discharge Home Medications acetaminophen 1,000 mg PO Q6H PRN PRN #0 tab 10/15/20 Hospital Course Operations None Procedures None Summary of Care Provided Minutes Spent on Discharge: 35 Hospital Course: 84 year old female with past medical history significant for ovarian cancer with liver metastasis, hospitalized for encephalopathy, admitted to TCU with debility, here for rehabilitation, strengthening, prior to disposition determination. Resident actively dying. Discharge home with daughter support 10/16/2020, [facility]. Physical Exam Const alert and oriented x3 General Appearance: cooperative HEENT normocephalic Eyes PERRL and EOMs intact bilaterally Neck supple, no JVD and no carotid bruits Resp normal respiratory effort, normal air movement and clear to auscultation bilaterally Cardio regular rate and regular rhythm GI normal to inspection, nondistended, normoactive bowel sounds, non-tender and non-distended Extremity normal capillary refill General Extremity: Negative for edema Skin no rashes or lesions noted General Skin Exam: no breakdown Psych affect normal Appearance: appropriate Weight / BMI Weight Weight: 72.575 kg Body Mass Index (BMI) 31.2 ABG / Lab / Microbiology Data Result Diagrams: 10/15/20 05:10 10/15/20 05:10 Laboratory: Laboratory Results - last 24 hr 10/15/20 05:10: WBC 8.9, RBC 4.04 L, Hgb 9.6 L, Hct 33.2 L, MCV 82.2, MCH 23.8 L, MCHC 28.9 L, RDW Std Deviation 59.3 H, RDW Coeff of Mark 20.1 H, Plt Count 138 L, MPV 10.8, Immature Gran % (Auto) 1.300 H, Neut % (Auto) 79.9 H, Lymph % (Auto) 3.6 L, [place] % (Auto) 13.5 H, Eos % (Auto) 0.8, Baso % (Auto) 0.9, Absolute Neuts (auto) 7.1, Absolute Lymphs (auto) 0.32 L, Nucleated RBC % 0.2, Differential Comment SCANNED, Anisocytosis RARE, Microcytosis RARE 10/15/20 05:10: Sodium 142, Potassium 4.4, Chloride 114 H, Carbon Dioxide 20.0 L, Anion Gap 8, BUN 39 H, Creatinine 1.22 H, Estim Creat Clear Calc 25.54, Est GFR (MDRD) Af Amer 54 L, Est GFR (MDRD) Non-Af 45 L, BUN/Creatinine Ratio 32.0 H, Glucose 92, Calcium 9.9 D/C Instructions Discharge Diet: No restrictions Discharge Activity: Return to Normal Activity and Use Walker Weight Bearing Status: Weight bearing as tolerated Additional Instructions: Discharge home with daughter support 10/16/2020, [facility]. Meaningful Use Info Meaningful Use Diagnoses (Choose all that apply): None applicable Discharge Plan Admission Admit Date/Time: 10/14/20 12:45 Primary Reason for Your Visit: Debility. Attending Provider: Paramjit Torres Chi Primary Care Provider: Britany Fleming Instructions Additional Instructions / Restrictions: [facility] Discharge Orders/Prescriptions Prescriptions: New acetaminophen 500 mg Tablet 1,000 mg PO Q6H PRN PRN (Reason: Pain Score 1-10) Qty: 0 RF: 0 Discontinued prochlorperazine maleate [Compazine] 5 mg tablet 5 mg PO TID PRN (Reason: nausea and vomiting) Qty: 30 RF: 0 lisinopril-hydrochlorothiazide 1 TABLET tablet 1 tab PO BID RF: 0 duloxetine 60 MG capsule 60 mg PO DAILY RF: 0 cholecalciferol (vitamin D3) 1,000 UNIT tablet 4,000 tab PO DAILY RF: 0 vitamin B complex 1 EACH tablet 1 tab PO DAILY RF: 0 coenzyme Q10 100 MG capsule 100 mg PO DAILY RF: 0 colestipol 1 GM tablet 1 g PO BID RF: 0 gemfibrozil 600 MG tablet 600 mg PO BID RF: 0 mometasone 1 SPRAY spray,non-aerosol 1 spray NASAL QHS RF: 0 esomeprazole magnesium [address] for susp in packet 40 mg PO .DAILY RF: 0 acetaminophen [Tylenol] 325 mg Tablet 650 mg PO Q6H PRN PRN (Reason: Pain Score 1-10/Temp > 100.7 F) Qty: 0 RF: 0 menthol-zinc oxide [Calmoseptine] 0.44-20.6 % ointment 1 applic topical BID RF: 0 megestrol 400 MG/10 ML suspension 400 mg PO DAILY RF: 0 Referrals / Follow Up: Britany Fleming DO [Primary Care Provider] - Disposition Disposition (needs filled in before D/C Order can be placed): Hospice in Home
[2020-10-15] MEDS: Menthol/Lanolin/Calamine/Znox 113 GM Tube 1 APPLIC TOPICAL (20:25)
--- NOTE | 2020-10-16 06:49 | NURSING ---
Pt got up out of bed unassisted, sat naked in bed. Fought with nurse and [employer], starting to swing and pinch. Pt refused meds. Returned later to retry but still refused.
--- NOTE | 2020-10-16 09:30 | CASEMGMT ---
Social Work SW spoke with [facility] and pt HCPOA Edyta. DME is to be delivered to pt home today at 10am. [facility]yta would like pt to return home at 1:00. Transportation arranged for 1:00 pickle solution maker by [facility]. Nursing, Hospice and [facility] made aware. D/C orders faxed to Hospice. LAURIE Mcconnell
--- NOTE | 2020-10-16 11:40 | CASEMGMT ---
Social Work SW met with pt to complete BIMS and PHQ9 interviews for MDS. Pt not able to answer any questions on BIMS. PHQ9 not attempted. LAURIE Mcconnell
[2020-10-16 12:44] VITALS: BP 116/71; PULSE 86; RESP 18; TEMP 36.4; O2SAT 95
--- NOTE | 2020-10-16 15:35 | PCM.PN.RX ---
Progress Note - Pharmacy Subjective: TCU ADMISSION Objective: Allergies hydrocodone bitartrate [From Vicodin] Adverse Reaction (Severe, Verified 10/11/20 09:07) Other MAKES ME LOOPY Sulfa (Sulfonamide Antibiotics) Adverse Reaction (Severe, Verified 10/11/20 09:07) Upset Stomach Current Medications Generic Name Dose Route Start Last Admin Trade Name Freq PRN Reason Stop Dose Admin Acetaminophen 1,000 mg 10/14/20 21:09 Acetaminophen 500 Mg Tablet PO Q6H PRN PRN Pain Score 1-10 Bisacodyl 10 mg 10/14/20 21:08 Bisacodyl 5 Mg Tablet PO DAILY PRN Constipation Budesonide 0.5 mg 10/14/20 14:30 10/15/20 06:45 Budesonide Respules 0.5 Mg/2 Ml Ampul.Neb. INHALATION 0.5 mg Q12H.RT DAKOTAH Administration Calamine/Phenol 1 applic 10/14/20 22:00 10/16/20 06:31 Menthol/Lanolin/Calamine/Znox 113 Gm Tube TOPICAL Not Given 0600,2200 [facility] Protocol Cholecalciferol 25 mcg 10/15/20 06:00 10/16/20 06:33 Cholecalciferol (Vit D3) 25 Mcg Tablet (1,000 Units) PO Not Given DAILY [facility] Colestipol HCl 1 gm 10/15/20 18:00 10/16/20 06:32 Colestipol Hcl 1 Gm Tablet PO Not Given BID [facility] Duloxetine HCl 60 mg 10/15/20 06:00 10/16/20 06:32 Duloxetine Hcl 60 Mg Capsule PO Not Given DAILY [facility] Gemfibrozil 600 mg 10/14/20 18:00 10/16/20 06:32 Gemfibrozil 600 Mg Tablet PO Not Given BID [facility] Hydrochlorothiazide 12.5 mg 10/15/20 06:00 10/16/20 06:32 Hydrochlorothiazide 12.5mg PO Not Given DAILY [facility] Lisinopril 20 mg 10/15/20 06:00 10/16/20 06:33 Lisinopril 20 Mg Tablet PO Not Given DAILY [facility] Lorazepam 0.5 mg 10/14/20 21:38 Lorazepam 0.5 Mg Tablet PO Q6H PRN PRN RESTLESSNESS Megestrol Acetate 400 mg 10/15/20 06:00 10/16/20 06:32 Megestrol Acetate 400 Mg/10 Ml Udc PO Not Given DAILY [facility] Multivitamins 1 capsule 10/15/20 06:00 10/16/20 06:31 Vitamin B Comp W-C Capsule PO Not Given DAILY [facility] Pantoprazole Sodium 40 mg 10/15/20 06:00 10/16/20 06:33 Pantoprazole Sodium 40 Mg Tablet PO Not Given DAILY [facility] Prochlorperazine Maleate 5 mg 10/14/20 14:14 Prochlorperazine 5 Mg Tablet PO TID PRN nausea and vomiting Senna/Docusate Sodium 1 tablet 10/15/20 06:00 10/16/20 06:33 Senna/Docusate Sodium 1 Tablet PO Not Given BID DKAOTAH Tuberculin PPD 0.1 ml 10/22/20 10:00 Tuberculin,Purif.Prot.Deriv. 50 Tu/Ml Vial ID 10/22/20 10:01 X1 ONE Problem List (Last Reviewed 10/14/20 @ 20:[address] Paramjit Torres MD) Appetite loss (Acute) Allergic rhinitis (Acute) Vitamin D deficiency (Acute) Liver metastases (Acute) Hyperlipidemia (Acute) Hypertension (Chronic) Depression (Acute) Breast cancer (Acute) Dehydration (Acute) Debility (Acute) Acute encephalopathy (Acute) Ovarian cancer (Chronic) Vital Signs Temp Pulse Resp BP Pulse Ox 97.5 F L 86 18 116/71 95 10/16/20 12:44 10/16/20 12:44 10/16/20 12:44 10/16/20 12:44 10/16/20 12:44 Oxygen Delivery Method Room Air Weight: 72.575 kg Body Mass Index (BMI) 31.2 Sodium 142 mmol/L (136-145) 10/15/20 05:10 Potassium 4.4 mmol/L (3.5-5.1) 10/15/20 05:10 Chloride 114 mmol/L (98-107) H 10/15/20 05:10 Carbon Dioxide 20.0 mmol/L (21.0-32.0) L 10/15/20 05:10 Anion Gap 8 (5-15) 10/15/20 05:10 BUN 39 mg/dL (7-18) H 10/15/20 05:10 Creatinine 1.22 mg/dL (0.55-1.02) H 10/15/20 05:10 Est GFR (MDRD) Af Amer 54 mL/min (>60) L 10/15/20 05:10 Est GFR (MDRD) Non-Af 45 mL/min (>60) L 10/15/20 05:10 BUN/Creatinine Ratio 32.0 RATIO (10-20) H 10/15/20 05:10 Glucose 92 mg/dL (74-106) 10/15/20 05:10 Assessment/Plan: 1. Pain - Tylenol 1000MG PO Q6H PRN pain (1-10). Please continue to monitor for increased/decreased S/S pain, PRN medication usage. 2. Asthma - Budesonide 0.5MG PO Q12H. Please continue to monitor respiratory status. 3. Hyperlipidemia - Colestid 1gm PO twice daily, Lopid 600mg PO twice daily. Please continue to monitor lipid panel annually or sooner if clinically indicated. 4. Hypertension - Lisinopril 20mg PO daily, HCTZ 12.5MG PO daily. Please continue to monitor BP, pulse, electrolytes, renal function. 5. Appetite loss - Megace 400MG PO daily. Please continue to monitor for medication effectiveness. 6. GERD - Pantoprazole 40mg PO daily. Please continue to monitor for GERD flare-ups, consider nonpharmacologic treatments. 7. Nausea - Compazine 5MG PO tid PRN. Please continue to monitor medication effectiveness, PRN medication usage. 8. General Wellness: Vitamin D3 25mcg daily, Vitamin B complex PO daily. Please continue to monitor. Psychotropic Medications: 9. Depression - Duloxetine 60MG daily. See H/P regarding GDR recommendation. Unnecessary Medications: None Bowel Regimen: Senna/colace 1 tablet twice daily, Dulcolax 10mg daily PRN. Please continue to monitor for increased/decreased constipation and/or diarrhea Date of Note:: 10/16/20
--- NOTE | 2020-10-26 13:10 | MDS.RN ---
Information for the mds was obtained from review of the clinical record, interview of resident, staff, and direct observation of resident's care.
== END 2020-10-16 13:00 | disposition hospice, home (50) | DRG 755 ==
PROVIDERS: Admitting Provider Family Medicine Geriatric Medicine; PCP Family Medicine; Visit Provider Family Medicine Geriatric Medicine
DX: C56.1 Malignant neoplasm of right ovary (principal); C78.7 Secondary malignant neoplasm of liver and intrahepatic bile duct; G93.40 Encephalopathy, unspecified; R18.0 Malignant ascites; E55.9 Vitamin D deficiency, unspecified; J45.909 Unspecified asthma, uncomplicated; E78.5 Hyperlipidemia, unspecified; F32.9 Major depressive disorder, single episode, unspecified; I10 Essential (primary) hypertension; K21.9 Gastro-esophageal reflux disease without esophagitis; Z79.899 Other long term (current) drug therapy
CPT/HCPCS: 36415; 80048; 85025; 94640